=== PATIENT | male | born 1950 | race Hispanic/Latino ===

== ENCOUNTER 2020-01-27 15:08 | Inpatient (IN) | payer OTHER, MEDICARE ==
[~2020-01-27] VITALS: Ht 177.8 cm; Wt 115.2 kg
--- OUTSIDE RECORDS SUMMARY | 2020-01-27 15:11 | XMS REPORT | Summary of Care ---
Author Author [facility] Outpatient Imaging - [facility] Organization [facility] Outpatient Imaging - [facility] Address Unknown Phone Unavailable Encounter HQ Patir_jacki(FIN) [id number] Date(s): 04/24/17 - 04/24/17 [facility] Outpatient Imaging - [address], [address] [place] [address] [phone] Discharge Disposition: Home or Self Care Attending Physician: Leah Henderson MD Vital Signs No data available for this section Problem List No data available for this section Allergies, Adverse Reactions, Alerts No data available for this section Medications No data available for this section Results No data available for this section Immunizations No data available for this section Procedures No data available for this section Social History No data available for this section Assessment and Plan No data available for this section
--- OUTSIDE RECORDS SUMMARY | 2020-01-27 15:11 | XMS REPORT | Summary of Care ---
Author Author [facility] Organization [facility] Address Unknown Phone Unavailable Encounter GIOVANNI Caceres(RAINA) [id number] Date(s): 05/04/17 - 05/04/17 [facility] [address], [address] [place] [address]- Discharge Disposition: Home or Self Care Attending Physician: Vivian Joseph MD Referring Physician: Vivian Joseph MD Vital Signs Most recent to 1 oldest [Reference Range]: Height 177.8 cm (05/04/17 12:23 PM) Temperature Oral 97.0 DegF [96.4-99.1 DegF] (05/04/17 12:23 PM) Blood Pressure 146/71 mmHg [90-140/60-90 mmHg] *HI* (05/04/17 12:23 PM) Respiratory Rate 17 BRMIN [14-20 BRMIN] (05/04/17 12:23 PM) Peripheral Pulse 46 bpm Rate [60-100 bpm] *LOW* (05/04/17 12:23 PM) Weight 100.455 kg (05/04/17 12:23 PM) Body Mass Index 31.78 m2 (05/04/17 12:23 PM) Problem List No data available for this section Allergies, Adverse Reactions, Alerts Substance Reaction Severity Status NKDA Active Medications diltiazem 300 mg/24 hours oral capsule, extended release 300 mg = 1 cap, PO, Daily, # 30 cap, 0 Refill(s) Start Date: 05/04/17 Status: Ordered tamsulosin 0.4 mg oral capsule 0.4 mg = 1 cap, PO, Daily, # 30 cap, 0 Refill(s) Start Date: 05/04/17 Status: Ordered valsartan 320 mg oral tablet 320 mg = 1 tab, PO, Daily, # 30 tab, 0 Refill(s) Start Date: 05/04/17 Status: Ordered Vitamin B12 500 mcg oral tablet 500 microgram = 1 tab, PO, Daily, # 30 tab, 0 Refill(s) Start Date: 05/04/17 Status: Ordered Results No data available for this section Immunizations Given and Recorded Vaccine Date Status Refusal Reason influenza virus vaccine, live, trivalent 06/18/16 Recorded pneumococcal 23-valent vaccine 06/18/16 Recorde d Procedures No data available for this section Social History Social History Type Response Smoking Status Former smoker; Type: Cigare ttes; Started at age: 19.0; Stopped at age: 30; Exposure to Tobacco Smoke None; Cigaret te Smoking Last 365 Days No; Reg Smoking Cessation Counseling No Assessment and Plan No data available for this section
--- OUTSIDE RECORDS SUMMARY | 2020-01-27 15:11 | XMS REPORT | Clinical Summary ---
Author Author [facility] Organization [facility] Address Unknown Phone Unavailable Care Team Providers Care Log Tumbler Name Role Phone Asked, No Pcp PCP Unavailable Allergies Not on File Medications Not on file Active Problems Not on file Encounters Care Team Description Date Type Specialty Brenda Arcos MD Routine medical exam (Primary Dx) 04/16/2019 [facility] after 01/26/2019 Immunizations Name Administration Dates Next Due FLUCELVAX QUAD PF 06/28/2018 Social History Date Tobacco Use Types Packs/Day Years Used Never Assessed Sex Assigned at Date Recorded Not on file Industry Job Start Date Occupation Not on file Not on file Not on file Travel End Travel History Travel Start No recent travel history available. Last Filed Vital Signs Not on file Plan of Treatment Health Maintenance Due Date Last Done Comments COLONOSCOPY SCREENING 1999 SHINGLES VACCINES (#1) 1999 65+ PNEUMOCOCCAL VACCINE 2014 (1 of 2 - PCV13) INFLUENZA VACCINE 04/18/2020 06/28/2018 Procedures Comments Procedure Name Priority Date/Time Associated Diag nosis WELLNESS EVENT QFT Routine 04/16/2019 Routine med ical exam 12:59 PM CDT after 01/26/2019 Results * Wellness event QFT (04/16/2019 12:59 PM CDT) Quantiferon TB Negative Negative [facility] gold plus Comment: Interpretive Data: Quantiferon TB Gold Plus Interferon gamma release is measured for specimens from each of the four collection tubes. A qualitative result (Negative, Positive, or Indeterminate) is based on interpretation of the four values, NIL, MITOGEN minus NIL (MITOGEN-NIL), TB1 minus NIL (TB1-NIL), and TB2 minus NIL (TB2-NIL). The NIL value represents nonspecific reactivity produced by the patient specimen. The MITOGEN-NIL value serves as the positive control for the patient specimen, demonstrating successful lymphocyte activity. The TB1-NIL tube specifically detects CD4+ lymphocyte reactivity, specifically stimulated by the TB1 antigens. The TB2-NIL tube detects both CD4+ and CD8+ lymphocyte reactivity, stimulated by TB2 antigens. An overall Negative result does not completely rule out TB infection. A false-positive result in the absence of other clinical evidence of TB infection is not uncommon. Refer to: Updated Guidelines for Using Interferon Gamma Release Assays to Detect Mycobacterium tuberculosis Infection --- [place], 2010 (http://www.cdc.gov/mmwr/previ ew/mmwrhtml/ee1474a2.htm), for more information concerning test performance in low-prevalence populations and use in occupational screening. Quantiferon 0.04 0.00 - 0.34 IU/mL HM [facility] plus TB1 minus NIL Quantiferon 0.05 0.00 - 0.34 IU/mL [facility] plus TB2 minus NIL Quantiferon 8.05 IU/mL [facility] mitogen minus NIL Quantiferon NIL 0.09 IU/mL [facility] B Comment: Performed by [facility], [address] [place] [id number] [email or web address], Joe Deras MD - Lab. Director Specimen Serum Performing Organization Address City/State/[facility] Ph one Number [facility] [address] [place] [address] [facility] [address] [place] [address] after 01/26/2019 Insurance Type Payer Benefit Subscriber ID Effective Phone Address Plan / Dates Group O CIGNA CIGNA OPEN xxxxxxxxxxx 2016-P ACCESS/NET resent WORK
--- OUTSIDE RECORDS SUMMARY | 2020-01-27 15:11 | XMS REPORT | Summary of Care ---
Author Author [facility] Outpatient Imaging - [facility] Organization [facility] Outpatient Imaging - [facility] Address Unknown Phone Unavailable Encounter HQ Morris(FIN) [id number] Date(s): 07/04/19 - 07/04/19 [facility] Outpatient Imaging [address], [address] [place], [place] [address] [phone] Discharge Disposition: Home or Self Care Attending Physician: Ochoa Rubio DO Referring Physician: Ochoa Rubio DO Vital Signs No data available for this section Problem List No data available for this section Allergies, Adverse Reactions, Alerts No Known Medication Allergies Medications No data available for this section Results No data available for this section Immunizations Given and Recorded Vaccine Date Status Refusal Reason pneumococcal 23-valent vaccine 06/18/16 Recorde d influenza virus vaccine, live, trivalent 06/18/16 Recorded Procedures No data available for this section Social History Social History Type Response Smoking Status Former smoker; Type: Cigare ttes; Exposure to Tobacco Smoke None; Cigarette Smoking Last 365 Days No; Reg Smoking C essation Counseling No; Started at age: 19.0; Stopped at age: 30; entered on: 05/04/17 Assessment and Plan No data available for this section
--- OUTSIDE RECORDS SUMMARY | 2020-01-27 15:11 | XMS REPORT ---
Author Author [facility] Organization Unknown Address Unknown Phone Care Team Providers Care Refrigeration Repair Supervisor Name Role Phone Marquita De La O PP Reason for Referral No Reason for Referral was given. History of Present Illness No HPI available. Problems * Normal Routine History And Physical Adult (V70.0); (Active) Medication * Diovan 160 MG Oral Tablet (Active) * Tamsulosin HCl 0.4 MG Oral Capsule (Active) * Diltiazem HCl ER Beads 360 MG Oral Capsule Extended Release 24 Hour (Active) * Cyanocobalamin SOLN (Active) * Vitamin B-12 1000 MCG Oral Tablet (Active) Allergies and Adverse Reactions * No Known Drug Allergies (Active) Past Medical History * History of Hypertension (401.9); (Resolved) * History of Fatigue (780.79); (Resolved) * History of Sleep Apnea (780.57); (Resolved) * History of Difficulty Breathing (Dyspnea) (786.09); (Resolved) * History of Benign Prostatic Hypertrophy (600.00); (Resolved) Immunization * Tdap Family History * Maternal history of Diabetes Mellitus (V18.0); (Active) * Maternal history of Hypertension (V17.49); (Active) Social History * Marital History - Currently (Active) * Never A Smoker (Active) * Never Drank Alcohol (Active) * Never Used Drugs (Active) Advance Directives * No Advance Directives available. Encounters * AUDIT 06/14/2013 * ECL, Provider: ANASTASIYA COLLAZO, Status: Wilmer, Time: 9:45 AM 06/17/2013
--- OUTSIDE RECORDS SUMMARY | 2020-01-27 15:11 | XMS REPORT | Continuity of Care Document ---
Author Author [facility] Organization [facility] Address Unknown Phone Unavailable Care Team Providers Care Double Backer Name Role Phone [facility] Information Stream Unavailable Un available Problems Problem Status Onset Date Classification Date Reported Comments Source Abnormal radiologic findings on diagnost ic imaging of unspecified kidney 01/02/2018 05/03/2018 [facility] PULMONARY ARTERY ABNORMALITY A ctive 04/26/2017 [facility] M25.522 - PAIN IN LEFT ELBOW A ctive 03/16/2016 [facility] Medications Medication Details Route Status Patient Instructions Ordering Provider Order Date Source tamsulosin 0.4 mg oral capsule 0.4 mg = 1 cap, PO, Daily, # 30 cap, 0 Refill(s) Active 05/04/2017 [facility] nter valsartan 320 mg oral tablet 3 20 mg = 1 tab, PO, Daily, # 30 tab, 0 Refill(s) Active 05/04/2017 [facility] diltiazem 300 mg/24 hours oral capsule, extended release 300 mg = 1 cap, PO, Daily, # 30 cap, 0 Refill(s) Active 05/04/2017 [facility] nter Vitamin B12 500 mcg oral tablet 500 microgram = 1 tab, PO, Daily, # 30 tab, 0 Refill(s) Active 05/04/2017 [facility] nter Diovan 160 MG Oral Tablet (Ac tive) Active [facility] Tamsulosin HCl 0.4 MG Oral Capsule (Active) Active [facility] Diltiazem HCl ER Beads 360 MG Oral Capsu le Extended Release 24 Hour (Active) A ctive [facility] Cyanocobalamin SOLN (Active) Active [facility] Vitamin B-12 1000 MCG Oral Tablet (Active) Active [facility] Allergies, Adverse Reactions, Alerts Substance Category Reaction Severity Reaction type Status Date Reported Comments Source No Known Drug Allergies drug a llergy drug aller gy Active [facility] No Known Medication Allergies Assertion Drug [facility]er gy [facility] [place] Immunizations Immunization Date Given Site Status Last Updated Comments Source pneumococcal 23-valent vaccine 06/18/2016 completed [facility] [place] [facility], [facility] P[facility] [place] influenza virus vaccine, live, trivalent 06/18/2016 completed Fredy [facility], [facility] [place] Tdap completed [facility] Results No Data Provided for This Section Pathology Reports No Data Provided for This Section Diagnostic Reports Report Value Date Source Facial bones complete DX EXAM: XR FACIAL BONE SERIES 4 VIEWS DATE: 07/04/2019 15:21 CDT INDICATION: - S00.83XA Contusion of other part of head, initial encounter COMPARISON: None available TECHNIQUE: Facial bone series -- 4 views FINDINGS: No displaced facial bone fractures identified. No fluid identified within the paranasal sinuses. Mild rightward nasal septal deviation noted. Soft tissues are unremarkable. IMPRESSION: No displaced facial fractures identified allowing for limitations of radiography. [facility] DX EXAM: XR LEFT HAND 3 VIEWS DATE: 07/04/2019 15:19 CDT INDICATION: - pain of left hand COMPARISON: None available TECHNIQUE: PA, lateral and oblique radiographs of the left hand FINDINGS: Diffuse osteopenia noted. Mildly impacted intra-articular fracture at the base of the 5th metacarpal noted. Joint alignment is normal. Ulnar-sided soft tissue swelling about the 5th metacarpal noted. IMPRESSION: Mildly impacted intra-articular fracture at the base of the 5th metacarpal. SOLARIS ADMINISTRATOR Morgan of Dr Ochoa Rubio notified 07/04/2019 at 1600 hours. Ulnar-sided soft tissue swelling of the hand. 07/04/2019 [facility] Retroperitoneal Complete US EX AM: US RENAL DATE: 12/25/2017 11:46 AM CDT INDICATION: - Abnormal radiologic find on diagnostic imaging of unspecified kidney ADDITIONAL INFORMATION: None. COMPARISON: CT chest 04/24/2017 TECHNIQUE: Multiplanar grayscale and color Doppler ultrasound of the kidneys and urinary bladder. FINDINGS: Right kidney: Hydronephrosis: None. Size: 10.9 cm. Echogenicity: Normal. Calculi/calcification: Echogenic foci within the interpolar region of the right kidney measures 0.8 cm. Cysts: Several renal cysts. A cystic structure within the interpolar region could represent a mildly dilated calyx or renal cyst measuring 1 cm. No internal vascularity. Right upper pole simple appearing cyst measures 1.2 cm. No internal vascularity. Masses: None. Left kidney: Hydronephrosis: None. Size: 11.6 cm. Echogenicity: Normal. Calculi/calcification: Echogenic focus within the left inferior pole measures 0.6 cm. Cysts: A few cysts identified. Left interpolar lobulated cyst measures 4 x 4.6 x 3.9 cm. No internal vascularity. Interpolar cyst measures 1.4 cm. No internal vascularity. Masses: None. Bladder: No dependent debris. Bilateral ureteral jets identified, indicating patency of the uterovesical junctions. Prevoid bladder measures 8.6 x 7.2 x 8.3 cm, volume of 359 mL. Post void bladder measures 8.1 x 6.8 x 8.2 cm, volume of 235.1 mL Prostate: Measures 7.3 x 5 x 5.2 cm, volume of 9 9 mL, lobulated and enlarged. There is indentation upon the bladder base. Abdominal aorta and IVC: Visualized portions are within normal limits in caliber. Size: Incidental note of gallstones. No wall thickening or significant pericholecystic fluid. IMPRESSION: 1. Bilateral echogenic foci could repre sent nonobstructive renal stones. No hydronephrosis. 2. Bilateral renal cysts without music industry internship al vascularity. 3. Enlarged prostate with indentation u uzma the bladder base. Significant postvoid residue could be secondary to chronic outlet obstruction from enlarged prostate. 4. Cholelithiasis. 12/25/2017 [facility] w contrast CT EXAM: CT CHEST WITH CONTRAST DATE: 04/24/2017 INDICATION: - R93.8 Abnormal findings on diagnostic imaging of other specified body structures TECHNIQUE: Volumetric CT acquisition of the chest, following intravenous contrast. Axial, sagittal and coronal reconstructions. Axial MIP images were reformatted at the scanner workstation. IV Contrast: 100 mL of Omnipaque 300. DLP: 806.42 mGy-cm COMPARISON: Chest radiograph dated 04/10/2017. FINDINGS: Lines and Tubes: None. Heart and Great Vessels: Cardiothoracic ratio measures 14.3/29.2 cm. There is no pleural or pericardial effusion. The pulmonary trunk measures 3.7 cm, the right and left pulmonary arteries measure 2.7 and 2.4 cm respectively. Lymph Nodes: No hilar, mediastinal, axillary or internal mammary lymphadenopathy. Lungs: Clear, without consolidation or nodules. Trachea and central bronchi: Unremarkable. Pleura: No pleural effusion or pneumothorax. Upper abdomen: Low-attenuation lesions in both kidneys. In the upper pole of the left kidney the lesion measures 1 cm. It has an internal attenuation of 23 Hounsfield units. The one in the left renal hilum measures 2.8 x 3 cm in size and has an internal attenuation of 11 Hounsfield units. The one in the right upper pole is exophytic and measures 2.8 Hounsfield units of internal attenuation. Renal ultrasound is recommended to ensure that these are simple cysts. Bones and Soft Tissues: Mild degenerative changes of the midthoracic spine are noted. No destructive skeletal lesion is identified. IMPRESSION: 1. No hilar or mediastinal lymphadenopa thy. 2. The pulmonary trunk measures 3.7 cm , the right and left pulmonary arteries measure 2.7 and 2.4 cm respectively. 3. The lungs are clear. 4. Low-attenuation lesions in both kidn eys. Renal ultrasound is recommended to ensure they are simple cysts. 04/24/2017 [facility] Chest 2 views DX EXAM: XR CHES T 2 VIEWS DATE: 04/10/2017 9:34 AM CDT INDICATION: - R05 Cough COMPARISON: None TECHNIQUE: PA and lateral chest radiographs FINDINGS: No lung parenchymal or pleural abnormalities are seen. The left hilum is full in appearance, especially superior to the left mainstem bronchus. There is tortuosity of the thoracic aorta. Cardiac silhouette is normal in size. No acute bony abnormality is identified. Multilevel spondylosis is seen in the thoracic spine. IMPRESSION: 1. Left-sided hilar fullness which may b e from lymphadenopathy, a prominent left pulmonary artery, or a small left hilar mass. If prior exams cannot confirm long-term stability, CT scanning of the chest with contrast would be recommended for further evaluation and characterization. 2. No lung consolidations or pleural abn ormalities are seen. 04/10/2017 [facility] Elbow 3 views DX EXAM: XR LEFT ELBOW 3 VIEWS DATE: 03/16/2016 11:53 AM CDT INDICATION: M25.522 Pain in left elbow COMPARISON: None TECHNIQUE: AP, lateral and oblique radiographs of the left elbow DISCUSSION: No acute fracture or malalignment is identified. No joint space narrowing or osteophytes. Small olecranon enthesophyte. Soft tissue swelling along the medial and posterior elbow. No elbow joint fluid. IMPRESSION: Soft tissue swelling along the medial and posterior elbow without acute bone abnormality. 03/16/2016 [facility] Consultation Notes No Data Provided for This Section Discharge Summaries No Data Provided for This Section History and Physicals No Data Provided for This Section Vital Signs Vital Sign Value Date Comments Source Heart Rate 46 05/04/2017 [facility] Respitory Rate 17 05/04/2017 [facility] Temperature Oral (F) 97.0 F 05/04/2017 [facility] BMI Calculated 31.78 05/04/2017 [facility] Weight 100.455 05/04/2017 [facility] Height 177.8 cm 05/04/2017 [facility] Systolic (mm Hg) 146 05/04/2017 [facility] Diastolic (mm Hg) 71 05/04/2017 [facility] Encounters Location Location Details Encounter Type Encounter Number Reason For Visit Attending Provider ADM Date DC Date Status Source AUDIT [id number] 06/14/2013 06/14/2013 [facility] ECL, Provi kolby: SCOTTY RUANO, Status: Pen, Time: 9:45 AM [id number] 06/17/20 13 06/14/2013 [facility] Outpatient Imaging - [place] [facility] [id number] MALCOLM LOPEZ 03/16/2016 03/17/2016 [facility] Outpatient Imaging - [place] [facility] [id number] Scotty Ruano 04/10/2017 04/11/2017 [facility] Outpatient Imaging - [place] [facility] [id number] Leah Henderson 04/24/2017 04/25/2017 [facility] Outpatient [id number] Vivian Joseph 05/04/2017 05/05/2017 [facility] Outpatient Imaging - [place] [facility] [id number] Scotty Ruano 12/25/2017 12/26/2017 [facility] Outpatient Imaging - [place] [facility] [id number] Ochoa Rubio 07/04/2019 07/05/2019 [facility] Procedures No Data Provided for This Section Assessment and Plan No Data Provided for This Section Plan of Care No Data Provided for This Section Social History Social History Date Source Social History TypeResponse Smoking Status Former smoker; Type: Cigarettes; Exposure to Tobacco Smoke None; Cigarette Smoking Last 365 Days No; Reg Smoking Cessation Counseling No; Started at age: 19.0; Stopped at age: 30; entered on: 05/04/17 05/04/2017 [facility] Social History TypeResponse Smoking Status Former smoker; Type: Cigarettes; Started at age: 19.0; Stopped at age: 30; Exposure to Tobacco Smoke None; Cigarette Smoking Last 365 Days No; Reg Smoking Cessation Counseling No 05/04/2017 [facility] Marital History - Currently (Active) Never A Smoker (Active) Never Drank Alcohol (Active) Never Used Drugs (Active) 06/14/2013 [facility] Family History Value Date S ource Maternal history of Diabetes Mellitus (V 18.0); (Active) Maternal history of Hypertension (V17.49); (Active) 06/14/2013 [facility] Advance Directives Order Name Results Value Date Source Advance Directives Advance Dir ectives No Advance Directives available. 06/14/2013 [facility] Functional Status No Data Provided for This Section
--- OUTSIDE RECORDS SUMMARY | 2020-01-27 15:12 | XMS REPORT | Summary of Care ---
Author Author [facility] Outpatient Imaging - [facility] Organization [facility] Outpatient Imaging [facility] Address Unknown Phone Unavailable Encounter HQ Patir_jacki(FIN) [id number] Date(s): 12/25/17 - 12/25/17 [facility] Outpatient Imaging [address], [address] [place] [phone] Encounter Diagnosis Abnormal radiologic findings on diagnostic imaging of unspecified kidney (Final) - 01/01/18 Discharge Disposition: Home or Self Care Attending Physician: Scotty Ruano MD Vital Signs No data available for this section Problem List No data available for this section Allergies, Adverse Reactions, Alerts Substance Reaction Severity Status NKDA Active Medications No data available for this section [...]
--- OUTSIDE RECORDS SUMMARY | 2020-01-27 15:12 | XMS REPORT | Summary of Care ---
Author Author [facility] Outpatient Imaging - [facility] Organization [facility] Outpatient Imaging [facility] Address Unknown Phone Unavailable Encounter HQ Calistantr_jacki(FIN) [id number] Date(s): 12/25/17 - 12/25/17 [facility] Outpatient Imaging [address], [address] [place] [address] [phone] Encounter Diagnosis Abnormal radiologic findings on diagnostic [...]
--- OUTSIDE RECORDS SUMMARY | 2020-01-27 15:12 | XMS REPORT | Summary of Care ---
Author Author [facility] Outpatient Imaging - [facility] Address Unknown Phone Unavailable Encounter HQ Patir_jacki(FIN) [id number] Date(s): 03/16/16 - 03/16/16 [facility] Outpatient Imaging - [place] [address], [address] [place] [phone] Discharge Disposition: Home Attending Physician: MALCOLM LOPEZ Vital Signs No data available for this [...]
[2020-01-27] MEDS ORDERED: SODIUM CHLORIDE 0.9% 1000ML 1,000 ML IV STA (15:44)
[2020-01-27 16:20] LABS: BASOPHILS % 0.1 % (0.0-1.0); HEMATOCRIT 42.6 % (38.2-49.6); HEMOGLOBIN 14.5 g/dL (14.0-18.0); LYMPHOCYTES # (AUTO) 0.5 (1.0-3.2); LYMPHOCYTES % 5.2 % (18.0-39.1); MEAN CORPUSCULAR HEMOGLOBIN 31.8 pg (28-32); MEAN CORPUSCULAR VOLUME 93.4 fL (81-99); MONOCYTES # (AUTO) 0.7 (0.2-0.8); MONOCYTES % 6.4 % (4.4-11.3); NEUTROPHILS # (AUTO) 9.2 (2.1-6.9); NEUTROPHILS % 87.7 % (38.7-80.0); PLATELET COUNT 204 x10e3/uL (140-360); RED BLOOD COUNT 4.56 x10e6/uL (4.3-5.7); RED CELL DISTRIBUTION WIDTH 12.8 % (11.7-14.4)
[2020-01-27 16:33] LABS: INR 0.99; PROTHROMBIN TIME 13.7 seconds (11.9-14.5)
[2020-01-27 16:34] LABS: PARTIAL THROMBOPLASTIN TIME 30.3 seconds (23.8-35.5)
[2020-01-27 16:41] LABS: ALANINE AMINOTRANSFERASE 30 IU/L (0-55); ALBUMIN 3.3 g/dL (3.5-5.0); ALBUMIN/GLOBULIN RATIO 0.7 (0.8-2.0); ALKALINE PHOSPHATASE 63 IU/L (40-150); ANION GAP 16.1 mmol/L (8-16); BLOOD UREA NITROGEN 25 mg/dL (7-26); BUN/CREATININE RATIO 23 (6-25); CALCIUM 9.2 mg/dL (8.4-10.2); CARBON DIOXIDE 23 mmol/L (22-29); CHLORIDE 103 mmol/L (98-107); CREATINE KINASE 157 IU/L (30-200); CREATININE, SERUM 1.11 mg/dL (0.72-1.25); EST GLOMERULAR FILTRATION RATE > 60 ML/MIN (60-); GLUCOSE 85 mg/dL (74-118); POTASSIUM 4.1 mmol/L (3.5-5.1); SODIUM 138 mmol/L (136-145)
--- NOTE | 2020-01-27 17:18 | NUR ---
Viktoria Beatty phone number [phone] call when moved upstairs
--- NOTE | 2020-01-27 17:25 | Diagnostic Imaging Report ---
EXAMINATION: CHEST SINGLE (PORTABLE) INDICATION: ^Y ^ERMD ORDER ^[id number] ^1700 ^Y COMPARISON: None FINDINGS: AP view TUBES and LINES: None. LUNGS: Limited by body habitus and low lung volumes. Bilateral airspace opacities. PLEURA: No significant pleural effusion or pneumothorax. HEART AND MEDIASTINUM: The cardiomediastinal silhouette is enlarged. BONES AND SOFT TISSUES: No acute osseous lesion. Soft tissues are unremarkable. UPPER ABDOMEN: No free air under the diaphragm. IMPRESSION: Bilateral airspace opacities, representing edema and/or pneumonia. Enlarged cardiomediastinal silhouette, accentuated by low lung volumes and technique. Signed by: Dr. Neil Christensen MD on 01/27/2020 5:22 PM
[2020-01-27] MEDS ORDERED: ONDANSETRON HCL INJ 2MG/ML 2ML 2 MG/ML VIAL IV PRN (17:30)
[2020-01-27] MEDS: SODIUM CHLORIDE 0.9% 1000ML 1,000 ML IV SCH ×2 (18:04→23:59)
--- OUTSIDE RECORDS SUMMARY | 2020-01-27 18:11 | XMS REPORT | Clinical Summary ---
Author Author [facility] Organization [facility] Address Unknown Phone Unavailable Care Team Providers Care Director Critical Care Name Role Phone Asked, No Pcp PCP [...] tuberculosis Infection --- [place], 2010 (http://www.cdc.gov/mmwr/previ ew/mmwrhtml/wm7224a1.htm), for more information concerning test performance in low-prevalence populations and use in occupational screening. Quantiferon 0.04 0.00 - 0.34 IU/mL [facility] plus TB1 minus NIL Quantiferon 0.05 0.00 - 0.34 IU/mL [facility] plus TB2 minus NIL Quantiferon 8.05 IU/mL [facility] mitogen minus NIL Quantiferon NIL 0.09 IU/mL [facility] Comment: Performed by [facility], [address] [place] [id number] [email or web address] ([email or web address]), Joe Deras MD - Lab. Director Specimen Serum Performing Organization Address City/State/[facility] Ph one Number [facility] [address] [place] [address] [facility] [address] [place] [address] after 01/26/2019 Insurance Type Payer Benefit Subscriber ID Effective Phone Address Plan / Dates Group O CIGNA CIGNA OPEN xxxxxxxxxxx 2016-P ACCESS/NET resent WORK
[2020-01-27 18:12] LABS: CLARITY,URINE SL CLOUDY (CLEAR); COLOR,URINE YELLOW (YELLOW)
--- OUTSIDE RECORDS SUMMARY | 2020-01-27 18:12 | XMS REPORT ---
Author Author [facility] t Organization [facility] Address Unknown Phone Unavailable Care Team Providers Care Senior Technical Project Manager Name Role Phone Rolly BEATTY Unavailable Unavailable Problems This patient has no known problems. Allergies, Adverse Reactions, Alerts This patient has no known allergies or adverse reactions. Medications This patient has no known medications. Results Test Description Test Time Test Comments Text Results Atomic Results Result Comments CHEST SINGLE (PORTABLE) 2020-01-27 17:21:00 [place] [address] Patient Name: ROS GOTTLIEB JR MR #: [id number] : 1950 Age/Sex: 69/M Req #: [id number] Adm Physician: Ordered by: CLAUDIA WEBBER METER REPAIRER HELPER Report #: [id number] Location: ER Room/Bed: Procedure: [id number] DX/CHEST SINGLE (PORTABLE) Exam Date: 01/27/20 Exam Time: 1700 REPORT STATUS: Signed EXAMINATION: CHEST SINGLE (PORTABLE) INDICATION: Y ERMD ORDER [id number] 1700 Y COMPARISON: None FINDINGS: AP view TUBES and LINES: None. LUNGS: Limited by body habitus and low lung volumes. Bilateral airspace opacities. PLEURA: No significant pleural effusion or pneumothorax. HEART AND MEDIASTINUM: The cardiomediastinal silhouette is enlarged. BONES AND SOFT TISSUES: No acute osseous lesion. Soft tissues are unremarkable. UPPER ABDOMEN: No free air under the diaphragm. IMPRESSION: Bilateral airspace opacities, representing edema and/or pneumonia. Enlarged cardiomediastinal silhouette, accentuated by low lung volumes and technique. Signed by: Dr. Neil Cisneros MD on 01/27/2020 5:22 PM Dictated By: NEIL CISNEROS MD 21 Transcribed By: DON on 01/27/201721 COPY TO: CLAUDIA WEBBER NP
--- OUTSIDE RECORDS SUMMARY | 2020-01-27 18:12 | XMS REPORT | Continuity of Care Document ---
Author Author CaptalisROS JR Organization [facility] Address Unknown Phone Unavailable Care Team Providers Care Diamond Wheel Molder Name Role Phone [facility] Information Intio Unavailable Un available Problems Problem Status Onset Date Classification Date Reported Comments Source Abnormal radiologic findings on diagnost ic imaging of unspecified kidney 01/02/2018 05/03/2018 [facility] PULMONARY ARTERY ABNORMALITY A ctive 04/26/2017 [facility] M25.522 - PAIN IN LEFT ELBOW A ctive 03/16/2016 [facility] Medications Medication Details Route Status Patient Instructions Ordering Provider Order Date Source tamsulosin 0.4 mg oral capsule 0.4 mg = 1 cap, PO, Daily, # 30 cap, 0 Refill(s) Active 05/04/2017 [facility] valsartan 320 mg oral tablet 3 20 mg = 1 tab, PO, Daily, # 30 tab, 0 Refill(s) Active 05/04/2017 [facility] diltiazem 300 mg/24 hours oral capsule, extended release 300 mg = 1 cap, PO, Daily, # 30 cap, 0 Refill(s) Active 05/04/2017 [facility] Vitamin B12 500 mcg oral tablet 500 microgram = 1 tab, PO, Daily, # 30 tab, 0 Refill(s) Active 05/04/2017 [facility] nter Diovan 160 MG Oral Tablet (Ac tive) Active [facility] Tamsulosin HCl 0.4 MG Oral Capsule (Active) Active [facility] Diltiazem HCl ER Beads 360 MG Oral Capsu le Extended Release 24 Hour (Active) A ctive [facility] Cyanocobalamin SOLN (Active) Active [facility] Vitamin B-12 1000 MCG Oral Tablet (Active) Active [facility] Allergies, Adverse Reactions, Alerts Substance Category Reaction Severity Reaction type Status Date Reported Comments Source No Known Drug Allergies drug a llergy drug aller gy Active [facility] No Known Medication Allergies Assertion [facility] [place] Immunizations Immunization Date Given Site Status Last Updated Comments Source pneumococcal 23-valent vaccine 06/18/2016 completed [place] [facility], O PID [place] influenza virus vaccine, live, trivalent 06/18/2016 completed Fredy [facility], OPIWalt [place] Tdap completed [facility] Results No Data Provided for This [...] identified allowing for limitations of radiography. [facility]: XR LEFT [...] at the base of the 5th metacarpal. 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 Ulnar-sided soft tissue swelling of the hand. 07/04/2019 [facility] Retroperitoneal Complete US EX AM: US RENAL [...] No hydronephrosis. 2. Bilateral renal cysts without culinary intern al vascularity. 3. Enlarged prostate with indentation u uzma the bladder base. Significant postvoid residue could be secondary to chronic outlet obstruction from enlarged prostate. 4. Cholelithiasis. 12/25/2017 [facility] w contrast CT EXAM: CT CHEST WITH [...] to ensure they are simple cysts. 04/24/2017 [facility] Chest 2 views DX EXAM: XR CHES [...] or pleural abn ormalities are seen. 04/10/2017 [facility] Elbow 3 views DX EXAM: XR LEFT [...] posterior elbow without acute bone abnormality. 03/16/2016 [facility] Consultation Notes No Data Provided for This Section Discharge Summaries No Data Provided for This Section History and Physicals No Data Provided for This Section Vital Signs Vital Sign Value Date Comments Source Heart Rate 46 05/04/2017 [facility] Respitory Rate 17 05/04/2017 [facility] Temperature Oral (F) 97.0 F 05/04/2017 [facility] BMI Calculated 31.78 05/04/2017 [facility] Weight 100.455 05/04/2017 [facility] Height 177.8 cm 05/04/2017 [facility] Systolic (mm Hg) 146 05/04/2017 [facility] Diastolic (mm Hg) 71 05/04/2017 [facility] Encounters Location Location Details Encounter Type Encounter Number Reason For Visit Attending Provider ADM Date DC Date Status Source AUDIT [id number] 06/14/2013 06/14/2013 [facility] ECL, Provi kolby: SCOTTY RUANO, Status: Pen, Time: 9:45 AM [id number] 06/17/20 13 06/14/2013 [facility] [address] [facility] [place] [facility] [id number] MALCOLM LOPEZ 03/16/2016 03/17/2016 [facility] [place] [facility] [id number] Scotty Ruano 04/10/2017 04/11/2017 [facility] [place] [facility] [id number] Leah Henderson 04/24/2017 04/25/2017 [facility] [id number] Vivian Joseph 05/04/2017 05/05/2017 [facility] [place] [facility] [id number] 03 Scotty Ruano 12/25/2017 12/26/2017 [facility] [place] [facility] [id number] Ochoa Rubio 07/04/2019 07/05/2019 [facility] Procedures No Data Provided for This Section [...] No; Reg Smoking Cessation Counseling No 05/04/2017 [facility] Marital History - Currently (Active) Never A Smoker (Active) Never Drank Alcohol (Active) Never Used Drugs (Active) 06/14/2013 [facility] Family History Value Date S ource Maternal history of Diabetes Mellitus (V 18.0); (Active) Maternal history of Hypertension (V17.49); (Active) 06/14/2013 [facility] Advance Directives Order Name Results Value Date Source Advance Directives Advance Dir ectives No Advance Directives available. 06/14/2013 [facility] Functional Status No Data Provided for This Section
[2020-01-27 18:13] LABS: BILIRUBIN,URINE NEGATIVE (NEGATIVE); KETONES,URINE TRACE (NEGATIVE); LEUKOCYTE ESTERASE ,URINE NEGATIVE (NEGATIVE); NITRITE,URINE NEGATIVE (NEGATIVE); PROTEIN,URINE DIPSTICK 2+ (NEGATIVE); URINE UROBILINOGEN 1 mg/dL (0.2 - 1)
[2020-01-27 18:15] LABS: AMORPHOUS SEDIMENT,URINE MODERATE (FEW); BACTERIA,URINE MODERATE /HPF; EPITHELIAL CELLS,URINE FEW /LPF
--- NOTE | 2020-01-27 19:45 | NUR ---
PERMISSION GIVEN BY LEON COLLINS TO PUT PATIENT ON CONTINUOUS PULSE OX WHEN TRANSFERRED TO THE FLOOR
[2020-01-27 21:44] VITALS: BP 167/76
[2020-01-27 22:11] VITALS: BP 167/76
[2020-01-27 22:51] VITALS: BP 167/76
--- NOTE | 2020-01-27 23:18 | NUR ---
lab contacted me in person to give COVID results, patient is positive
--- NOTE | 2020-01-27 23:30 | NUR ---
FLOOR SCRAPER colin contact via telephone, positive COVID result given verbally to FLOOR SCRAPER, also advised about patient blood pressure, 179/80, updated with patient home meds, ordered to give hydralazine 10mg IV Q3H for SBP>150, and to continue home meds
[2020-01-27 23:50] VITALS: BP 137/67
--- NOTE | 2020-01-27 23:55 | NUR ---
patient koby contact via telephone with patient verbal consent, made aware of COVID result, advised that will call her when he awakens
[2020-01-28] VITALS (14 sets, daily range): BP systolic 105–191; BP diastolic 51–85
[2020-01-28] MEDS ORDERED: HYDRALAZINE HCL 20 MG/ML VIAL IV PRN
--- NOTE | 2020-01-28 02:22 | NUR ---
patient blood pressure now 191/85, PRN medication givens ordered Q3H, fluids temporarily decreased r/t blood pressure, patient wanted to walk to bathroom, refuse BSC, taken with nasal cannula in place to bathroom,standby assistance given, able to have BM, no diarrhea noted, foam moderate stool, placed back in bed, call light within reach
[2020-01-28 02:30] LABS: CREATINE KINASE MB 0.7 ng/mL (0-5.0)
--- NOTE | 2020-01-28 02:41 | NUR ---
PER HS, PHYSICIAN CONSULT ENTERED FOR DR. LARA
[2020-01-28] MEDS: HYDRALAZINE HCL 20 MG/ML VIAL IV PRN ×2 (03:20→22:04)
--- NOTE | 2020-01-28 04:14 | NUR ---
labs drawn by this nurse, using aseptic technique, pt tolerated well, pressure held after, no bleeding noted, skin intact, pt remains on BSC, asking to stay on BCS at this time, "I have to keep peeing so I just want to sit her awhile"
[2020-01-28 04:28] LABS: BASOPHILS % 0.1 % (0.0-1.0); HEMATOCRIT 40.6 % (38.2-49.6); LYMPHOCYTES # (AUTO) 0.8 (1.0-3.2); LYMPHOCYTES % 5.5 % (18.0-39.1); MEAN CORPUSCULAR HEMOGLOBIN 31.9 pg (28-32); MEAN CORPUSCULAR HGB CONC 34.5 g/dL (31-35); MEAN CORPUSCULAR VOLUME 92.5 fL (81-99); MONOCYTES # (AUTO) 0.6 (0.2-0.8); NEUTROPHILS # (AUTO) 12.2 (2.1-6.9); NEUTROPHILS % 89.2 % (38.7-80.0); PLATELET COUNT 199 x10e3/uL (140-360); RED BLOOD COUNT 4.39 x10e6/uL (4.3-5.7); RED CELL DISTRIBUTION WIDTH 12.8 % (11.7-14.4)
[2020-01-28 04:45] LABS: ANION GAP 16.8 mmol/L (8-16); BLOOD UREA NITROGEN 20 mg/dL (7-26); BUN/CREATININE RATIO 21 (6-25); CALCIUM 8.6 mg/dL (8.4-10.2); CARBON DIOXIDE 18 mmol/L (22-29); CHLORIDE 106 mmol/L (98-107); CREATININE, SERUM 0.94 mg/dL (0.72-1.25); EST GLOMERULAR FILTRATION RATE > 60 ML/MIN (60-); GLUCOSE 109 mg/dL (74-118); POTASSIUM 3.8 mmol/L (3.5-5.1); SODIUM 137 mmol/L (136-145)
[2020-01-28] MEDS ORDERED: MEDROL4 MG PO (06:17)
[2020-01-28] MEDS ORDERED: VITAMIN B-121000 MC1 PO (06:17)
[2020-01-28] MEDS ORDERED: BENICAR20 MG PO (06:17)
[2020-01-28] MEDS ORDERED: DILTIAZEM ER300 MG PO (06:17)
--- NOTE | 2020-01-28 07:00 | Diagnostic Imaging Report ---
EXAMINATION: CHEST SINGLE (PORTABLE) INDICATION: Shortness of breath COMPARISON: None FINDINGS: AP view TUBES and LINES: None. LUNGS: Patchy airspace disease throughout both lungs. Fullness of the pulmonary vasculature. PLEURA: No pleural effusion or pneumothorax. HEART AND MEDIASTINUM: The cardiomediastinal silhouette is at the upper limit of normal in size. BONES AND SOFT TISSUES: No acute osseous lesion. Soft tissues are unremarkable. UPPER ABDOMEN: No free air under the diaphragm. IMPRESSION: Airspace disease throughout both lungs which may reflect pulmonary edema and/or multifocal pneumonia. Signed by: Prosper Lao MD on 01/28/2020 6:57 AM
--- NOTE | 2020-01-28 07:19 | NUR ---
BSSR GIVEN TO DAYSHIFT RN, PATIENT AWAKE ALERT, NO DISTRESS NOTED, VSS NASAL CANNULA, TELEMETRY IN PLACE, PATIENT DENIES PAIN, CALL LIGHT WITHIN REACH, REMAIN ON CONTACT ISOLATION, COVID(+)
[2020-01-28] MEDS: OLMESARTAN 20 MG TAB PO SCH (08:43)
[2020-01-28] MEDS: DILTIAZEM HCL 180 MG CAP ER PO SCH (08:43)
[2020-01-28] MEDS: DILTIAZEM HCL ER 120 MG CAP PO SCH (08:44)
[2020-01-28] MEDS: CYANOCOBALAMIN 1,000 MCG TAB PO SCH (08:44)
[2020-01-28] MEDS: SODIUM CHLORIDE 0.9% 1000ML 1,000 ML IV SCH (09:00)
[2020-01-28 09:14] LABS: CREATINE KINASE MB 0.9 ng/mL (0-5.0)
[2020-01-28] MEDS ORDERED: ONDANSETRON HCL 4 MG ORAL DISINTEGRATING TAB PO PRN (13:30)
[2020-01-28] MEDS: AZITHROMYCIN 500MG/NS 250 ML 250 ML IV SCH (13:53)
--- NOTE | 2020-01-28 15:24 | Consultation ---
DATE OF CONSULTATION: HISTORY OF PRESENT ILLNESS: This patient is COVID-19, presented on admission. This patient who is a 69-year-old very pleasant gentleman with history of hypertension, comes in with 4-5 days cough, shortness of breath, not feeling well and fever. The cough was dry. He became short of breath, went to Urgent Care Center. He was told to come here. He came to the emergency room where he was evaluated since we are with COVID-19 pandemic, he was very suspicious for it. The patient was placed on isolation. Chest x-ray showed airspace disease throughout both lungs. The patient is being admitted, started on oxygen and IV fluid. He is feeling a bit better. When he first came his white count was 10.4. Today, his white count was 13.7, hemoglobin 14.5, hematocrit 42. Sodium 137, potassium 3.8, creatinine 0.94. Liver enzyme within normal limits. MEDICATION LIST: He is currently on Cardizem, vitamin B12, and Zofran. REVIEW OF SYSTEMS: HEENT: There is no headache, visual changes or hearing changes. GI: There is some nausea. No vomiting. CARDIAC: There is no arrhythmia. NEURO: No seizure activity. SKIN: There are no other rashes. PHYSICAL EXAMINATION: GENERAL: He is currently alert, oriented, does not seem to be in acute distress. VITAL SIGNS: Stable, currently afebrile. HEENT: He is not icteric. NECK: Supple. CHEST: Few crackles bilateral. COR: S1 and S2. No S3, S4, or murmur. ABDOMEN: Soft. Bowel sounds present. EXTREMITIES: No edema. SKIN: No rash. IMPRESSION: 1. COVID-19 present on admission, concerned about a component of bacterial and community-acquired pneumonia. From Infectious Disease point of view, we will put him on Rocephin 2 g daily daily, plan of treatment, 5 days. We will start him on Lovenox 40 subcu q.12, oxygen as needed, IV fluid. We will put him on droplet isolation and told him that he needs to assume that all his family had been infected. He has an elderly mother and , but they have no symptoms at present time. 2. Hypertension. 3. We will follow. MD TORRIE Escoto /[id number]
[2020-01-28] MEDS ORDERED: GUAIFENESIN/CODEINE 10 ML CUP PO PRN (15:30)
[2020-01-28] MEDS: FLUTICASONE PROPIONATE NASAL SPRAY NS SCH (16:10)
[2020-01-28] MEDS: CEFTRIAXONE SOD 2 GM/NS 100 ML 100 ML IV SCH (16:10)
[2020-01-28] MEDS: ENOXAPARIN SOD INJ 40 MG/0.4 ML SYR SC SCH (16:10)
--- NOTE | 2020-01-28 17:15 | Consultation ---
DATE OF CONSULTATION: Pulmonary Critical Care consultation CHIEF COMPLAINT: Cough, fever. HISTORY OF PRESENT ILLNESS: The patient is a 69-year-old man. He has a history of hypertension. He has no prior history of asthma, COPD, or respiratory problems. Over the past week, he has noted some fevers. He has had mild dyspnea as well as some cough. He came to the hospital and was found to have COVID-19. He received intravenous fluids as well as some Tylenol. He feels better, but is still on 4 L of oxygen. PAST MEDICAL HISTORY: 1. Hypertension. 2. Benign prostatic hypertrophy. PAST SURGICAL HISTORY: Noncontributory. SOCIAL HISTORY: The patient has never been a smoker. He is not a drinker. He works for the [employer]. FAMILY HISTORY: There is a family history of diabetes. ALLERGIES: HE REPORTS AN ALLERGY TO ALBUTEROL. REVIEW OF SYSTEMS: There was some fever last week, but he is afebrile now. He has no headache. He has some rhinorrhea. He has no chest pain. He does have some cough. He has no abdominal pain. He has no nausea or vomiting. There is no leg edema. PHYSICAL EXAMINATION: VITAL SIGNS: The patient is afebrile. The blood pressure is 165/78, saturation is 93% on 4 L. HEENT: Shows no facial swelling or erythema. CARDIAC: Reveals regular rate and rhythm with normal S1 and S2. LUNGS: Auscultation of lungs reveals rhonchorous breath sounds bilaterally. There is no wheezing. ABDOMEN: Soft, nontender. There is no rebound or guarding. EXTREMITIES: Show no leg edema or calf tenderness. There is no cyanosis or clubbing. SKIN: Shows no rashes. NEUROLOGIC: Shows no focal abnormalities. LABORATORY DATA: White blood cell count is 13.7 and hemoglobin is 14. The platelet count is 199. The BUN to creatinine ratio is normal. The other electrolytes are significant for carbon dioxide of 18. RADIOGRAPHIC DATA: Chest x-ray shows some airspace disease, consistent with multifocal pneumonia. IMPRESSION: 1. Viral pneumonia. 2. Coronavirus disease 2019. 3. Hypertension. 4. Benign prostatic hypertrophy. PLAN: 1. Continue Zithromax and Rocephin. 2. Oxygen, as needed. 3. Cough suppressants. 4. Continue current antihypertensive regimen. 5. Continue Flomax. MD MICHAEL Mercedes/JENNYFER /[id number]
--- NOTE | 2020-01-28 18:57 | NUR ---
BSSR RECEIVED FROM OSMANNEYAMIL THORNTON, PATIENT AWAKE ALERT, NO DISTRESS NOTED, VSS, NASAL CANNULA @ 4 LITERS, TELEMETRY IN PLACE, PATIENT DENIES PAIN, CALL LIGHT WITHIN REACH, REMAIN ON CONTACT ISOLATION, COVID(+), RESUME CARE OF DENNIS PRETTY CURRENTLY ROUNDING ON PATIENT
[2020-01-28] MEDS ORDERED: OLMESARTAN 20 MG TAB PO PRN (19:30)
[2020-01-28] MEDS: TAMSULOSIN HCL 0.4 MG CAP PO SCH (22:02)
[2020-01-28] MEDS: ACETAMINOPHEN 325 MG TAB PO PRN (22:02)
--- NOTE | 2020-01-28 23:59 | NUR ---
TELEMETRY CONTACTED ME ABOUT BRADYCARDIA AND HYPOXIC EPISODE, PATIENT SEEN LYING IN BED SLEEPING, EASILY AWAKEN, STATES "I FEEL FINE" DENIES SOB AT THIS TIME, PLACED ON NON-REBREATHER AT 8LITERS OF OXYGEN, SAT @1-92%, TELEMETRY CALLED TO CONFIRM HR AND O2 SAT, HR CURRENTLY REMAINS DIAMOND FLUCTUATING BETWEEN 49-58BPM, MD TATE CALLED ADVISED OF PATIENT CURRENT VITALS, ORDERED TO UPGRADE TO ICU, PROCUREMENT OFFICER KARLI MADE AWARE PATIENT PENDING UPGRADE TO ICU Addendum: 01/29/20 at 0103 by SONYA VALLEJO RN TELEMETRY CONTACTED ME ABOUT BRADYCARDIA AND HYPOXIC EPISODE, PATIENT SEEN LYING IN BED SLEEPING, EASILY AWAKEN, STATES "I FEEL FINE" DENIES SOB AT THIS TIME, PLACED ON NON-REBREATHER AT 8LITERS OF OXYGEN, SAT @90-92%, TELEMETRY CALLED TO CONFIRM HR AND O2 SAT, HR CURRENTLY REMAINS DIAMOND FLUCTUATING BETWEEN 49-58BPM, MD TATE CALLED ADVISED OF PATIENT CURRENT VITALS, ORDERED TO UPGRADE TO ICU, PROCUREMENT OFFICER KARLI MADE AWARE PATIENT PENDING UPGRADE TO ICU
[2020-01-29] VITALS (23 sets, daily range): BP systolic 129–182; BP diastolic 57–87
--- NOTE | 2020-01-29 00:37 | History and Physical ---
PRIMARY CARE PHYSICIAN: Not listed. CONSULTING PHYSICIANS: Include Dr. Elias and Dr. Osman Frye. CHIEF COMPLAINT: Shortness of breath. HISTORY OF PRESENT ILLNESS: The patient is a 69-year-old male, who came in with approximately a week of coughing, shortness of breath, general malaise, and fever. He had gone to an Urgent Care Center due to shortness of breath and was told to come here. In the emergency department, he was evaluated and tested for COVID-19, as he was suspicious for and there is a COVID-19 pandemic. The patient was placed on isolation. Chest x-ray showed airspace disease throughout both lungs, and he tested positive for the COVID-19. He was started on IV fluids and oxygen. He is currently seen in room 177, in isolation. PAST MEDICAL HISTORY: Hypertension and BPH. PAST SURGICAL HISTORY: None. FAMILY HISTORY: Mother has diabetes and hypertension, and is in her 90s. SOCIAL HISTORY: Distant history of tobacco use when he was in the . Denies history of alcohol or illicit drug use. ALLERGIES: ALBUTEROL. HOME MEDICATIONS: Vitamin B12 1000 mcg tablet p.o. daily, methylprednisolone 4 mg p.o. q.i.d., Benicar 40 mg p.o. daily as needed for high blood pressure, and diltiazem ER 300 mg daily. REVIEW OF SYSTEMS: CONSTITUTIONAL: Denies any significant weight loss, but he has had chills with fever, notably last Monday night. EYES: No complaints of drainage or irritation. EARS, NOSE, AND THROAT: Denies sore throat, but he has had a dry cough. RESPIRATORY: Shortness of breath. Dry cough, dyspnea on exertion, dyspnea with very minimal activity. GENITOURINARY: Denies difficulty urinating. PSYCHIATRIC: Denies psychiatric history. INTEGUMENTARY: No rash or itch. CARDIOVASCULAR: Denies chest pain or palpitations. GASTROINTESTINAL: No nausea, vomiting, diarrhea, or constipation. MUSCULOSKELETAL: Denies muscle or joint pain. NEUROLOGIC: Denies headache or dizziness. ENDOCRINE: Denies any history of diabetes. HEMATOLOGIC: No bleeding or bruising. PHYSICAL EXAMINATION: VITAL SIGNS: Temperature 97.9, heart rate 68, blood pressure 165/78, respirations 22, oxygen saturation 93% on 3 L of oxygen via nasal cannula. GENERAL: The patient is lying supine in bed. Overall relaxed. He is able to complete sentences without being too short of breath. LUNGS: Scattered crackles on 3 L of oxygen nasal cannula. HEENT: Extraocular eye movements intact. NECK: Supple. CARDIOVASCULAR: Regular rate and rhythm. No murmur. ABDOMEN: Bowel sounds positive. Soft, nontender. EXTREMITIES: No clubbing, cyanosis, or edema. No signs of DVT. NEUROLOGICAL: GCS 15. Nonfocal. DIAGNOSTIC STUDIES AND LABORATORY DATA: Yesterday, WBC 10.48, hemoglobin 14.5, hematocrit 42.6, platelets 204. PT 13.7, INR 0.99, PTT 30.3. Sodium 138, potassium 4.1, chloride 103, CO2 23, BUN 25, creatinine 1.11, estimated GFR greater than 60, glucose 85, lactic acid 1.0, calcium 9.2, total bilirubin 0.8, AST 32, ALT 13, alkaline phosphatase 63. Creatine kinase 157, CK-MB 1.0, troponin I 0.017. Total protein 8.1, albumin 3.3. Urinalysis with yellow urine, slightly cloudy, specific gravity 1.03, protein 2+, ketones trace, rbc's 6-10, wbc none, few epithelial cells, amorphous sediment moderate, urine bacteria moderate, coronavirus positive. Blood culture x2 with no growth after 24 hours. Chest x-ray had shown bilateral airspace opacities representing edema and/or pneumonia and large cardial mediastinal silhouette actuated by low lung volumes and technique. Today's labs, WBC 13.71, hemoglobin 14, hematocrit 40.6, platelets 199. Sodium 137, potassium 3.8, chloride 106, CO2 18, anion gap 16.8, BUN 20, creatinine 0.94, GFR greater than 60, glucose 109, calcium 8.6. Followup cardiac enzymes, creatine kinase 139, CK-MB 0.7, troponin I 0.013, this was around midnight. Around 8:30, this morning, creatine kinase 158, CK-MB 0.9, troponin I 0.022. Chest x-ray today showed airspace disease throughout both lungs, which may reflect pulmonary edema and/or multifocal pneumonia. Today's CBC results, neutrophils 89.2. ASSESSMENT AND PLAN: 1. Sepsis and viral community-acquired pneumonia (CAP) due to COVID-19, POA. 2. Hypertension, uncontrolled. 3. Benign prostatic hyperplasia. He is on azithromycin and Rocephin IV per Infectious Disease and Pulmonology. Home diltiazem renewed as well as olmesartan and hydralazine 10 mg p.r.n. IV every 3 hours p.r.n. for systolic blood pressure greater than 150. Continue supplemental oxygen. Monitor chest x-ray results. He states he is currently able to eat. 4. Prophylaxis. Pepcid 20 mg p.o. q.12 hours. H and P time spent 60 minutes. Billing code [id number]. Dictated by Roberto Latham NP MD NAPOLEON RaineyP/MARIIL /[id number]
--- NOTE | 2020-01-29 00:58 | NUR ---
PATIENT REMAINS ASYMPTOMATIC, NONREBREATHER @ 8LITERS IN PLACE, SEEN SLEEPING, EASILY AWAKEN NO CHEST PAIN, CURRENT VITALS HR 52, 149/69, 91%SP02, RR 21, WILL CONTINUE TO MONITOR FOR SAFETY
--- NOTE | 2020-01-29 01:28 | NUR ---
MD ZABALA ON THE FLOOR, GAVE VERBAL UPDATE ON PATIENT STATUS, PT REMAINS RESTING IN BED, EASILY AROUSABLE WHEN NAME CALLED, ON CONTINOUS VITAL MONITORING ON FLOOR, MD TATE ASKED THAT SECOND IV LINE BE STARTED AND ORDER BLOOD GAS STAT, CAN BE DONE IN ICU WHEN TRANSFERRED,
--- NOTE | 2020-01-29 01:56 | NUR ---
PATIENT EDUCATED ON NEED FOR UPGRADE TO ICU, MADE AWARE OF NEED OF TRANSFER TO MAINTAIN SAFETY, ACKNOWLEDGE UNDERSTANDING , ATTEMPTED TO UPDATE ON STATUS, BUT PER PATIENT REQUEST IS TO BE CONTACTED IN THE AM, "PLEASE LET HER SLEEP" "LETS CALL HER IN THE MORNING",ADVISED PATIENT THAT I WILL HAVE PAY PER CLICK STRATEGIST CALL IN THE MORNING BEFORE END OF SHIFT TO UPDATE HER ON UPGRADE
--- NOTE | 2020-01-29 04:47 | NUR ---
REPORT CALLED TO PATHOLOGY TECH, RN IN ROOM WILL CALL BACK FOR REPORT
[2020-01-29 04:53] LABS: BASOPHILS % 0.1 % (0.0-1.0); HEMATOCRIT 37.4 % (38.2-49.6); HEMOGLOBIN 12.9 g/dL (14.0-18.0); LYMPHOCYTES # (AUTO) 0.8 (1.0-3.2); LYMPHOCYTES % 6.1 % (18.0-39.1); MEAN CORPUSCULAR HEMOGLOBIN 31.9 pg (28-32); MEAN CORPUSCULAR HGB CONC 34.5 g/dL (31-35); MEAN CORPUSCULAR VOLUME 92.6 fL (81-99); MONOCYTES # (AUTO) 0.5 (0.2-0.8); NEUTROPHILS % 88.6 % (38.7-80.0); PLATELET COUNT 196 x10e3/uL (140-360); RED BLOOD COUNT 4.04 x10e6/uL (4.3-5.7); RED CELL DISTRIBUTION WIDTH 12.8 % (11.7-14.4)
--- NOTE | 2020-01-29 05:05 | NUR ---
REPORT GIVEN VERBALLY VIA TELEPHONE PRIOR TO TRANSPORT TO ICU, REPORT GIVEN TO RN NOHELIA,TRANSPORTED TO ICU VIA BED WITH OXYGEN INFUSING VIA NON-REBREATHER FOR SAFETY, AWAKE AND ALERT DURING TRANSPORT, NO DISTRESS NOTED, PATIENT CONTINUE TO INSIST ON CALLING IS HIMSELF TO UPDATE HER. ALL PERSONAL BELONGINGS TAKEN WITH PATIENT
--- NOTE | 2020-01-29 05:08 | NUR ---
Pt arrived from room 177 to ICU 190 at this time via hospital bed. No signs of distress/SOB noted, RR 24, SPO2 97% on NRB mask.
[2020-01-29 05:15] LABS: ANION GAP 13.6 mmol/L (8-16); BLOOD UREA NITROGEN 20 mg/dL (7-26); BUN/CREATININE RATIO 24 (6-25); CALCIUM 7.8 mg/dL (8.4-10.2); CARBON DIOXIDE 20 mmol/L (22-29); CHLORIDE 106 mmol/L (98-107); CHOL/HDL RATIO 3.2 (3.9-4.7); CHOLESTEROL 133 MD/DL (0-199); CREATININE, SERUM 0.83 mg/dL (0.72-1.25); EST GLOMERULAR FILTRATION RATE > 60 ML/MIN (60-); GLUCOSE 112 mg/dL (74-118); HDL CHOLESTEROL 42 MG/DL (40-60); LDL CHOLESTEROL 76 MG/DL (60-130); MAGNESIUM 2.3 MG/DL (1.3-2.1); PHOSPHORUS 2.3 MG/DL (2.3-4.7); POTASSIUM 3.6 mmol/L (3.5-5.1); SODIUM 136 mmol/L (136-145); TRIGLYCERIDES 76 MG/DL (0-149)
[2020-01-29 05:35] LABS: THYROID STIMULATING HORMONE 0.557 uIU/mL (0.350-4.940)
--- NOTE | 2020-01-29 05:50 | NUR ---
Dr. Dalila Fyre called at this time and was provided with vital signs, that pt is on NRB mask, and this mornings lab results. New orders received for ABG now and chest xray portable repeat this morning.
[2020-01-29] MEDS: HYDRALAZINE HCL 20 MG/ML VIAL IV PRN (06:00)
--- NOTE | 2020-01-29 07:00 | NUR ---
Bedside report given to Devon Arcos RN.
--- NOTE | 2020-01-29 07:19 | Diagnostic Imaging Report ---
EXAMINATION: CHEST SINGLE (PORTABLE) INDICATION: ^COVID 19 PNA, hypoxia, SOB ^[id number] ^0620 ^Y COMPARISON: 01/28/2020 FINDINGS: AP view TUBES and LINES: None. LUNGS: Unchanged bilateral pulmonary airspace disease, right lung greater than left. PLEURA: No pleural effusion or pneumothorax. HEART AND MEDIASTINUM: The cardiomediastinal silhouette is unchanged. BONES AND SOFT TISSUES: No acute osseous lesion. Soft tissues are unremarkable. UPPER ABDOMEN: No free air under the diaphragm. IMPRESSION: Unchanged pulmonary airspace disease again suggestive of multifocal pneumonia. Signed by: Prosper Lao MD on 01/29/2020 7:16 AM
[2020-01-29] MEDS ORDERED: FAMOTIDINE 20 MG TAB PO SCH (07:30)
[2020-01-29 08:03] LABS: ABG HCO3 20 mmol/L (22-26); ABG PCO2 29 mmHg (35-45); ABG PH 7.46 (7.35-7.45); ABG PO2 81 mmHg (80-105)
[2020-01-29] MEDS: DILTIAZEM HCL ER 120 MG CAP PO SCH (09:00)
[2020-01-29] MEDS: DILTIAZEM HCL 180 MG CAP ER PO SCH (09:00)
[2020-01-29] MEDS ORDERED: DILTIAZEM HCL ER 120 MG CAP PO SCH (09:00)
[2020-01-29] MEDS ORDERED: CYANOCOBALAMIN 1,000 MCG TAB PO SCH (09:00)
--- NOTE | 2020-01-29 09:02 | Progress Note ---
DATE: SUBJECTIVE: The patient is transferred to the ICU last night because of worsening desaturations. He is now on 15 L to a non-rebreather mask. His saturations are 98%. He does complain of some dyspnea, particularly with exertion. He has a nonproductive cough. He does not complain of fevers. He has no chest pain. PHYSICAL EXAMINATION: VITAL SIGNS: The blood pressure is 155/70 and the saturations 98% on a non-rebreather. His pulse is 58. His respiratory rate is 23. HEENT: Shows no facial swelling or erythema. CARDIAC: Reveals a regular rate and rhythm with normal S1, S2. LUNGS: Auscultation of lungs reveals crackles at the bases. There is no wheezing. ABDOMEN: Soft, nontender. There is no rebound or guarding. EXTREMITIES: Show no leg edema or calf tenderness. There is no cyanosis or clubbing. SKIN: Shows no rashes. NEUROLOGICAL: Shows no focal abnormalities. LABORATORY DATA: White blood cell count is 13.6 and hemoglobin is 12.9. The platelet count is 196. The BUN to creatinine ratio is 20 to 0.83. The blood gas is 7.46, CO2 is 29, O2 is 81, and CO3 is 20. RADIOGRAPHIC DATA: Chest x-ray shows bilateral infiltrates consistent with pneumonia. IMPRESSION: 1. Viral pneumonia and acute respiratory failure. 2. Coronavirus. 3. Hypertension. 4. Benign prostatic hypertrophy. PLAN: 1. Continue current antibiotics. We have called pharmacy to try and obtain remdesivir. Pharmacy will try and obtain it through a compassionate use program. 2. Continue oxygen to non-rebreather. 3. Monitor and control blood pressure. 4. Echocardiogram. 5. Limit IV fluids. Case discussed with nightclub manager nursing, dayshift nursing, Respiratory, Internal Medicine, and administration. Case also discussed with the patient. Greater than 35 minutes in direct critical care time. Osman Frye MD [facility]/JENNYFER /[id number]
--- NOTE | 2020-01-29 11:54 | NUR ---
transferred to ICU ON FIO2 100 PERCENT [id number]
[2020-01-29] MEDS: FLUTICASONE PROPIONATE NASAL SPRAY NS SCH ×2 (12:13→18:33)
[2020-01-29] MEDS: PANTOPRAZOLE SOD 40 MG TABEC PO SCH (12:13)
[2020-01-29] MEDS: CYANOCOBALAMIN 1,000 MCG TAB PO SCH (12:14)
[2020-01-29] MEDS: ENOXAPARIN SOD INJ 40 MG/0.4 ML SYR SC SCH ×2 (12:14→17:00)
[2020-01-29] MEDS: OLMESARTAN 20 MG TAB PO SCH (12:14)
[2020-01-29] MEDS: CEFTRIAXONE SOD 2 GM/NS 100 ML 100 ML IV SCH (16:00)
[2020-01-29] MEDS: AZITHROMYCIN 500MG/NS 250 ML 250 ML IV SCH (16:20)
--- NOTE | 2020-01-29 17:25 | Progress Note ---
DATE: SUBJECTIVE: Mr. Beatty is in intensive care unit. He was transferred because of shortness of breath. He is currently on FiO2 of 100, O2 sat 98% on 15 L. Besides the shortness of breath and a dry cough he denies any new other complaints. REVIEW OF SYSTEMS: Otherwise unremarkable. LABORATORY DATA: Blood cultures are negative 24 hours. His white count is 13.5, hemoglobin 12.1. Sodium 136, potassium 3.6, creatinine 0.84. MEDICATION LIST: He is on Lovenox. He is on vitamin B12. He is on Flomax, Rocephin, azithromycin. PHYSICAL EXAMINATION: GENERAL: He is currently alert, apprehensive. VITAL SIGNS: Stable, currently afebrile. HEENT: Not icteric. NECK: Supple. Chest few crackles. COR: S1, S2. No S3, S4 or murmur. ABDOMEN: Soft. IMPRESSION: 1. COVID-19 present on admission, pneumonia. 2. Worsening condition. Agree with transfer patient to ICU. Further recommendations to follow and discuss with Pulmonary. Discussed with Critical Care. MD TIFFANY Escoto/JENNYFER /[id number]
--- NOTE | 2020-01-29 19:00 | NUR ---
Bedside report received from Devon Arcos RN. Pt received resting in bed on NRB mask, SPO2 95%, RR 17, no signs of distress at this time. Pt reports no pain or discomfort at this time. Devon BROOKS reported he held cardizem this morning d/t SB HR, and he also reported Dr. Dalila Frye is aware of the pts chest xray and ABG results.
[2020-01-29] MEDS: TAMSULOSIN HCL 0.4 MG CAP PO SCH (21:28)
[2020-01-30] VITALS (22 sets, daily range): BP systolic 137–179; BP diastolic 54–97
--- NOTE | 2020-01-30 01:00 | NUR ---
Roberto Latham NP present and assessing the pt.
--- NOTE | 2020-01-30 02:16 | Progress Note ---
DATE: 01/29/2020 CONSULTING PHYSICIANS: Dr. Thompson with Infectious Disease and Dr. Frye with Pulmonology/Critical Care Medicine. EVENTS OVERNIGHT: The patient was transferred to ICU due to oxygen desaturation and placed on non-rebreather mask. SUBJECTIVE: The patient denies any new complaints. Still has complaints of shortness of breath, especially with any type of exertion and still has dry cough. Denies chills. MEDICATIONS: Reviewed. OBJECTIVE: VITAL SIGNS: Temperature 98.0, T-max 100.1, heart rate 66, blood pressure 149/65, respirations 23, oxygen saturation 98% on FiO2 of 100% via non-rebreather mask. Intake 1640 mL and 700 mL out. GENERAL: The patient lying supine in bed, still relaxed. LUNGS: Scattered crackles in the bases without wheezing. Currently on non-rebreather mask. HEENT: Extraocular eye movements intact. NECK: Supple. CARDIOVASCULAR: Regular rate and rhythm. No murmur. ABDOMEN: Soft and nontender. Bowel sounds positive. No guarding. EXTREMITIES: No clubbing, cyanosis, or edema or signs of DVT. NEUROLOGICAL: GCS 15. Nonfocal. DIAGNOSTIC AND LABORATORY DATA: WBC 13.58, hemoglobin 12.9, hematocrit 37.4, platelets 196. ABG done at 6:15 a.m., this morning, pH 7.46, pCO2 29, PaO2 81, HCO3 20, oxygen saturation 97%. Base excess -4 on FiO2 of 100%. Sodium 136, potassium 3.6, chloride 106, CO2 20, BUN 20, creatinine 0.83, estimated GFR greater than 60, glucose 112. Hemoglobin A1c 5.6%. Calcium 7.8, phosphorus 2.3, magnesium 2.3. Triglyceride 76, cholesterol 133, LDL 76, HDL 42. TSH 0.557. No growth from blood cultures collected 01/26, after 48 hours. IMAGING: Chest x-ray today showed unchanged pulmonary airspace disease again suggestive of multifocal pneumonia. An echocardiogram was completed today, which showed estimated ejection fraction of 70%. A 12-lead EKG showed normal sinus rhythm with bifascicular block with RBBB and LAFB. ASSESSMENT AND PLAN: 1. Sepsis and viral community-acquired multifocal pneumonia due to COVID-19, POA. Attempt to obtain remdesivir, however, per reports from pharmacy unable to obtain yet. Continue oxygen via non-rebreather mask. Pulmonology continues to follow. Continue IV azithromycin or Rocephin per Infectious Disease. Minimal activity. Limit IV fluid intake. 2. Uncontrolled hypertension. Calcium channel yohan, diltiazem ER 300 mg a day as well as ARB, olmesartan 40 mg daily maxed out. We will start hydrochlorothiazide 12.5 mg p.o. b.i.d. Continue p.r.n. IV hydralazine for systolic blood pressure greater than 150. Mild bradycardia. Ejection fraction 70%. Bifascicular block on EKG today. 3. Benign prostatic hyperplasia. Continue Flomax. 4. Prophylaxis. Protonix 40 mg a.c. breakfast. Time spent 35 minutes. Billing code 10729. Dictated by Roberto Latham, DENNIS Keith Cote MD [facility]/MODL /[id number]
[2020-01-30] MEDS: HYDROCHLOROTHIAZIDE 25 MG TAB PO SCH ×3 (04:42→17:42)
--- NOTE | 2020-01-30 04:42 | NUR ---
AM blood lab specimen collected and sent to lab.
[2020-01-30 05:07] LABS: BASOPHILS % 0.1 % (0.0-1.0); EOSINOPHILS % 0.1 % (0.0-6.0); HEMATOCRIT 38.1 % (38.2-49.6); HEMOGLOBIN 13.1 g/dL (14.0-18.0); LYMPHOCYTES # (AUTO) 0.6 (1.0-3.2); MEAN CORPUSCULAR HEMOGLOBIN 32.6 pg (28-32); MEAN CORPUSCULAR HGB CONC 34.4 g/dL (31-35); MEAN CORPUSCULAR VOLUME 94.8 fL (81-99); MONOCYTES # (AUTO) 0.6 (0.2-0.8); MONOCYTES % 5.4 % (4.4-11.3); NEUTROPHILS # (AUTO) 8.9 (2.1-6.9); PLATELET COUNT 242 x10e3/uL (140-360); RED BLOOD COUNT 4.02 x10e6/uL (4.3-5.7); RED CELL DISTRIBUTION WIDTH 12.6 % (11.7-14.4)
[2020-01-30 05:28] LABS: ANION GAP 11.5 mmol/L (8-16); BLOOD UREA NITROGEN 20 mg/dL (7-26); BUN/CREATININE RATIO 26 (6-25); CALCIUM 8.1 mg/dL (8.4-10.2); CARBON DIOXIDE 21 mmol/L (22-29); CHLORIDE 106 mmol/L (98-107); CREATININE, SERUM 0.77 mg/dL (0.72-1.25); EST GLOMERULAR FILTRATION RATE > 60 ML/MIN (60-); GLUCOSE 102 mg/dL (74-118); POTASSIUM 3.5 mmol/L (3.5-5.1); SODIUM 135 mmol/L (136-145)
--- NOTE | 2020-01-30 07:00 | NUR ---
Bedside report given to Devon Arcos RN.
[2020-01-30] MEDS: DILTIAZEM HCL ER 120 MG CAP PO SCH (09:00)
[2020-01-30] MEDS: OLMESARTAN 20 MG TAB PO SCH (09:00)
[2020-01-30] MEDS: DILTIAZEM HCL 180 MG CAP ER PO SCH (09:00)
[2020-01-30] MEDS ORDERED: POTASSIUM CHLORIDE 20 MEQ TAB CR PO ONE (10:35)
[2020-01-30] MEDS: PANTOPRAZOLE SOD 40 MG TABEC PO SCH (10:42)
[2020-01-30] MEDS: ENOXAPARIN SOD INJ 40 MG/0.4 ML SYR SC SCH ×2 (10:43→17:42)
[2020-01-30] MEDS: CYANOCOBALAMIN 1,000 MCG TAB PO SCH (10:43)
--- NOTE | 2020-01-30 15:16 | Progress Note ---
DATE: Pulmonary Critical Care Progress Note SUBJECTIVE: The patient is still requiring 100% non-rebreather. He was placed in the prone position this morning. His saturations are 91% to 93%. He does complain of some dyspnea and some cough. He is not having fevers. He denies any nausea or vomiting. PHYSICAL EXAMINATION: VITAL SIGNS: The blood pressure is 162/78. The patient is saturating 91%. He is on a non-rebreather. HEENT: Shows no facial swelling or erythema. CARDIAC: Reveals regular rate and rhythm with normal S1 and S2. LUNGS: Auscultation of lungs reveals crackles at the bases. There is no wheezing. ABDOMEN: Soft, nontender. There is no rebound or guarding. EXTREMITIES: Show no leg edema or calf tenderness. There is no cyanosis or clubbing. SKIN: Shows no rashes. NEUROLOGIC: Shows no focal abnormalities. LABORATORY DATA: White blood cell count is 10.2 and hemoglobin is 13.1. The platelet count is 242. The BUN to creatinine ratio is normal. The sodium is 135 and the potassium is 3.5. IMPRESSION: 1. Bilateral pneumonia. 2. Acute respiratory failure. 3. Hypertension. 4. Benign prostatic hypertrophy. PLAN: 1. Continue oxygen at 100%. 2. Place the patient in the prone position as much as possible. 3. The patient is accepted for the plasma exchange protocol. Hopefully, he will be receiving plasma exchange with antibodies today. 4. Remdesivir is not available at this time. 5. Repeat ABG. 6. Control blood pressure. 7. Case discussed with nursing staff, Respiratory, patient, Internal Medicine, and Infectious Disease. 8. Greater than 35 minutes in direct critical care time. Osman Frye MD [facility]/MARIIL /[id number]
--- NOTE | 2020-01-30 15:25 | Progress Note ---
DATE: SUBJECTIVE: Mr. Beatty is in intensive care unit. He is hypoxemic. He had to be in the prone position. He is not intubated yet, but he has FiO2 of 100%. He said he is feeling slightly better. REVIEW OF SYSTEMS: Besides the shortness of breath and dry cough, he denies any. He is also fatigued. PHYSICAL EXAMINATION: GENERAL: He is currently alert and oriented. Does not seem to be in acute distress. VITAL SIGNS: Stable, currently afebrile. HEENT: He is not icteric. NECK: Supple. CHEST: Few crackles. COR: S1 and S2. ABDOMEN: Soft. Bowel sounds present. No tenderness. EXTREMITIES: No edema. SKIN: No rash. IMPRESSION: COVID-19 pneumonia, present on admission, getting progressively worse. I was able to enroll him in convalescent plasma treatment following the protocol from [facility]. I have discussed this with him at length. He understands that this is not FDA approved, but he is willing to participate in study. We will get consent. We will get blood type. Impending respiratory failure, on FiO2. We will observe the patient. He is therefore discussed with Dr. Frye at length, concerned about possibility of intubation. Continue also with Lovenox. He remains in intensive care unit and droplet isolation. MD TIFFANY Escoto/MODL /[id number]
[2020-01-30 16:17] LABS: ABG PCO2 28 mmHg (35-45); ABG PH 7.53 (7.35-7.45)
[2020-01-30 16:18] LABS: ABG HCO3 2302 mmol/L (22-26)
--- NOTE | 2020-01-30 17:40 | Progress Note ---
DATE: 01/30/2020 SUBJECTIVE: The patient is lying supine in bed. Still has shortness of breath. Occasional cough. Desaturation quickly with minimal movement. He has been on non-rebreather mass for over 24 hours. No new complaints. MEDICATIONS: Reviewed. OBJECTIVE: VITAL SIGNS: Temperature 98.6, heart rate 68, blood pressure 168/80, respirations 25, and oxygen saturation 92% on 100% FiO2 via a non-rebreather mask. Intake and output 650 mL and 780 mL out. GENERAL: Supine, relaxed. LUNGS: Mild tachypnea, scattered crackles in the bases without wheezing, somewhat diminished, non-rebreather mask, FiO2 of 100%. HEENT: EOMI. NECK: Supple. CARDIOVASCULAR: Irregularly irregular. No murmur. ABDOMEN: Bowel sounds positive. Soft, nontender. No guarding. EXTREMITIES: No clubbing, cyanosis, edema, or signs of deep venous thrombosis. NEUROLOGIC: GCS is 15. Nonfocal. DIAGNOSTIC STUDIES AND LABORATORY DATA: Sodium 135, potassium 3.5, chloride 106, CO2 of 21, BUN 20, creatinine 0.77, estimated GFR greater than 60, glucose 102, calcium 8.1. WBCs 10.23, hemoglobin 13.1, hematocrit 38.1, and platelets 242. No new growth from blood cultures after 48 hours. ABG collected approximately at 1538 hours today; shows pH 7.52, pCO2 of 27.9, PaO2 of 69, HC03 of 23.2, base excess 1, SaO2 of 96%, FiO2 of 100%, NRBM, temperature 98.7. No new imaging studies. Chest x-ray from 01/29/2020, showed unchanged pulmonary airspace disease, again suggestive of multifocal pneumonia. On 01/29/2020, echocardiogram showed estimated ejection fraction of 70%. EKG showed normal sinus rhythm with Bifascicular block with RBBB and LAFB. ASSESSMENT AND PLAN: 1. Viral community-acquired multifocal pneumonia with impending acute respiratory failure due to COVID-19, POA, unable to obtain Remdesivir at this time. However, the patient is currently receiving convalescent plasma treatment following the protocol from [facility]. Thanks to Dr. Thompson with Infectious Disease. The patient continues to be in ICU on droplet isolation. His condition is gradually worsening and there was concern about possibility of needing intubation. Case discussed with Dr. Frye and Dr. Cote. The patient will be placed prone more frequently in an effort to increase oxygenation. Continue IV azithromycin and Rocephin per ID. Minimize activity. Limit IV fluid intake. 2. Uncontrolled hypertension. Systolic blood pressure, currently 160s with diltiazem ER, calcium channel yohan being held due to borderline bradycardia. Hydrochlorothiazide 12.5 mg p.o. b.i.d., started late last night. Ejection fraction 70%. Continue p.r.n. IV hydralazine for SBP greater than 150. 3. Benign prostatic hyperplasia. Continue Flomax. 4. Prophylaxis. Lovenox and Protonix. TIME SPENT: 35 minutes. BILLING CODE: [id number]. Dictated by Roberto Latham NP MD [facility]L /[id number]
[2020-01-30] MEDS: CEFTRIAXONE SOD 2 GM/NS 100 ML 100 ML IV SCH (17:42)
[2020-01-30] MEDS: AZITHROMYCIN 500MG/NS 250 ML 250 ML IV SCH (17:55)
[2020-01-30] MEDS: FLUTICASONE PROPIONATE NASAL SPRAY NS SCH ×2 (18:10→19:13)
[2020-01-30] MEDS: TAMSULOSIN HCL 0.4 MG CAP PO SCH (20:58)
--- NOTE | 2020-01-30 21:00 | NUR ---
Pt SPO2 92% on NRB mask in supine position with rr 28, pt now in prone position and has SPO2 100% on NRB mask with rr 20.
--- NOTE | 2020-01-30 21:34 | NUR ---
Pt states he is uncomfortable in the prone position and is going to rest on his right side. His SPO2 is now 92% on the NRB mask with him on his left side.
[2020-01-31] VITALS (23 sets, daily range): BP systolic 110–169; BP diastolic 42–78
[2020-01-31 05:23] LABS: BASOPHILS % 0.1 % (0.0-1.0); HEMOGLOBIN 13.6 g/dL (14.0-18.0); LYMPHOCYTES # (AUTO) 0.6 (1.0-3.2); LYMPHOCYTES % 5.2 % (18.0-39.1); MEAN CORPUSCULAR HGB CONC 34.9 g/dL (31-35); MEAN CORPUSCULAR VOLUME 91.8 fL (81-99); MONOCYTES # (AUTO) 0.6 (0.2-0.8); MONOCYTES % 5.4 % (4.4-11.3); NEUTROPHILS # (AUTO) 10.1 (2.1-6.9); NEUTROPHILS % 87.8 % (38.7-80.0); PLATELET COUNT 272 x10e3/uL (140-360); RED BLOOD COUNT 4.25 x10e6/uL (4.3-5.7); RED CELL DISTRIBUTION WIDTH 12.5 % (11.7-14.4)
[2020-01-31 05:48] LABS: ALANINE AMINOTRANSFERASE 31 IU/L (0-55); ALBUMIN 2.5 g/dL (3.5-5.0); ALBUMIN/GLOBULIN RATIO 0.6 (0.8-2.0); ALKALINE PHOSPHATASE 72 IU/L (40-150); ANION GAP 15.3 mmol/L (8-16); BLOOD UREA NITROGEN 20 mg/dL (7-26); BUN/CREATININE RATIO 25 (6-25); CALCIUM 8.4 mg/dL (8.4-10.2); CARBON DIOXIDE 22 mmol/L (22-29); CHLORIDE 102 mmol/L (98-107); CREATININE, SERUM 0.81 mg/dL (0.72-1.25); EST GLOMERULAR FILTRATION RATE > 60 ML/MIN (60-); GLUCOSE 89 mg/dL (74-118); POTASSIUM 3.3 mmol/L (3.5-5.1); SODIUM 136 mmol/L (136-145)
[2020-01-31] MEDS ORDERED: POTASSIUM CHLORIDE 20 MEQ TAB CR PO ONE (07:30)
[2020-01-31] MEDS: FLUTICASONE PROPIONATE NASAL SPRAY NS SCH ×2 (08:12→17:18)
[2020-01-31] MEDS: PANTOPRAZOLE SOD 40 MG TABEC PO SCH (08:12)
[2020-01-31] MEDS: DILTIAZEM HCL 180 MG CAP ER PO SCH (08:12)
[2020-01-31] MEDS: DILTIAZEM HCL ER 120 MG CAP PO SCH (08:13)
[2020-01-31] MEDS: CYANOCOBALAMIN 1,000 MCG TAB PO SCH (08:13)
[2020-01-31] MEDS: HYDROCHLOROTHIAZIDE 25 MG TAB PO SCH (08:14)
[2020-01-31] MEDS: OLMESARTAN 20 MG TAB PO SCH (08:14)
[2020-01-31] MEDS: ENOXAPARIN SOD INJ 40 MG/0.4 ML SYR SC SCH ×2 (08:14→16:10)
--- NOTE | 2020-01-31 10:48 | Progress Note ---
DATE: Pulmonary Critical Care Progress Note SUBJECTIVE: The patient remains on 100% non-rebreather. He has been prone intermittently overnight. He also received the convalescent plasma treatments yesterday. His oxygen saturations remain in the low 90s on 100%, but he is not tachypneic. He complains of some fatigue and mild cough. PHYSICAL EXAMINATION: VITAL SIGNS: The patient is afebrile. The blood pressure is 159/70 and saturation is 93%. The pulse is 79. HEENT: No facial swelling or erythema. CARDIAC: Reveals regular rate and rhythm with normal S1 and S2. LUNGS: Auscultation of lungs reveals rhonchorous breath sounds bilaterally. There is no wheezing. ABDOMEN: Soft, nontender. There is no rebound or guarding. EXTREMITIES: No leg edema or calf tenderness. There is no cyanosis or clubbing. SKIN: No rashes. LABORATORY DATA: Potassium is 3.3 and the sodium is 136. Chloride is 102 and the carbon dioxide is 22. AST is 35. The albumin is 2.5. White blood cell count is 11.45 and hemoglobin is 13.6. The platelet count is 272. IMPRESSION: 1. Acute respiratory failure. 2. COVID-19 infection. 3. Viral pneumonia. 4. Hypokalemia. 5. Hypertension. 6. Benign prostatic hypertrophy. PLAN: 1. Continue to prone patient as much as possible. 2. Continue on 100% oxygen. 3. Repeat chest x-ray today. 4. Continue to monitor and control blood pressure. 5. Replace potassium. 6. Case discussed with nursing staff, patient, Infectious Disease, Internal Medicine, and administration. Greater than 35 minutes in direct critical care time. Osman Frye MD [facility] /[id number]
[2020-01-31] MEDS ORDERED: ONDANSETRON HCL INJ 2MG/ML 2ML 2 MG/ML VIAL ONE (11:23)
--- NOTE | 2020-01-31 12:22 | Diagnostic Imaging Report ---
EXAMINATION: CHEST SINGLE (PORTABLE) INDICATION: Respiratory failure COMPARISON: Chest radiograph 01/29/2020 FINDINGS: LINES/TUBES:EKG leads overlie the chest. LUNGS:The lung volumes are low. Worsening bilateral hazy airspace opacities. PLEURA:No pleural effusion or pneumothorax. MEDIASTINUM:The cardiomediastinal silhouette appears unchanged in size and shape. BONES/SOFT TISSUES:No acute osseous injury. ABDOMEN:No free air under the diaphragm. IMPRESSION: Worsening bilateral airspace opacities, most likely representing multifocal pneumonia. Signed by: Tasia Talbert MD on 01/31/2020 12:19 PM
[2020-01-31] MEDS ORDERED: ONDANSETRON HCL INJ 2MG/ML 2ML 2 MG/ML VIAL IV PRN (13:15)
[2020-01-31] MEDS ORDERED: D5.45%NS/KCL 20MEQ 1,000 ML IV ONE (13:15)
[2020-01-31] MEDS ORDERED: DIPHENOXYLATE/ATROPINE TAB PO PRN (13:15)
[2020-01-31] MEDS: AZITHROMYCIN 500MG/NS 250 ML 250 ML IV SCH (13:17)
[2020-01-31] MEDS: ACETAMINOPHEN 325 MG TAB PO PRN (14:10)
[2020-01-31] MEDS: CEFTRIAXONE SOD 2 GM/NS 100 ML 100 ML IV SCH (15:02)
--- NOTE | 2020-01-31 16:35 | NUR ---
progress [id number]
[2020-01-31] MEDS ORDERED: VECURONIUM BROMIDE FOR INJ 20 MG VIAL ONE (17:30)
[2020-01-31] MEDS ORDERED: SUCCINYLCHOLINE CHLORIDE 20 MG/ML 10ML VIAL ONE (17:30)
[2020-01-31] MEDS ORDERED: WATER STERILE 10 ML VIAL ONE (17:30)
[2020-01-31] MEDS ORDERED: MIDAZOLAM HCL 2 MG/2 ML VIAL ONE (17:30)
[2020-01-31] MEDS ORDERED: DEXMEDETOMIDINE HCL 200 MCG in SODIUM CHLORIDE 0.9% 50ML 48 ML IV PRN ×2 (18:30→22:45)
--- NOTE | 2020-01-31 19:05 | NUR ---
Pt desaturates to low 80% occasionally throughout shift. Pt oxygenates better laying on right side and laying prone. However pt unable to tolerate positions for long periods of time. Pt gets short of breath moving in bed. Pt having poor appetite, upset stomach and two episodes of loose stools. Dr. Gabriel Frye notified orders given for IV fluids, Zofran and Lomotil. Pt unable to tolerate prone position and is desaturating to 82%, orders given for Precedex drip and Vapotherm if needed. Pt's states is requesting POA paperwork to be brought to him at the hospital and she will be delivering the paperwork. Nightshift RN aware of situation.
[2020-01-31] MEDS: TAMSULOSIN HCL 0.4 MG CAP PO SCH (21:03)
--- NOTE | 2020-01-31 23:40 | Progress Note ---
DATE: SUBJECTIVE: Mr. Beatty remains in intensive care unit on FiO2 of 100% in a prone position. He received convalescent plasma treatment yesterday. His O2 saturation remains in the low 90s. He still gets easily short of breath. He remains weak. Discussed with Critical Care. PHYSICAL EXAMINATION: GENERAL: Alert. VITAL SIGNS: Afebrile. HEENT: He is not icteric. NECK: Supple. CHEST: Few crackles. COR: S1 and S2. ABDOMEN: Soft. Bowel sounds present. No tenderness. EXTREMITIES: No edema. SKIN: No rash. IMPRESSION: 1. Coronavirus disease 2019 on admission. 2. Pneumonia, viral, concerned about early acute respiratory distress syndrome. Discussed with Dr. Frye. Continue with high FiO2 in prone position avoiding intubation if possible. The patient is enrolled plasma, which he received yesterday. We will continue to observe the patient. Further recommendations to follow. MD TIFFANY Escoto/MODL /[id number]
[2020-02-01] VITALS (24 sets, daily range): BP systolic 94–143; BP diastolic 44–65
--- NOTE | 2020-02-01 02:31 | Progress Note ---
DATE: 01/31/2020 SUBJECTIVE: The patient is lying on his right side. His oxygen saturation is 95% on his right side and runs about 86% to 88% maximum when he is on his back. Still has shortness of breath, dyspnea on exertion with minimal activity and occasional cough. He remains on non-rebreather mask. He lies prone at times to help improve oxygenation, but usually prefers to be on his right side. MEDICATIONS: Reviewed. PHYSICAL EXAMINATION: VITAL SIGNS: Temperature 100.6, heart rate 73, blood pressure 121/42, respirations 26, oxygen saturation 95% on FiO2 of 100% via non-rebreather mask. The intake and output 1333 mL in and 1340 mL out. GENERAL: Supine on the right side, relaxed. LUNGS: Mild tachypnea. Scattered crackles in the bases without wheezing. Diminished bases. HEENT: EOMI. NECK: Supple. CARDIOVASCULAR: Irregularly irregular. No murmur. ABDOMEN: Bowel sounds are present. Soft, nontender. No guarding. EXTREMITIES: No clubbing, cyanosis, edema, or signs of DVT. NEUROLOGICAL: GCS 15. Nonfocal. LABORATORY DATA: WBC 11.45, hemoglobin 13.6, hematocrit 39, platelets 272. Sodium 136, potassium 3.3, chloride 102, CO2 of 22, BUN 20, creatinine 0.81, GFR greater than 60, glucose 89, calcium 8.4, total bilirubin 0.9, AST 35, ALT 31, alkaline phosphatase 72, total protein 7.0, albumin 2.5. No growth from blood cultures collected 01/26 after 72 hours. IMAGING STUDIES: Chest x-ray today showed worsening bilateral airspace opacities, most likely representing multifocal pneumonia. ASSESSMENT AND PLAN: 1. Viral community-acquired multifocal pneumonia with impending acute respiratory failure due to COVID-19, present on admission. Concerns for early acute respiratory distress syndrome. He received convalescent plasma treatment yesterday following protocol from the [facility]. Per pharmacy, unable to obtain remdesivir at this time. We will attempt to avoid intubation if possible. He remains in ICU on droplet isolation. Encourage the patient to lie on his right side as well as prone position more frequently in an effort to increase oxygenation. Continue IV Rocephin and azithromycin per ID. Appreciate recs from all consultants. Limit IV fluid intake. Minimize activity. Precedex for sedation to minimize oxygen depletion and use of Mcdaniel catheter to limit activity. 2. Uncontrolled hypertension. Systolic blood pressure much better controlled today, 160s earlier this morning and now 110-145. Continue diltiazem 180 mg daily along with 120 mg daily, p.r.n. IV hydralazine, olmesartan 40 mg daily. Ejection fraction 70% per echo. 3. BPH. Continue Flomax. 4. Prophylaxis: Lovenox and Pepcid. Time spent 35 minutes. Billing code [id number]. Dictated by Roberto Latham, IP LITIGATION ASSOCIATE Keith Cote MD [facility] /[id number]
[2020-02-01] MEDS: PANTOPRAZOLE SOD 40 MG TABEC PO SCH (07:30)
[2020-02-01] MEDS: FLUTICASONE PROPIONATE NASAL SPRAY NS SCH ×2 (08:24→15:51)
[2020-02-01] MEDS: ENOXAPARIN SOD INJ 40 MG/0.4 ML SYR SC SCH ×2 (08:24→15:51)
[2020-02-01] MEDS: OLMESARTAN 20 MG TAB PO SCH (09:00)
[2020-02-01 10:17] LABS: ALANINE AMINOTRANSFERASE 22 IU/L (0-55); ALBUMIN/GLOBULIN RATIO 0.5 (0.8-2.0); ALKALINE PHOSPHATASE 62 IU/L (40-150); ANION GAP 12.4 mmol/L (8-16); BLOOD UREA NITROGEN 30 mg/dL (7-26); BUN/CREATININE RATIO 26 (6-25); CALCIUM 8.1 mg/dL (8.4-10.2); CARBON DIOXIDE 25 mmol/L (22-29); CHLORIDE 99 mmol/L (98-107); CREATININE, SERUM 1.14 mg/dL (0.72-1.25); EST GLOMERULAR FILTRATION RATE > 60 ML/MIN (60-); GLUCOSE 122 mg/dL (74-118); POTASSIUM 3.4 mmol/L (3.5-5.1); SODIUM 133 mmol/L (136-145)
[2020-02-01] MEDS: AZITHROMYCIN 500MG/NS 250 ML 250 ML IV SCH (12:15)
[2020-02-01 13:10] LABS: BASOPHILS % 0.2 % (0.0-1.0); EOSINOPHILS % 0.2 % (0.0-6.0); HEMOGLOBIN 12.7 g/dL (14.0-18.0); LYMPHOCYTES # (AUTO) 0.4 (1.0-3.2); LYMPHOCYTES % 3.4 % (18.0-39.1); MEAN CORPUSCULAR HEMOGLOBIN 31.8 pg (28-32); MEAN CORPUSCULAR HGB CONC 34.3 g/dL (31-35); MEAN CORPUSCULAR VOLUME 92.5 fL (81-99); MONOCYTES # (AUTO) 0.4 (0.2-0.8); MONOCYTES % 3.5 % (4.4-11.3); NEUTROPHILS # (AUTO) 11.6 (2.1-6.9); NEUTROPHILS % 91.5 % (38.7-80.0); PLATELET COUNT 270 x10e3/uL (140-360); RED CELL DISTRIBUTION WIDTH 12.6 % (11.7-14.4)
[2020-02-01] MEDS ORDERED: POTASSIUM CHLORIDE 20 MEQ TAB CR PO NR ×2 (14:30→17:30)
--- NOTE | 2020-02-01 15:33 | NUR ---
Nutrition Intervention Note RD Recommendation(s) for Physician: - Continue current diet as ordered and Ensure with meals - Encourage PO intake Plan of Care: RD following, monitoring for tolerance and adequacy Nutrition reason for involvement: Length of stay RD Assessment (02/01/20) Pt is a 69 year old male admitted with SOB, hypoxia, and fever. Pt is also positive for COVID-19. Unable to obtain nutrition history from pt since he is on droplet isolation precautions. Spoke to RN, who reported that pt is not eating much or consuming Ensure. Unable to assess weight status since there are no previous weights in chart. RN also reported that pt had nausea yesterday and is experiencing diarrhea. No chewing/swallowing issues. Will continue to monitor Principal Problems/Diagnoses: SOB, hypoxia, fever, COVID-19+ PMH: HTN, BPH GI: last recorded BM 01/30 Skin: no pressure ulcers Labs: (01/31) Na 133, K 3.4, BUN 30, Glu 122, Ca 8.1 Meds: antibiotics, lovenox, zofran, hydralazine, protonix Ht: 70 inches Wt: 193 BMI: 27.8 kg/m2 IBW: 166 lbs Malnutrition Evaluation (02/01/20) Unable to assess. Will re-evaluate at follow-up as appropriate. Nutrition Prescription (Diet Order): cardiac Estimated Nutritional Needs: 4011-3926 calories/day (18-20 kcal/kg CBW) 88-132 g protein/day (1-1.5 g pro/kg CBW) Diet Adequacy: Not meeting calorie needs, Not meeting protein needs Tolerance: Tolerating PO, but with poor appetite Diet Education Needs Assessment: Diet education not indicated at this time Nutrition Care Level: low Nutrition Diagnosis: Inadequate energy intake related to decreased ability to consume sufficient energy as evidenced by insufficient energy intake from diet compared to needs. Goal: Patient will meet 75-100% of estimated needs by follow up Progress: N/A Interventions: -fat/cholesterol/sodium- modified diet, Commercial beverage, Collaboration with other providers Monitoring/Evaluation: -Total energy intake, Total protein intake, Modified diet, Liquid supplement, Weight change Signed: Oralia Whitaker, RD, LD
[2020-02-01] MEDS: CEFTRIAXONE SOD 2 GM/NS 100 ML 100 ML IV SCH (15:51)
--- NOTE | 2020-02-01 17:18 | Progress Note ---
DATE: SUBJECTIVE: The patient there continues to use the Vapotherm. He is saturating 91%. A Mcdaniel was placed yesterday and he had some urinary retention. PHYSICAL EXAMINATION: VITAL SIGNS: The patient is afebrile. The blood pressure is 101/48 and saturation is 91%. HEENT: No facial swelling or erythema. CARDIAC: Regular rate and rhythm with normal S1, S2. LUNGS: Auscultation of the lungs reveals clear breath sounds bilaterally. There is no wheezing. ABDOMEN: Soft nontender. There is no rebound or guarding. EXTREMITIES: No leg edema or calf tenderness. There is no cyanosis or clubbing. SKIN: No rashes. NEUROLOGICAL: No focal abnormalities. LABORATORY DATA: The BUN to creatinine ratio is 30/1.14 and the sodium is 133. Albumin is 2.0. IMPRESSION: 1. Acute respiratory failure. 2. Viral pneumonia. 3. Benign prostatic hypertrophy with urinary retention. 4. Hypertension, systemic. PLAN: 1. Continue Vapotherm. 2. Continue to place the patient in a prone position as tolerated. 3. Monitor creatinine. 4. Precedex because of bradycardia. Osman Frye MD [facility]/MARIIL /[id number]
[2020-02-01] MEDS: SODIUM CHLORIDE 0.9% IV PRN (17:55)
[2020-02-01] MEDS: DEXMEDETOMIDINE HCL IV PRN (17:55)
--- NOTE | 2020-02-01 19:38 | NUR ---
@1935,called renal team for consult and left a VM for Dr Melgar team. pt resting will continue to monitor
[2020-02-01] MEDS: TAMSULOSIN HCL 0.4 MG CAP PO SCH (20:28)
[2020-02-02] VITALS (57 sets, daily range): BP systolic 69–149; BP diastolic 38–110
[2020-02-02] MEDS: DEXMEDETOMIDINE HCL IV PRN (04:21)
[2020-02-02] MEDS: SODIUM CHLORIDE 0.9% IV PRN (04:21)
[2020-02-02 05:15] LABS: BASOPHILS % 0.2 % (0.0-1.0); EOSINOPHILS # (AUTO) 0.1 (0.0-0.4); EOSINOPHILS % 0.6 % (0.0-6.0); HEMATOCRIT 38.4 % (38.2-49.6); HEMOGLOBIN 13.4 g/dL (14.0-18.0); LYMPHOCYTES # (AUTO) 0.6 (1.0-3.2); LYMPHOCYTES % 4.3 % (18.0-39.1); MEAN CORPUSCULAR HEMOGLOBIN 32.3 pg (28-32); MEAN CORPUSCULAR HGB CONC 34.9 g/dL (31-35); MEAN CORPUSCULAR VOLUME 92.5 fL (81-99); MONOCYTES # (AUTO) 0.3 (0.2-0.8); MONOCYTES % 2.4 % (4.4-11.3); NEUTROPHILS # (AUTO) 12.1 (2.1-6.9); NEUTROPHILS % 91.5 % (38.7-80.0); PLATELET COUNT 257 x10e3/uL (140-360); RED BLOOD COUNT 4.15 x10e6/uL (4.3-5.7); RED CELL DISTRIBUTION WIDTH 12.3 % (11.7-14.4)
[2020-02-02 05:47] LABS: ALANINE AMINOTRANSFERASE 21 IU/L (0-55); ALBUMIN 1.9 g/dL (3.5-5.0); ALBUMIN/GLOBULIN RATIO 0.4 (0.8-2.0); ALKALINE PHOSPHATASE 61 IU/L (40-150); BLOOD UREA NITROGEN 30 mg/dL (7-26); BUN/CREATININE RATIO 29 (6-25); CALCIUM 7.7 mg/dL (8.4-10.2); CARBON DIOXIDE 24 mmol/L (22-29); CHLORIDE 101 mmol/L (98-107); CREATININE, SERUM 1.05 mg/dL (0.72-1.25); EST GLOMERULAR FILTRATION RATE > 60 ML/MIN (60-); GLUCOSE 93 mg/dL (74-118); SODIUM 134 mmol/L (136-145)
[2020-02-02] MEDS: PANTOPRAZOLE SOD 40 MG TABEC PO SCH (07:43)
[2020-02-02] MEDS: FLUTICASONE PROPIONATE NASAL SPRAY NS SCH (08:00)
[2020-02-02] MEDS: ENOXAPARIN SOD INJ 40 MG/0.4 ML SYR SC SCH ×2 (08:00→16:05)
[2020-02-02] MEDS ORDERED: MIDAZOLAM HCL 2 MG/2 ML VIAL ONE (08:54)
[2020-02-02] MEDS ORDERED: FENTANYL CITRATE/PF 100MCG/2 ML INJ ONE (08:55)
[2020-02-02] MEDS: OLMESARTAN 20 MG TAB PO SCH (09:00)
[2020-02-02] MEDS ORDERED: MIDAZOLAM HCL 5MG/ML 10ML VIAL 100 ML IV ONE (09:06)
[2020-02-02] MEDS ORDERED: ROCURONIUM BROMIDE 250 MG in SODIUM CHLORIDE 0.9% 250ML 225 ML IV SCH (09:15)
--- NOTE | 2020-02-02 10:03 | Diagnostic Imaging Report ---
EXAMINATION: CHEST SINGLE (PORTABLE) INDICATION: Status post intubation. COMPARISON: Chest radiograph 01/31/2020. FINDINGS: LINES/TUBES:Endotracheal tube tip is obscured by overlying EKG leads, but likely terminates in the mid trachea, 5.2 cm above the lakeisha. Interval placement of an enteric tube which terminates in the distal right mainstem bronchus. LUNGS:The lung volumes are low. Bilateral diffuse interstitial and airspace opacities, increasing on the right. PLEURA:No pleural effusion or pneumothorax. MEDIASTINUM:The cardiomediastinal silhouette appears unchanged in size and shape. BONES/SOFT TISSUES:No acute osseous injury. ABDOMEN:No free air under the diaphragm. IMPRESSION: Enteric tube terminates in the distal right mainstem bronchus. Recommend repositioning. Endotracheal tube tip is obscured by overlying EKG leads, but likely terminates in the mid trachea. Recommend repeat radiographs upon removal of EKG leads. No evidence of pneumothorax. Findings of multifocal pneumonia, possibly with superimposed pulmonary edema, increased on the right. The above findings were discussed with TODD Bradley on 02/02/2020 at 9:59 AM. Signed by: Dr. Alf Castorena MD on 02/02/2020 10:00 AM
[2020-02-02] MEDS ORDERED: FENTANYL 2000MCG/NS 250 250 ML ONE (11:08)
[2020-02-02] MEDS ORDERED: SODIUM CHLORIDE 0.9% 1000ML 1,000 ML ONE (11:09)
[2020-02-02] MEDS ORDERED: MIDAZOLAM HCL 2 MG/2 ML VIAL IV STA (12:13)
--- NOTE | 2020-02-02 12:21 | Operative Report ---
DATE OF PROCEDURE: SURGEON: Osman Frye MD PROCEDURE: Arterial line placement. PREOPERATIVE DIAGNOSES: Tachycardia, COVID-19, and respiratory failure. POSTOPERATIVE DIAGNOSES: Tachycardia, COVID-19, and respiratory failure. ANESTHESIA: The patient was on a Versed drip at that time. A 1% lidocaine was used. DESCRIPTION OF PROCEDURE: The right wrist was prepped sterilely. A 20-gauge Angiocath was used to cannulate the radial artery on the right side. A wire was advanced into the artery and the catheter was placed over the wire by the Seldinger technique. There was good blood return and a normal arterial waveform. The line was subsequently sutured in place. COMPLICATIONS: None. ESTIMATED BLOOD LOSS: None. Osman Frye MD [facility] /[id number]
--- NOTE | 2020-02-02 12:26 | Operative Report ---
DATE OF PROCEDURE: SURGEON: Osman Frye MD PROCEDURE: Central line under ultrasound guidance. PREOPERATIVE DIAGNOSES: Viral pneumonia and COVID-19. POSTOPERATIVE DIAGNOSES: Viral pneumonia and COVID-19. CONSENT: Consent was obtained from the . ANESTHESIA: A 1% lidocaine for local anesthesia. DESCRIPTION OF PROCEDURE: The patient was placed in a supine position. The right neck was prepped sterilely with chlorhexidine. A full length sterile drape, gown and sterile gloves were used. Ultrasound machine was used to visualize the right internal jugular vein. The area was anesthetized with 1% lidocaine. The right internal jugular vein was cannulated with a 16-gauge needle on the first attempt during direct visualization. A wire was passed through the needle. A dilator was used to open the skin and a triple-lumen catheter was placed over the wire by the Seldinger technique. All the ports flushed. COMPLICATIONS: None. ESTIMATED BLOOD LOSS: None. Osman Frye MD [facility] /[id number]
--- NOTE | 2020-02-02 12:45 | Diagnostic Imaging Report ---
EXAMINATION: CHEST XRAY LINE PLACEMENT INDICATION: Central line placement. COMPARISON: Chest radiograph 02/02/2020. FINDINGS: LINES/TUBES: Interval removal of EKG leads. Endotracheal tube terminates 8.0 cm above the lakeisha. Enteric tube has been repositioned and now terminates in the gastric fundus. Interval placement of right IJ central venous catheter which terminates in the SVC. LUNGS:The lung volumes are low. Bilateral diffuse interstitial and airspace opacities, slightly decreased on the right. PLEURA:No pleural effusion or pneumothorax. MEDIASTINUM:The cardiomediastinal silhouette appears unchanged in size and shape. BONES/SOFT TISSUES:No acute osseous injury. ABDOMEN:No free air under the diaphragm. IMPRESSION: Interval repositioning of enteric tube which terminates in the stomach. ET tube terminates 8 cm above the lakeisha, suggest advancement by approximately 3 cm. Right IJ central venous catheter terminates in the SVC. No evidence of pneumothorax. Findings of multifocal pneumonia, possibly with superimposed pulmonary edema. Signed by: Dr. Alf Castorena MD on 02/02/2020 12:42 PM
--- NOTE | 2020-02-02 12:46 | Progress Note ---
DATE: SUBJECTIVE: The patient was on a Vapotherm at 100% with 40 L of oxygen. He was in the prone position, but desaturated into the 50s. He required emergent resuscitation with an Ambu bag. He subsequently required intubation. He was placed on a mechanical ventilator with a PEEP of 18 and 100% FiO2. The patient had some tachycardia as well. He required additional sedation with Versed. A central line was placed as well as an A-line. An NG tube was also placed. PHYSICAL EXAMINATION: GENERAL: The heart rate is now 125. He has sinus tachycardia. The blood pressure is 90/64. He is on a Versed drip. He is also receiving fentanyl. He is on a PRVC mode of ventilation with a tidal volume of 380 and a PEEP of 18. His rate is set at 28. His FiO2 is set at 100%. His peak airway pressure is 40 and his mean airway pressure is 14. There is a right IJ line in place. The site looks clean. There is a 7.5 endotracheal tube. CARDIAC: Reveals tachycardia with normal S1 and S2. LUNGS: Auscultation of lungs reveals decreased breath sounds at the bases. There is no wheezing. ABDOMEN: Soft and nontender. There is no rebound or guarding. EXTREMITIES: Shows no leg edema or calf tenderness. There is no cyanosis or clubbing. SKIN: Shows no rashes. NEUROLOGICAL: Shows the patient to be sedated. LABORATORY DATA: White blood cell count is 13.2 and the hemoglobin is 13.4. The platelet count is 257. BUN to creatinine ratio is 30 to 1.05 and other electrolytes are within normal limits. Albumin is 1.9. Chest x-ray shows worsening bilateral infiltrates. IMPRESSION: 1. Pneumonia, hypotension, and severe sepsis. 2. Acute respiratory failure. 3. COVID-19 infection. 4. Hypertension. 5. Tachycardia. 6. Acute kidney injury. PLAN: 1. Continue PEEP at 18 with a tidal volume of 380 and 100%. Repeat ABG. 2. Continue Versed and fentanyl. 3. Continue to monitor renal function. Nephrology consultation is pending. 4. Continue to use IV fluids as needed. 5. Continue current antibiotics. 6. Case discussed with nursing, Respiratory, Internal Medicine, and the patient's . Greater than 35 minutes in direct critical care time apart from any procedures performed. MD MICHAEL Mercedes/JENNYFER /[id number]
--- NOTE | 2020-02-02 12:48 | Diagnostic Imaging Report ---
Exam: KUB -1 view Clinical History: NG tube placement Comparison: None. Findings/Impression: Enteric tube across the distal stomach and terminates in the gastric fundus. Nonobstructive bowel gas pattern. Air-filled small and large bowel loops, compatible with nonobstructive ileus. No evidence of free intraperitoneal air. Please refer to the concurrently performed chest radiograph for details of intrathoracic findings. Signed by: Dr. Alf Castorena MD on 02/02/2020 12:45 PM
--- NOTE | 2020-02-02 12:56 | Operative Report ---
DATE OF PROCEDURE: SURGEON: Osman Frye MD PROCEDURE: Endotracheal intubation. INDICATION: Respiratory failure with desaturations. CONSENT: Consent was deemed emergent. MEDICATIONS: Etomidate 14 mg and succinylcholine 100 mg. DESCRIPTION OF PROCEDURE: The patient was on a Vapotherm at 100% with 4 L of oxygen. He desaturated into the high 40s and low 50s despite being in the prone position. He was placed back in the supine position. An Ambu bag was used to ventilate the patient. We were able to increased his saturations into the low 80s. He subsequently received etomidate and succinylcholine. Several attempts were required with a GlideScope to visualize the glottis adequately. A 7.5 endotracheal tube was placed through the cords under direct visualization on the third attempt. There were equal breath sounds bilaterally. There was good CO2 return. The patient's saturations remained low after intubation. He required Ambu bagging with a to increase his saturations into the low 80s. He was then placed on a mechanical ventilator with a PEEP of 18 and 100% FiO2. His saturations are now in the high 80s. ESTIMATED BLOOD LOSS: None. COMPLICATIONS: None. Chest x-ray is pending at the time of this dictation. Osman Frye MD [facility]II[facility] /[id number] MTDD
[2020-02-02] MEDS: NOREPINEPHRINE INJ 4MG/4ML 8 MG in DEXTROSE 5% 250ML 250 ML IV SCH ×6 (12:58→23:30)
[2020-02-02] MEDS: FENTANYL CITRATE INJ 2,000 MCG in SODIUM CHLORIDE 0.9% 250ML 210 ML IV PRN (13:39)
--- NOTE | 2020-02-02 13:43 | NUR ---
PROGRESS [id number]
[2020-02-02] MEDS: AZITHROMYCIN 500MG/NS 250 ML 250 ML IV SCH (14:00)
[2020-02-02] MEDS: CEFTRIAXONE SOD 2 GM/NS 100 ML 100 ML IV SCH (15:59)
[2020-02-02] MEDS: SODIUM CHLORIDE 0.9% 1000ML 1,000 ML IV SCH (15:59)
[2020-02-02] MEDS ORDERED: ALBUMIN 25% 25GM 100ML 0.25 GM/ML BTL IV NR (16:15)
--- NOTE | 2020-02-02 17:03 | NUR ---
0800- Pt laying supine and began desaturating to 79%, Dr Gabriel Frye aware. Pt placed in prone position, pt continued to desaturate down to 55% on vapotherm 100% and 40L. Pt placed back supine to prepare for intubation. Dr Gabriel Frye at bedside, RT called to bedside, pt intubated at 0900, NGT placed. Dr. Gabriel Frye ordered rocuronium and versed drip.Chest x ray and KUB obtained MD gave orders for consent for central line and arterial line. Dr. Gabriel Frye and primary RN updated on pt's status. Primary RN and Jennifer RN obtained telephone consent from Viktoria Beatty for lines. R radial art line placed and RIJ central line placed. NGT repositioned. Dr. Gabriel Frye ordered chest x ray for line placement and KUB, fentanyl drip ordered as well. Per Dr. Frye ok to use central line and NGT. Dr. Gabriel Frye made aware of hypotension, orders given for Levophed drip. Dr. Frye called with ABG results. Nephrology ordered IV fluids. Dr. Gabriel Frye aware levophed drip going at 25 MCG/MIN, orders given for albumin. Pt laid flat throughout shift due to unstable condition. Will continue to monitor.
[2020-02-02] MEDS: EYE LUBRICANT OPTH OINT 3.5GM TUBE OP SCH (17:19)
[2020-02-02] MEDS ORDERED: NOREPINEPHRINE 8 MG/D5W 250 ML 250 ML ONE (19:28)
[2020-02-02] MEDS: ROCURONIUM BROMIDE 250 MG in SODIUM CHLORIDE 0.9% 250ML 225 ML IV SCH (19:53)
--- NOTE | 2020-02-02 20:11 | NUR ---
Discussed pt condition and VS with Dr. Daniel. New orders received.
[2020-02-02] MEDS ORDERED: FUROSEMIDE INJ 10 MG/ML 2 ML VIAL IV ONE (20:15)
[2020-02-02] MEDS: TAMSULOSIN HCL 0.4 MG CAP PO SCH (21:00)
--- NOTE | 2020-02-02 21:02 | NUR ---
Notified Dr. Frye of ABG results, VS, and unable to get TOF. MD aware. New orders received for vent settings. MD also requested to prone patient for a goal of 12 hours as tolerated. Sameer NICOLE notified of adjustments to vent settings ordered.
--- NOTE | 2020-02-02 22:43 | Consultation ---
DATE OF CONSULTATION: Initial Nephrology Consultation Report REASON FOR CONSULTATION: I have been kindly asked by Dr. Cote to see this patient in regard to impending acute kidney injury and phase of COVID infection. HISTORY OF PRESENT ILLNESS: Mr. Beatty is a 69-year-old male. He is in the ICU. He is intubated on a ventilator. He is sedated. He is not able to get a history, so the patient's history is obtained with the patient's medical records, nursing staff, and caregivers. Apparently, the patient was admitted to the hospital on the and the patient presented to an outside facility with some shortness of breath and malaise and also some fever he was told to come to this facility here. He was brought and he was admitted. His chest x-ray showed that he had opacities in the lungs and subsequent chest x-ray, it looked like it was getting worse. He tested positive for COVID-19. When the patient presented, the patient's serum creatinine was 0.94 and today it is actually 1.05, but actually yesterday it looked at 1.1. No other history is available. PAST MEDICAL HISTORY: History of BPH and hypertension. PAST SURGICAL HISTORY: Unknown. REVIEW OF SYSTEMS: As per HPI. MEDICATIONS: Right now in the hospital. The patient is a getting Zithromax, fentanyl. He is on a norepinephrine drip and he is on rocuronium, Versed, Lovenox, Protonix, Flomax, Lomotil, Zofran, Tylenol, and hydralazine p.r.n. SOCIAL HISTORY: Unknown. PHYSICAL EXAMINATION: VITAL SIGNS: Blood pressure looks like 74/39, pulse is 86. GENERAL: The patient is intubated. He is on a ventilator. He is sedated. He is paralyzed. CARDIOVASCULAR: Regular rate and rhythm. Limited physical exam was done because of the patient's COVID status. The patient does not appear to have any edema. There is no anasarca. LUNGS: Decreased breath sounds at the bases. EXTREMITIES: No edema. ABDOMEN: Soft. LABORATORY RESULTS: Sodium 134, potassium 4, chloride 100, bicarbonate 24, BUN and creatinine 30 and 1.05 respectively. Calcium is 7.7, albumin 1.9. Chest x-ray shows multifocal opacities and also probable underlying pulmonary edema. IMPRESSION: 1. Impending acute kidney injury in a patient with COVID pneumonia. 2. COVID pneumonia. 3. Probable pulmonary edema. 4. Respiratory failure. 5. Hypotension. 6. Shock. PLAN: At the present time, the patient's situation is very critical. He is on vasopressor support. His urine output does seem to be okay. He is making between 700-1250 mL of urine output per shift. If the patient remains hypotensive, he probably will need to have some IV fluids. Also this will protect his renal function. Also, he has a good urine output, so he should not go into pulmonary edema. He does need to be hydrated. NSAIDs or SAMUEL-2 inhibitors, and IV contrast should be avoided. I will check electrolytes again tomorrow. I will follow the patient with you. Thank you, Dr. Cote and Dr. Frye, for allowing me to participate in the care of this patient with you. Ather MD [facility]/JENNYFER /[id number]
--- NOTE | 2020-02-02 23:30 | NUR ---
Patient placed in prone position per MD order.
[2020-02-03] VITALS (43 sets, daily range): BP systolic 92–166; BP diastolic 46–104
[2020-02-03] MEDS: NOREPINEPHRINE INJ 4MG/4ML 8 MG in DEXTROSE 5% 250ML 250 ML IV SCH ×2 (00:45→01:15)
[2020-02-03] MEDS ORDERED: SODIUM CHLORIDE 0.9% 250ML 250 ML ONE (02:39)
[2020-02-03] MEDS: ROCURONIUM BROMIDE 250 MG in SODIUM CHLORIDE 0.9% 250ML 225 ML IV SCH ×3 (02:56→15:00)
[2020-02-03] MEDS: MIDAZOLAM HCL 5MG/ML 10ML VIAL 100 ML IV PRN ×2 (04:07→09:30)
[2020-02-03 05:28] LABS: CALCIUM IONIZED 1.1 mmol/L (1.09-1.30)
[2020-02-03 05:34] LABS: BASOPHILS % 0.2 % (0.0-1.0); EOSINOPHILS # (AUTO) 0.1 (0.0-0.4); EOSINOPHILS % 0.3 % (0.0-6.0); HEMATOCRIT 36.5 % (38.2-49.6); LYMPHOCYTES # (AUTO) 0.3 (1.0-3.2); LYMPHOCYTES % 1.8 % (18.0-39.1); MEAN CORPUSCULAR HEMOGLOBIN 32.2 pg (28-32); MEAN CORPUSCULAR HGB CONC 32.9 g/dL (31-35); MEAN CORPUSCULAR VOLUME 97.9 fL (81-99); MONOCYTES # (AUTO) 0.3 (0.2-0.8); MONOCYTES % 1.6 % (4.4-11.3); NEUTROPHILS # (AUTO) 15.6 (2.1-6.9); NEUTROPHILS % 94.8 % (38.7-80.0); PLATELET COUNT 210 x10e3/uL (140-360); RED BLOOD COUNT 3.73 x10e6/uL (4.3-5.7)
[2020-02-03 05:43] LABS: ANION GAP 12.4 mmol/L (8-16); CALCIUM 7.6 mg/dL (8.4-10.2); CREATININE, SERUM 1.2 mg/dL (0.72-1.25); POTASSIUM 4.4 mmol/L (3.5-5.1)
[2020-02-03] MEDS: SODIUM CHLORIDE 0.9% 1000ML 1,000 ML IV SCH (05:50)
[2020-02-03 06:00] LABS: MAGNESIUM 2.6 MG/DL (1.3-2.1)
[2020-02-03 06:17] LABS: PHOSPHORUS 3.1 MG/DL (2.3-4.7)
--- NOTE | 2020-02-03 06:29 | NUR ---
Notified Dr. Frye of fever Tmax 101.6 and tachycardia, HR 110. Orders received.
[2020-02-03] MEDS ORDERED: ACETAMINOPHEN 1000 MG/100 ML IV ONE (06:50)
[2020-02-03] MEDS: PANTOPRAZOLE SOD 40 MG TABEC PO SCH (07:30)
[2020-02-03 07:31] LABS: LYMPHOCYTES % (MANUAL) 3 % (19-48); MONOCYTES % (MANUAL) 2 % (3.4-9.0); NEUTROPHILS % (MANUAL) 95 % (40-74); PLATELET ESTIMATE ADEQUATE; PLATELET MORPHOLOGY COMMENT NORMAL; RBC MORPHOLOGY COMMENT NORMAL
[2020-02-03] MEDS: EYE LUBRICANT OPTH OINT 3.5GM TUBE OP SCH ×2 (08:00→16:30)
[2020-02-03] MEDS: ENOXAPARIN SOD INJ 40 MG/0.4 ML SYR SC SCH ×2 (08:00→16:30)
[2020-02-03] MEDS: OLMESARTAN 20 MG TAB PO SCH (08:00)
--- NOTE | 2020-02-03 08:13 | Progress Note ---
DATE: SUBJECTIVE: Mr. Beatty had to be intubated today. The patient is currently intubated, sedated. Events noted. PHYSICAL EXAMINATION: VITAL SIGNS: Stable. The patient is currently intubated, sedated. NG tube was placed. His heart rate 100, respiration 18. HEENT: Not icteric. NECK: Supple. CHEST: Few crackles bilateral. HEART: S1 and S2. No S3, S4 or murmur. ABDOMEN: Soft. Bowel sounds present. No tenderness. EXTREMITIES: No edema. SKIN: No rash. IMPRESSION: Pneumonia, COVID-19, respiratory failure. Currently on ventilator, PEEP 18, tidal volume 380, 100% on sedation. To finish 5 days of Rocephin and azithromycin. Status post plasma treatment. Reassess in the morning. Further recommendations to follow. MD TIFFANY Escoto/JENNYFER /[id number]
[2020-02-03 08:50] LABS: ABG HCO3 30 mmol/L (22-26); ABG PCO2 65 mmHg (35-45); ABG PH 7.27 (7.35-7.45); ABG PO2 128 mmHg (80-105)
--- NOTE | 2020-02-03 09:11 | NUR ---
ASSESSMENT: Spiritual distress Telephone call to pt's . Pt's worried about 's illness. Pt's also caring for pt's mother at home. Pt's inquired about possibility of anointing of the sick for . Intervention: Provided empathic listening. Explained protocol in relation to spiritual care. Outcome: Pt's expressed appreciation for call. Will follow as able. MICHELE ROGERS [employer] [facility] O: [phone]
[2020-02-03] MEDS: FENTANYL CITRATE INJ 2,000 MCG in SODIUM CHLORIDE 0.9% 250ML 210 ML IV PRN (11:59)
--- NOTE | 2020-02-03 12:10 | Progress Note ---
DATE: SUBJECTIVE: Mr. Beatty remains in intensive care unit and intubated. PHYSICAL EXAMINATION: GENERAL: He is intubated, sedated. VITAL SIGNS: Stable, afebrile. HEENT: He is not icteric. His T-max has been 101.4. NECK: Supple. CHEST: Clear. COR: S1-S2. No murmurs. ABDOMEN: Soft. MEDICATIONS: The patient is currently on rocuronium, artificial Tears, Lovenox, acetaminophen p.r.n., Rocephin, and azithromycin. This is day number 6, we will stop antibiotic. IMPRESSION: 1. Coronavirus disease-19, present on admission. 2. Community-acquired pneumonia, present on admission. 3. Acute respiratory distress syndrome. 4. Respiratory failure. We will continue with his supportive care as ordered. Renal is involved because of concern about acute kidney injury. Continue with DVT prophylaxis and supportive care as ordered. We will follow. MD TIFFANY Escoto/JENNYFER /[id number]
--- NOTE | 2020-02-03 13:00 | Progress Note ---
DATE: Pulmonary Critical Care Progress Note SUBJECTIVE: The patient received albumin yesterday. He is receiving fluids at a very slow rate. He was weaned off Levophed throughout the night. He was placed in a prone position. He is now saturating 99% on 65% FiO2 with a PEEP of 12. His respiratory rate is set at 28 and his tidal volume is set at 410. His peak airway pressure is 34. His mean airway pressure is 20. PHYSICAL EXAMINATION: VITAL SIGNS: The patient is afebrile. The blood pressure is 95/60 with saturation 97%. The heart rate is 96. HEENT: Shows no facial swelling. There is a right IJ line in place. There is no oral endotracheal tube. CARDIAC: Reveals a regular rate and rhythm with normal S1 and S2. LUNGS: Auscultation of lungs reveals crackles at the bases. There is no wheezing. ABDOMEN: Soft, nontender. There is no rebound or guarding. EXTREMITIES: Show no leg edema or calf tenderness. There is no cyanosis or clubbing. SKIN: Shows no rashes. NEUROLOGICAL: Shows no focal abnormalities. The patient is sedated. LABORATORY DATA: Sodium is 138 and the BUN to creatinine ratio is 31 to 1.2. The other electrolytes are within normal limits. The white blood cell count is 16.4 and hemoglobin is 12. The platelet count is 210. Blood gases 7.27 with CO2 of 65 and an O2 of 128. His bicarbonate is 23. RADIOGRAPHIC DATA: Chest x-ray shows a right IJ in good position. The endotracheal tube is slightly proximal though was advanced. He has bilateral infiltrates consistent with pneumonia. IMPRESSION: 1. Acute respiratory failure. 2. Viral pneumonia. 3. COVID-19 infection. 4. Acute kidney injury. 5. Tachycardia. PLAN: 1. Continue prone ventilation until this afternoon. The patient will then be repositioned into the supine position. 2. Continue current antibiotics. 3. Continue sedation with Versed and fentanyl. 4. Levophed as needed for blood pressure. 5. Continue to monitor renal function. 6. Case discussed with nursing staff, Respiratory, Internal Medicine, administration, and . 7. Greater than 35 minutes in direct critical care time. Osman Frye MD [facility] /[id number]
[2020-02-03] MEDS ORDERED: FUROSEMIDE INJ 10 MG/ML 2 ML VIAL IV SCH (14:45)
[2020-02-03] MEDS ORDERED: SODIUM CHLORIDE 0.9% 1000ML 1,000 ML IV SCH (14:45)
--- NOTE | 2020-02-03 16:32 | NUR ---
PT FLIPPED TO SUPINE POSITION AT THIS TIME, RNS AND RT IN ROOM PT TOLERATED WELL WILL CONTINUE TO MONITOR
--- NOTE | 2020-02-03 17:56 | Diagnostic Imaging Report ---
Examination: Single AP view of the chest. COMPARISON: Portable AP chest 02/02/2020 INDICATION: Shortness of breath, hypoxia, fever, status post intubation follow-up IMPRESSION: 1. Lines and Tubes: Endotracheal tube has distal tip projecting approximately 8.4 cm above the lakeisha, above the thoracic inlet. Enteric tube and right-sided IJ central line are unchanged. 2. Lungs are well-inflated. No significant interval change in diffuse bilateral interstitial opacities as well as more confluent alveolar opacities in the right upper, right lower and left lower lungs. 3. Cardiomediastinal silhouette is normal. Central pulmonary venous congestion. 4. No acute bony abnormalities. Signed by: Dr. Garret Lozada M.D. on 02/03/2020 5:53 PM
[2020-02-03] MEDS: ACETAMINOPHEN 325 MG TAB PO PRN ×2 (18:48→23:40)
--- NOTE | 2020-02-03 19:00 | NUR ---
Report received from Regina Conner RN. Upon assessment right radial artline found with small amount of blood to dressing, dressing then changed at this time.
--- NOTE | 2020-02-03 20:00 | NUR ---
Dr. Dalila Frye called and was given pts vitals signs. He asked for Sameer NICOLE to call him once the ABG results are back. Sameer NICOLE notified of 's request.
[2020-02-03] MEDS: TAMSULOSIN HCL 0.4 MG CAP PO SCH (20:38)
--- NOTE | 2020-02-03 21:48 | NUR ---
Sameer NICOLE read ABG results to Dr. Dalila Frye at this time. No new orders received.
[2020-02-03 22:28] LABS: ABG HCO3 29 mmol/L (22-26); ABG PCO2 65 mmHg (35-45); ABG PH 7.26 (7.35-7.45); ABG PO2 62 mmHg (80-105)
--- NOTE | 2020-02-03 23:39 | NUR ---
Dr. Dalila Frye present and rounding on the pt. New order received to have RT advance the ETT 2cm and obtain a chest xray in the morning. Addendum: 02/03/20 at 2342 by Yvonne Torres RN John RT notified and she stated she will tell Sameer NICOLE.
[2020-02-04] VITALS (22 sets, daily range): BP systolic 94–154; BP diastolic 51–138
[2020-02-04] MEDS: MIDAZOLAM HCL 5MG/ML 10ML VIAL 100 ML IV PRN ×2 (00:07→20:00)
--- NOTE | 2020-02-04 00:17 | NUR ---
All tubing was changed and new tubing now labeled for changing this next 02/06/2020.
--- NOTE | 2020-02-04 01:30 | NUR ---
Pt placed in supine position with assistance from Sameer NICOLE, Tala Arcos RN, Corie Robles RN, Regina Woodard RN.
[2020-02-04] MEDS: ROCURONIUM BROMIDE 250 MG in SODIUM CHLORIDE 0.9% 250ML 225 ML IV SCH ×2 (03:35→20:25)
--- NOTE | 2020-02-04 04:51 | NUR ---
AM labs blood specimens collected at this time for central line.
[2020-02-04 05:31] LABS: BASOPHILS # (AUTO) 0.1 (0.0-0.1); BASOPHILS % 0.3 % (0.0-1.0); EOSINOPHILS # (AUTO) 0.1 (0.0-0.4); EOSINOPHILS % 0.7 % (0.0-6.0); LYMPHOCYTES # (AUTO) 0.3 (1.0-3.2); LYMPHOCYTES % 1.9 % (18.0-39.1); MEAN CORPUSCULAR HEMOGLOBIN 32.1 pg (28-32); MEAN CORPUSCULAR HGB CONC 32.4 g/dL (31-35); MEAN CORPUSCULAR VOLUME 98.9 fL (81-99); MONOCYTES # (AUTO) 0.4 (0.2-0.8); NEUTROPHILS # (AUTO) 16.1 (2.1-6.9); NEUTROPHILS % 93.6 % (38.7-80.0); PLATELET COUNT 244 x10e3/uL (140-360); RED BLOOD COUNT 3.74 x10e6/uL (4.3-5.7); RED CELL DISTRIBUTION WIDTH 13.5 % (11.7-14.4)
[2020-02-04 05:46] LABS: ALANINE AMINOTRANSFERASE 27 IU/L (0-55); ALBUMIN 1.7 g/dL (3.5-5.0); ALBUMIN/GLOBULIN RATIO 0.4 (0.8-2.0); ALKALINE PHOSPHATASE 69 IU/L (40-150); ANION GAP 11.6 mmol/L (8-16); BLOOD UREA NITROGEN 28 mg/dL (7-26); BUN/CREATININE RATIO 28 (6-25); CALCIUM 7.7 mg/dL (8.4-10.2); CARBON DIOXIDE 28 mmol/L (22-29); CHLORIDE 109 mmol/L (98-107); CREATININE, SERUM 0.99 mg/dL (0.72-1.25); EST GLOMERULAR FILTRATION RATE > 60 ML/MIN (60-); GLUCOSE 98 mg/dL (74-118); POTASSIUM 4.6 mmol/L (3.5-5.1); SODIUM 144 mmol/L (136-145)
--- NOTE | 2020-02-04 07:00 | NUR ---
Report given to Devon Arcos RN. Informed him the pt is to be returned to supine position at 1600 and then tube feeding can be resumed. Also informed him that the arterial line is very positional and to follow up with MD for possible replacement.
[2020-02-04] MEDS: PANTOPRAZOLE SOD 40 MG TABEC PO SCH (07:30)
[2020-02-04] MEDS ORDERED: FENTANYL 2000MCG/NS 250 250 ML IV PRN (08:15)
--- NOTE | 2020-02-04 08:54 | Progress Note ---
DATE: SUBJECTIVE: The patient's FiO2 was increased slightly to 70% yesterday. He remains on PRVC at a rate of 28 with a tidal volume of 410 and a PEEP of 12. He required some low-dose fluids yesterday. His creatinine is improved this morning. He was placed back in the prone position around midnight. His enteral feedings were held. PHYSICAL EXAMINATION: VITAL SIGNS: The patient is febrile to 100.7 and the blood pressure is 122/65. The saturation is 98% and the heart rate is 106. HEENT: No facial swelling or erythema. There is an oral endotracheal tube in place. There is a right IJ. Site looks clean. CARDIAC: Regular rate and rhythm with normal S1, S2. LUNGS: Auscultation of the lungs reveals rhonchorous breath sounds bilaterally. There is no wheezing. ABDOMEN: Soft, nontender. There is no rebound or guarding. EXTREMITIES: No leg edema or calf tenderness. There is no cyanosis or clubbing. SKIN: No rashes. NEUROLOGICAL: No focal abnormalities. The patient is sedated and paralyzed. LABORATORY DATA: White blood cell count is 17.1 and hemoglobin is 12. The platelet count is 244,000. The BUN to creatinine ratio is 28 to 0.99. Other electrolytes are within normal limits. The magnesium is normal. The albumin is 1.7. RADIOGRAPHIC DATA: Chest x-ray shows persistent bilateral infiltrates. IMPRESSION: 1. Acute respiratory failure. 2. Viral pneumonia and COVID-19 infection. 3. Acute kidney injury that is improved. 4. Leukocytosis with possible superimposed bacterial infection. PLAN: 1. The patient will be continued on the current ventilator settings. We will obtain a stat ABG. 2. The patient will be placed back in the supine position later today. 3. Sputum for Gram stain and C and S. 4. Begin antibiotics to cover for superimposed bacterial pneumonia. 5. Continue fentanyl and Versed as well as rocuronium for now. 6. DVT prophylaxis. 7. Case discussed with , nursing, Respiratory, Internal Medicine and Infectious Disease. 8. Greater than 35 minutes in direct critical care time. Osman Frye MD [facility]/MODGabriel /[id number]
[2020-02-04] MEDS: ENOXAPARIN SOD INJ 40 MG/0.4 ML SYR SC SCH (09:00)
[2020-02-04] MEDS: OLMESARTAN 20 MG TAB PO SCH (09:00)
[2020-02-04] MEDS: EYE LUBRICANT OPTH OINT 3.5GM TUBE OP SCH ×2 (09:00→19:10)
[2020-02-04] MEDS ORDERED: HEPARIN SOD (PORCINE) 1000 UNIT/ML SDV ONE (09:36)
[2020-02-04] MEDS: MEROPENEM 1GM 100 ML IV SCH ×2 (10:25→19:04)
--- NOTE | 2020-02-04 11:25 | NUR ---
progress note [id number]
[2020-02-04] MEDS ORDERED: VANCOMYCIN 1GM/NS 250 ML 250 ML IV ONE (11:30)
[2020-02-04 12:03] LABS: ABG HCO3 31 mmol/L (22-26); ABG PCO2 70 mmHg (35-45); ABG PH 7.26 (7.35-7.45); ABG PO2 62 mmHg (80-105)
[2020-02-04] MEDS: NOREPINEPHRINE INJ 4MG/4ML 8 MG in DEXTROSE 5% 250ML 250 ML IV SCH (12:15)
--- NOTE | 2020-02-04 17:16 | Diagnostic Imaging Report ---
Examination: Single AP view of the chest. COMPARISON: Portable chest 02/03/2020 INDICATION: Shortness of breath, hypoxia, fever, respiratory failure IMPRESSION: 1. Lines and Tubes: Endotracheal tube distal tip projecting approximately 7.6 cm above the lakeisha, at the level of the thoracic inlet. Unchanged enteric tube and right IJ line. 2. No interval change in bilateral diffuse alveolar and interstitial opacities consistent with pneumonia, ARDS or edema. 3. Cardiac silhouette is unremarkable. Central pulmonary venous congestion. 4. No acute bony abnormalities. Signed by: Dr. Garret Lozada M.D. on 02/04/2020 5:13 PM
--- NOTE | 2020-02-04 17:20 | Progress Note ---
DATE: SUBJECTIVE: Mr. Beatty remains in intensive care unit. Discussed with Dr. Frye earlier today. The patient is intubated, sedated. His FiO2 is 70%. Currently, his rate of 28, tidal volume 410, PEEP of 12. Creatinine is little bit better today. He is in prone position. PHYSICAL EXAMINATION: VITAL SIGNS: He has running fever. HEENT: Not icteric. NECK: Supple. CHEST: Few crackles bilateral. HEART: S1, S2. ABDOMEN: Soft. Bowel sounds present. No tenderness. EXTREMITIES: No edema. SKIN: No rash. IMAGING DATA: Chest x-ray, bilateral infiltrate. IMPRESSION: 1. Acute respiratory failure, viral pneumonia, COVID-19. 2. Acute on chronic kidney injury. 3. Leukocytosis, concerned about aspiration pneumonia. We will put the patient back on antibiotic. 4. Discussed with Dr. Frye. His white count went up . We will put him on vancomycin and meropenem. Vancomycin 1 g q.12 hours, meropenem 500 mg IV q.6. Reassess in the morning. Plan of eight days of antibiotic. We will follow. MD TIFFANY Escoot/MODL /[id number]
[2020-02-04] MEDS ORDERED: FUROSEMIDE INJ 10 MG/ML 2 ML VIAL IV NR (18:45)
[2020-02-04] MEDS ORDERED: FUROSEMIDE INJ 10 MG/ML 2 ML VIAL ONE (19:00)
--- NOTE | 2020-02-04 19:00 | NUR ---
Report received from Devon Arcos RN. Arterial line removed today by Dr. Dalila Frye he attempted to replace but he decided to stop replacement at this time. I was notified RT is to draw an ABG shortly after shift change. Pt pulled up and repositioned with Devon BROOKS at this time. Devon BROOKS also collected blood cultures and administered Lasix at this time per MD orders.
--- NOTE | 2020-02-04 19:13 | NUR ---
Dr. Thompson called just now asking nursing to inform the pts family that he does not recommend Hydroxychloroquine treatment at this time.
[2020-02-04] MEDS: TAMSULOSIN HCL 0.4 MG CAP PO SCH (19:32)
--- NOTE | 2020-02-04 19:55 | NUR ---
Dr.L. Frye called and requested that Sameer NICOLE call him with lab results and ventilator readings. Sameer NICOLE present and I notified him at this time.
[2020-02-04] MEDS: ACETAMINOPHEN 325 MG TAB PO PRN (19:56)
--- NOTE | 2020-02-04 20:20 | NUR ---
lawnmower repair mechanic just delivered ABG results and told me that she delivered a copy to Sameer NICOLE as well. Sameer NICOLE to call Dr.L. Frye the results.
[2020-02-04] MEDS: FENTANYL 2000MCG/NS 250 250 ML IV PRN (20:26)
--- NOTE | 2020-02-04 20:36 | NUR ---
Sameer RT reading ABG and vent reading results to at this time. New orders received: decrease peep to 10 increase tidal volume to 440.
[2020-02-04] MEDS ORDERED: SODIUM CHLORIDE 0.9% 1000ML 1,000 ML ONE (23:16)
[2020-02-05] VITALS (26 sets, daily range): BP systolic 98–144; BP diastolic 49–84
[2020-02-05] MEDS: MEROPENEM 1GM 100 ML IV SCH ×2 (03:00→09:15)
[2020-02-05 04:14] LABS: BASOPHILS % 0.1 % (0.0-1.0); EOSINOPHILS % 0.2 % (0.0-6.0); HEMATOCRIT 36.7 % (38.2-49.6); HEMOGLOBIN 11.6 g/dL (14.0-18.0); LYMPHOCYTES # (AUTO) 0.5 (1.0-3.2); MEAN CORPUSCULAR HGB CONC 31.6 g/dL (31-35); MEAN CORPUSCULAR VOLUME 101.4 fL (81-99); MONOCYTES # (AUTO) 0.3 (0.2-0.8); NEUTROPHILS # (AUTO) 14.7 (2.1-6.9); NEUTROPHILS % 93.7 % (38.7-80.0); PLATELET COUNT 204 x10e3/uL (140-360); RED BLOOD COUNT 3.62 x10e6/uL (4.3-5.7)
[2020-02-05] MEDS: ROCURONIUM BROMIDE 250 MG in SODIUM CHLORIDE 0.9% 250ML 225 ML IV SCH ×4 (04:41→22:45)
[2020-02-05] MEDS: MIDAZOLAM HCL 5MG/ML 10ML VIAL 100 ML IV PRN ×3 (04:42→22:45)
[2020-02-05 04:46] LABS: ALBUMIN 1.5 g/dL (3.5-5.0); ALBUMIN/GLOBULIN RATIO 0.3 (0.8-2.0); CALCIUM 7.5 mg/dL (8.4-10.2)
[2020-02-05 04:48] LABS: CREATININE, SERUM 1.85 mg/dL (0.72-1.25)
--- NOTE | 2020-02-05 06:26 | Diagnostic Imaging Report ---
EXAMINATION: CHEST SINGLE (PORTABLE) INDICATION: Respiratory failure. COMPARISON: Chest radiograph 02/04/2020. FINDINGS: LINES/TUBES: Endotracheal tube terminates 8.5 cm above the lakeisha at the thoracic inlet. Enteric tube terminates in the gastric fundus. Right IJ central venous catheter terminates in the upper SVC. LUNGS:The lung volumes are low. Persistent bilateral diffuse interstitial and airspace opacities. PLEURA: Possible small left pleural effusion. No pneumothorax. MEDIASTINUM:The cardiomediastinal silhouette appears unchanged in size and shape. BONES/SOFT TISSUES:No acute osseous injury. ABDOMEN:No free air under the diaphragm. IMPRESSION: Lines and tubes as above. Endotracheal tube terminates 8.5 cm above the lakeisha at the thoracic inlet. Suggest advancement. Persistent bilateral opacities, which may represent multifocal pneumonia, possibly with superimposed pulmonary edema. Signed by: Dr. Alf Castorena MD on 02/05/2020 6:22 AM
[2020-02-05] MEDS: ENOXAPARIN SOD INJ 40 MG/0.4 ML SYR SC SCH (06:33)
--- NOTE | 2020-02-05 06:43 | NUR ---
Report to be given to Lashawn Alberts RN.
[2020-02-05 07:44] LABS: BAND NEUTROPHILS % (MANUAL) 1 %; LYMPHOCYTES % (MANUAL) 1 % (19-48); NEUTROPHILS % (MANUAL) 98 % (40-74); PLATELET ESTIMATE ADEQUATE; PLATELET MORPHOLOGY COMMENT NORMAL; RBC MORPHOLOGY COMMENT NORMAL
[2020-02-05] MEDS ORDERED: ALBUMIN 25% 25GM 100ML 0.25 GM/ML BTL IV ONE (08:00)
[2020-02-05] MEDS ORDERED: SODIUM CHLORIDE 0.9% 1000ML 1,000 ML ONE (08:15)
[2020-02-05] MEDS ORDERED: ACETAZOLAMIDE SODIUM 500 MG/VIAL IV ONE (08:30)
[2020-02-05] MEDS ORDERED: ALBUMIN 25% 25GM 100ML 200 ML IV ONE (08:30)
[2020-02-05] MEDS: EYE LUBRICANT OPTH OINT 3.5GM TUBE OP SCH ×2 (08:53→16:00)
[2020-02-05] MEDS: OLMESARTAN 20 MG TAB PO SCH (08:53)
[2020-02-05] MEDS: PANTOPRAZOLE 40 MG 10ML VIAL IV SCH (08:53)
--- NOTE | 2020-02-05 09:18 | Operative Report ---
DATE OF PROCEDURE: SURGEON: Osman Frye MD PROCEDURE: Arterial line placement. PREOPERATIVE DIAGNOSIS: Acute kidney injury, respiratory failure, and COVID-19 infection. POSTOPERATIVE DIAGNOSIS: Acute kidney injury, respiratory failure, and COVID-19 infection. CONSENT: Consent was obtained from the daughter. MEDICATIONS: The patient was on Versed 6 mg IV and fentanyl 200 mcg/kg/minute at the time of the procedure. PROCEDURE IN DETAIL: The left wrist was prepped sterilely with chlorhexidine. Sterile drape and sterile gloves were used. A 20-gauge needle was used to enter the radial artery. A wire was placed through the needle and a 20-gauge catheter was placed over the wire by the Seldinger technique. There was good blood return and a normal arterial tracing. COMPLICATIONS: None. ESTIMATED BLOOD LOSS: None. Osman Frye MD [facility]/MODL /[id number]
--- NOTE | 2020-02-05 09:18 | Progress Note ---
DATE: Pulmonary Critical Care Progress Note SUBJECTIVE: The patient required an increase in his tidal volume to 440 last night because of worsening hypercapnia. He remains on 80% FiO2 with 12 of PEEP. His peak airway pressure is 28 and his mean is 14. His respiratory rate is set at 28. His ET tube was advanced 2 cm this morning. He continues on rocuronium as well as Versed 6 mg and fentanyl at 200 mcg. He is scheduled to receive albumin today. PHYSICAL EXAMINATION: VITAL SIGNS: The patient is sedated on Versed and fentanyl. He is also on rocuronium. He is on a PRVC at a rate of 28 with a tidal volume of 440 and a PEEP of 12. His FiO2 is set at 80%. HEENT: Shows no facial swelling or erythema. CARDIAC: Reveals regular rate and rhythm with normal S1 and S2. LUNGS: Auscultation of lungs reveals crackles at both bases. There is no wheezing. ABDOMEN: Soft, nontender. There is no rebound or guarding. He is receiving enteral feedings. He has mild leg edema. He has no focal neurological abnormalities. He is sedated. LABORATORY DATA: White blood cell count is 14.7 and the hemoglobin is 11.6. The platelet count is 204. The creatinine has increased to 1.85 and the BUN is 41. Potassium is 5. Sodium is 147. Albumin is 1.5. RADIOGRAPHIC DATA: Chest x-ray shows continued bilateral infiltrates. IMPRESSION: 1. Acute respiratory failure. 2. Acute kidney injury. 3. Viral pneumonia and coronavirus disease 2019 infection. 4. Leukocytosis with possible superimposed bacterial infection. 5. Anemia, unspecified. PLAN: 1. The patient will be placed in the prone position today. 2. Repeat ABG and adjust ventilator settings as needed. 3. The patient is scheduled to receive albumin along with a low dose of Diamox for the increasing creatinine today. 4. Continue current antibiotics for possible superimposed bacterial infection. 5. Case discussed with Respiratory, shift foreman nursing, dayshift nursing, Infectious Disease, Internal Medicine, and the daughter. Apparently, the who was the family's spokesperson, is now in the hospital with the coronavirus disease 2019 infection. Greater than 35 minutes in direct critical care time. Osman Frye MD [facility]/MODL /[id number]
[2020-02-05] MEDS ORDERED: METHYLPREDNISOLONE SOD SUCC 40 MG/ML VIAL 1ML IV ONE (09:25)
[2020-02-05 09:33] LABS: ABG HCO3 29 mmol/L (22-26); ABG PCO2 69 mmHg (35-45); ABG PH 7.23 (7.35-7.45); ABG PO2 93 mmHg (80-105)
[2020-02-05] MEDS ORDERED: IPRATROPIUM BROMIDE 0.02% 2.5 ML NEB NEB SCH (10:30)
[2020-02-05] MEDS ORDERED: IPRATROPIUM BROMIDE 0.02% 2.5 ML NEB ONE (10:30)
[2020-02-05] MEDS ORDERED: LEVALBUTEROL HCL SOLN NEBU 0.63 MG/3 ML NEB INH ONE (10:45)
--- NOTE | 2020-02-05 10:51 | Diagnostic Imaging Report ---
X-ray chest AP portable Comparison: 02/05/2020 6:02 AM History: Check the ET tube position Findings: Compared with the prior exam, the endotracheal tube has been repositioned and the tip lies at or just below the thoracic inlet approximately 5.7 cm from the lakeisha. This would be considered an acceptable position for the ET tube. Right IJ central line, nasogastric tube and bilateral diffuse lung infiltrates remain unchanged. There is no pneumothorax or pneumomediastinum. Impression: Endotracheal tube is in acceptable position. Signed by: Hema Euceda MD on 02/05/2020 10:48 AM
[2020-02-05] MEDS: NOREPINEPHRINE INJ 4MG/4ML 8 MG in DEXTROSE 5% 250ML 250 ML IV SCH (12:15)
[2020-02-05 13:18] LABS: ABG HCO3 29 mmol/L (22-26); ABG PCO2 63 mmHg (35-45); ABG PH 7.27 (7.35-7.45); ABG PO2 109 mmHg (80-105)
[2020-02-05] MEDS ORDERED: LEVALBUTEROL HCL SOLN NEBU 1.25 MG/3 ML NEB INH SCH (13:50)
[2020-02-05] MEDS: HEPARIN SOD/SOD CHLORIDE 1,000 ML IV SCH (14:05)
--- NOTE | 2020-02-05 15:59 | Progress Note ---
DATE: SUBJECTIVE: Mr. Beatty remains in Intensive Care Unit. I called his daughter today. Apparently, his mother and his back in the hospital. His mother went to [facility], his went to [facility] for shortness of breath, but they were both doing well. She asked me about the treatment and so far we do not have any available or FDA approved treatment for COVID-19. We gave him a convalescent plasma. So far, the studies are against hydroxychloroquine and is not available. The patient remains in intensive care unit. He is on 80% FiO2 with 12 of PEEP. His peak airway pressure is 28. His ET tube was advanced 2 cm today. He continued to be on the rocuronium as well as Versed and fentanyl. He also is scheduled to receive albumin. LABORATORY DATA: His cultures remain negative. His white count 15.69, hemoglobin 11.69. Sodium 147, potassium 5, his creatinine is worse today is 1.34. MEDICATION LIST: Currently on heparin subcu. He is on meropenem and methylprednisolone. He is on vancomycin, we gave him one dose. IMPRESSION: 1. Coronavirus disease-19, present on admission. 2. Acute respiratory distress syndrome with respiratory failure. 3. Concern about acute on chronic kidney disease, getting progressively worse. We will observe. We will discontinue meropenem. We will discontinue vancomycin. Recommend to wean down the steroid. IV fluid as ordered and albumin. Discussed with the family. Discussed with Critical Care. MD TIFFANY Escoto/MODL /[id number]
[2020-02-05] MEDS ORDERED: SODIUM CHLORIDE 0.45% 1,000 ML IV SCH ×2 (16:45→17:45)
--- NOTE | 2020-02-05 16:46 | NUR ---
Nutrition Intervention Note RD Recommendation(s) for Physician: -Recommend Vital AF 1.2 @ goal rate of 60 mL/hr (provides 1728 kcal, 108 g protein, and 1168 mL water) -Fluid management per MD Plan of Care: RD following, monitoring for tolerance and adequacy, TF recommendation Nutrition reason for involvement: initiation of enteral nutrition RD Assessment (02/05/20). Follow up. Pt was intubated on 02/01 and a tube feed order of Vital AF 1.2 was placed on 02/02. RN reported that tube feeding is currently on hold since pt is planned to be placed in the prone position today. Recommend resuming tube feeding when medically appropriate. Will continue to monitor. (02/01/20) Pt is a 69 year old male admitted with SOB, hypoxia, and fever. Pt is also positive for COVID-19. Unable to obtain nutrition history from pt since he is on droplet isolation precautions. Spoke to RN, who reported that pt is not eating much or consuming Ensure. Unable to assess weight status since there are no previous weights in chart. RN also reported that pt had nausea yesterday and is experiencing diarrhea. No chewing/swallowing issues. Will continue to monitor Principal Problems/Diagnoses: SOB, hypoxia, fever, COVID-19+ PMH: HTN, BPH GI: last recorded BM 02/01 Skin: no pressure ulcers Labs: (02/04) Na 147, K 5.0, BUN 41, Cr 1.85, Glu 97, Ca 7.5 (01/31) Na 133, K 3.4, BUN 30, Glu 122, Ca 8.1 Meds: antibiotics, methylprednisolone, lovenox, lasix, zofran, hydralazine, norepinephrine, heparin Ht: 70 inches Wt: 195 lbs (02/01) 193 lbs (01/31) BMI: 28.0 kg/m2 IBW: 166 lbs Malnutrition Evaluation (02/01/20) Unable to assess. Will re-evaluate at follow-up as appropriate. Nutrition Prescription (Diet Order): Vital AF 1.2 @ 30 mL/hr Estimated Nutritional Needs: 4585-6705 calories/day (18-20 kcal/kg) Weight used: 193 lbs 105-175 g protein/day (1.2-2 g pro/kg) Weight used: 193 lbs Diet Adequacy: Not meeting calorie needs, Not meeting protein needs Tolerance: Tolerating pending Diet Education Needs Assessment: Diet education not indicated at this time Nutrition Care Level: moderate Nutrition Diagnosis: Inadequate oral intake related to acute respiratory failure/mechanical ventilation as evidenced by need for enteral nutrition. Goal: Patient will meet 75-100% of estimated needs by follow up Progress: N/A Interventions: Composition, Rate, Route, Collaboration with other providers Monitoring/Evaluation: -Total energy intake, Total protein intake, Formula/Solution Weight change Signed: Oralia Whitaker RD, RIGO
[2020-02-05] MEDS: FENTANYL 2000MCG/NS 250 250 ML IV PRN (17:07)
[2020-02-05] MEDS ORDERED: FUROSEMIDE INJ 10 MG/ML 4 ML VIAL IV ONE (18:00)
--- NOTE | 2020-02-05 18:29 | NUR ---
Consent obtained from daughter Nicolette for placement of arterial line. Daughter to give consent because patient's is hospitalized at this time. Dr. Dr. Thompson updated daughter Nicolette on patient's condition. Orders given for IVF and lasix. Pt laid in prone position at 1530. Tube feedings held at this time, tube feedings to be restarted when pt is in supine position. María informed of BUN and creatine, and diminished urine output. Will continue to monitor the patient.
--- NOTE | 2020-02-05 20:35 | NUR ---
Hand delivered ABG results to Dr. Frye. Dr. Frye aware and adjusted vent settings.
--- NOTE | 2020-02-05 20:37 | NUR ---
Dr. Frye aware of no urine output since beginning of shift and low urine output during the day shift. MD also aware of tachycardia HR in 120s.
[2020-02-05] MEDS: TAMSULOSIN HCL 0.4 MG CAP PO SCH (20:56)
--- NOTE | 2020-02-05 23:53 | NUR ---
Dr. Frye notified of ABG results at 8004. updated on urine output. Nephrology consult paged at [phone] Frye's request regarding concern for renal failure.
--- NOTE | 2020-02-05 23:58 | NUR ---
Updated Dr. Loomis on potassium level from ABG sample, low urine output, pt condition, and labs from this AM. New orders received. stated not necessary to call back tonight with UO if does not improve after IV Lasix.
[2020-02-06] VITALS (25 sets, daily range): BP systolic 78–134; BP diastolic 38–81
[2020-02-06] MEDS ORDERED: DEXTROSE 50% SYRINGE 50 ML IV STA (00:02)
[2020-02-06] MEDS ORDERED: INSULIN REGULAR, HUMAN 100 UNIT/1 ML 3ML VIAL IV ONE (00:15)
[2020-02-06] MEDS ORDERED: FUROSEMIDE INJ 10 MG/ML 4 ML VIAL IV ONE ×2 (00:15→12:00)
[2020-02-06] MEDS: ROCURONIUM BROMIDE 250 MG in SODIUM CHLORIDE 0.9% 250ML 225 ML IV SCH ×3 (04:00→20:55)
[2020-02-06 05:25] LABS: ABG PCO2 64 mmHg (35-45); ABG PH 7.22 (7.35-7.45); ABG PO2 82 mmHg (80-105)
[2020-02-06 05:26] LABS: ABG HCO3 26 mmol/L (22-26)
[2020-02-06 05:42] LABS: BASOPHILS % 0.1 % (0.0-1.0); HEMOGLOBIN 10.4 g/dL (14.0-18.0); LYMPHOCYTES # (AUTO) 0.3 (1.0-3.2); MEAN CORPUSCULAR HEMOGLOBIN 31.1 pg (28-32); MEAN CORPUSCULAR HGB CONC 30.6 g/dL (31-35); MEAN CORPUSCULAR VOLUME 101.8 fL (81-99); MONOCYTES # (AUTO) 0.5 (0.2-0.8); MONOCYTES % 2.9 % (4.4-11.3); NEUTROPHILS # (AUTO) 15.7 (2.1-6.9); NEUTROPHILS % 93.9 % (38.7-80.0); PLATELET COUNT 166 x10e3/uL (140-360); RED BLOOD COUNT 3.34 x10e6/uL (4.3-5.7); RED CELL DISTRIBUTION WIDTH 14.2 % (11.7-14.4)
[2020-02-06 06:01] LABS: ALBUMIN/GLOBULIN RATIO 0.5 (0.8-2.0); ANION GAP 14.3 mmol/L (8-16); CALCIUM 7.7 mg/dL (8.4-10.2); CREATININE, SERUM 4.92 mg/dL (0.72-1.25); POTASSIUM 5.3 mmol/L (3.5-5.1)
[2020-02-06] MEDS: ENOXAPARIN SOD INJ 40 MG/0.4 ML SYR SC SCH (06:25)
--- NOTE | 2020-02-06 06:34 | NUR ---
ABG results read to Dr. Frye, AM electrolytes read to Dr. Frye. Notified MD of I/Os, UO, and O2 sats. New orders received. MD stated he will talk to Dr. Loomis regarding dialysis.
[2020-02-06] MEDS ORDERED: SODIUM BICARBONATE 8.4% INJ 50 ML SYR IV ONE (06:55)
--- NOTE | 2020-02-06 07:12 | NUR ---
Report given to Lashawn BROOKS. RN aware of pending orders and overnight events.
[2020-02-06] MEDS ORDERED: SODIUM BICARBONATE 8.4% SYRING 50 ML in DEXTROSE 5% 1,000 ML IV SCH (07:15)
[2020-02-06] MEDS: HEPARIN SOD/SOD CHLORIDE 1,000 ML IV SCH (07:43)
[2020-02-06] MEDS: PANTOPRAZOLE 40 MG 10ML VIAL IV SCH (08:31)
[2020-02-06] MEDS: EYE LUBRICANT OPTH OINT 3.5GM TUBE OP SCH ×2 (08:32→16:14)
[2020-02-06] MEDS: FENTANYL 2000MCG/NS 250 250 ML IV PRN (08:34)
[2020-02-06] MEDS: MIDAZOLAM HCL 5MG/ML 10ML VIAL 100 ML IV PRN ×2 (08:35→15:00)
--- NOTE | 2020-02-06 09:30 | Diagnostic Imaging Report ---
X-ray chest AP portable Comparison: 02/05/2020 History: Respiratory failure Findings: Endotracheal tube and right IJ central venous line unchanged. Nasogastric tube unchanged. The tip is excluded on not well seen on this radiograph. Cardiomediastinal silhouette is unchanged. Lung powell show worsening of the infiltrates on the right side and more definition of air bronchograms of the left side. No other acute changes. No pleural effusion. No pneumothorax. Impression: Worsening infiltrates right more than left. Signed by: Hema Euceda MD on 02/06/2020 9:27 AM
[2020-02-06 09:31] LABS: ABG PCO2 54 mmHg (35-45); ABG PH 7.28 (7.35-7.45); ABG PO2 64 mmHg (80-105)
[2020-02-06 09:32] LABS: ABG HCO3 25 mmol/L (22-26)
--- NOTE | 2020-02-06 10:08 | NUR ---
progress note dictated
--- NOTE | 2020-02-06 11:24 | NUR ---
WOUND CARE CONSULT FOR 69 YO MALE HX OF SOB FEVER,PUI ADAMS 8 ON STRICT PUP STATUS AND INTERVENTIONS AND ALTERNATING PRESSURE MATTRESS LABS: WBC-16.69 HGB_10.4 GLUCOSE-133 SKIN ASSESSMENT COMPLETE PATIENT PRESENTS WITH LEFT FOREHEAD PARTIAL THICKNESS WOUND 1CM X2CM X.2CM RIGHT BUTTOCK DTI 2.5CM X5CM DARK BLUISH RED IN COLOR RECOMMENDATIONS: NURSING TO CONTINUE TO MAINTAIN STRICT PUP STATUS AND INTERVENTIONS AND ALTERNATING PRESSURE MATTRESS NURSING TO CONTINUE TO ASSIST PATIENT NEEDED WITH MEALS AND NUTRITIONAL SUPPLEMENTS TO ENSURE PROPER REQUIREMENTS FOR HEALING NURSING TO CONTINUE TO OFFLOAD ANY POSSIBLE PRESSURE POINT EARS , TUBE OR STRAP SITES POSTERIOR AND HIPS ,FEET AND HEELS NEEDED WITH PILLOW SUSPENSION WHEN IN BED NURSING TO CLEAN LEFT FOREHEAD WITH NORMAL SALINE DAILY AND APPLY BACITRACIN OINTMENT AND LEAVE OPEN TO AIR NURSING TO MAINTAIN PATIENT BUTTOCKS AND COREY AREA CLEAN AND DRY DAILY AND APPLY VENELEX OINTMENT TO RT BUTTOCKS DTI AND COVER WITH ALLEVYN FOAM DRESSING Addendum: 02/06/20 at 1132 by Neo Murguia RN Amended: Links added.
--- NOTE | 2020-02-06 11:48 | Progress Note ---
DATE: SUBJECTIVE: Mr. Beatty remains in intensive care unit and intubated. His kidney function is getting progressively worse. Discussed with Renal. He is going to be on dialysis. We need an IV access for dialysis. Discussed with IR. The patient is noncommunicative. Discussed with the family. PHYSICAL EXAMINATION: GENERAL: He is intubated, sedated. VITAL SIGNS: Stable. Currently, temperature 96.0, heart rate of 76, blood pressure 120/58. This is day #10 of hospitalization. HEENT: Not icteric. NECK: Supple. CHEST: Few crackles. COR: S1, S2. ABDOMEN: Soft. Bowel sounds present. No tenderness. EXTREMITIES: No edema. He is currently off antibiotic. He is on Lovenox. IMPRESSION: 1. COVID-19, on admission. 2. Acute respiratory distress syndrome with respiratory failure, improving. 3. Now with renal failure, going on dialysis. 4. Anemia. 5. Discussed with Radiology. The plan for him to have a dialysis catheter placed. We will obtain a COVID-19 at 2 weeks to see if he is still positive. We will follow. MD TIFFANY Escoto/JENNYFER /[id number]
[2020-02-06] MEDS: NOREPINEPHRINE INJ 4MG/4ML 8 MG in DEXTROSE 5% 250ML 250 ML IV SCH (12:00)
[2020-02-06] MEDS ORDERED: ATROPINE SULFATE 0.1 MG/ML 10ML SYR ONE (14:32)
[2020-02-06] MEDS ORDERED: EPINEPHRINE HCL SYRINGE ONE (14:32)
[2020-02-06] MEDS ORDERED: HEPARIN SOD (PORCINE) 1000 UNIT/ML 30ML ONE (15:34)
[2020-02-06] MEDS ORDERED: SODIUM CHLORIDE 0.9% 1000ML 2,000 ML ONE (16:19)
[2020-02-06] MEDS ORDERED: ALBUMIN 25% 25GM 100ML 0.25 GM/ML BTL IV ONE (16:45)
--- NOTE | 2020-02-06 16:45 | Diagnostic Imaging Report ---
Procedure: Non tunneled temporary dialysis catheter placement. History: Need for hemodialysis. Surgical Technologist: Hema Euceda MD. Hazardous Materials Waste Technician: None Modality: Sonography and fluoroscopy. DOSE REDUCTION: The examination was performed according to departmental dose-optimization program which includes automated exposure control, adjustment of the mA and/or kV according to patient size and/or use of iterative reconstruction technique. Fluoro time: 0.0 minutes. Radiation dose for this procedure was 1.24 mGy air Kerma. Number of images: 2 Sedation: No IV sedation was given. Anesthesia: Lidocaine local infiltration. Physician intra-service sedation time was not applicable. Estimated blood loss: < 5 cc. Technique: Informed written consent was obtained. Discussion of risks, benefits, and alternatives were made . The patient's legal indirect sales representative expressed understanding and agreed to proceed. A universal timeout was performed prior to starting the procedure. The patient is Covid positive. The procedure was performed in the room specified by the hospital. The procedure room personnel used personal protective equipment. The operators used sterile gowns and gloves additionally. A preliminary ultrasonogram was performed of the neck that revealed a patent and compressible right internal jugular vein. Pertinent ultrasound images were stored in the PACS for documentation. A sterile prep and drape of the neck and upper chest was performed using standard technique. Using aseptic precautions, real-time ultrasound guidance, the internal jugular vein was accessed after local anesthetic infiltration and dermatotomy with a micropuncture needle. A 018 guidewire was advanced into the central venous system under fluoroscopic guidance. Over the wire a micropuncture sheath was placed. Through the micropuncture sheath, a 035 wire was advanced into the venous system under fluoroscopic guidance. Over the wire following sequential dilatation of the tract, a nontunneled temporary dialysis catheter was placed. The catheter ports aspirated and flushed well and were terminally packed with heparin. The catheter was secured to skin with nonabsorbable suture. An aseptic dressing was applied. The patient was transferred to the recovery area and was discharged from the department in stable condition. Complications: None immediate. Device: 14 Georgian x15 cm triple-lumen nontunneled dialysis catheter . Findings: Patent and compressible right internal jugular vein. Final image shows the catheter to be in good position with the catheter tip at the cavoatrial junction and an excellent position for use. There is no complication. Impression: Successful ultrasound and fluoroscopic guided right internal jugular vein route nontunneled temporary dialysis catheter placement as described above. Thank you for the opportunity to assist in the care of your patient. Signed by: Hema Euceda MD on 02/06/2020 4:42 PM
[2020-02-06] MEDS ORDERED: ALBUMIN 25% 12.5GM 50ML 300 ML IV ONE (17:00)
--- NOTE | 2020-02-06 17:08 | Progress Note ---
DATE: SUBJECTIVE: The patient has had decreased urine output over the past 24 hours. The creatinine is now increased to 4.92. The patient was prone last night, but has been flipped back to the supine position. His tidal volume is set at 440 and his rate is set at 30. His PEEP is set at 10 and his FiO2 is 75%. PHYSICAL EXAMINATION: VITAL SIGNS: The patient is afebrile. The blood pressure is 113/61, saturation is 92%. He is on a PRVC at a rate of 30 with a tidal volume of 440. His FiO2 is set at 75% and his PEEP is set at 10. He has an oral endotracheal tube in place. There is a right IJ line. The site looks clean. There is no drainage. CARDIAC: Reveals regular rate and rhythm with normal S1 and S2. LUNGS: Auscultation of lungs shows decreased breath sounds at the bases. There is no wheezing. ABDOMEN: Soft, nontender. There is no rebound or guarding. EXTREMITIES: Show no leg edema or calf tenderness. There is no cyanosis or clubbing. SKIN: Shows no rashes. LABORATORY DATA: BUN to creatinine ratio is 78 to 4.92. The potassium is 5.3 and the chloride is 112. The CO2 is 24 and the sodium is 145. Glucose is 133 and the albumin is 2.0. White blood cell count is 16.7 and hemoglobin is 10.8. The platelet count is 166. RADIOGRAPHIC DATA: Shows worsening bilateral infiltrates. IMPRESSION: 1. Acute renal failure. 2. Acute respiratory failure. 3. Viral pneumonia and green virus infection. 4. Superimposed bacterial pneumonia. 5. Anemia, unspecified. PLAN: 1. The patient will have a dialysis catheter placed today and will begin dialysis. 2. Continue bicarbonate drip. 3. Continue paralytics along with Versed and fentanyl. 4. Continue current ventilator settings and wean as tolerated after dialysis. 5. Continue current antibiotics. 6. Case discussed with Nephrology, Respiratory, fire hose curer nursing, day shift nursing and family. 7. Greater than 35 minutes in direct critical care time apart from any procedures performed. MD MICHAEL Mercedes/JENNYFER /[id number]
--- NOTE | 2020-02-06 17:52 | NUR ---
Dr. Frye and Dr. Elam aware of pt's low urine output and labs. Dr. Daniel gave orders for IR consult and trialysis line placement, and stat dialysis after line placement. Pt's daughter Nicolette Zhou gave consent for trialysis placement and hemodialysis. [facility] notified of stat dialysis once line is placed. Pt transported to OR for trialysis line placement with primary RN and RT. IR doctor placed a RIJ trialysis catheter, orders given for OK to use. heavy equipment engine mechanic at bedside to start dialysis.
[2020-02-06] MEDS ORDERED: SODIUM CHLORIDE 0.9% 1000ML 2,000 ML IV PRN (18:30)
[2020-02-06] MEDS ORDERED: HEPARIN SOD (PORCINE) 1000 UNIT/ML SDV IV PRN (18:30)
[2020-02-06] MEDS: ALBUMIN 25% 12.5GM 0.25 GM/ML BTL IV PRN ×2 (19:45→19:50)
[2020-02-06] MEDS: SODIUM CHLORIDE 0.45% 1,000 ML IV SCH (22:30)
[2020-02-06] MEDS: TAMSULOSIN HCL 0.4 MG CAP PO SCH (23:20)
[2020-02-07] VITALS (25 sets, daily range): BP systolic 90–148; BP diastolic 40–88
[2020-02-07 00:26] LABS: BASOPHILS % 0.2 % (0.0-1.0); EOSINOPHILS % 0.1 % (0.0-6.0); HEMATOCRIT 31.8 % (38.2-49.6); HEMOGLOBIN 10.1 g/dL (14.0-18.0); LYMPHOCYTES # (AUTO) 0.4 (1.0-3.2); LYMPHOCYTES % 2.8 % (18.0-39.1); MEAN CORPUSCULAR HEMOGLOBIN 31.9 pg (28-32); MEAN CORPUSCULAR HGB CONC 31.8 g/dL (31-35); MEAN CORPUSCULAR VOLUME 100.3 fL (81-99); MONOCYTES # (AUTO) 0.5 (0.2-0.8); MONOCYTES % 3.7 % (4.4-11.3); PLATELET COUNT 141 x10e3/uL (140-360); RED BLOOD COUNT 3.17 x10e6/uL (4.3-5.7); RED CELL DISTRIBUTION WIDTH 14.2 % (11.7-14.4)
[2020-02-07 00:30] LABS: INR 1.19; PROTHROMBIN TIME 15.9 seconds (11.9-14.5)
[2020-02-07] MEDS: FENTANYL 2000MCG/NS 250 250 ML IV PRN (00:30)
[2020-02-07 00:31] LABS: PARTIAL THROMBOPLASTIN TIME 37.5 seconds (23.8-35.5)
[2020-02-07 00:39] LABS: ALBUMIN 2.3 g/dL (3.5-5.0); ALBUMIN/GLOBULIN RATIO 0.6 (0.8-2.0); ANION GAP 14.7 mmol/L (8-16); CALCIUM 7.6 mg/dL (8.4-10.2); CREATININE, SERUM 4.91 mg/dL (0.72-1.25); POTASSIUM 4.7 mmol/L (3.5-5.1)
[2020-02-07] MEDS: MIDAZOLAM HCL 5MG/ML 10ML VIAL 100 ML IV PRN ×2 (02:51→16:00)
[2020-02-07] MEDS: ENOXAPARIN SOD INJ 40 MG/0.4 ML SYR SC SCH (05:30)
[2020-02-07] MEDS: ROCURONIUM BROMIDE 250 MG in SODIUM CHLORIDE 0.9% 250ML 225 ML IV SCH ×2 (05:30→16:30)
[2020-02-07 05:51] LABS: BASOPHILS % 0.1 % (0.0-1.0); EOSINOPHILS % 0.2 % (0.0-6.0); HEMOGLOBIN 9.8 g/dL (14.0-18.0); LYMPHOCYTES # (AUTO) 0.4 (1.0-3.2); LYMPHOCYTES % 3.4 % (18.0-39.1); MEAN CORPUSCULAR HEMOGLOBIN 31.8 pg (28-32); MEAN CORPUSCULAR HGB CONC 31.6 g/dL (31-35); MEAN CORPUSCULAR VOLUME 100.6 fL (81-99); MONOCYTES # (AUTO) 0.5 (0.2-0.8); MONOCYTES % 4.4 % (4.4-11.3); NEUTROPHILS # (AUTO) 10.4 (2.1-6.9); NEUTROPHILS % 90.4 % (38.7-80.0); PLATELET COUNT 133 x10e3/uL (140-360); RED BLOOD COUNT 3.08 x10e6/uL (4.3-5.7); RED CELL DISTRIBUTION WIDTH 14.2 % (11.7-14.4)
[2020-02-07 06:04] LABS: MAGNESIUM 2.9 MG/DL (1.3-2.1); PHOSPHORUS 4.3 MG/DL (2.3-4.7)
[2020-02-07 06:10] LABS: ALBUMIN/GLOBULIN RATIO 0.6 (0.8-2.0); ANION GAP 12.8 mmol/L (8-16); CALCIUM 7.3 mg/dL (8.4-10.2); CREATININE, SERUM 5.22 mg/dL (0.72-1.25); POTASSIUM 4.8 mmol/L (3.5-5.1)
[2020-02-07 06:25] LABS: CREATINE KINASE MB 5.3 ng/mL (0-5.0); FERRITIN 1153.71 ng/mL (21.81-274.66); THYROID STIMULATING HORMONE 0.291 uIU/mL (0.350-4.940)
[2020-02-07 07:02] LABS: LYMPHOCYTES % (MANUAL) 3 % (19-48); MONOCYTES % (MANUAL) 4 % (3.4-9.0); NEUTROPHILS % (MANUAL) 93 % (40-74); PLATELET ESTIMATE SLIGHTLY DECREASED; PLATELET MORPHOLOGY COMMENT NORMAL; RBC MORPHOLOGY COMMENT NORMAL
[2020-02-07] MEDS: HEPARIN SOD/SOD CHLORIDE 1,000 ML IV SCH (08:45)
--- NOTE | 2020-02-07 08:58 | Diagnostic Imaging Report ---
Exam: Chest one view Comparison: February 06, 2020 Clinical history: Intubation, pneumonia Findings: There is interval insertion of a right internal jugular nontunneled dialysis catheter with its tip at the cavoatrial junction. The remainder of the tubes and lines appear unchanged in position. There is overall improvement in bilateral airway opacities which may represent improvement in pneumonitis. There is no evidence of pneumothorax. The cardiac size is mildly prominent. There is no significant pleural effusion. Signed by: Dr. Paul Rice MD on 02/07/2020 8:54 AM
--- NOTE | 2020-02-07 09:37 | Progress Note ---
DATE: Pulmonary and Critical Care Progress Note SUBJECTIVE: The patient had a temporary dialysis catheter placed yesterday. He received dialysis. His bicarbonate drip was stopped and he was placed on very low rate of normal saline. He continues on Versed at 5 mg an hour as well as fentanyl at 100 and rocuronium. He is currently on a PRVC mode of ventilation at a rate of 28 with a tidal volume of 410. FiO2 is 65% and PEEP is 10. The patient was placed in the prone position early this morning. PHYSICAL EXAMINATION: VITAL SIGNS: The blood pressure is 136/57, saturation is 96%, and the pulse is 97. HEENT: Shows no facial swelling or erythema. There is an oral endotracheal tube. There is a right IJ line as well as a right-sided dialysis catheter. The patient has a nasogastric tube in place. CARDIAC: Reveals regular rate and rhythm with normal S1 and S2. LUNGS: Auscultation of lungs reveals rhonchorous breath sounds bilaterally. There is no wheezing. ABDOMEN: Soft, nontender. There is no rebound or guarding. EXTREMITIES: Shows 1+ leg edema. The sacrum looks fine. The patient is currently sedated. LABORATORY DATA: White blood cell count is 11.5 with a hemoglobin of 9.8 and a platelet count of 133. BUN to creatinine ratio is 77 to 5.22. Other electrolytes are within normal limits. AST is 130 and ALT is 79. Albumin is 2.0. RADIOGRAPHIC DATA: Continue bilateral infiltrates worse on the right. IMPRESSION: 1. Acute respiratory failure. 2. Viral pneumonia and coronavirus disease 2019 infection. 3. Acute renal failure. 4. Anemia, unspecified. 5. Thrombocytopenia. 6. Mildly elevated liver function tests consistent with some hepatocellular inflammation. 7. Benign prostatic hypertrophy. 8. Hypertension. PLAN: 1. The patient will have repeat ABG now. We will try and adjust ventilator as tolerated. 2. Lung protective strategy to maintain a plateau pressure of 30 or less. 3. Continue current antibiotics. 4. Repeat dialysis again today. 5. Continue Lovenox. 6. Enteral feedings when the patient is in the supine position. 7. Sequential venous compression devices. 8. Case discussed with nightshift nursing, dayshift nursing, Respiratory, Internal Medicine, Nephrology, and family. Greater than 35 minutes in direct critical care time. MD MICHAEL Mercedes/JENNYFER /[id number]
[2020-02-07] MEDS: PANTOPRAZOLE 40 MG 10ML VIAL IV SCH (10:00)
[2020-02-07] MEDS: BALSAM PERU/CASTOR OIL 60 GM OINT...G. TP SCH (10:00)
[2020-02-07] MEDS: EYE LUBRICANT OPTH OINT 3.5GM TUBE OP SCH ×2 (10:00→16:52)
[2020-02-07] MEDS: BACITRACIN ZINC 15 GM OINT TOP SCH (10:00)
[2020-02-07] MEDS ORDERED: SODIUM BICARBONATE 8.4% SYRING 50 ML ONE (10:22)
[2020-02-07] MEDS ORDERED: VANCOMYCIN 1GM/NS 250 ML 250 ML IV ONE (11:30)
[2020-02-07] MEDS ORDERED: LEVALBUTEROL HCL SOLN NEBU 1.25 MG/3 ML NEB INH PRN (12:00)
[2020-02-07] MEDS: NOREPINEPHRINE INJ 4MG/4ML 8 MG in DEXTROSE 5% 250ML 250 ML IV SCH (12:15)
[2020-02-07] MEDS: SODIUM CHLORIDE 0.45% 1,000 ML IV SCH (12:31)
[2020-02-07 13:16] LABS: ABG HCO3 27 mmol/L (22-26); ABG PCO2 77 mmHg (35-45); ABG PH 7.16 (7.35-7.45); ABG PO2 102 mmHg (80-105)
[2020-02-07] MEDS ORDERED: VANCOMYCIN 1GM/NS 250 ML 250 ML IV SCH (15:00)
[2020-02-07 16:08] LABS: CREATINE KINASE MB 6.9 ng/mL (0-5.0)
--- NOTE | 2020-02-07 16:54 | Progress Note ---
DATE: SUBJECTIVE: Mr. Beatty remains in the intensive care unit. He had a temporary dialysis placed yesterday. He received dialysis yesterday. The patient is on bicarb. He is on low-dose normal saline. He is on versed and rocuronium. He is on ventilator with PRVC mode, ventilation rate 28, tidal volume 410, PEEP is 10, and FiO2 65%. He was in prone. PHYSICAL EXAMINATION: GENERAL: He is sedated, intubated. VITAL SIGNS: Stable, afebrile currently. HEENT: He is not icteric. NECK: Supple. CHEST: Few crackles. COR: S1 and S2. No S3, S4, or murmur. ABDOMEN: Soft. LABORATORY DATA: His blood cultures from the showed coagulase-negative Staph. IMPRESSION: 1. Going to have bacteremia two sets, concerned about infection. We will put him on vancomycin 1 g after each hemodialysis. We will do one dose now. 2. COVID-19. 3. Acute respiratory distress syndrome .. 4. Acute kidney injury, now renal failure. 5. Anemia. 6. Community-acquired pneumonia, present on admission. 7. Respiratory failure. Continue with supportive care as ordered. Discussed with the medical team. MD TIFFANY Escoto/JENNYFER /[id number]
[2020-02-07 23:42] LABS: BASOPHILS % 0.2 % (0.0-1.0); EOSINOPHILS % 0.3 % (0.0-6.0); HEMATOCRIT 35.4 % (38.2-49.6); HEMOGLOBIN 10.9 g/dL (14.0-18.0); LYMPHOCYTES # (AUTO) 0.4 (1.0-3.2); LYMPHOCYTES % 3.5 % (18.0-39.1); MEAN CORPUSCULAR HEMOGLOBIN 31.2 pg (28-32); MEAN CORPUSCULAR HGB CONC 30.8 g/dL (31-35); MEAN CORPUSCULAR VOLUME 101.4 fL (81-99); MONOCYTES # (AUTO) 0.6 (0.2-0.8); MONOCYTES % 5.2 % (4.4-11.3); NEUTROPHILS # (AUTO) 10.1 (2.1-6.9); NEUTROPHILS % 87.8 % (38.7-80.0); PLATELET COUNT 108 x10e3/uL (140-360); RED BLOOD COUNT 3.49 x10e6/uL (4.3-5.7); RED CELL DISTRIBUTION WIDTH 14.2 % (11.7-14.4)
[2020-02-07 23:45] LABS: INR 1.21; PROTHROMBIN TIME 16.1 seconds (11.9-14.5)
[2020-02-07 23:46] LABS: PARTIAL THROMBOPLASTIN TIME 33.9 seconds (23.8-35.5)
[2020-02-07 23:56] LABS: ALBUMIN 2.1 g/dL (3.5-5.0); ALBUMIN/GLOBULIN RATIO 0.5 (0.8-2.0); ANION GAP 11.4 mmol/L (8-16); CALCIUM 7.3 mg/dL (8.4-10.2); CREATININE, SERUM 1.75 mg/dL (0.72-1.25); MAGNESIUM 2.3 MG/DL (1.3-2.1); PHOSPHORUS 3.4 MG/DL (2.3-4.7); POTASSIUM 4.4 mmol/L (3.5-5.1)
[2020-02-08] VITALS (23 sets, daily range): BP systolic 70–206; BP diastolic 43–99
[2020-02-08 01:05] LABS: BAND NEUTROPHILS % (MANUAL) 1 %; LYMPHOCYTES % (MANUAL) 3 % (19-48); NEUTROPHILS % (MANUAL) 96 % (40-74); NUCLEATED RED BLOOD CELLS 1
[2020-02-08 01:06] LABS: ANISOCYTOSIS SLIGHT; CREATINE KINASE MB 5.9 ng/mL (0-5.0); PLATELET ESTIMATE MODERATELY DECREASED; PLATELET MORPHOLOGY COMMENT NORMAL; POLYCHROMASIA FEW; RBC MORPHOLOGY COMMENT ABNORMAL
[2020-02-08] MEDS: MIDAZOLAM HCL 5MG/ML 10ML VIAL 100 ML IV PRN ×3 (02:00→23:15)
[2020-02-08] MEDS: TAMSULOSIN HCL 0.4 MG CAP PO SCH ×2 (02:00→21:40)
[2020-02-08] MEDS: SODIUM CHLORIDE 0.45% 1,000 ML IV SCH ×2 (02:00→09:15)
[2020-02-08] MEDS: ROCURONIUM BROMIDE 250 MG in SODIUM CHLORIDE 0.9% 250ML 225 ML IV SCH ×4 (02:00→22:00)
[2020-02-08] MEDS: ENOXAPARIN SOD INJ 40 MG/0.4 ML SYR SC SCH (06:00)
[2020-02-08 06:22] LABS: BASOPHILS % 0.2 % (0.0-1.0); EOSINOPHILS # (AUTO) 0.1 (0.0-0.4); EOSINOPHILS % 0.9 % (0.0-6.0); HEMATOCRIT 34.4 % (38.2-49.6); HEMOGLOBIN 10.7 g/dL (14.0-18.0); LYMPHOCYTES # (AUTO) 0.5 (1.0-3.2); LYMPHOCYTES % 4.6 % (18.0-39.1); MEAN CORPUSCULAR HEMOGLOBIN 32.1 pg (28-32); MEAN CORPUSCULAR HGB CONC 31.1 g/dL (31-35); MEAN CORPUSCULAR VOLUME 103.3 fL (81-99); MONOCYTES # (AUTO) 0.5 (0.2-0.8); MONOCYTES % 4.6 % (4.4-11.3); NEUTROPHILS % 85.5 % (38.7-80.0); PLATELET COUNT 109 x10e3/uL (140-360); RED BLOOD COUNT 3.33 x10e6/uL (4.3-5.7); RED CELL DISTRIBUTION WIDTH 14.1 % (11.7-14.4)
--- NOTE | 2020-02-08 06:33 | Diagnostic Imaging Report ---
EXAMINATION: CHEST SINGLE (PORTABLE) INDICATION: Respiratory failure. COMPARISON: Chest radiograph 02-07-2020. FINDINGS: LINES/TUBES: Endotracheal tube terminates 8 cm above the lakeisha.. Enteric tube terminates in the gastric fundus. Right IJ central venous catheter terminates in the upper SVC. Right IJ non tunneled hemodialysis catheter terminates in the SVC. LUNGS:Moderate lung volumes. Persistent bilateral interstitial and airspace opacities, most confluent in the right upper and lower lungs and left lower lung. PLEURA:No significant pleural effusion. Lucency in the right lung base is slightly more pronounced from prior study, however with lung markings peripherally. MEDIASTINUM:The cardiomediastinal silhouette appears unchanged in size and shape. BONES/SOFT TISSUES:No acute osseous abnormality. ABDOMEN:No free air under the diaphragm. IMPRESSION: Lines and tubes as above. Lucency in the right costophrenic angle is slightly more pronounced from prior study, however has lung markings peripherally. This may represent aerated lung, however recommend attention on follow-up to exclude pneumothorax. Persistent bilateral opacities, which may represent multifocal pneumonia, possibly with superimposed pulmonary edema. Signed by: Dr. Alf Castorena MD on 02/08/2020 6:29 AM
[2020-02-08 07:08] LABS: CREATINE KINASE MB 13.1 ng/mL (0-5.0)
[2020-02-08 07:34] LABS: ALBUMIN 1.9 g/dL (3.5-5.0); ALBUMIN/GLOBULIN RATIO 0.5 (0.8-2.0); ANION GAP 11.8 mmol/L (8-16); CALCIUM 7.4 mg/dL (8.4-10.2); CREATININE, SERUM 1.52 mg/dL (0.72-1.25); POTASSIUM 4.8 mmol/L (3.5-5.1)
[2020-02-08] MEDS ORDERED: SODIUM BICARBONATE 8.4% 50 ML VIAL IV STA ×3 (08:10→11:52)
[2020-02-08] MEDS ORDERED: SODIUM BICARBONATE 8.4% SYRING 50 ML ONE ×2 (08:10→08:18)
--- NOTE | 2020-02-08 08:15 | NUR ---
pt flipped to supine position d/t desaturation. Dr. Frye at bedside
[2020-02-08] MEDS ORDERED: ATROPINE SULFATE 1 MG/ML VIAL IV ONE (08:30)
[2020-02-08] MEDS ORDERED: NOREPINEPHRINE 8 MG/D5W 250 ML 250 ML ONE (08:32)
[2020-02-08] MEDS: NOREPINEPHRINE INJ 4MG/4ML 8 MG in DEXTROSE 5% 250ML 250 ML IV SCH (08:35)
--- NOTE | 2020-02-08 08:35 | NUR ---
levo started , for Arterial BP 85/44
[2020-02-08] MEDS: HEPARIN SOD/SOD CHLORIDE 1,000 ML IV SCH (08:45)
[2020-02-08] MEDS ORDERED: FENTANYL 2000MCG/NS 250 250 ML ONE (08:45)
[2020-02-08] MEDS: BACITRACIN ZINC 15 GM OINT TOP SCH (09:00)
[2020-02-08] MEDS: PANTOPRAZOLE 40 MG 10ML VIAL IV SCH (09:00)
[2020-02-08] MEDS: BALSAM PERU/CASTOR OIL 60 GM OINT...G. TP SCH (09:00)
[2020-02-08] MEDS: EYE LUBRICANT OPTH OINT 3.5GM TUBE OP SCH ×2 (09:00→17:00)
[2020-02-08] MEDS: ALBUMIN 25% 12.5GM 0.25 GM/ML BTL IV PRN (09:00)
[2020-02-08] MEDS ORDERED: HEPARIN 25,000 UNIT DRIP IV ONE ×2 (09:23)
[2020-02-08] MEDS ORDERED: METHYLPREDNISOLONE SOD SUCC 40 MG/ML VIAL 1ML ONE (09:24)
[2020-02-08] MEDS ORDERED: METHYLPREDNISOLONE SOD SUCC 125 MG/2ML VIAL IV ONE (09:25)
[2020-02-08] MEDS ORDERED: HEPARIN 25,000 UNIT 1,500 UNIT in DEXTROSE 5% 250ML 250 ML IV SCH (09:30)
[2020-02-08] MEDS ORDERED: HEPARIN SOD (PORCINE) 5,000 UNIT/ML VIAL IV ONE (09:30)
[2020-02-08] MEDS ORDERED: VECURONIUM BROMIDE FOR INJ 20 MG VIAL ONE (09:57)
[2020-02-08] MEDS ORDERED: VECURONIUM BROMIDE FOR INJ 20 MG VIAL IV STA (10:00)
--- NOTE | 2020-02-08 10:17 | Diagnostic Imaging Report ---
Examination: Single AP view of the chest. COMPARISON: Portable chest 02/08/2020 INDICATION: Acute respiratory distress IMPRESSION: 1. Lines and Tubes: Supporting lines and tubes are unchanged. 2. Interval development of large right-sided pneumothorax. There is increased airspace opacity in the left lung, which may reflect worsening edema. 3. Cardiomediastinal silhouette is obscured. Pulmonary vasculature is obscured. 4. No acute bony abnormalities. 5. Findings relayed to Nneka, ICU nurse February 08, 2020 at 10:10 AM Signed by: Dr. Garret Lozada M.D. on 02/08/2020 10:14 AM
[2020-02-08] MEDS ORDERED: LIDOCAINE HCL 2% LOCAL 20 ML VIAL ONE (10:47)
--- NOTE | 2020-02-08 11:27 | Progress Note ---
DATE: SUBJECTIVE: The patient had dialysis late last night. The patient has remained on PRVC during the night. This morning, the patient had worsening desaturations. The patient required extensive Ambu bagging with a PEEP valve to increase the saturations into the high 80s and low 90s. The patient was placed back on a ventilator with 22 PEEP and tidal volumes of 380. Bicarbonate infusion was started at 100 mL an hour. The patient also received two amps of bicarb. The patient had a chest x-ray this morning that showed no evidence of thorax. There is no subcutaneous emphysema. A repeat chest x-ray in the prone position is now being performed. The patient required albumin 50 g as well as Levophed. Levophed is now at 20. The patient is being continued on Versed as well as fentanyl and a rocuronium drip. PHYSICAL EXAMINATION: VITAL SIGNS: The blood pressure is now 102/55 with a MAP of 71, on Levophed. The patient is on a PRVC at a rate of 30 with a tidal volume of 380 and a PEEP of 22. The FiO2 is set at 100%. There is an oral endotracheal tube. There is a right-sided IJ line as well as a right-sided dialysis catheter. The patient also has an art line in place. CARDIAC: Reveals tachycardia with a normal S1 and S2. LUNGS: Auscultation of lungs shows decreased breath sounds at the bases. There is no wheezing. ABDOMEN: Soft, nontender. There is no rebound or guarding. Two feedings are now on hold. EXTREMITIES: There is no leg edema. NEUROLOGIC: Shows the patient to be sedated. RADIOGRAPHIC DATA: Chest x-ray shows the endotracheal tube is in the mid trachea. There are some bilateral interstitial markings. Shows bilateral infiltrates. LABORATORY DATA: White blood cell count is 10.5 and hemoglobin is 10.7. The platelet count is 109. The BUN to creatinine ratio is 42 to 1.52. The troponin I is increased to 0.4 and CPK-MB is 13.1. Albumin is 1.9. BUN to creatinine ratio is 42 to 1.52. IMPRESSION: 1. Acute respiratory failure. 2. Viral pneumonia and coronavirus disease 2019 infection. 3. Acute renal failure. 4. Thrombocytopenia. 5. Hypertension. PLAN: 1. Repeat stat chest x-ray now. 2. Continue mechanical ventilation with high PEEP. 3. Wean Levophed as tolerated. 4. Continue current antibiotics. 5. The patient has been started on heparin drip. 6. Case discussed with . She understands the prognosis is poor and is considering withdrawal. 7. Case discussed with Respiratory, Nursing, and nightshift nursing administration. Greater than 90 minutes in direct critical care time apart from any procedures performed. MD MICHAEL Mercedes/JENNYFER /[id number]
[2020-02-08] MEDS ORDERED: SODIUM BICARBONATE 8.4% SYRING 100 ML ONE (11:52)
--- NOTE | 2020-02-08 11:54 | Diagnostic Imaging Report ---
Examination: Single AP view of the chest. COMPARISON: Portable chest 02/08/2020 INDICATION: Pneumothorax, status post chest tube placement IMPRESSION: 1. Lines and Tubes: Interval placement of right-sided chest tube 2. Interval reexpansion of the right lung, with small residual lucency/pneumothorax projecting in the region of the right costophrenic sulcus. Diffuse bilateral interstitial opacities suggesting edema. 3. Cardiomediastinal silhouette is obscured. Central venous congestion.. 4. No acute bony abnormalities. Subcutaneous emphysema in the right chest wall Signed by: Dr. Garret Lozada M.D. on 02/08/2020 11:51 AM
--- NOTE | 2020-02-08 12:22 | Operative Report ---
DATE OF PROCEDURE: SURGEON: Osman Frye MD PROCEDURE: Percutaneous anterior chest tube placement. PREOPERATIVE DIAGNOSIS: Pneumothorax. POSTOPERATIVE DIAGNOSIS: Pneumothorax. CONSENT: Consent was deemed emergent based on the pneumothorax and hemodynamic instability. ANESTHESIA: The patient was on fentanyl and Versed at the time of the procedure. DESCRIPTION OF PROCEDURE: The patient was placed in a supine position. The right anterior chest wall was draped sterilely. Chlorhexidine prep was used. The 2nd intercostal space was located and a needle was passed through the 2nd intercostal space. There was a lynch of air returned. Air came out the needle. A 20-gauge catheter was then placed into the 2nd intercostal space by the Seldinger technique. This was hooked to a Pleur-Evac. There was air leak and good respiratory variation. COMPLICATIONS: None. ESTIMATED BLOOD LOSS: None. Osman Frye MD [facility]/MODL /[id number]
[2020-02-08 12:38] LABS: PLATELET ESTIMATE SLIGHTLY DECREASED; PLATELET MORPHOLOGY COMMENT NORMAL
[2020-02-08 12:39] LABS: BAND NEUTROPHILS % (MANUAL) 6 %; EOSINOPHILS % (MANUAL) 1 % (0-7); LYMPHOCYTES % (MANUAL) 6 % (19-48); MONOCYTES % (MANUAL) 4 % (3.4-9.0); NEUTROPHILS % (MANUAL) 83 % (40-74)
[2020-02-08 12:40] LABS: RBC MORPHOLOGY COMMENT NORMAL
[2020-02-08] MEDS: ASPIRIN 81 MG CHEW TAB PO SCH (12:45)
[2020-02-08 12:57] LABS: BASOPHILS % 0.2 % (0.0-1.0); EOSINOPHILS % 0.1 % (0.0-6.0); HEMATOCRIT 31.4 % (38.2-49.6); HEMOGLOBIN 9.4 g/dL (14.0-18.0); LYMPHOCYTES # (AUTO) 0.3 (1.0-3.2); LYMPHOCYTES % 1.8 % (18.0-39.1); MEAN CORPUSCULAR HEMOGLOBIN 31.5 pg (28-32); MEAN CORPUSCULAR HGB CONC 29.9 g/dL (31-35); MEAN CORPUSCULAR VOLUME 105.4 fL (81-99); MONOCYTES # (AUTO) 0.5 (0.2-0.8); MONOCYTES % 3.2 % (4.4-11.3); NEUTROPHILS # (AUTO) 12.7 (2.1-6.9); NEUTROPHILS % 89.6 % (38.7-80.0); PLATELET COUNT 119 x10e3/uL (140-360); RED BLOOD COUNT 2.98 x10e6/uL (4.3-5.7); RED CELL DISTRIBUTION WIDTH 14.2 % (11.7-14.4)
[2020-02-08 13:22] LABS: CREATINE KINASE MB 10.9 ng/mL (0-5.0)
--- NOTE | 2020-02-08 14:58 | Diagnostic Imaging Report ---
Examination: Single AP view of the chest. COMPARISON: Multiple portable chests performed February 08, 2020 INDICATION: Right pneumothorax IMPRESSION: Exam limited as the left costophrenic sulcus tip is not included in the exam 1. Lines and Tubes: Supporting lines and tubes are unchanged. 2. Interval increase in size of the right-sided pneumothorax, with air gap of approximately 1.7 cm in the lateral aspect of the chest and continued lucency and the region of the right costophrenic sulcus. No left pneumothorax is visualized. No interval change in bilateral diffuse airspace and alveolar opacities consistent with known pneumonia. 3. Cardiomediastinal silhouette is normal. Pulmonary vasculature is obscured. 4. No acute bony abnormalities. Signed by: Dr. Garret Lozada M.D. on 02/08/2020 2:54 PM
--- NOTE | 2020-02-08 15:02 | Progress Note ---
DATE: SUBJECTIVE: Mr. Beatty became short of breath today. He had a pneumothorax. In the morning, he desaturated. He was extensive Ambu bagging with PEEP valve to increase his saturation. The patient had pneumothorax. Events noted and discussed with Pulmonary. IMPRESSION: COVID-19, bilateral pneumothorax, acute renal failure, bacteremia, coagulase-negative Staph, and anemia. Prognosis is very poor. Discussed with Critical Care. Discussed with medical team. Please refer to the orders. Time spent 35 minutes in critical care. MD TIFFANY Escoto/MODGabriel /[id number]
--- NOTE | 2020-02-08 15:28 | Progress Note ---
DATE: 02/08/2020 Cardiology Consultation CONSULTING PHYSICIAN: Dr. Abdias Schafer, Interventional Cardiology. REASON FOR CONSULTATION: Hemodynamic instability. HISTORY OF PRESENT ILLNESS: A 69-year-old man with history of hypertension and BPH, presents with COVID-19 community-acquired pneumonia developing ARDS, acute respiratory failure requiring vent support with high PEEP settings, acute kidney injury requiring hemodialysis and septic shock on pressors. Cardiac biomarkers remarkable for mild elevation in troponin 0.34, 0.37, and 0.40 and elevated D-dimer of 4440 as well as thrombocytopenia with platelets 109 and anemia with hemoglobin 10.7. His is being having issues with frequent clotting of arterial line. His course is complicated over the last 24 hours with development of pneumothorax, requiring emergent placement of chest tube throughout, which blood pressure and oxygenation became unstable with worsening O2 sats and hypotension, now improving somewhat on pressors and following pneumothorax placement. Remains in ICU in critical condition, is currently sedated. REVIEW OF SYSTEMS: A 12-system review, unable to assess. The patient is sedated. PAST MEDICAL HISTORY: Hypertension, BPH. SOCIAL HISTORY: Unable to assess. FAMILY HISTORY: Unable to assess. PHYSICAL EXAMINATION: VITAL SIGNS: Temperature 98.6, heart rate of 114 on telemetry sinus tachycardia. Blood pressure 90/60, respiratory rate 18, O2 saturation 94% on vent support. BMI 30.4. Intubated, sedated. Regular rate and rhythm. MEDICATIONS: Cardiovascular medications reviewed: 1. Lovenox 40 mg subcu daily. 2. Hydralazine p.r.n. 3. Levophed. LABORATORY DATA: Studies reviewed. Sodium 143, potassium 4.8, chloride 109, bicarbonate 27. BUN 42, creatinine 1.5, glucose 88. White blood cell count 10.5, hemoglobin 10.7, platelets 107. Troponin I 0.347, then 0.371, then 0.407. D- dimer 4440. PT 16.1, PTT 33.9, INR 1.2. AST 122, ALT 97, total bilirubin is 1.3, alkaline phosphatase 98. ASSESSMENT AND PLAN: 1. A 69-year-old man with type 2 myocardial infarction, severe sepsis with septic shock, coronavirus disease 2019 positive community-acquired pneumonia present on admission, complicated with acute respiratory distress syndrome. 2. Acute respiratory failure. 3. Acute kidney injury, on hemodialysis. 4. Septic shock, on pressor support. 5. Pneumothorax, status post chest tube placement. 6. Hypercoagulable state. 7. Thrombocytopenia and anemia. 8. Rhabdomyolysis. Recommend continue supportive care including hydration. 9. Once okay with the treating physicians, consider transitioning to IV heparin and off Lovenox. The patient is status post chest tube placement. We will await followup chest x-ray. 10. Continue supportive care with pressors. 11. Overall remains with guarded prognosis. The patient on maintenance dialysis with instruction of Nephrology. 12. Aspirin 81 mg daily, given type 2 myocardial infarction. MD WatersV/MODL /[id number]
[2020-02-08] MEDS ORDERED: FUROSEMIDE INJ 10 MG/ML 4 ML VIAL IV ONE (15:30)
--- NOTE | 2020-02-08 15:33 | Progress Note ---
DATE: TIME: 3:22 p.m. Repeat chest x-ray this morning showed a large tension pneumothorax on the right side. The patient had a pigtail catheter placed in the anterior right side in the 2nd intercostal space. The patient then had a surgical chest tube placed in the lateral thorax and midclavicular line in the 6th intercostal space. The patient's saturations have subsequently improved. He is being weaned off the Levophed. He is now on 10 mcg. Case was discussed with Nephrology. We will hold dialysis today. The patient to also repeat chest x-ray. Continue the current antibiotics. MD MICHAEL Mercedes/JENNYFER /[id number]
[2020-02-08] MEDS: SODIUM BICARBONATE 8.4% 50 ML in SODIUM CHLORIDE 0.45% 1,000 ML IV SCH (15:45)
--- NOTE | 2020-02-08 16:10 | Diagnostic Imaging Report ---
Examination: Single AP view of the chest. COMPARISON: Multiple portable AP films performed 02/08/2020 INDICATION: Chest tube adjusted IMPRESSION: 1. Lines and Tubes: Interval repositioning of right-sided chest tube, which has its distal tip projecting in the right apex. Other supporting lines and tubes are unchanged. 2. Interval decrease in size of the previously visualized pneumothorax, with air gap of 3 mm (previously 1.7 cm) in the lateral hemithorax. No interval change in continued lucency/likely loculation projecting in the region of the right costophrenic sulcus. No interval change in bilateral diffuse airspace and alveolar opacities consistent with known pneumonia. 3. Cardiomediastinal silhouette is normal. Pulmonary vasculature is obscured. 4. No acute bony abnormalities. Signed by: Dr. Garret Lozada M.D. on 02/08/2020 4:07 PM
--- NOTE | 2020-02-08 16:26 | NUR ---
Nutrition Intervention Note RD Recommendation(s) for Physician: -Recommend resuming tube feeding when medically appropriate -Recommend Vital AF 1.2 @ goal rate of 75 mL/hr (provides 2160 kcal, 135 g protein, and 1460 mL water) -Fluid management per MD Plan of Care: RD following, monitoring for tolerance and adequacy, TF recommendation Nutrition reason for involvement: follow up RD Assessment (02/08/20) Follow up. Pt is requiring dialysis due to acute renal failure and pts tube feeding was changed to Nepro on 02/05. Per MD note today, pt developed a large tension right side pneumothorax that required emergent placement of a chest tube. Pts tube feeding is on hold at this time due to recent change in pts medical status per RN. MD note also indicates that dialysis is also being held today. Will continue to monitor. (02/05/20). Follow up. Pt was intubated on 02/01 and a tube feed order of Vital AF 1.2 was placed on 02/02. RN reported that tube feeding is currently on hold since pt is planned to be placed in the prone position today. Recommend resuming tube feeding when medically appropriate. Will continue to monitor. (02/01/20) Pt is a 69 year old male admitted with SOB, hypoxia, and fever. Pt is also positive for COVID-19. Unable to obtain nutrition history from pt since he is on droplet isolation precautions. Spoke to RN, who reported that pt is not eating much or consuming Ensure. Unable to assess weight status since there are no previous weights in chart. RN also reported that pt had nausea yesterday and is experiencing diarrhea. No chewing/swallowing issues. Will continue to monitor Principal Problems/Diagnoses: SOB, hypoxia, fever, COVID-19+ PMH: HTN, BPH GI: last recorded BM 02/01 Skin: left forehead partial thickness wound, right buttock DTI Labs: 02/07: BUN 42, Cr 1.52, Ca 7.4, AST 122, ALT 97 (02/04) Na 147, K 5.0, BUN 41, Cr 1.85, Glu 97, Ca 7.5 (01/31) Na 133, K 3.4, BUN 30, Glu 122, Ca 8.1 Meds: NaCl, rocuronium, fentanyl, heparin, zofran, hydralazine, lovenox, vancomycin Ht: 70 inches Wt: 212 lbs (02/07) 195 lbs (02/01) 193 lbs (01/31) BMI: 30.4 kg/m2 IBW: 166 lbs Malnutrition Evaluation (02/01/20) Unable to assess. Will re-evaluate at follow-up as appropriate. Nutrition Prescription (Diet Order): Nepro @ 30 mL/hr with water flush of 100 mL q4hrs Estimated Nutritional Needs: 4940-5583 calories/day (20-25 kcal/kg) Weight used: 193 lbs 132-175 g protein/day (1.5-2 g pro/kg) Weight used: 193 lbs Diet Adequacy: Not meeting calorie needs, Not meeting protein needs Tolerance: Tolerance pending Diet Education Needs Assessment: Diet education not indicated at this time Nutrition Care Level: moderate Nutrition Diagnosis: Inadequate oral intake related to acute respiratory failure/mechanical ventilation as evidenced by need for enteral nutrition. Goal: Patient will meet 75-100% of estimated needs by follow up Progress: not progressing Interventions: Composition, Rate, Route, Collaboration with other providers Monitoring/Evaluation: -Total energy intake, Total protein intake, Formula/Solution Weight change Signed: Oralia Whitaker RD, LD
[2020-02-08 20:18] LABS: BAND NEUTROPHILS % (MANUAL) 1 %; MONOCYTES % (MANUAL) 1 % (3.4-9.0); NEUTROPHILS % (MANUAL) 98 % (40-74)
[2020-02-08 20:19] LABS: PLATELET ESTIMATE SLIGHTLY DECREASED; PLATELET MORPHOLOGY COMMENT NORMAL; RBC MORPHOLOGY COMMENT NORMAL
[2020-02-08] MEDS: FENTANYL 2000MCG/NS 250 250 ML IV PRN (22:00)
[2020-02-09] VITALS (25 sets, daily range): BP systolic 104–180; BP diastolic 54–94
[2020-02-09 00:09] LABS: BASOPHILS % 0.2 % (0.0-1.0); HEMATOCRIT 28.7 % (38.2-49.6); HEMOGLOBIN 8.8 g/dL (14.0-18.0); LYMPHOCYTES # (AUTO) 0.3 (1.0-3.2); LYMPHOCYTES % 2.8 % (18.0-39.1); MEAN CORPUSCULAR HEMOGLOBIN 31.1 pg (28-32); MEAN CORPUSCULAR HGB CONC 30.7 g/dL (31-35); MEAN CORPUSCULAR VOLUME 101.4 fL (81-99); MONOCYTES # (AUTO) 0.3 (0.2-0.8); NEUTROPHILS # (AUTO) 10.4 (2.1-6.9); NEUTROPHILS % 92.2 % (38.7-80.0); PLATELET COUNT 101 x10e3/uL (140-360); RED BLOOD COUNT 2.83 x10e6/uL (4.3-5.7); RED CELL DISTRIBUTION WIDTH 14.2 % (11.7-14.4)
[2020-02-09 00:21] LABS: INR 1.38; PROTHROMBIN TIME 17.9 seconds (11.9-14.5)
[2020-02-09 00:22] LABS: PARTIAL THROMBOPLASTIN TIME 36.3 seconds (23.8-35.5)
[2020-02-09 00:32] LABS: ALBUMIN 2.5 g/dL (3.5-5.0); ALBUMIN/GLOBULIN RATIO 0.8 (0.8-2.0); ANION GAP 8.6 mmol/L (8-16); CALCIUM 7.2 mg/dL (8.4-10.2); CREATININE, SERUM 1.51 mg/dL (0.72-1.25); POTASSIUM 4.6 mmol/L (3.5-5.1)
[2020-02-09] MEDS ORDERED: ATROPINE SULFATE 0.1 MG/ML 10ML SYR ONE ×2 (01:19→01:23)
[2020-02-09] MEDS ORDERED: EPINEPHRINE HCL SYRINGE ONE (01:20)
[2020-02-09] MEDS: SODIUM BICARBONATE 8.4% 50 ML in SODIUM CHLORIDE 0.45% 1,000 ML IV SCH (02:00)
[2020-02-09] MEDS: ROCURONIUM BROMIDE 250 MG in SODIUM CHLORIDE 0.9% 250ML 225 ML IV SCH ×4 (03:30→22:50)
[2020-02-09 03:33] LABS: CREATINE KINASE MB 7.3 ng/mL (0-5.0)
--- NOTE | 2020-02-09 04:20 | Diagnostic Imaging Report ---
TECHNIQUE: CT of the chest, abdomen and pelvis without intravenous contrast. INDICATION: Pneumothorax, chest tube placement. COMPARISON: Chest radiograph 02-08-2020. TECHNIQUE: Chest, Abdomen and pelvis were scanned utilizing a multidetector helical scanner from the thoracic inlet to the pubic symphysis without administration of IV or oral contrast. Coronal and sagittal reformations were obtained. Routine protocol was performed. Lack of intravenous contrast limits sensitivity for evaluation of vascular or visceral structures. COMPLICATIONS: None RADIATION DOSE: Total DLP: 1166 mGy*cm Dose modulation, iterative reconstruction, and/or weight based adjustment of the mA/kV was utilized to reduce the radiation dose to as low as reasonably achievable. FINDINGS: LINES AND TUBES: Right apical lateral approach chest tube. Additional right anterior approach smallbore chest tube. Right IJ non tunneled hemodialysis catheter terminates in the lower SVC. Right IJ central venous catheter terminates in the mid SVC. Endotracheal tube terminates in the mid trachea. Enteric tube terminates in the gastric fundus. Mcdaniel catheter terminates in the bladder. LUNGS AND AIRWAYS: There are diffuse multifocal groundglass opacities with multifocal patchy consolidative opacities, most confluent within the bilateral lower lobes and posterior bilateral upper lobes. PLEURA: Moderate to large right anterior basilar predominant pneumothorax, measuring up to 4.9 cm. Small layering left pleural effusion. HEART AND MEDIASTINUM: The thyroid gland is normal. No significant mediastinal, hilar or axillary lymphadenopathy is seen. Subcentimeter mediastinal lymph nodes, likely reactive. The heart and pericardium are within normal limits. Minimal thoracic aortic atherosclerotic calcifications. HEPATOBILIARY: No focal hepatic lesions. No biliary ductal dilatation. Cholelithiasis without evidence of cholecystitis SPLEEN: No splenomegaly. PANCREAS: No focal masses or ductal dilatation. ADRENALS: No adrenal nodules. KIDNEYS/URETERS: No evidence of hydronephrosis or solid mass. Nonobstructing left mid and lower pole renal stones, measuring up to 4 mm. There is a left-sided parapelvic simple attenuation cyst, measuring up to 5.9 cm. PELVIC ORGANS/BLADDER: Partially decompressed bladder with internal dependent heterogeneous hyperdensity measuring 21 Hounsfield units on series 2, image 29. Poorly catheter within the bladder. PERITONEUM / RETROPERITONEUM: There is moderate volume pneumoperitoneum, mesenteric air, and bilateral retroperitoneal air. Trace upper abdominal including perisplenic ascites. LYMPH NODES: No lymphadenopathy. VESSELS: Mild atherosclerotic calcifications of the abdominal aorta and branch vessels. GI TRACT: No distention or wall thickening. Air tracks circumferentially around the descending colon BONES AND SOFT TISSUES: Large volume subcutaneous air in the right greater than left chest wall, right back, and tracking inferiorly into the bilateral anterior and lateral abdominal wall musculature and subcutaneous tissues, left greater than right thigh subcutaneous tissues, bilateral buttock subcutaneous tissues. Air tracks into the bilateral inguinal canals and scrotum. There is an right anterior chest wall hematoma measuring up to 2.9 cm in thickness (series 2, image 17; 45 confluence), deep to the pectoralis musculature. No acute osseous abnormality. Mild subcutaneous edema in the neck. IMPRESSION: Two right-sided chest tubes in place with moderate to large right anterior basilar predominant pneumothorax, measuring up to 4.9 cm. No mediastinal shift. Other lines and tubes as above. Extensive subcutaneous air involving the bilateral chest, right back, bilateral anterior and lateral abdominal wall, bilateral buttock and thighs soft tissues. Additional moderate volume pneumoperitoneum, mesenteric air, and bilateral retroperitoneal air. Air tracks into the bilateral scrotum. Rather than a primary abdominal process such as perforated viscus, this is felt to likely represent air leak from the chest tube(s) with superimposed tracking of the pneumothorax inferiorly. The patient reportedly had some degree of subcutaneous air on exam prior to chest tube placement, in which case the positive pressure ventilation with the pneumothorax may account for some of these findings. Recommend clinical correlation. Diffuse bilateral multifocal groundglass and patchy consolidative opacities, consistent with multifocal pneumonia, possibly with superimposed pulmonary edema. Recommend follow-up imaging to assess for resolution. Mcdaniel catheter terminates in the bladder with associated heterogeneous hyperdensity layering within the posterior bladder, which may represent hemorrhagic products in the setting of known hematuria. Recommend clinical correlation. Follow-up cystoscopy may be performed if clinical concern for malignancy. Findings relayed to TODD Burgess ICU nurse on 02/09/2020 at 4:10 AM. Signed by: Dr. Alf Castorena MD on 02/09/2020 4:17 AM
[2020-02-09] MEDS: MIDAZOLAM HCL 5MG/ML 10ML VIAL 100 ML IV PRN ×3 (05:25→21:30)
[2020-02-09 05:48] LABS: BASOPHILS % 0.1 % (0.0-1.0); HEMATOCRIT 26.5 % (38.2-49.6); HEMOGLOBIN 8.3 g/dL (14.0-18.0); LYMPHOCYTES # (AUTO) 0.3 (1.0-3.2); LYMPHOCYTES % 3.1 % (18.0-39.1); MEAN CORPUSCULAR HEMOGLOBIN 31.8 pg (28-32); MEAN CORPUSCULAR HGB CONC 31.3 g/dL (31-35); MEAN CORPUSCULAR VOLUME 101.5 fL (81-99); MONOCYTES # (AUTO) 0.3 (0.2-0.8); NEUTROPHILS # (AUTO) 8.9 (2.1-6.9); NEUTROPHILS % 92.3 % (38.7-80.0); PLATELET COUNT 100 x10e3/uL (140-360); RED BLOOD COUNT 2.61 x10e6/uL (4.3-5.7); RED CELL DISTRIBUTION WIDTH 14.2 % (11.7-14.4)
[2020-02-09] MEDS: ENOXAPARIN SOD INJ 40 MG/0.4 ML SYR SC SCH (06:00)
[2020-02-09 06:07] LABS: CREATINE KINASE MB 5.9 ng/mL (0-5.0)
[2020-02-09 06:33] LABS: ALBUMIN 2.3 g/dL (3.5-5.0); ALBUMIN/GLOBULIN RATIO 0.8 (0.8-2.0); ANION GAP 8.5 mmol/L (8-16); CALCIUM 7.1 mg/dL (8.4-10.2); CREATININE, SERUM 1.29 mg/dL (0.72-1.25); POTASSIUM 4.5 mmol/L (3.5-5.1)
[2020-02-09 06:52] LABS: MAGNESIUM 2.3 MG/DL (1.3-2.1)
[2020-02-09] MEDS: HEPARIN SOD/SOD CHLORIDE 1,000 ML IV SCH (08:45)
[2020-02-09] MEDS: EYE LUBRICANT OPTH OINT 3.5GM TUBE OP SCH ×2 (09:00→17:00)
[2020-02-09] MEDS: BALSAM PERU/CASTOR OIL 60 GM OINT...G. TP SCH (09:00)
[2020-02-09] MEDS: BACITRACIN ZINC 15 GM OINT TOP SCH (09:38)
[2020-02-09 11:20] LABS: PLATELET ESTIMATE SLIGHTLY DECREASED; PLATELET MORPHOLOGY COMMENT NORMAL; RBC MORPHOLOGY COMMENT NORMAL
--- NOTE | 2020-02-09 12:06 | Progress Note ---
DATE: Pulmonary Critical Care progress note SUBJECTIVE: The patient had a CT scan last night, which showed persistent pneumo with subcutaneous emphysema and pneumoperitoneum. This morning, the patient has less subcutaneous emphysema clinically. He has two chest tubes on the right side. The larger chest tube still has an air leak. There is good respiratory variation. The anterior chest tube has very small air leak. He is off Levophed. He is still on Versed as well as fentanyl and rocuronium. PHYSICAL EXAMINATION: VITAL SIGNS: The patient is afebrile. The blood pressure is 117/66 and the saturation is 94%. He is on a PRVC at a rate of 30 with a tidal volume of 400. PEEP is set at 12. Peak airway pressure is 31 and the mean airway pressure is 18. HEENT: No facial swelling or erythema. CARDIAC: Reveals a regular rate and rhythm with normal S1, S2. There is a right IJ line in place. There is a right-sided dialysis catheter in place. There is a nasogastric tube. There is no oral endotracheal tube. There is decreased subcutaneous emphysema. CARDIAC: Regular rate and rhythm with normal S1, S2. LUNGS: Auscultation of lungs reveals decreased breath sounds at the bases. There is no wheezing. ABDOMEN: Soft, nontender. There is no rebound or guarding. EXTREMITIES: No leg edema or calf tenderness. There is no cyanosis or clubbing. SKIN: No rashes. LABORATORY DATA: White blood cell count is 9.6 and hemoglobin is 8.3. The platelet count is a 100. BUN to creatinine ratio is 49 to 1.29 and the other electrolytes within normal limits. Sodium is 149 and the BUN to creatinine ratio is 49 to 1.29. AST is 193 and ALT is 153. Albumin is 2.3. IMPRESSION: 1. Acute respiratory failure. 2. Pneumothorax on the right side, requiring thoracostomy tube. 3. Acute renal failure. 4. Obstructive uropathy. 5. Thrombocytopenia. 6. Elevated liver enzymes consistent with hepatocellular inflammation. 7. Anemia, unspecified. PLAN: 1. Repeat ABG now. 2. Continue to adjust mechanical ventilation to keep the plateau pressure below 30 and correct the respiratory acidosis. 3. Continue rocuronium and sedation. 4. Continue chest tubes to suction. 5. The patient will not receive dialysis today as his creatinine is improving. 6. Urology to see the patient. 7. Continue enteral feedings. 8. Case discussed with Nephrology, casino shift manager nursing, dayshift nursing, Respiratory, Internal Medicine, and family. Greater than 90 minutes in direct critical care time. MD MICHAEL Mercedes/JENNYFER /[id number]
[2020-02-09] MEDS: NOREPINEPHRINE INJ 4MG/4ML 8 MG in DEXTROSE 5% 250ML 250 ML IV SCH (12:15)
--- NOTE | 2020-02-09 14:02 | Progress Note ---
DATE: SUBJECTIVE: The patient is seen and examined. Discussed with Critical Care. Discussed with the medical team. Discussed with the . The patient apparently overnight had to be repositioned Mcdaniel catheter. There was 750 mL of fluid came out and his kidney functions improved today. He had a CAT scan that showed persistent pneumothorax and subcutaneous emphysema with pneumoperitoneum. Discussed with Critical Care. We will continue with supportive care for the time being as ordered. Chest tube to be manipulated to drain the pneumothorax. The patient is off levophed, still on vasopressors. OBJECTIVE: VITAL SIGNS: His blood pressure 117/66 and O2 saturation 94%. He is on PRVC with the rate of 30 with tidal volume of 400, PEEP of 12. Peak airway pressure is 31 with a mean airway pressure of 18. HEENT: He is not icteric. NECK: Supple. CHEST: Few crackles. COR: S1 and S2. No S3, S4, or murmurs. ABDOMEN: Soft. Bowel sounds present. No tenderness. EXTREMITIES: No edema. LABORATORY DATA: His white count 9.6, hemoglobin 8.3 with a platelet of 100. BUN 49 and creatinine 1.29. He is not to be dialyzed today. IMPRESSION: 1. Respiratory failure, acute respiratory distress syndrome. 2. Pneumothorax. 3. Bacteremia, coagulase-negative Staph. We will get vancomycin level. If it is less than 10, we will re-dose. I am going to recheck the blood cultures again. 4. Acute kidney injury probably due to obstruction, currently better. 5. COVID-19, present on admission. 6. Anemia. We will get blood cultures. We will get vancomycin level. Continue with feeding tube. Continue supportive care. We will reassess. 7. The patient does have history of benign prostatic hypertrophy. MD TIFFANY Escoto/JENNYFER /[id number]
--- NOTE | 2020-02-09 14:51 | Diagnostic Imaging Report ---
Examination: Single AP view of the chest. COMPARISON: CT chest 02/09/2020, chest AP 02/08/2020 INDICATION: Pneumothorax, pneumonia IMPRESSION: 1. Lines and Tubes: Stable right-sided chest tubes. The large bore tube has its distal tip projecting in the right apex. Endotracheal tube has distal tip projecting 6.1 cm above the lake[place]. Stable enteric tube, right IJ central line and nontunneled catheter. 2. No significant interval change in diffuse multifocal airspace and interstitial opacities consistent with pneumonia. A right pneumothorax is again identified, with partial loculation in the right left lower lung. Air gap approximately 0.9 cm common which is relatively unchanged when compared to CT. No left pneumothorax is identified. 3. Cardiomediastinal silhouette is normal. Pulmonary vasculature is obscured. 4. No acute bony abnormalities. Signed by: Dr. Garret Lozada M.D. on 02/09/2020 2:48 PM
--- NOTE | 2020-02-09 14:53 | Diagnostic Imaging Report ---
Exam: Abdominal film Clinical History: NG tube Comparison: CT chest 02/09/2020 DISCUSSION: See impression IMPRESSION: 1. Limited exam as only the left upper and lower quadrants are included in the image. 2. A linear hyperdensity below the left hemidiaphragm likely represents portion of the enteric tube, projecting in the region of the stomach fundus. Enteric tube is visualized coiled in the stomach body with distal tip near the fundus on CT dated 02/09/2020 The staff physician below has personally reviewed this exam on the date of dictation. Signed by: Dr. Garret Lozada M.D. on 02/09/2020 2:50 PM
--- NOTE | 2020-02-09 16:32 | Progress Note ---
DATE: Cardiology Progress Note SUBJECTIVE: Intubated and sedated. OBJECTIVE: VITAL SIGNS: Temperature 98.7, heart rate 92, blood pressure 131/62, respiratory rate 18, and O2 saturation 94%. BMI 29.98. GENERAL: Intubated and sedated. Rest of exam deferred. CARDIOVASCULAR MEDICATIONS: Hydralazine 10 mg q.3 hours, Lovenox 40 mg subcutaneous daily, aspirin 81 mg daily, and Levophed. TELEMETRY: Sinus rhythm, sinus tachycardia observed. STUDIES: Sodium 149, potassium 4.5, chloride 108, bicarbonate 37, BUN 49, creatinine 1.29, and glucose 117. White blood cells 9.6, hemoglobin 8.3, and platelets of 100. INR 1.3, PT 17.9, and PTT 36.3. AST 139 elevated, ALT 153 elevated, alkaline phosphatase 61, and total bilirubin is 1.6. ASSESSMENT AND PLAN: A 69-year-old man presents with COVID-19 positive, community-acquired pneumonia and acute respiratory distress syndrome, acute respiratory failure, acute renal failure, severe sepsis with septic shock, type 2 myocardial infarction, abnormal LFTs, pneumothorax in the setting of high PEEP pressure ventilation, now status post chest tube. RECOMMENDATIONS: 1. Continue supportive care. Monitor lytes. Pressors to be weaned as tolerated for MAP 65 to 75. 2. Aspirin. 3. Guarded prognosis. MD ANAIS Morales/JENNYFER /[id number]
[2020-02-09] MEDS: PANTOPRAZOLE 40 MG 10ML VIAL IV SCH (17:33)
[2020-02-09] MEDS: ASPIRIN 81 MG CHEW TAB PO SCH (17:33)
--- NOTE | 2020-02-09 18:52 | Consultation ---
DATE OF CONSULTATION: 02/09/2020 REASON FOR CONSULT: Pneumothorax. HISTORY OF PRESENT ILLNESS: I saw and evaluated this patient on February 09, 2020. He is a 69-year-old male with a history of hypertension, who presented with COVID-19 community-acquired pneumonia and developed ARDS and acute respiratory failure requiring ventilator support with high PEEP. He developed multiple other problems including acute kidney injury requiring hemodialysis and septic shock requiring inotropic support. He also had frequent thrombosis ofhis arterial catheters. Over the last 48 hours, he has developed recurrent pneumothoraces, requiring chest tube placement. He has two chest tubes now in place on the right. One is a smaller diameter percutaneous tube and the other is a larger bore [place] chest tube. Air leak is present in both and the lung is 90%- 95% percent inflated. O2 sats are improving. He remains in critical condition. Surgical evaluation is requested. PAST MEDICAL HISTORY: Positive for hypertension and BPH. SOCIAL HISTORY: Negative for smoking or alcohol use. FAMILY HISTORY: Negative for pulmonary problems or exposure to tuberculosis. ALLERGIES: NONE KNOWN. MEDICATIONS: See MAR. REVIEW OF SYSTEMS: Unable to obtain because the patient is intubated and sedated. PHYSICAL EXAMINATION: GENERAL: Older man, intubated on COVID restriction. VITAL SIGNS: Blood pressure 110/70, pulse 80 and regular; respirations, he is on the ventilator. O2 saturation 94%. CARDIAC: Regular rate and rhythm. Normal S1, S2. No audible murmur. LUNGS: Coarse ventilator sounds bilaterally. ABDOMEN: Globally benign. Good bowel sounds. No hepatosplenomegaly. BACK: No CVA tenderness. No muscular spasm. EXTREMITIES: No cyanosis, clubbing, or edema. VASCULAR: Carotids 2+/2+ bilaterally. No carotid bruits. Radials and femorals 2+/2+ bilaterally. SKIN: No rashes or nonhealing ulcers. MUSCULOSKELETAL: Full range of motion at all joints. No joint swelling. NEUROLOGIC: Intubated. LABORATORY DATA: Imaging is reviewed as above. CT scan yesterday before chest tube placement showed a substantial right pneumothorax, which resolved by subsequent chest imaging. White count 9.6, hemoglobin 8.3, hematocrit 26.4, platelet count . INR 1.38 with PT 70.9, and PTT 36.3. Sodium 139, potassium 4.5, BUN of 49, creatinine 0.89. IMPRESSION: Recurrent pneumothoraces in a patient with COVID-19. Currently, the right pneumothorax is nearly fully expanded after chest tube placement. Air leaks are present. I agree with current management and will follow. Thank you very much for asking me to see this nice man. MD ADE Garcia/JENNYFER /[id number] MTDD
[2020-02-09] MEDS ORDERED: VANCOMYCIN 1GM/NS 250 ML 250 ML IV ONE (19:30)
[2020-02-09] MEDS ORDERED: FENTANYL 2000MCG/NS 250 250 ML ONE (20:11)
[2020-02-09] MEDS: FENTANYL CITRATE INJ 2,000 MCG in SODIUM CHLORIDE 0.9% 250ML 210 ML IV PRN (20:54)
[2020-02-09] MEDS: TAMSULOSIN HCL 0.4 MG CAP PO SCH (21:00)
[2020-02-10] VITALS (34 sets, daily range): BP systolic 92–189; BP diastolic 47–90
[2020-02-10] MEDS: MIDAZOLAM HCL 5MG/ML 10ML VIAL 100 ML IV PRN ×4 (02:36→20:16)
[2020-02-10] MEDS: ROCURONIUM BROMIDE 250 MG in SODIUM CHLORIDE 0.9% 250ML 225 ML IV SCH ×3 (04:09→23:05)
[2020-02-10] MEDS ORDERED: FENTANYL 2000MCG/NS 250 250 ML ONE ×2 (04:23→19:42)
[2020-02-10] MEDS: FENTANYL CITRATE INJ 2,000 MCG in SODIUM CHLORIDE 0.9% 250ML 210 ML IV PRN ×3 (04:23→20:15)
[2020-02-10] MEDS: ENOXAPARIN SOD INJ 40 MG/0.4 ML SYR SC SCH (06:00)
[2020-02-10 06:10] LABS: BASOPHILS % 0.2 % (0.0-1.0); EOSINOPHILS # (AUTO) 0.1 (0.0-0.4); EOSINOPHILS % 0.6 % (0.0-6.0); HEMOGLOBIN 8.9 g/dL (14.0-18.0); LYMPHOCYTES # (AUTO) 0.4 (1.0-3.2); LYMPHOCYTES % 3.9 % (18.0-39.1); MEAN CORPUSCULAR HEMOGLOBIN 32.6 pg (28-32); MEAN CORPUSCULAR HGB CONC 30.7 g/dL (31-35); MEAN CORPUSCULAR VOLUME 106.2 fL (81-99); MONOCYTES # (AUTO) 0.4 (0.2-0.8); MONOCYTES % 3.2 % (4.4-11.3); NEUTROPHILS # (AUTO) 9.9 (2.1-6.9); NEUTROPHILS % 88.9 % (38.7-80.0); PLATELET COUNT 144 x10e3/uL (140-360); RED BLOOD COUNT 2.73 x10e6/uL (4.3-5.7); RED CELL DISTRIBUTION WIDTH 14.6 % (11.7-14.4)
[2020-02-10 06:46] LABS: ALANINE AMINOTRANSFERASE 195 IU/L (0-55); ALBUMIN 2.3 g/dL (3.5-5.0); ALBUMIN/GLOBULIN RATIO 0.7 (0.8-2.0); ALKALINE PHOSPHATASE 125 IU/L (40-150); ANION GAP 8.7 mmol/L (8-16); BLOOD UREA NITROGEN 42 mg/dL (7-26); BUN/CREATININE RATIO 47 (6-25); CALCIUM 7.3 mg/dL (8.4-10.2); CARBON DIOXIDE 39 mmol/L (22-29); CHLORIDE 109 mmol/L (98-107); EST GLOMERULAR FILTRATION RATE > 60 ML/MIN (60-); GLUCOSE 84 mg/dL (74-118); POTASSIUM 4.7 mmol/L (3.5-5.1); SODIUM 152 mmol/L (136-145)
[2020-02-10 07:02] LABS: MAGNESIUM 2.5 MG/DL (1.3-2.1); PHOSPHORUS 2.6 MG/DL (2.3-4.7)
--- NOTE | 2020-02-10 07:47 | Diagnostic Imaging Report ---
Examination: Single AP view of the chest. COMPARISON: Portable chest 02/09/2020 INDICATION: Pneumothorax, respiratory failure IMPRESSION: 1. Lines and Tubes: No interval change 2. No interval change in right-sided pneumothorax with lateral air gap 9-10 mm in the lateral aspect and loculation in its right lower aspect. Diffuse bilateral interstitial and alveolar opacities are unchanged. 3. Cardiomediastinal silhouette is normal. Pulmonary vasculature is obscured. 4. No acute bony abnormalities. Signed by: Dr. Garret Lozada M.D. on 02/10/2020 7:43 AM
--- NOTE | 2020-02-10 07:48 | Diagnostic Imaging Report ---
Exam: Limited abdominal AP film Clinical History: NG tube placement Comparison: KUB 02/09/2020 DISCUSSION: See impression IMPRESSION: 1. Enteric tube is noted below the left hemidiaphragm, with distal tip projecting in the fundus. 2. Exam is limited as only the left upper quadrant is imaged. No air-filled dilated bowel loops. 3. Diffuse bilateral interstitial and alveolar opacities in the visualized lungs. The staff physician below has personally reviewed this exam on the date of dictation. Signed by: Dr. Garret Lozada M.D. on 02/10/2020 7:45 AM
[2020-02-10] MEDS: HEPARIN SOD/SOD CHLORIDE 1,000 ML IV SCH (08:45)
[2020-02-10] MEDS: ASPIRIN 81 MG CHEW TAB PO SCH (09:17)
[2020-02-10] MEDS: EYE LUBRICANT OPTH OINT 3.5GM TUBE OP SCH ×2 (09:17→16:36)
[2020-02-10] MEDS: BACITRACIN ZINC 15 GM OINT TOP SCH (09:17)
[2020-02-10] MEDS: PANTOPRAZOLE 40 MG 10ML VIAL IV SCH (09:17)
[2020-02-10] MEDS: BALSAM PERU/CASTOR OIL 60 GM OINT...G. TP SCH (09:17)
[2020-02-10] MEDS: VANCOMYCIN 1GM/NS 250 ML 250 ML IV SCH (10:25)
[2020-02-10] MEDS ORDERED: DEXTROSE 5% 1,000 ML IV ONE (10:30)
--- NOTE | 2020-02-10 11:15 | Progress Note ---
DATE: SUBJECTIVE: The patient is seen and evaluated. Available labs and notes reviewed. The patient has discussed with the nurse and discussed with Dr. Thompson in details. The patient is currently in room 190 in ICU on isolation for coronavirus positive are 01/26 and 02/06. REVIEW OF SYSTEMS: Unable to obtain review of system secondary to the patient's medical condition. OBJECTIVE: VITAL SIGNS: Temperature 99.6, pulse 107, respiration 30, blood pressure 143/80. O2 saturation is 96%. GENERAL: Orally intubated with FiO2 of 85% and PEEP of 12. The patient is currently off pressors. Remains on fentanyl, Versed, and rocuronium. CV: S1, S2. Tachy at 106. CHEST: Equal expansion. Coarse and also decreased breath sounds. ABDOMEN: Soft, obese, does not seem to be tender. EXTREMITIES: With 2+ edema. The patient has a chest tube in place. Mcdaniel catheter seems to be functional. Apparently, the Mcdaniel was kinked, therefore, there was some obstruction, most likely giving rise to renal insufficiency. However, the Mcdaniel catheter is functioning well now and renal function improved with creatinine level of 0.9. MEDICATIONS: Medication list reviewed from Infectious Disease point of view, the patient is on vancomycin IV. LABORATORY STUDIES: Coronavirus PCR positive on 01/27/2020 and 02/07/2020 white count of 11.1, hemoglobin 8.9, platelet 144. Sodium 152, potassium 4.7, creatinine 0.9. Vancomycin random 2.7. MICROBIOLOGY: Blood culture 02/03, coags negative staph with recheck blood culture from 02/09/2020, pending. Previous blood culture on 01/26 was negative x2. Sputum 02/03, showed usual respiratory ivy. IMAGING: Chest x-ray from today showed no interval change in the right-sided pneumothorax. Also, showed cardiomediastinal silhouette is normal. Pulmonary vascular is obscured. No acute bony abnormalities. KUB from today also showed, enteric tube is noted below the left hemidiaphragm with distal tip projecting into the fundus. Also showed diffuse bilateral interstitial and alveolar opacities. ASSESSMENT AND PLAN: 1. Respiratory failure/acute respiratory distress syndrome. 2. Coronavirus was present on admission. 3. Bacteremia coagulase negative staph. Recheck blood cultures pending. Vancomycin level noted at 2.7. Re-dose vancomycin. Follow with the blood culture. 4. Acute kidney injury seems to be resolved, most likely obstructive. 5. Pneumothorax remains with 2 chest tubes. 6. Anemia. Continue with vent support. The patient's GFR has improved to greater than 60. The patient was getting vancomycin with dialysis, however, has not been dialyzed for some time. We will start the patient on vancomycin 1 g daily. Monitor the vancomycin level before the second dose and that way we have an idea where the patient stands as far as his vancomycin level. Therefore, we tried to prevent renal toxicity. The plan of care was discussed with the nurse. The patient also has elevated LFT, pretty much no significant change. BNP is elevated at 633.4. Overall guarded prognosis. Discussed with Dr. Thompson in details. Please refer to chart for more information. Dictated by Gonsalo Yodre PA-C (Al) Jada Thompson MD /MODL /[id number]
[2020-02-10] MEDS: NOREPINEPHRINE INJ 4MG/4ML 8 MG in DEXTROSE 5% 250ML 250 ML IV SCH (11:26)
[2020-02-10 12:13] LABS: PLATELET ESTIMATE ADEQUATE; PLATELET MORPHOLOGY COMMENT NORMAL; RBC MORPHOLOGY COMMENT NORMAL
--- NOTE | 2020-02-10 12:16 | Progress Note ---
DATE: SUBJECTIVE: The patient remains on mechanical ventilation. He is on FiO2 of 85%, 12 of PEEP. Tidal volume is set at 400 and he is on a PRVC. He still has two chest tubes in on the right side. The larger chest tube has significant air leak. He is urinating better. He remains on Versed and fentanyl as well as rocuronium. He is off all pressors. The patient is not having any fevers. PHYSICAL EXAMINATION: VITAL SIGNS: The patient's blood pressure is 121/77 and pulse is 107. T-max is 99.5. HEENT: Shows no facial swelling or erythema. CARDIAC: Reveals regular rate and rhythm with normal S1, S2. LUNGS: Auscultation of lungs reveals decreased breath sounds at the bases. There is no wheezing. ABDOMEN: Soft, nontender. There is no rebound or guarding. EXTREMITIES: Show no leg edema or calf tenderness. LABORATORY DATA: Sodium is 152, and the BUN to creatinine ratio is 42 to 0.9. Chloride is 109 and bicarb is 39. The total bilirubin is 1.8 and the AST is 190. The ALT is 195. Albumin is 2.3. RADIOGRAPHIC DATA: Chest x-ray still shows right-sided pneumothorax with chest tube in place. IMPRESSION: 1. Acute respiratory failure. 2. Pneumothorax. 3. Acute renal failure that is improving. 4. Elevated bilirubin and liver enzymes. 5. Coagulopathy. 6. Anemia, unspecified. PLAN: 1. Continue mechanical ventilation and repeat ABG. 2. Right upper quadrant ultrasound. 3. Additional free water and intravascular volume. 4. Continue to monitor blood counts and electrolytes. 5. Case discussed with Respiratory night shift manager nursing, dayshift nursing, Infectious Disease, and Nephrology. 6. Case also discussed with . Greater than 35 minutes in direct critical care time. MD MICHAEL Mercedes/JENNYFER /[id number]
--- NOTE | 2020-02-10 12:24 | Diagnostic Imaging Report ---
EXAM: Complete Abdominal Ultrasound INDICATION: ^Elevated bilirubin COMPARISON: CT abdomen and pelvis without contrast 02/09/2020 TECHNIQUE: Transverse and longitudinal images of the upper abdomen were obtained. FINDINGS: Exam limited as the patient is intubated. Liver: Size: 14.2 cm in the right midclavicular line, normal Appearance: Normal echogenicity, smooth contour Mass: No focal masses Spleen: Size: 10.0 cm in length, normal Echogenicity: Normal Mass: No focal masses Gallbladder: Stones/Sludge: 0.7 cm echogenic gallstone in the gallbladder lumen. Wall: 0.3 cm Appearance: No wall thickening, pericholecystic fluid or hydrops. Sonographic Ruano's Sign: Negative Bile Ducts: Intrahepatic Ducts: No dilatation Extrahepatic Ducts: Common bile duct measures 0.3 cm, no dilatation Pancreas: Obscured by overlying bowel gas Kidneys: Length: Right 12.0 cm Left 12.6 cm Echogenicity: Normal Collecting System: No hydronephrosis Stone: None Cyst/Mass: 2.6 x 3.1 x 2.6 cm anechoic left peripelvic cyst. Vessels: Aorta: Obscured by overlying bowel gas Inferior Vena Cava: Visualized portions are normal Main Portal Vein: 1.0 cm, normal size with hepatopetal flow. Free Fluid: No ascites or pleural effusion IMPRESSION: 1. Cholelithiasis, without evidence of cholecystitis. 2. 2.6 cm left peripelvic cyst Signed by: Dr. Garret Lozada M.D. on 02/10/2020 12:20 PM
--- NOTE | 2020-02-10 14:11 | Progress Note ---
DATE: 02/10/2020 Cardiology Progress Note SUBJECTIVE: Intubated and sedated. OBJECTIVE: VITAL SIGNS: Temperature 99.5, heart rate 100, telemetry sinus tachycardia, respiratory rate 30, blood pressure 129/56 on the vent support, PEEP 12, FiO2 of 85%, intubated, sedated. MEDICATIONS: Reviewed. Aspirin 81 mg daily, Lovenox 40 mg subcu daily, and tamsulosin 0.4 mg daily. STUDIES: Reviewed. White blood cells 11, hemoglobin 8.9, platelets 144. Sodium 152, potassium 4.5, chloride 109, bicarbonate 39, BUN 42, creatinine 0.9, glucose 84, calcium 7.3, magnesium 2.5. AST 190, ALT 195, alkaline phosphatase 125, total bilirubin is 1.8. CK 756, troponin I 0.251. Blood cultures growing Staph coag-negative. Chest x-ray, cardiomediastinal silhouette normal, pulmonary vasculature obscures. No acute bony abnormalities. Right-sided pneumothorax with lateral air gap 9-10 mm in lateral aspect, loculation in its right lower aspect. Diffuse in bilateral interstitial alveolar opacities unchanged. Abdomen x-ray with enteric tube noted below left hemidiaphragm with distal tip projecting in the fundus. No air filled dilated bowel loops. Diffuse bilateral interstitial alveolar opacities noted in the lungs. ASSESSMENT: 1. Acute respiratory failure. 2. COVID-19, positive community-acquired pneumonia. 3. Acute respiratory distress syndrome. 4. Pneumothorax, status post chest tube. 5. Coagulopathy. 6. Anemia. 7. Abnormal LFTs. 8. Acute kidney injury .. 9. Coag-negative bacteremia, severe sepsis and septic shock with type 2 ID. RECOMMENDATIONS: 1. Consider free water if sodium continues to trend up. 2. Aspirin. 3. Continue vent support. 4. Chest tubes in place. Continue to monitor output. 5. Antibiotics per ID. 6. Continue aspirin. Abdias Nguyen MD AFV/MODL /[id number]
[2020-02-10] MEDS ORDERED: VANCOMYCIN 1GM/NS 250 ML 250 ML IV SCH (15:00)
--- NOTE | 2020-02-10 19:26 | NUR ---
Dr. Gabriel Frye aware of ABG results, chest x ray and chest tube air leak. Wound care done. ordered ultrasound of abdomen. Will continue to monitor the patient.
--- NOTE | 2020-02-10 22:52 | Diagnostic Imaging Report ---
EXAMINATION: CHEST SINGLE (PORTABLE) INDICATION: Abnormal ABG, high vent peak pressure COMPARISON: Chest x-ray 02/10/2020 5:57 AM FINDINGS: Patient slightly rotated right. TUBES and LINES: Slight interval retraction of the ET tube, tip now 7 cm above lakeisha. The 2 right chest tubes and right IJ central venous catheters are unchanged. LUNGS: Diffuse haziness in both lungs. PLEURA: Similar appearance of small right pneumothorax. HEART AND MEDIASTINUM: The cardiomediastinal silhouette is unchanged.. BONES AND SOFT TISSUES: No acute osseous lesion. Soft tissues are unremarkable. UPPER ABDOMEN: No free air under the diaphragm. IMPRESSION: Slight interval retraction of the ET tube, tip now 7 cm above lakeisha. Similar appearance of small right pneumothorax. Signed by: Calderon Solis DO on 02/10/2020 10:49 PM
[2020-02-10] MEDS: TAMSULOSIN HCL 0.4 MG CAP PO SCH (23:15)
[2020-02-11] VITALS (25 sets, daily range): BP systolic 85–190; BP diastolic 41–99
[2020-02-11] MEDS: MIDAZOLAM HCL 5MG/ML 10ML VIAL 100 ML IV PRN ×4 (02:45→22:15)
[2020-02-11] MEDS: HYDRALAZINE HCL 20 MG/ML VIAL IV PRN (03:08)
[2020-02-11] MEDS: ROCURONIUM BROMIDE 250 MG in SODIUM CHLORIDE 0.9% 250ML 225 ML IV SCH ×3 (03:15→16:17)
[2020-02-11] MEDS: FENTANYL CITRATE INJ 2,000 MCG in SODIUM CHLORIDE 0.9% 250ML 210 ML IV PRN (05:05)
[2020-02-11] MEDS ORDERED: FENTANYL 2000MCG/NS 250 250 ML ONE (05:06)
[2020-02-11] MEDS: ENOXAPARIN SOD INJ 40 MG/0.4 ML SYR SC SCH (05:10)
[2020-02-11 05:30] LABS: BASOPHILS % 0.1 % (0.0-1.0); EOSINOPHILS # (AUTO) 0.1 (0.0-0.4); HEMATOCRIT 32.4 % (38.2-49.6); HEMOGLOBIN 9.9 g/dL (14.0-18.0); LYMPHOCYTES # (AUTO) 0.5 (1.0-3.2); LYMPHOCYTES % 3.4 % (18.0-39.1); MEAN CORPUSCULAR HEMOGLOBIN 32.5 pg (28-32); MEAN CORPUSCULAR HGB CONC 30.6 g/dL (31-35); MEAN CORPUSCULAR VOLUME 106.2 fL (81-99); MONOCYTES # (AUTO) 0.5 (0.2-0.8); MONOCYTES % 3.6 % (4.4-11.3); NEUTROPHILS # (AUTO) 11.7 (2.1-6.9); NEUTROPHILS % 86.9 % (38.7-80.0); PLATELET COUNT 183 x10e3/uL (140-360); RED BLOOD COUNT 3.05 x10e6/uL (4.3-5.7); RED CELL DISTRIBUTION WIDTH 14.4 % (11.7-14.4)
[2020-02-11 05:34] LABS: INR 1.22; PROTHROMBIN TIME 16.2 seconds (11.9-14.5)
[2020-02-11 05:35] LABS: PARTIAL THROMBOPLASTIN TIME 34.2 seconds (23.8-35.5)
[2020-02-11 05:42] LABS: MAGNESIUM 2.2 MG/DL (1.3-2.1); PHOSPHORUS 2.5 MG/DL (2.3-4.7)
[2020-02-11 06:02] LABS: CREATINE KINASE MB 2.2 ng/mL (0-5.0)
[2020-02-11 06:28] LABS: ALANINE AMINOTRANSFERASE 180 IU/L (0-55); ALBUMIN 2.2 g/dL (3.5-5.0); ALBUMIN/GLOBULIN RATIO 0.6 (0.8-2.0); ALKALINE PHOSPHATASE 144 IU/L (40-150); ANION GAP 7.4 mmol/L (8-16); BLOOD UREA NITROGEN 32 mg/dL (7-26); BUN/CREATININE RATIO 38 (6-25); CALCIUM 7.4 mg/dL (8.4-10.2); CHLORIDE 106 mmol/L (98-107); CREATININE, SERUM 0.85 mg/dL (0.72-1.25); EST GLOMERULAR FILTRATION RATE > 60 ML/MIN (60-); GLUCOSE 125 mg/dL (74-118); POTASSIUM 4.4 mmol/L (3.5-5.1); SODIUM 150 mmol/L (136-145)
[2020-02-11 06:35] LABS: CARBON DIOXIDE 41 mmol/L (22-29)
[2020-02-11] MEDS: PANTOPRAZOLE 40 MG 10ML VIAL IV SCH (08:04)
[2020-02-11] MEDS: EYE LUBRICANT OPTH OINT 3.5GM TUBE OP SCH ×2 (08:04→16:14)
[2020-02-11] MEDS: BACITRACIN ZINC 15 GM OINT TOP SCH (08:04)
[2020-02-11] MEDS: ASPIRIN 81 MG CHEW TAB PO SCH (08:04)
[2020-02-11] MEDS: BALSAM PERU/CASTOR OIL 60 GM OINT...G. TP SCH (08:04)
[2020-02-11 08:13] LABS: PLATELET ESTIMATE ADEQUATE; PLATELET MORPHOLOGY COMMENT NORMAL; RBC MORPHOLOGY COMMENT ABNORMAL
[2020-02-11] MEDS: VANCOMYCIN 1GM/NS 250 ML 250 ML IV SCH (09:00)
--- NOTE | 2020-02-11 10:00 | Diagnostic Imaging Report ---
X-ray chest AP portable Comparison: 02/10/2020 History: Respiratory failure Findings: Endotracheal tube is in an acceptable position. Right IJ central line and right IJ tunnel dialysis catheter are in acceptable positions. Nasogastric tube is seen coursing on the expected path and is unchanged. There is no change in a large bore and a small bore right chest tubes. There is no change in the right pneumothorax. There is possibility of a right pleural effusion. A small left pleural effusion seen on the previous exam has resolved is noted layered out. Bilateral lung infiltrates remain unchanged. Impression: Endotracheal tube is in an acceptable position. No change in the lung findings. No change in the right pneumothorax. Signed by: Hema Euceda MD on 02/11/2020 9:57 AM
--- NOTE | 2020-02-11 10:09 | Progress Note ---
DATE: SUBJECTIVE: The patient remains on PRVC mode of ventilation. The FiO2 is increased to 100%. He remains on a PRVC at a rate of 30. His tidal volume is set at 400. He still has a PEEP of 10. His peak airway pressure is 32 and his mean airway pressure is 20. He remains on Versed and fentanyl as well as rocuronium. PHYSICAL EXAMINATION: VITAL SIGNS: The patient is afebrile. The blood pressure is 107/54 and the pulse is 113. The saturation is 96%. He is on a PRVC at a rate of 30 with a tidal volume of 400 and an FiO2 of 100%. HEENT: He has a right IJ line. He also has a quick Trialysis catheter on the right side. The oral endotracheal tube is in good position. There is no subcutaneous emphysema. There are two chest tubes on the right side. The larger surgical chest tube still has an air leak. CARDIAC: Reveals regular rate and rhythm with normal S1, S2. LUNGS: Auscultation of lungs shows decreased breath sounds at the bases. There is no wheezing. ABDOMEN: Soft and nontender. There is no rebound or guarding. EXTREMITIES: Show no leg edema or calf tenderness. There is no cyanosis or clubbing. SKIN: Shows no rashes. NEUROLOGICAL: Shows the patient to be sedated. LABORATORY DATA: White blood cell count is 13.4 and hemoglobin is 9.9. The platelet count is 183. The BUN to creatinine ratio is 32 to 0.85 and the sodium is 150. Carbon dioxide is 41. Total bilirubin is 2.4 and AST is 127. The ALT is 180. Albumin is 2.2. RADIOGRAPHIC DATA: Ultrasound of the abdomen from yesterday showed cholelithiasis, but no evidence of acute cholecystitis. Chest x-ray shows the persistent right pneumothorax with chest tube in place. There are bilateral infiltrates and an endotracheal tube in place. IMPRESSION: 1. The patient has acute respiratory failure. 2. Persistent pneumothorax on the right side. 3. Acute renal failure that is improving. 4. Elevated bilirubin and liver enzymes. 5. Coagulopathy. 6. Anemia, unspecified. 7. Viral pneumonia and Covid-19 infection. PLAN: 1. Continue mechanical ventilation and repeat ABG. 2. Continue enteral feedings. 3. Continue current antibiotics. 4. DVT prophylaxis. 5. Situation remains critical. 6. Case discussed with Respiratory, sheriff detective nursing, dayshift nursing, Internal Medicine, and family. Greater than 35 minutes in direct critical care time. MD MICHAEL Mercedes/JENNYFER /[id number]
--- NOTE | 2020-02-11 11:04 | Progress Note ---
DATE: 02/11/2020 Cardiology Progress Note SUBJECTIVE: Remains intubated and sedated. OBJECTIVE: VITAL SIGNS: Temperature 98.3, heart rate 113, blood pressure 107/54, respiratory rate 30, and O2 saturation 96% on FiO2 100%, PEEP 10. GENERAL: Intubated, sedated. HEART: Regular rhythm. Dependent edema. CARDIOVASCULAR MEDICATIONS: Reviewed. Lovenox 40 mg subcutaneous daily and aspirin 81 mg daily. STUDIES: Reviewed. Sodium 150, potassium 4.4, chloride 106, bicarbonate 41, BUN 32, creatinine 0.8, and glucose 125. White blood cells 13.4, hemoglobin 9.9, and platelets 183. PT 16, PTT 34, and INR 1.2. AST 127, ALT 180, and alkaline phosphatase 144. ASSESSMENT AND PLAN: 1. A 69-year-old man with type 2 myocardial infarction, acute respiratory failure in the setting of COVID positive community-acquired pneumonia, acute respiratory distress syndrome. 2. Anemia. 3. Status post renal failure. 4. Abnormal LFTs. 5. Pneumothorax, status post chest tube. RECOMMENDATIONS: Requiring vent support, status post chest tube placement. Continue to monitor serially with x-rays and continue supportive care. Overall, guarded prognosis. From a cardiovascular standpoint, continue aspirin and DVT prophylaxis. Abdias Nguyen MD AFLuh/JENNYFER /[id number]
[2020-02-11] MEDS: NOREPINEPHRINE INJ 4MG/4ML 8 MG in DEXTROSE 5% 250ML 250 ML IV SCH (11:24)
[2020-02-11] MEDS ORDERED: FENTANYL 2000MCG/NS 250 250 ML IV PRN (11:30)
[2020-02-11] MEDS: CEFEPIME 1GM/NS 0.9% 50 ML 50 ML IV SCH ×2 (12:00→22:15)
--- NOTE | 2020-02-11 12:24 | Progress Note ---
DATE: SUBJECTIVE: Mr. Beatty remains in intensive care unit. He is on ventilator, PRVC at a rate of 30, tidal volume is 400, PEEP of 10, peak airway pressure is 32, mean airway pressure is 20, remains on Versed and fentanyl. OBJECTIVE: VITAL SIGNS: Stable, afebrile. Temperature 98.7, heart rate 113, respirations 30, blood pressure 114/62. GENERAL: He is intubated, sedated. HEENT: He is not icteric. NECK: Supple. Chest few crackles bilateral. HEART: S1, S2. No S3, S4. No murmurs. ABDOMEN: Soft. The patient continue with right pneumothorax. Right IJ central line, right IJ tunneled dialysis catheter. NG tube. He has two chest tubes on the right. LABORATORY DATA: His blood cultures no growth on . platelet of 183. Sodium 150, potassium 4.4 with creatinine of 0.85. IMPRESSION: 1. COVID-19, present on admission. 2. Bacteremia, coagulase-negative Staph, on vancomycin, concerned about healthcare associated pneumonia. We will add cefepime. Continue supportive care. 3. Pneumothorax on the right side. 4. Acute renal failure, improved. 5. Deep vein thrombosis prophylaxis. Continue to follow. MD TIFFANY Escoto/MODL /[id number]
[2020-02-11] MEDS ORDERED: FUROSEMIDE INJ 10 MG/ML 2 ML VIAL IV ONE (13:15)
[2020-02-11] MEDS: DEXTROSE 5% 1,000 ML IV SCH (13:47)
[2020-02-11] MEDS: HYDROCHLOROTHIAZIDE 25 MG TAB PO SCH (13:48)
--- NOTE | 2020-02-11 17:24 | NUR ---
Dr. Gabriel Frye at bedside with RT to advance ETT tube 2 cm. Orders given to restart tube feedings. Dressing change done to R lower chest tube. Dr. Gabriel Frye called with ABG results. Dr. Gabriel Frye gave orders to hold Rocuronium drip due to inability to obtain twitches using train of four. Pt's brought pt's previous medical chart to hospital and picked up his wedding ring. Will continue to monitor the patient.
[2020-02-11] MEDS ORDERED: SODIUM BICARBONATE 8.4% 50 ML VIAL ONE (19:53)
[2020-02-11] MEDS ORDERED: ATROPINE SULFATE 0.1 MG/ML 10ML SYR ONE (19:53)
[2020-02-11] MEDS ORDERED: EPINEPHRINE HCL SYRINGE ONE (19:53)
--- NOTE | 2020-02-11 21:28 | Progress Note ---
DATE: 02/11/2020 REASON FOR PROGRESS NOTE: Right pneumothorax. SUBJECTIVE: The patient is stable in the ICU. FiO2 has decreased to 75% from 100%. At this time, PEEP is down as well. Chest x-ray obtained today is reviewed and shows a stable pneumothorax. There is still air leak present in the Pleur-Evac. OBJECTIVE: VITAL SIGNS: The patient is afebrile. Blood pressure 110/70, pulse 110, and O2 saturation 97% on the above settings. NECK: Supple and nontender. No crepitus. CARDIAC: Regular rate and rhythm. Normal S1, S2. No murmur. LUNGS: Bilateral crackles. Chest tubes are in place. There is an air leak present in both. ABDOMEN: Benign. LABORATORY DATA: White count 13.4, hemoglobin 9.9, BUN 32, creatinine 0.85, sodium 150. IMAGING DATA: Chest x-ray is reviewed as well as a CT scan from two days ago. Imaging shows stable right pneumothorax. IMPRESSION: Some improvement with current therapy. I would recommend continue the chest tube drainage and we will follow. MD SHERLEY GarciaL/MODL /[id number]
[2020-02-11] MEDS: TAMSULOSIN HCL 0.4 MG CAP PO SCH (22:15)
[2020-02-11] MEDS: FENTANYL 2000MCG/NS 250 250 ML IV PRN (22:15)
[2020-02-12] VITALS (24 sets, daily range): BP systolic 100–159; BP diastolic 54–86
[2020-02-12] MEDS: ROCURONIUM BROMIDE 250 MG in SODIUM CHLORIDE 0.9% 250ML 225 ML IV SCH ×2 (01:25→21:30)
[2020-02-12] MEDS: DEXTROSE 5% 1,000 ML IV SCH (03:25)
[2020-02-12] MEDS: MIDAZOLAM HCL 5MG/ML 10ML VIAL 100 ML IV PRN ×2 (03:56→20:11)
[2020-02-12 06:19] LABS: BASOPHILS % 0.3 % (0.0-1.0); EOSINOPHILS # (AUTO) 0.1 (0.0-0.4); EOSINOPHILS % 1.1 % (0.0-6.0); HEMATOCRIT 29.5 % (38.2-49.6); HEMOGLOBIN 8.9 g/dL (14.0-18.0); LYMPHOCYTES # (AUTO) 0.3 (1.0-3.2); LYMPHOCYTES % 2.6 % (18.0-39.1); MEAN CORPUSCULAR HEMOGLOBIN 31.9 pg (28-32); MEAN CORPUSCULAR HGB CONC 30.2 g/dL (31-35); MEAN CORPUSCULAR VOLUME 105.7 fL (81-99); MONOCYTES # (AUTO) 0.3 (0.2-0.8); MONOCYTES % 3.1 % (4.4-11.3); NEUTROPHILS # (AUTO) 9.1 (2.1-6.9); NEUTROPHILS % 88.7 % (38.7-80.0); PLATELET COUNT 173 x10e3/uL (140-360); RED BLOOD COUNT 2.79 x10e6/uL (4.3-5.7); RED CELL DISTRIBUTION WIDTH 14.3 % (11.7-14.4)
[2020-02-12] MEDS: ENOXAPARIN SOD INJ 40 MG/0.4 ML SYR SC SCH (06:20)
[2020-02-12 06:43] LABS: ALANINE AMINOTRANSFERASE 128 IU/L (0-55); ALBUMIN 2.3 g/dL (3.5-5.0); ALBUMIN/GLOBULIN RATIO 0.7 (0.8-2.0); ALKALINE PHOSPHATASE 130 IU/L (40-150); ANION GAP 6.3 mmol/L (8-16); BLOOD UREA NITROGEN 27 mg/dL (7-26); BUN/CREATININE RATIO 33 (6-25); CALCIUM 7.7 mg/dL (8.4-10.2); CHLORIDE 103 mmol/L (98-107); CREATININE, SERUM 0.83 mg/dL (0.72-1.25); EST GLOMERULAR FILTRATION RATE > 60 ML/MIN (60-); GLUCOSE 156 mg/dL (74-118); POTASSIUM 4.3 mmol/L (3.5-5.1); SODIUM 146 mmol/L (136-145)
[2020-02-12 06:47] LABS: CARBON DIOXIDE 41 mmol/L (22-29)
[2020-02-12 07:06] LABS: EOSINOPHILS % (MANUAL) 2 % (0-7); LYMPHOCYTES % (MANUAL) 5 % (19-48); METAMYELOCYTES % (MANUAL) 1 % (0-0); MONOCYTES % (MANUAL) 3 % (3.4-9.0); MYELOCYTES % (MANUAL) 2 % (0-0); NEUTROPHILS % (MANUAL) 87 % (40-74); NUCLEATED RED BLOOD CELLS 2; POLYCHROMASIA FEW
[2020-02-12 07:07] LABS: PLATELET ESTIMATE ADEQUATE; PLATELET MORPHOLOGY COMMENT RARE EDTA CLUMPING; RBC MORPHOLOGY COMMENT NORMAL
--- NOTE | 2020-02-12 07:15 | NUR ---
Dr. Benson paged at 0704 regarding patient's morning Chest X-ray. Return call received at 0715, Dr. Benson informed that the patient's pneumothorax has increased in size dramatically. Patient's chest is visibly asymmetrical and has increased distention and firmness to abdomen. Lower Rt Chest tube chest drain is patent and functioning properly at -[address] Benson acknowledged and gave orders to increase suction to -40 cmH20 and he would round on the patient this morning. Oncoming nurse, Cecilia, informed and orders implemented.
--- NOTE | 2020-02-12 07:45 | NUR ---
Dr. Dalila Frye rounding on patient and updated on status and Chest X-ray results and conversation with Dr. Benson.
[2020-02-12] MEDS: PANTOPRAZOLE 40 MG 10ML VIAL IV SCH (08:46)
[2020-02-12] MEDS: ASPIRIN 81 MG CHEW TAB PO SCH (08:47)
[2020-02-12] MEDS: EYE LUBRICANT OPTH OINT 3.5GM TUBE OP SCH ×2 (08:47→16:55)
[2020-02-12] MEDS: BACITRACIN ZINC 15 GM OINT TOP SCH (08:47)
[2020-02-12] MEDS: HYDROCHLOROTHIAZIDE 25 MG TAB PO SCH (08:47)
[2020-02-12] MEDS: BALSAM PERU/CASTOR OIL 60 GM OINT...G. TP SCH (08:47)
--- NOTE | 2020-02-12 08:56 | Diagnostic Imaging Report ---
EXAMINATION: CHEST SINGLE (PORTABLE) INDICATION: Chest tube placement COMPARISON: Chest radiograph 02/11/2020 FINDINGS: LINES/TUBES:Right IJ central venous catheter and hemodialysis catheter terminates in the superior vena cava. Endotracheal tube terminates approximately 2 cm above the lakeisha. Right apical surgical chest tube and right mid thorax pigtail pleural drainage catheter appear unchanged. Enteric tube unchanged. LUNGS:Unchanged bilateral airspace opacities. PLEURA:Interval increase in size of right pneumothorax, now measuring up to 3.5 cm maximal thickness. MEDIASTINUM:The cardiomediastinal silhouette appears unchanged in size and shape. BONES/SOFT TISSUES:No acute osseous injury. Interval increase in right lateral thoracic soft tissue emphysema associated with chest tube insertion sites. ABDOMEN:No free air under the diaphragm. IMPRESSION: Interval increase in right pneumothorax, now measuring up to 3.67 m maximum diameter. Right chest tubes appear essentially unchanged in positioning. Unchanged bilateral airspace opacities. Signed by: Tasia Talbert MD on 02/12/2020 8:52 AM
[2020-02-12] MEDS ORDERED: HYDROCHLOROTHIAZIDE 25 MG TAB PO SCH (09:00)
[2020-02-12] MEDS: VANCOMYCIN 1GM/NS 250 ML 250 ML IV SCH (10:42)
[2020-02-12] MEDS: CEFEPIME 1GM/NS 0.9% 50 ML 50 ML IV SCH ×2 (10:42→22:36)
[2020-02-12] MEDS: NOREPINEPHRINE INJ 4MG/4ML 8 MG in DEXTROSE 5% 250ML 250 ML IV SCH (10:42)
--- NOTE | 2020-02-12 10:46 | Diagnostic Imaging Report ---
EXAMINATION: CHEST SINGLE (PORTABLE) INDICATION: Chest tube COMPARISON: Chest radiograph of earlier the same day FINDINGS: LINES/TUBES:Interval placement of additional right basilar surgical chest tube. Right apical chest tube has been slightly withdrawn. Right midthoracic pigtail pleural drainage catheter unchanged. Other support lines and tubes unchanged. LUNGS:Lung volumes are unchanged. Unchanged bilateral airspace opacities. PLEURA:Interval decrease in previously seen right pneumothorax. Small loculated pneumothorax component at the right lateral lung base appears unchanged. MEDIASTINUM:The cardiomediastinal silhouette appears unchanged in size and shape. BONES/SOFT TISSUES:No acute osseous injury. ABDOMEN:No free air under the diaphragm. IMPRESSION: Interval placement of right basilar surgical chest tube. Interval improvement in right pneumothorax. Unchanged small loculated component of pneumothorax. Unchanged bilateral airspace opacities. Signed by: Tasia Talbert MD on 02/12/2020 10:43 AM
[2020-02-12] MEDS ORDERED: METHYLPREDNISOLONE SOD SUCC 40 MG/ML VIAL 1ML IV ONE (13:45)
--- NOTE | 2020-02-12 13:59 | NUR ---
Nutrition Intervention Note RD Recommendation(s) for Physician: -Recommend changing TF to Vital AF 1.2 with goal rate of 60 mL/hr (provides 1728 kcal, 108 gm protein, and 1168 ml water) -Fluid management per MD -Bowel regimen per MD Plan of Care: RD following, monitoring for tolerance and adequacy, TF recommendation Nutrition reason for involvement: follow up RD Assessment 02/11: Follow up. Pt discussed during ICU MDR, third chest tube placed 2/2 pneumothorax. Pt remains intubated and sedated, no pressors. Pt currently on TF of Nepro at 25 ml/hr, TF held overnight and previous night 2/2 tolerance. Residuals of 120 ml reported 02/10. No HD currently. TF rec's discussed with RN. Will continue to monitor. (02/08/20) Follow up. Pt is requiring dialysis due to acute renal failure and pts tube feeding was changed to Nepro on 02/05. Per MD note today, pt developed a large tension right side pneumothorax that required emergent placement of a chest tube. Pts tube feeding is on hold at this time due to recent change in pts medical status per RN. MD note also indicates that dialysis is also being held today. Will continue to monitor. (02/05/20). Follow up. Pt was intubated on 02/01 and a tube feed order of Vital AF 1.2 was placed on 02/02. RN reported that tube feeding is currently on hold since pt is planned to be placed in the prone position today. Recommend resuming tube feeding when medically appropriate. Will continue to monitor. (02/01/20) Pt is a 69 year old male admitted with SOB, hypoxia, and fever. Pt is also positive for COVID-19. Unable to obtain nutrition history from pt since he is on droplet isolation precautions. Spoke to RN, who reported that pt is not eating much or consuming Ensure. Unable to assess weight status since there are no previous weights in chart. RN also reported that pt had nausea yesterday and is experiencing diarrhea. No chewing/swallowing issues. Will continue to monitor Principal Problems/Diagnoses: SOB, hypoxia, fever, COVID-19+ PMH: HTN, BPH GI: last recorded BM 02/01 Skin: left forehead partial thickness wound, right buttock DTI Labs: 02/11: Na 146, K 4.3, BUN 27, Cr 0.83, Gluc 156, Ca 7.7, Phos 2.5, Mg 2.2 02/07: BUN 42, Cr 1.52, Ca 7.4, AST 122, ALT 97 (02/04) Na 147, K 5.0, BUN 41, Cr 1.85, Glu 97, Ca 7.5 (01/31) Na 133, K 3.4, BUN 30, Glu 122, Ca 8.1 Meds: abx, protonix, heparin, zofran IVF/Drips: Rocronium drip, fentanyl drip, D5W at 75 ml/hr Ht: 70 inches Wt: 194 lb (02/11) 212 lbs (02/07) 195 lbs (02/01) 193 lbs (01/31) BMI: 30.4 kg/m2 IBW: 166 lbs Malnutrition Evaluation (02/01/20) Unable to assess. Will re-evaluate at follow-up as appropriate. Nutrition Prescription (Diet Order): Nepro @ 30 mL/hr with water flush of 50 ml/hr (TF at 25 ml/hr currently providing 1080 kcal and 49 gm protein) Estimated Nutritional Needs: 2609-3088 calories/day (18-20 kcal/kg) Weight used: 194 lbs 105-176 g protein/day (1.2-2 g pro/kg) Weight used: 194 lbs- adjust per renal function Diet Adequacy: Not meeting calorie needs, Not meeting protein needs Tolerance: Tolerance varies Diet Education Needs Assessment: Diet education not indicated at this time Nutrition Care Level: moderate Nutrition Diagnosis: Inadequate oral intake related to acute respiratory failure/mechanical ventilation as evidenced by need for enteral nutrition. Goal: Patient will meet 75-100% of estimated needs by follow up Progress: not progressing Interventions: Composition, Rate, Route, Collaboration with other providers Monitoring/Evaluation: -Total energy intake, Total protein intake, Formula/Solution Weight change Signed: Lili Byrd RD, LD, [facility]
[2020-02-12] MEDS: FENTANYL 2000MCG/NS 250 250 ML IV PRN (14:19)
[2020-02-12] MEDS ORDERED: FUROSEMIDE INJ 10 MG/ML 2 ML VIAL IV ONE (14:45)
--- NOTE | 2020-02-12 15:00 | Progress Note ---
DATE: 02/12/2020 Cardiology Progress note SUBJECTIVE: Remains intubated and sedated. OBJECTIVE: VITAL SIGNS: Temperature 97.1, heart rate 98, blood pressure 102/67, respiratory rate 20, and O2 saturation 98% on vent support. Chest tube in place, intubated, sedated. CARDIOVASCULAR MEDICATIONS: Reviewed. Vancomycin, cefepime, hydrochlorothiazide 12.5 mg daily, aspirin 81 mg daily, hydralazine 10 mg q.4 hours p.r.n., and Lovenox 40 mg subcu daily. STUDIES: Reviewed. Creatinine 0.8. White blood cells 10.2, hemoglobin 8.9, and platelets a 173. PT 16.2, PTT 34.2, and INR 1.22. AST 73, ALT 128, and alkaline phosphatase 130. ASSESSMENT AND PLAN: A 69-year-old man, presents with coronavirus disease positive community-acquired pneumonia, acute respiratory distress syndrome, pneumothorax status post chest tube, acute respiratory failure and prolonged vent support, anemia, and type 2 myocardial infarction. We recommend revision of the chest given slight worsening of chest x-ray findings today. Remains with guarded prognosis and ventilatory support. Continue DVT prophylaxis and aspirin. Abdias Nguyen MD AFV/MODL /[id number]
--- NOTE | 2020-02-12 15:21 | Progress Note ---
DATE: SUBJECTIVE: The patient had worsening pneumothorax this morning. CT surgery placed an additional chest tube. He remains on a PRVC mode of ventilation at a rate of 30 with tidal volume of 390, FiO2 of 90%. His PEEP is set at 10. PHYSICAL EXAMINATION: VITAL SIGNS: The blood pressure is 131/70 and pulse is 102. The respiratory rate is 30 and saturation is 91%. HEENT: No facial swelling or erythema. CARDIAC: Regular rate and rhythm with normal S1 and S2. LUNGS: Auscultation of lungs reveals decreased breath sounds at the bases. There is no wheezing. ABDOMEN: Soft and nontender. There is no rebound or guarding. EXTREMITIES: No leg edema or calf tenderness. There is no cyanosis or clubbing. SKIN: Shows no rashes. NEUROLOGICAL: No focal abnormalities. The patient is sedated. LABORATORY DATA: The white blood cell count is 10.2 and hemoglobin is 8.9. The platelet count is 170,000. Sodium is 146 and the BUN to creatinine ratio is 27 to 0.83. The total bilirubin is decreased to 1.9 and the ALT is 128. The AST is 43. IMPRESSION: 1. Persistent right pneumothorax. 2. Acute respiratory failure. 3. Elevated bilirubin and liver enzymes. 4. Anemia unspecified. 5. Viral pneumonia and COVID-19 infection. PLAN: 1. Continue to wean ventilator as tolerated. 2. Continue low tidal volumes of lung protective strategy. 3. Repeat chest x-ray tomorrow. 4. Continue DVT prophylaxis. 5. Continue antibiotics. 6. Case discussed with night time nanny nursing, dayshift nursing, Respiratory, CT surgery, Internal Medicine, and family. 7. Greater than 35 minutes in direct critical care time. Osman Frye MD LM/MARIIL /[id number]
[2020-02-12] MEDS ORDERED: DEXTROSE 5% 1,000 ML IV ONE (17:00)
--- NOTE | 2020-02-12 18:36 | Progress Note ---
DATE: SUBJECTIVE: Mr. Beatty remains in intensive care unit, 3rd chest tube had to be placed today. His pneumothorax on the right is worse. He remains on the ventilator. His PRVC mode at rate of 30, tidal volume 790, FiO2 90, PEEP as 10. PHYSICAL EXAMINATION: GENERAL: He is less sedated. VITAL SIGNS: Stable. Afebrile. HEENT: He is not icteric. NECK: Supple. CHEST: Crackles on the right heart, S1, S2. No murmur. ABDOMEN: Soft. Bowel sounds present. EXTREMITIES: No edema. SKIN: No rash. IMPRESSION: 1. Persistent right pneumothorax, getting worse. 2. Acute respiratory failure. 3. COVID-19 pneumonia. 4. Coagulase staph bacteremia. LABORATORY DATA: Today; white count 10, hemoglobin 8.9. Sodium 146, potassium 4.3. His bilirubin is 1.9, AST 73, ALT of 128. MEDICATIONS: The patient is currently on fentanyl, cefepime, vancomycin, and Lovenox. PLAN: Plan is to continue same. We will finish 7 days antibiotics, reassess. MD TIFFANY Escoto/MODL /[id number]
--- NOTE | 2020-02-12 19:00 | NUR ---
Report received from Regina BROOKS. She reported that Dr.L. Frye is aware of pts SPO2% levels in the upper 80's to 91%, that the pt is no longer being placed in the prone position d/t multiple chest tubes, that pt desaturates with minimal turning (pt is on rotation air mattress to assist), Lasix 20mg IVP to be given prison through this last ordered bag of D5W per nephrologists order.
--- NOTE | 2020-02-12 19:05 | NUR ---
Roberto Latham [employer] for 's office rounding at this time.
--- NOTE | 2020-02-12 19:30 | NUR ---
Tube feeding bottle and tubing changed at this time per MD orders.
[2020-02-12] MEDS ORDERED: FUROSEMIDE INJ 10 MG/ML 2 ML VIAL ONE (21:14)
--- NOTE | 2020-02-12 21:30 | NUR ---
Boo bag , new bag replaced.
[2020-02-12] MEDS: TAMSULOSIN HCL 0.4 MG CAP PO SCH (21:56)
--- NOTE | 2020-02-12 21:56 | NUR ---
1900 - correction to IV spreadsheet, rocuronium is not infusing at this time.
[2020-02-13] VITALS (22 sets, daily range): BP systolic 91–179; BP diastolic 47–92
[2020-02-13] MEDS: MIDAZOLAM HCL 5MG/ML 10ML VIAL 100 ML IV PRN ×5 (00:46→23:55)
[2020-02-13] MEDS: FENTANYL 2000MCG/NS 250 250 ML IV PRN ×3 (00:46→20:00)
--- NOTE | 2020-02-13 02:32 | Progress Note ---
DATE: 02/12/2020 REASON FOR PROGRESS NOTE: Right pneumothorax, COVID-19. SUBJECTIVE: The patient is in the ICU. He had an expanding right pneumothorax this morning and FiO2 was increased to 95%. Chest x-ray confirmed the expanding pneumothorax. I placed a right chest tube. The procedure is dictated under a separate note. Chest x-ray shows re-expanded lung after the procedure. PHYSICAL EXAMINATION: VITAL SIGNS: Blood pressure 110/70, pulse 110 and regular. O2 saturation 92%. NECK: Supple, nontender. No crepitus. CARDIAC: Regular rate and rhythm. Normal S1 and S2. No murmur. LUNGS: Bilateral ventilator sounds. Chest tubes in place on the right. There is an air leak present. ABDOMEN: Benign. LABORATORIES AND IMAGING: Chest x-ray as above. REVIEW OF SYSTEMS: Unobtainable because the patient is intubated. IMPRESSION: Stable with new right chest tube. MD ADE Garcia/JENNYFER /[id number]
--- NOTE | 2020-02-13 02:37 | Operative Report ---
DATE OF PROCEDURE: 02/12/2020 SURGEON: Beny Benson MD PROCEDURE PERFORMED: Placement of right chest tube. DIAGNOSIS: Increasing right pneumothorax. INDICATIONS: This is a man with COVID-19, who has increasing right-sided pneumothorax despite 2 previous chest tubes. New chest tube is warranted. DESCRIPTION OF PROCEDURE: Procedure was performed at the bedside where the patient was under sedation with fentanyl and Versed. The right chest was sterilely prepped and draped. Incision was created anterior to the midaxillary line below the right breast. Chest tube was inserted to the chest wall. Digital palpation confirmed appropriate position within the chest. Air was released upon entering the chest cavity. The chest tube was affixed in place. It was connected to a Pleur-evac. There was a small air leak. Sterile dressing was applied. Chest x-ray after the procedure showed the lung had reinflated. Beny Benson MD GVL/MODL /[id number]
--- NOTE | 2020-02-13 04:10 | NUR ---
AM blood lab specimens collected and delivered to lab.
[2020-02-13 04:23] LABS: BASOPHILS % 0.2 % (0.0-1.0); HEMATOCRIT 27.8 % (38.2-49.6); HEMOGLOBIN 8.4 g/dL (14.0-18.0); LYMPHOCYTES # (AUTO) 0.3 (1.0-3.2); LYMPHOCYTES % 2.9 % (18.0-39.1); MEAN CORPUSCULAR HEMOGLOBIN 31.5 pg (28-32); MEAN CORPUSCULAR HGB CONC 30.2 g/dL (31-35); MEAN CORPUSCULAR VOLUME 104.1 fL (81-99); MONOCYTES # (AUTO) 0.2 (0.2-0.8); MONOCYTES % 2.6 % (4.4-11.3); NEUTROPHILS # (AUTO) 8.1 (2.1-6.9); NEUTROPHILS % 90.7 % (38.7-80.0); PLATELET COUNT 167 x10e3/uL (140-360); RED BLOOD COUNT 2.67 x10e6/uL (4.3-5.7); RED CELL DISTRIBUTION WIDTH 14.1 % (11.7-14.4)
[2020-02-13 04:44] LABS: PHOSPHORUS 2.8 MG/DL (2.3-4.7)
[2020-02-13 04:59] LABS: ALANINE AMINOTRANSFERASE 117 IU/L (0-55); ALBUMIN/GLOBULIN RATIO 0.6 (0.8-2.0); ALKALINE PHOSPHATASE 131 IU/L (40-150); BLOOD UREA NITROGEN 23 mg/dL (7-26); BUN/CREATININE RATIO 30 (6-25); CHLORIDE 95 mmol/L (98-107); CREATININE, SERUM 0.77 mg/dL (0.72-1.25); EST GLOMERULAR FILTRATION RATE > 60 ML/MIN (60-); GLUCOSE 143 mg/dL (74-118); POTASSIUM 4.2 mmol/L (3.5-5.1); SODIUM 140 mmol/L (136-145)
[2020-02-13 05:03] LABS: ANION GAP 5.2 mmol/L (8-16)
[2020-02-13 05:05] LABS: CARBON DIOXIDE 44 mmol/L (22-29)
[2020-02-13] MEDS: ENOXAPARIN SOD INJ 40 MG/0.4 ML SYR SC SCH (06:00)
--- NOTE | 2020-02-13 06:38 | NUR ---
Report to be given to Regina BROOKS.
[2020-02-13] MEDS: HYDROCHLOROTHIAZIDE 25 MG TAB PO SCH (08:00)
[2020-02-13] MEDS: EYE LUBRICANT OPTH OINT 3.5GM TUBE OP SCH ×2 (08:00→16:25)
[2020-02-13] MEDS: BALSAM PERU/CASTOR OIL 60 GM OINT...G. TP SCH (08:00)
[2020-02-13] MEDS: PANTOPRAZOLE 40 MG 10ML VIAL IV SCH (08:00)
[2020-02-13] MEDS: BACITRACIN ZINC 15 GM OINT TOP SCH (08:00)
[2020-02-13] MEDS: ASPIRIN 81 MG CHEW TAB PO SCH (08:00)
[2020-02-13] MEDS: VANCOMYCIN 1GM/NS 250 ML 250 ML IV SCH (09:01)
[2020-02-13 09:23] LABS: LYMPHOCYTES % (MANUAL) 2 % (19-48); MONOCYTES % (MANUAL) 1 % (3.4-9.0); MYELOCYTES % (MANUAL) 1 % (0-0); NEUTROPHILS % (MANUAL) 96 % (40-74); PLATELET ESTIMATE ADEQUATE; PLATELET MORPHOLOGY COMMENT NORMAL; RBC MORPHOLOGY COMMENT NORMAL
--- NOTE | 2020-02-13 09:30 | Diagnostic Imaging Report ---
EXAMINATION: CHEST SINGLE (PORTABLE) INDICATION: Chest tube COMPARISON: Chest are graft of 02/12/2020 FINDINGS: LINES/TUBES: Unchanged positioning of 3 right-sided chest tubes. Remaining support lines and tubes unchanged. LUNGS:Lung volumes are unchanged. Unchanged bilateral airspace opacities. PLEURA:Unchanged small right basilar loculated pneumothorax. MEDIASTINUM:The cardiomediastinal silhouette appears unchanged in size and shape. BONES/SOFT TISSUES:No acute osseous injury. ABDOMEN:No free air under the diaphragm. IMPRESSION: No significant interval change. Signed by: Tasia Talbert MD on 02/13/2020 9:26 AM
[2020-02-13] MEDS: CEFEPIME 1GM/NS 0.9% 50 ML 50 ML IV SCH (10:21)
[2020-02-13] MEDS: NOREPINEPHRINE INJ 4MG/4ML 8 MG in DEXTROSE 5% 250ML 250 ML IV SCH (11:18)
--- NOTE | 2020-02-13 12:55 | Progress Note ---
DATE: SUBJECTIVE: Mr. Beatty remains in intensive care unit. The patient still has chest tubes in the right, but one was removed. He had an expanded right pneumothorax on the , but today seems to be better. The plan for him to repeat CAT scan. His white count is 8.8 and hemoglobin 8.4. His sodium 140, potassium 4.2 with creatinine 0.77. MEDICATION LIST: He remains on cefepime and vancomycin from the . He is also on Esidrix. PHYSICAL EXAMINATION: GENERAL: He is intubated. VITAL SIGNS: Temperature 98.6, heart rate 107, and respirations 30. HEENT: Not icteric. NECK: Supple. CHEST: Crackles bilateral. HEART: S1-S2. No murmurs. ABDOMEN: Soft. Bowel sounds present. EXTREMITIES: No edema. IMPRESSION: Respiratory failure, coronavirus disease-19, and pneumothorax. Concerned about healthcare-associated pneumonia. Prognosis remains very guarded. Continue supportive care. We will reassess in the morning. MD TIFFANY Escoto/MODL /[id number]
--- NOTE | 2020-02-13 13:55 | Progress Note ---
DATE: 02/13/2020 Cardiology Progress Note SUBJECTIVE: Remains intubated, sedated. One of the chest tubes was discontinued overnight. The patient undergoing further evaluation, possible ET tube exchange per nurse report later today. OBJECTIVE: VITAL SIGNS: Temperature 96.6, heart rate 102, blood pressure 113/49, respiratory rate 30, and O2 saturation 95%. BMI 27.9. GENERAL: Remains intubated, sedated. HEART: Regular rate and rhythm. On telemetry, regular rhythm, occasional PVCs. Edematous extremities. CARDIOVASCULAR MEDICATIONS: Reviewed. Aspirin 81 mg daily, Lovenox 40 mg subcutaneous daily, vancomycin, ceftriaxone antibiotics. STUDIES: Reviewed. Sodium 140, potassium 4.2, chloride 95, bicarbonate 44, BUN 23, creatinine 0.77, and glucose 143. White blood cells 8.8, hemoglobin 8.4, and platelets 167. PT 16.2, PTT 34.2, and INR 1.22. AST 69 and ALT 117. ASSESSMENT AND PLAN: A 69-year-old man with COVID positive community-acquired pneumonia, acute respiratory distress syndrome, acute respiratory failure, coagulopathy, thrombocytopenia, anemia, abnormal LFTs, acute kidney injury, pneumothorax status post chest tube placement, remains with elevated deep pressures. RECOMMEND: 1. Continue aspirin and DVT prophylaxis with Lovenox. 2. Pulmonary considering operate an ET tube size given elevated peak pressures. Overall, remains in guarded prognosis with prolonged ventilatory support. However, renal function and LFTs have somewhat improved. Continue supportive care. Abdias Nguyen MD [facility]/MODGabriel /[id number]
--- NOTE | 2020-02-13 15:51 | Progress Note ---
DATE: SUBJECTIVE: The patient continues to require 100%. He is still on 10 of PEEP with a respiratory rate of 30 and a tidal volume of 390. His peak airway pressures in the high 30s and his mean airway pressure is 20. He has a small air leak in his cuff. PHYSICAL EXAMINATION: VITAL SIGNS: The blood pressure is 99/63 and the saturation is 95%. HEENT: No facial swelling or erythema. CHEST: There are two chest tubes in place on the right side. The upper chest tube is with a significant air leak. The anterior small pigtail catheter has been removed. There is a right IJ line and Jeison catheter. The sites look clean. There is no drainage. CARDIAC: Regular rate and rhythm with normal S1, S2. LUNGS: Auscultation of lungs reveals rhonchorous breath sounds bilaterally. There is no wheezing. ABDOMEN: Soft, nontender. There is no rebound or guarding. EXTREMITIES: No leg edema or calf tenderness. There is no cyanosis or clubbing. LABORATORY DATA: The BUN to creatinine ratio is 23 to 0.77. The total bilirubin is 1.7. The ALT is 117 and the AST is 69. The albumin is 2.0. RADIOGRAPHIC DATA: Chest x-ray shows bilateral airspace disease. There is some residual pneumothorax on the right. IMPRESSION: 1. Respiratory failure. 2. Coronavirus disease-19 and viral pneumonia. 3. Pneumothorax on the right side. 4. Anemia. 5. Elevated bilirubin and liver enzymes. 6. Hypertension. 7. Remote history of chronic bronchitis. PLAN: 1. Continue current antibiotics to cover for superimposed bacterial pneumonia. 2. Continue thoracostomy tubes on the right side. 3. Anesthesia to assist in changing the tube to endotracheal tube. 4. Continue Lovenox. 5. Continue to monitor BUN and creatinine along with liver enzymes and blood counts. 6. Case discussed with Nursing, Internal Medicine, Infectious Disease, Respiratory, Anesthesia, and family. Greater than 35 minutes in direct critical care time. Osman Frye MD [facility]/MODL /[id number]
--- NOTE | 2020-02-13 16:24 | Diagnostic Imaging Report ---
EXAMINATION: CHEST SINGLE (PORTABLE) INDICATION: Endotracheal tube placement COMPARISON: Chest radiograph of earlier the same day FINDINGS: LINES/TUBES: Endotracheal tube terminates approximately 6 cm above the lakeisha. Interval removal of the previously seen small bore right mid thoracic chest tube. Right apical and basilar surgical chest tubes appear unchanged. Right IJ nontunneled central venous catheters unchanged. Enteric tube terminates in the stomach. LUNGS:Lung volumes are unchanged. Unchanged bilateral airspace opacities. PLEURA:Unchanged small right basilar loculated pneumothorax. MEDIASTINUM:The cardiomediastinal silhouette appears unchanged in size and shape. BONES/SOFT TISSUES:No acute osseous injury. ABDOMEN:No free air under the diaphragm. IMPRESSION: Endotracheal tube terminates 6 cm above the lakeisha. Interval removal of small bore right chest tube. Right apical and basilar chest tubes unchanged. Unchanged small loculated right basilar pneumothorax. Unchanged bilateral airspace opacities. Signed by: Tasia Talbert MD on 02/13/2020 4:21 PM
--- NOTE | 2020-02-13 19:00 | NUR ---
Report received from Regina BROOKS. Regina BROOKS reported the pts ETT was changed today to a 9.5, the pt SPO2% has been running in the upper 80s and BP has been elevated and that mds are aware. Addendum: 02/13/20 at 1905 by Yvonne Torres RN G also due at 190 and Sameer NICOLE is aware.
[2020-02-13] MEDS: TAMSULOSIN HCL 0.4 MG CAP PO SCH (21:00)
[2020-02-13] MEDS: ROCURONIUM BROMIDE 250 MG in SODIUM CHLORIDE 0.9% 250ML 225 ML IV SCH (21:00)
[2020-02-14] VITALS (24 sets, daily range): BP systolic 86–184; BP diastolic 44–98
[2020-02-14] MEDS: CEFEPIME 1GM/NS 0.9% 50 ML 50 ML IV SCH ×3 (00:19→23:13)
--- NOTE | 2020-02-14 01:28 | Progress Note ---
DATE: 02/13/2020 REASON FOR PROGRESS NOTE: Right pneumothorax, COVID-19; requested by Dr. Dalila Frye. SUBJECTIVE: The patient is in the ICU. Right pneumothorax is stable. Pulmonary function continues to be problematic and he is on FiO2 100%. Chest x-ray reviewed. There is a small right pneumothorax. The new right chest tube is draining. REVIEW OF SYSTEMS: Unobtainable because the patient is intubated and sedated. PHYSICAL EXAMINATION: GENERAL: Intubated and sedated, the patient in the ICU. VITAL SIGNS: Blood pressure 110/70, pulse 100 and regular. O2 saturation 88% on FiO2 100%. NECK: Supple. Nontender. No crepitus. CARDIAC: Regular rate and rhythm. Normal S1 and S2. No murmur. LUNGS: Bilateral ventilator sounds. Chest tube is in place on the right. There is an air leak present and they are draining serous fluid. No crepitus. ABDOMEN: Benign. LABORATORIES AND IMAGING: Chest x-ray reviewed and is as above. White count 8.8, hemoglobin 8.4, hematocrit 27.8, and platelet count 167,000. Sodium 140, potassium 4.2, BUN 23, creatinine 0.77. IMPRESSION: Critically ill patient. Pulmonary status stable. Beny Benson MD [facility]/MODL /[id number]
[2020-02-14] MEDS: MIDAZOLAM HCL 5MG/ML 10ML VIAL 100 ML IV PRN ×4 (04:55→23:15)
[2020-02-14 05:17] LABS: BASOPHILS # (AUTO) 0.1 (0.0-0.1); BASOPHILS % 0.3 % (0.0-1.0); EOSINOPHILS % 0.2 % (0.0-6.0); HEMATOCRIT 31.2 % (38.2-49.6); HEMOGLOBIN 9.4 g/dL (14.0-18.0); LYMPHOCYTES # (AUTO) 0.4 (1.0-3.2); LYMPHOCYTES % 2.3 % (18.0-39.1); MEAN CORPUSCULAR HEMOGLOBIN 31.8 pg (28-32); MEAN CORPUSCULAR HGB CONC 30.1 g/dL (31-35); MEAN CORPUSCULAR VOLUME 105.4 fL (81-99); MONOCYTES # (AUTO) 0.5 (0.2-0.8); MONOCYTES % 2.5 % (4.4-11.3); NEUTROPHILS # (AUTO) 16.9 (2.1-6.9); NEUTROPHILS % 92.3 % (38.7-80.0); PLATELET COUNT 217 x10e3/uL (140-360); RED BLOOD COUNT 2.96 x10e6/uL (4.3-5.7); RED CELL DISTRIBUTION WIDTH 14.1 % (11.7-14.4)
[2020-02-14 05:38] LABS: ALANINE AMINOTRANSFERASE 138 IU/L (0-55); ALBUMIN/GLOBULIN RATIO 0.5 (0.8-2.0); ALKALINE PHOSPHATASE 200 IU/L (40-150); BLOOD UREA NITROGEN 22 mg/dL (7-26); BUN/CREATININE RATIO 30 (6-25); CALCIUM 7.9 mg/dL (8.4-10.2); CHLORIDE 93 mmol/L (98-107); CREATININE, SERUM 0.74 mg/dL (0.72-1.25); EST GLOMERULAR FILTRATION RATE > 60 ML/MIN (60-); GLUCOSE 87 mg/dL (74-118); SODIUM 141 mmol/L (136-145)
[2020-02-14 05:46] LABS: CARBON DIOXIDE 46 mmol/L (22-29)
[2020-02-14] MEDS: ENOXAPARIN SOD INJ 40 MG/0.4 ML SYR SC SCH (06:36)
--- NOTE | 2020-02-14 07:00 | NUR ---
Report given to Lashawn BROOKS.
--- NOTE | 2020-02-14 08:03 | Progress Note ---
DATE: 02/14/2020 Cardiology Progress Note SUBJECTIVE: Remains intubated and sedated with high peak pressures on vent support. Chest tubes in place. OBJECTIVE: VITAL SIGNS: Temperature 97.6, heart rate 110, sinus tachycardia on telemetry, blood pressure 155/68, respiratory rate in the 30s, O2 saturation 95%. GENERAL: Intubated, sedated. HEART: Regular rate and rhythm. Edema to lower extremities. CARDIOVASCULAR MEDICATIONS: Reviewed. Aspirin 81 mg daily, Lovenox 40 mg subcu daily, vancomycin and cefepime antibiotics. STUDIES: Reviewed. Creatinine 0.7, hemoglobin 18.2, hemoglobin 9.4 and platelets 217. INR 1.2. AST 88, ALT 138, alkaline phosphatase 200. ASSESSMENT AND PLAN: 1. A 69-year-old man with community-acquired COVID-19 positive pneumonia and acute respiratory distress syndrome. 2. Acute respiratory failure. 3. Hypercoagulable state. 4. Anemia. 5. Status post thrombocytopenia. 6. Status post acute renal failure. 7. Status post abnormal LFTs. 8. Pneumothorax, status post chest tube. PLAN: RECOMMENDATIONS: Continue supportive care. Overall shown some signs of organ damage improvement from a kidney and liver standpoint; however remains with high ventilatory pressures, prolonged ventilation, status post pneumothorax with chest tube conferring poor prognosis. At this point, continue supportive care. Continue aspirin. Continue DVT prophylaxis. Abdias Nguyen MD [facility]/MARIIL /[id number]
--- NOTE | 2020-02-14 08:14 | Diagnostic Imaging Report ---
EXAMINATION: CHEST SINGLE (PORTABLE) INDICATION: Respiratory failure COMPARISON: Multiple prior chest radiograph, most recently 02/13/2020 FINDINGS: LINES/TUBES:Endotracheal tube terminates approximate 5 cm above the lakeisha. Right IJ central venous catheter is unchanged. Right apical and basilar chest tubes unchanged. EKG leads overlie the chest. LUNGS:Unchanged bilateral multifocal airspace opacities. PLEURA:Unchanged small right basilar loculated pneumothorax. MEDIASTINUM:The cardiomediastinal silhouette appears unchanged in size and shape. BONES/SOFT TISSUES:No acute osseous injury. ABDOMEN:No free air under the diaphragm. IMPRESSION: No significant interval change. Signed by: Tasia Talbert MD on 02/14/2020 8:11 AM
[2020-02-14] MEDS: EYE LUBRICANT OPTH OINT 3.5GM TUBE OP SCH ×2 (08:30→16:32)
[2020-02-14] MEDS: PANTOPRAZOLE 40 MG 10ML VIAL IV SCH (08:30)
[2020-02-14] MEDS: ASPIRIN 81 MG CHEW TAB PO SCH (08:30)
[2020-02-14] MEDS ORDERED: ROCURONIUM BROMIDE 250 MG in SODIUM CHLORIDE 0.9% 250ML 225 ML IV SCH (08:30)
[2020-02-14] MEDS: ROCURONIUM BROMIDE 250 MG in SODIUM CHLORIDE 0.9% 250ML 225 ML IV SCH ×3 (10:00→22:16)
[2020-02-14] MEDS: BALSAM PERU/CASTOR OIL 60 GM OINT...G. TP SCH (10:00)
[2020-02-14] MEDS: VANCOMYCIN 1GM/NS 250 ML 250 ML IV SCH ×2 (10:40→21:08)
[2020-02-14] MEDS: NOREPINEPHRINE INJ 4MG/4ML 8 MG in DEXTROSE 5% 250ML 250 ML IV SCH (10:59)
--- NOTE | 2020-02-14 11:50 | NUR ---
PROGRESS Progress note infectious disease The patient remains in the intensive care unit intubated Remains with chest tube The patient is in the ICU. Right pneumothorax is stable. Pulmonary function continues to be problematic and he is on FiO2 100%. Chest x-ray reviewed. There is a small right pneumothorax. The new right chest tube is draining. VITAL SIGNS: Temperature 97.6, heart rate 110, sinus tachycardia on telemetry, blood pressure 155/68, respiratory rate in the 30s, O2 saturation 95%. GENERAL: Intubated, sedated. HEART: Regular rate and rhythm. Edema to lower extremities. CARDIOVASCULAR MEDICATIONS: Reviewed. Aspirin 81 mg daily, Lovenox 40 mg subcu daily, vancomycin and cefepime antibiotics. STUDIES: Reviewed. Creatinine 0.7, hemoglobin 18.2, hemoglobin 9.4 and platelets 217. INR 1.2. AST 88, ALT 138, alkaline phosphatase 200. ASSESSMENT AND PLAN: 1. A 69-year-old man with community-acquired COVID-19 pneumonia ARDS Pneumothorax Prognosis is very guarded Continue as ordered 2. Acute respiratory failure. 3. Hypercoagulable state. 4. Anemia. 5. Status post thrombocytopenia. 6. Status post acute renal failure. 7. Status post abnormal LFTs. 8. Pneumothorax, status post chest tube. continue with supportive care discussed with the medical team
--- NOTE | 2020-02-14 12:00 | NUR ---
Autumn LUBRICATING ENGINEER aware that pt has hypoactive bowel sounds and having abdominal distension with tube feedings. 10ml residual noted from NGT. Orders given for Reglan.
[2020-02-14] MEDS: METOCLOPRAMIDE HCL 10 MG/2ML VIAL IV SCH ×3 (12:11→23:13)
--- NOTE | 2020-02-14 15:00 | Progress Note ---
DATE: Pulmonary Critical Care Progress Note SUBJECTIVE: The patient was restarted on rocuronium this morning and his saturations improved. His FiO2 was decreased to 90%. He remains on PRVC mode of ventilation. He is on Versed and fentanyl in addition to the rocuronium. He is not on any pressors. PHYSICAL EXAMINATION: VITAL SIGNS: Blood pressure is 120/49 and the saturation is 99%. The patient is on a PRVC mode of ventilation at a rate of 30. His tidal volume was 390 and his PEEP is set at 12. His peak airway pressure is 37 and his mean airway pressure is 20. HEENT: Shows no facial swelling or erythema. He has a nasogastric tube in place. He has a right IJ triple-lumen as well as a dialysis catheter on the right side. CARDIAC: Reveals regular rate and rhythm with normal S1 and S2. LUNGS: Auscultation of lungs reveals decreased breath sounds at the bases. There are 2 chest tubes on the right side. The higher chest tube still has some air leak. ABDOMEN: Soft and nontender. There is no rebound or guarding. EXTREMITIES: Shows no leg edema or calf tenderness. There is no cyanosis or clubbing. SKIN: Shows no rashes. NEUROLOGICAL: Shows no focal abnormalities. LABORATORY DATA: White blood cell count is 18.3 and the hemoglobin is 9.4. The platelet count is 217. The BUN to creatinine ratio is normal. The carbon dioxide is 46. The total bilirubin is 2.2 and the ALT is 138. The alkaline phosphatase is 200 and the albumin is 2. RADIOGRAPHIC DATA: Chest x-ray shows bilateral infiltrates. There is still small pneumothorax at the right base. There are [address] IMPRESSION: 1. Acute respiratory failure. 2. Viral pneumonia and COVID-19 infection. 3. Right pneumothorax. 4. Leukocytosis. 5. Elevated bilirubin and liver enzymes. 6. Hypertension. 7. Anemia. PLAN: 1. Continue rocuronium along with Versed and fentanyl. 2. Continue to wean oxygen as tolerated. 3. Low tidal volumes and high PEEP, lung protective strategy. 4. Continue enteral feedings. 5. Continue current antibiotics. 6. Consider removing right dialysis catheter. 7. Continue to monitor liver functions. 8. Case discussed with nightshift nursing, dayshift nursing, Respiratory, Internal Medicine, and Infectious Disease. 9. Case discussed with . Greater than 35 minutes in direct critical care time. MD MICHAEL Mercedes/JENNYFER /[id number]
[2020-02-14] MEDS: HYDRALAZINE HCL 20 MG/ML VIAL IV PRN (15:33)
[2020-02-14] MEDS: FENTANYL 2000MCG/NS 250 250 ML IV PRN (17:43)
--- NOTE | 2020-02-14 18:17 | NUR ---
Dr. Gabriel Frye and Dr. Thompson aware of increase in WBC count. Dr. Gabriel Frye gave orders to restart rocuronium drip, train of four monitored. [address] Gabriel Frye called with ABG results. Amanuel ORR informed of vancomycin trough results, as well as Dr. Thompson upon rounding. Orders given to make vancomycin BID. Per Dr. Gabriel Frye see if nephrology approves triple lumen PICC line placement and removal of RIJ Trialysis and RIJ central line. Dr. Loomis approves of plan. Dr. Gabriel Frye gave orders for consent for picc line. Telephone consent done with Viktoria Beatty () with primary RN and dry charge process attendant. RIJ Trialysis catheter removed per MD order, pressure held and pressure dressing applied to site, dressing CDI. Will continue to monitor the patient.
--- NOTE | 2020-02-14 19:00 | NUR ---
Report received from Lashawn BROOKS. Reported that PICC RN should be here shortly to insert PICC line and that Java Sy[employer] Developer has okay'd the insertion.
--- NOTE | 2020-02-14 19:45 | NUR ---
PICC RN present and inserting PICC line per MD orders.
[2020-02-14] MEDS: TAMSULOSIN HCL 0.4 MG CAP PO SCH (20:34)
--- NOTE | 2020-02-14 20:36 | Diagnostic Imaging Report ---
Examination: Single AP view of the chest. COMPARISON: None. INDICATION: Line placement DISCUSSION: Lines/tubes: Right IJ catheter with tip over the SVC. Right PICC line with tip over the SVC.ET tube an enteric tube stable. Chest tubes stable. Lungs: Stable bilateral airspace consolidations. Heart and mediastinum: The heart and the mediastinum are unremarkable. Bones and soft tissues: No acute bony abnormalities. IMPRESSION: 1. Right PICC line with tip over the SVC Signed by: Dr. Donis Melo M.D. on 02/14/2020 8:33 PM
--- NOTE | 2020-02-14 20:44 | NUR ---
Refer to line placement xray results. Addendum: 02/14/20 at 4 by Yvonne Torres RN Amended: Links added.
[2020-02-15] VITALS (25 sets, daily range): BP systolic 90–147; BP diastolic 43–87
--- NOTE | 2020-02-15 02:20 | NUR ---
Maliha RT is changing pts in-line suction and assessing the pt at this time.
--- NOTE | 2020-02-15 02:45 | NUR ---
Dr. Dalila Frye notified of ABG results. New order received to increase FIO2 to 95%. Maliha RT present and adjusting ventilator settings as ordered.
[2020-02-15 05:07] LABS: BASOPHILS % 0.3 % (0.0-1.0); EOSINOPHILS # (AUTO) 0.1 (0.0-0.4); EOSINOPHILS % 0.8 % (0.0-6.0); HEMOGLOBIN 8.4 g/dL (14.0-18.0); LYMPHOCYTES # (AUTO) 0.4 (1.0-3.2); LYMPHOCYTES % 3.2 % (18.0-39.1); MEAN CORPUSCULAR HEMOGLOBIN 32.3 pg (28-32); MEAN CORPUSCULAR HGB CONC 31.1 g/dL (31-35); MEAN CORPUSCULAR VOLUME 103.8 fL (81-99); MONOCYTES # (AUTO) 0.4 (0.2-0.8); NEUTROPHILS % 90.3 % (38.7-80.0); PLATELET COUNT 188 x10e3/uL (140-360); RED CELL DISTRIBUTION WIDTH 14.6 % (11.7-14.4)
[2020-02-15] MEDS: ENOXAPARIN SOD INJ 40 MG/0.4 ML SYR SC SCH (05:12)
[2020-02-15] MEDS: METOCLOPRAMIDE HCL 10 MG/2ML VIAL IV SCH ×3 (05:12→17:19)
[2020-02-15 05:31] LABS: ALANINE AMINOTRANSFERASE 99 IU/L (0-55); ALBUMIN 1.7 g/dL (3.5-5.0); ALBUMIN/GLOBULIN RATIO 0.5 (0.8-2.0); ALKALINE PHOSPHATASE 143 IU/L (40-150); ANION GAP 6.8 mmol/L (8-16); BLOOD UREA NITROGEN 24 mg/dL (7-26); BUN/CREATININE RATIO 34 (6-25); CALCIUM 7.7 mg/dL (8.4-10.2); CHLORIDE 94 mmol/L (98-107); EST GLOMERULAR FILTRATION RATE > 60 ML/MIN (60-); GLUCOSE 81 mg/dL (74-118); POTASSIUM 3.8 mmol/L (3.5-5.1); SODIUM 141 mmol/L (136-145)
[2020-02-15] MEDS: FENTANYL 2000MCG/NS 250 250 ML IV PRN ×2 (05:35→16:07)
[2020-02-15 05:49] LABS: CARBON DIOXIDE 44 mmol/L (22-29)
--- NOTE | 2020-02-15 07:18 | Diagnostic Imaging Report ---
EXAMINATION: CHEST SINGLE (PORTABLE) INDICATION: Respiratory failure COMPARISON: Chest radiograph 02/14/2020. FINDINGS: LINES/TUBES:Endotracheal tube terminates approximate 5.2 cm above the lakeisha. Right IJ central venous catheter is unchanged. Right apical and basilar chest tubes unchanged. Right PICC terminates in the SVC. Enteric tube courses into the stomach, the tip is not seen. LUNGS:Unchanged bilateral multifocal airspace opacities. PLEURA:Unchanged small right basilar loculated pneumothorax. Possible small bilateral pleural effusions. MEDIASTINUM:The cardiomediastinal silhouette appears unchanged in size and shape. BONES/SOFT TISSUES:No acute osseous abnormality. ABDOMEN:No free air under the diaphragm. IMPRESSION: Lines and tubes unchanged. Unchanged small loculated right basilar pneumothorax. Unchanged bilateral airspace opacities, compatible with multifocal pneumonia, possible with superimposed pulmonary edema. Signed by: Dr. Alf Castorena MD on 02/15/2020 7:15 AM
[2020-02-15] MEDS: EYE LUBRICANT OPTH OINT 3.5GM TUBE OP SCH ×2 (08:00→16:50)
[2020-02-15] MEDS: ASPIRIN 81 MG CHEW TAB PO SCH (08:00)
[2020-02-15] MEDS: PANTOPRAZOLE 40 MG 10ML VIAL IV SCH (08:00)
[2020-02-15] MEDS: VANCOMYCIN 1GM/NS 250 ML 250 ML IV SCH ×2 (08:00→21:58)
[2020-02-15] MEDS: BALSAM PERU/CASTOR OIL 60 GM OINT...G. TP SCH (08:00)
[2020-02-15] MEDS: MIDAZOLAM HCL 5MG/ML 10ML VIAL 100 ML IV PRN ×3 (08:58→23:45)
[2020-02-15] MEDS: ROCURONIUM BROMIDE 250 MG in SODIUM CHLORIDE 0.9% 250ML 225 ML IV SCH ×3 (09:12→22:00)
[2020-02-15] MEDS: CEFEPIME 1GM/NS 0.9% 50 ML 50 ML IV SCH ×2 (10:03→23:58)
[2020-02-15] MEDS ORDERED: NOREPINEPHRINE 8 MG/D5W 250 ML 250 ML ONE (12:38)
[2020-02-15] MEDS ORDERED: SODIUM CHLORIDE 0.9% 1000ML 500 ML IV STA (12:41)
[2020-02-15] MEDS ORDERED: SODIUM CHLORIDE 0.9% 500ML 500 ML ONE (12:53)
--- NOTE | 2020-02-15 14:00 | Diagnostic Imaging Report ---
EXAMINATION: CHEST SINGLE (PORTABLE) INDICATION: Possible pneumothorax. COMPARISON: Chest radiograph 02/15/2020. FINDINGS: LINES/TUBES:Endotracheal tube terminates approximately 6.0 cm above the lakeisha. Right IJ central venous catheter has been removed in the interval. Right apical and basilar chest tubes unchanged. Right PICC terminates in the SVC. Enteric tube courses into the stomach, the tip is not seen. LUNGS:Unchanged bilateral multifocal airspace opacities. PLEURA:Unchanged small right basilar loculated pneumothorax. There is also a small 0.8 cm right lateral pneumothorax, which appears more conspicuous compared to prior radiograph. Possible small bilateral pleural effusions. MEDIASTINUM:The cardiomediastinal silhouette appears unchanged in size and shape. BONES/SOFT TISSUES:No acute osseous abnormality. ABDOMEN:No free air under the diaphragm. IMPRESSION: Small 0.8 cm right lateral pneumothorax, which appears more conspicuous compared to the prior radiograph. Unchanged small loculated right basilar pneumothorax. Lines and tubes unchanged. Unchanged bilateral airspace opacities, compatible with multifocal pneumonia, possible with superimposed pulmonary edema. Signed by: Dr. Alf Castorena MD on 02/15/2020 1:57 PM
[2020-02-15] MEDS: NOREPINEPHRINE INJ 4MG/4ML 8 MG in DEXTROSE 5% 250ML 250 ML IV PRN (14:13)
--- NOTE | 2020-02-15 16:00 | Progress Note ---
DATE: SUBJECTIVE: He was increased to 100% today. He had some low blood pressure and required 500 mL fluid bolus. He was started on Levophed at 8 mcg. The patient has no fevers. PHYSICAL EXAMINATION: VITAL SIGNS: The blood pressure is 109/56 and the saturation is 93%. The patient is on a PRVC mode of ventilation at a rate of 30. The tidal volume is set at 380 and the PEEP is set at 12. FiO2 is set at 95%. The peak airway pressure is 32 and the mean is 20. HEENT: Shows no facial swelling or erythema. There is an oral endotracheal tube. The right IJ line and right dialysis catheter were removed. There is a new PICC line in place. There is no subcutaneous emphysema. CARDIAC: Reveals regular rate and rhythm with normal S1 and S2. LUNGS: Auscultation of lungs reveals decreased breath sounds at the bases. There is no wheezing. ABDOMEN: Soft and nontender. There is no rebound or guarding. EXTREMITIES: Shows no leg edema or calf tenderness. There are [address] The more superior one still has an air leak. LABORATORY DATA: White blood cell count is 13.3 and the hemoglobin is 8.4. The platelet count is 188. The BUN to creatinine ratio is normal. The other electrolytes are within normal limits. The AST is 860 and the ALT is 99. The albumin is 1.7. RADIOGRAPHIC DATA: Chest x-ray shows unchanged loculated right basilar pneumothorax. There are some bilateral airspace opacities. IMPRESSION: 1. Acute respiratory failure. 2. Viral pneumonia and COVID-19 infection. 3. Right pneumothorax. 4. Elevated bilirubin and liver enzymes. 5. Anemia. PLAN: 1. Continue rocuronium along with Versed and fentanyl. 2. Continue PRVC mode of ventilation. 3. The patient to go for CT scan now to rule out any additional pneumothorax. 4. Continue enteral feedings. 5. Continue antibiotics. 6. Continue to monitor electrolytes and CBC. 7. Case discussed with Internal Medicine, nightshift nursing, dayshift nursing, Radiology, Respiratory, administration, and family. Greater than 35 minutes in direct critical care time. Osman Frye MD [facility]/MODL /[id number]
[2020-02-15 17:23] LABS: ABG HCO3 42 mmol/L (22-26); ABG PCO2 87 mmHg (35-45); ABG PH 7.29 (7.35-7.45)
--- NOTE | 2020-02-15 18:53 | Diagnostic Imaging Report ---
TECHNIQUE: CT of the chest without intravenous contrast. INDICATION: Evaluate pneumothorax. COMPARISON: Chest radiograph 02-15-2020. CT chest 02-09-2020. TECHNIQUE: Chest was scanned utilizing a multidetector helical scanner from the thoracic inlet to the upper abdomen without administration of IV contrast. Coronal and sagittal reformations were obtained. Routine protocol was performed. Lack of intravenous contrast limits sensitivity for evaluation of vascular or visceral structures. COMPLICATIONS: None RADIATION DOSE: Total DLP: 540 mGy*cm Dose modulation, iterative reconstruction, and/or weight based adjustment of the mA/kV was utilized to reduce the radiation dose to as low as reasonably achievable. FINDINGS: LINES AND TUBES: Endotracheal tube terminates in the mid trachea. Enteric tube terminates in the stomach. Right apical and right basilar chest tubes in place. Right arm PICC terminates in the lower SVC. LUNGS AND AIRWAYS: There are diffuse multifocal groundglass opacities with multifocal patchy consolidative opacities, most confluent within the bilateral lower lobes and posterior bilateral upper lobes. PLEURA: Moderate layering left pleural effusion. There is a moderate right basilar predominant pneumothorax anteriorly, measuring up to 4.0 cm. Loculated component of the pneumothorax, possibly superimposed on a multiloculated cyst, measuring up to 6.9 cm at the right base laterally. HEART AND MEDIASTINUM: The thyroid gland is normal. No significant mediastinal, hilar or axillary lymphadenopathy is seen. Subcentimeter mediastinal lymph nodes, likely reactive. Mild cardiomegaly. No pericardial effusion. Minimal thoracic aortic atherosclerotic calcifications. BONES AND SOFT TISSUES: Interval resolution of large volume bilateral chest and back subcutaneous air. Diffuse anasarca. No acute osseous abnormality. IMPRESSION: Two right-sided chest tubes in place with moderate residual right basilar predominant pneumothorax. No left-sided pneumothorax as clinically queried. No mediastinal shift. Other lines and tubes as above. Diffuse bilateral multifocal groundglass and patchy consolidative opacities, consistent with multifocal pneumonia, possibly with superimposed pulmonary edema. Recommend follow-up imaging to assess for resolution. Signed by: Dr. Alf Castorena MD on 02/15/2020 6:49 PM
--- NOTE | 2020-02-15 18:56 | NUR ---
ABG results called to Dr. Gabriel Frye. Dr. Gabriel Frye notified of patients severe hypotension at 1230. Pt started on Levophed drip and 500 ML bolus ordered by nephrology. gave orders for x ray to evaluate possible new pneumothorax. CT scan ordered of chest. Dr. Arron Geronimo informed of consult for increasing bilirubin, MD ordered liver US.
--- NOTE | 2020-02-15 19:05 | NUR ---
RECEIVED REPORT FROM Silver NIXON RN, RN.
--- NOTE | 2020-02-15 19:16 | Progress Note ---
DATE: 02/15/2020 REASON FOR PROGRESS NOTE: Right pneumothorax, COVID-19; requested by Dr. Osman Frye. SUBJECTIVE: The patient remains in the ICU in critical condition. Right pneumothorax is stable. He is having serous drainage from the right chest tube. Pulmonary function continues to be a critical problem. He is on FiO2 of 100%. Chest x-ray and CT scan obtained today are largely unchanged. REVIEW OF SYSTEMS: Unobtainable because the patient is intubated and sedated. PHYSICAL EXAMINATION: GENERAL: Intubated and sedated in the ICU. VITAL SIGNS: Blood pressure 115 over 80, pulse 100 and regular, and O2 saturation 90% on FiO2 100%. NECK: Supple, nontender. No crepitus. CARDIAC EXAMINATION: Regular rate and rhythm. Normal S1 and S2. No murmur. LUNGS: Bilateral coarse ventilator sounds. Chest tube was in place on the right. There was an air leak present and serous fluid is draining. There is no crepitus on the chest wall. ABDOMEN: Benign. Hypoactive bowel sounds. LABORATORIES AND IMAGING: Chest x-ray and CT scan are reviewed and are as above. IMPRESSION: Critically ill patient. Pulmonary status is stable. Chest tube function appropriate. MD ADE Garcia/MODL /[id number]
--- NOTE | 2020-02-15 19:46 | Progress Note ---
DATE: 02/15/2020 Cardiology Progress Note SUBJECTIVE: Remains intubated and sedated. OBJECTIVE: VITAL SIGNS: Temperature 97.8, heart rate 109, blood pressure 109/56, respiratory rate 30, O2 saturation 93% on vent support. GENERAL: Intubated, sedated. CARDIOVASCULAR: Regular rate and rhythm. EXTREMITIES: Edematous. CARDIOVASCULAR MEDICATIONS: Reviewed. Lovenox 40 mg subcu daily, aspirin 81 mg daily, Levophed was used for stroke from earlier this morning, however, now off again. LABORATORY DATA: Studies reviewed. Creatinine 0.7. White blood cells 13.2, hemoglobin 8.4, platelets 188. INR 1.2. AST 60, ALT 99. ASSESSMENT: 1. A 69-year-old man with type 2 myocardial infarction, acute respiratory failure, COVID positive pneumonia, community-acquired, acute respiratory distress syndrome, pneumothorax, hypercoagulable state, anemia, status post thrombocytopenia. 2. Status post acute renal failure. 3. Status post abnormal LFTs. RECOMMENDATIONS: Continue supportive care. Remains with high peak pressures on vent, prolonged ventilator support. Overall, guarded prognosis. Continue supportive care. MD ANAIS Morales/JENNYFER /[id number]
--- NOTE | 2020-02-15 21:04 | NUR ---
SPOKE WITH DR. Dalila TATE AT THIS TIME REGARDING PT'S ABG RESULTS. NO NEW ORDERS AT THIS TIME.
[2020-02-16] VITALS (25 sets, daily range): BP systolic 89–161; BP diastolic 48–83
[2020-02-16] MEDS: CEFEPIME 1GM/NS 0.9% 50 ML 50 ML IV SCH ×2 (00:14→23:24)
[2020-02-16] MEDS: METOCLOPRAMIDE HCL 10 MG/2ML VIAL IV SCH ×2 (00:16→05:35)
[2020-02-16] MEDS: ROCURONIUM BROMIDE 250 MG in SODIUM CHLORIDE 0.9% 250ML 225 ML IV SCH ×3 (05:23→20:41)
[2020-02-16] MEDS: ENOXAPARIN SOD INJ 40 MG/0.4 ML SYR SC SCH (05:35)
[2020-02-16 05:49] LABS: BASOPHILS % 0.2 % (0.0-1.0); EOSINOPHILS # (AUTO) 0.1 (0.0-0.4); EOSINOPHILS % 0.6 % (0.0-6.0); HEMATOCRIT 30.1 % (38.2-49.6); HEMOGLOBIN 8.9 g/dL (14.0-18.0); LYMPHOCYTES # (AUTO) 0.4 (1.0-3.2); LYMPHOCYTES % 2.7 % (18.0-39.1); MEAN CORPUSCULAR HEMOGLOBIN 31.7 pg (28-32); MEAN CORPUSCULAR HGB CONC 29.6 g/dL (31-35); MEAN CORPUSCULAR VOLUME 107.1 fL (81-99); MONOCYTES # (AUTO) 0.5 (0.2-0.8); MONOCYTES % 2.8 % (4.4-11.3); NEUTROPHILS # (AUTO) 14.7 (2.1-6.9); NEUTROPHILS % 90.1 % (38.7-80.0); PLATELET COUNT 214 x10e3/uL (140-360); RED BLOOD COUNT 2.81 x10e6/uL (4.3-5.7); RED CELL DISTRIBUTION WIDTH 15.2 % (11.7-14.4)
[2020-02-16 06:33] LABS: ALANINE AMINOTRANSFERASE 102 IU/L (0-55); ALBUMIN 1.8 g/dL (3.5-5.0); ALBUMIN/GLOBULIN RATIO 0.5 (0.8-2.0); ALKALINE PHOSPHATASE 152 IU/L (40-150); ANION GAP 10.1 mmol/L (8-16); BLOOD UREA NITROGEN 25 mg/dL (7-26); BUN/CREATININE RATIO 35 (6-25); CALCIUM 7.8 mg/dL (8.4-10.2); CARBON DIOXIDE 40 mmol/L (22-29); CHLORIDE 95 mmol/L (98-107); CREATININE, SERUM 0.71 mg/dL (0.72-1.25); EST GLOMERULAR FILTRATION RATE > 60 ML/MIN (60-); GLUCOSE 100 mg/dL (74-118); POTASSIUM 4.1 mmol/L (3.5-5.1); SODIUM 141 mmol/L (136-145)
--- NOTE | 2020-02-16 06:57 | NUR ---
REPORT GIVEN TO [facility] NURSE, Silver MARTIN RN.
--- NOTE | 2020-02-16 07:31 | Diagnostic Imaging Report ---
EXAMINATION: CHEST SINGLE (PORTABLE) INDICATION: Respiratory failure. COMPARISON: Chest radiograph and CT 02/15/2020. FINDINGS: LINES/TUBES:Endotracheal tube terminates approximately 7.6 cm above the lakeisha. Right apical and basilar chest tubes unchanged. Right PICC terminates in the SVC. Enteric tube courses into the stomach, the tip is not seen. LUNGS:Unchanged bilateral multifocal airspace opacities. PLEURA:Unchanged small right basilar loculated pneumothorax. Unchanged 1.1 cm right lateral pneumothorax, which appears more conspicuous compared to prior radiograph. Small left and trace right pleural effusions. MEDIASTINUM:The cardiomediastinal silhouette appears unchanged in size and shape. BONES/SOFT TISSUES:No acute osseous abnormality. ABDOMEN:No free air under the diaphragm. IMPRESSION: Small right sided pneumothorax with chest tubes in place. Unchanged bilateral airspace opacities, compatible with multifocal pneumonia, possible with superimposed pulmonary edema. Signed by: Dr. Alf Castorena MD on 02/16/2020 7:28 AM
[2020-02-16] MEDS: BALSAM PERU/CASTOR OIL 60 GM OINT...G. TP SCH (08:57)
[2020-02-16] MEDS: EYE LUBRICANT OPTH OINT 3.5GM TUBE OP SCH ×2 (08:57→16:16)
[2020-02-16] MEDS: VANCOMYCIN 1GM/NS 250 ML 250 ML IV SCH ×2 (08:57→21:33)
[2020-02-16] MEDS: PANTOPRAZOLE 40 MG 10ML VIAL IV SCH (08:57)
[2020-02-16] MEDS: ASPIRIN 81 MG CHEW TAB PO SCH (08:57)
[2020-02-16] MEDS: MIDAZOLAM HCL 5MG/ML 10ML VIAL 100 ML IV PRN ×2 (08:58→20:41)
[2020-02-16 09:11] LABS: LYMPHOCYTES % (MANUAL) 4 % (19-48); MONOCYTES % (MANUAL) 4 % (3.4-9.0); NEUTROPHILS % (MANUAL) 92 % (40-74)
[2020-02-16 09:12] LABS: RBC MORPHOLOGY COMMENT NORMAL
[2020-02-16 09:13] LABS: HYPOCHROMASIA SLIGHT; PLATELET MORPHOLOGY COMMENT NORMAL; POLYCHROMASIA FEW
[2020-02-16 09:14] LABS: PLATELET ESTIMATE ADEQUATE
[2020-02-16] MEDS: METOCLOPRAMIDE HCL 10 MG TAB PO SCH ×3 (11:01→23:24)
[2020-02-16] MEDS ORDERED: FUROSEMIDE INJ 10 MG/ML 2 ML VIAL IV NR (12:45)
--- NOTE | 2020-02-16 13:59 | Progress Note ---
DATE: SUBJECTIVE: The patient remains on mechanical ventilation. His FiO2 is decreased to 85%. His tidal volume had to be increased to 400. He has no fevers. OBJECTIVE: VITAL SIGNS: The blood pressure is 114/57 and the pulse is 103. The patient is set on a PRVC at a rate of 30 with a tidal volume of 400 and a PEEP of 12. HEENT: Shows no facial swelling or erythema. There is no oral endotracheal tube. CARDIAC: Reveals regular rate and rhythm with normal S1 and S2. LUNGS: Auscultation of lungs shows decreased breath sounds at the bases. There is no wheezing. ABDOMEN: Soft, nontender. There is no rebound or guarding. EXTREMITIES: Show no leg edema or calf tenderness. There is no cyanosis or clubbing. SKIN: Shows no rashes. LABORATORY DATA: White blood cell count is 16.3 and hemoglobin is 8.9. The platelet count is 214. The BUN to creatinine ratio is normal. The other electrolytes are within normal limits. AST is 65 and the ALT is 102. The total bilirubin is 2.3. Albumin is 1.8. ASSESSMENT: 1. Acute respiratory failure. 2. Viral pneumonia and coronavirus disease - 19 infection. 3. Right pneumothorax. 4. Elevated bilirubin and liver enzymes. 5. Anemia. PLAN: 1. Continue current antibiotics. 2. Ventilation has been increased. Repeat ABG later this afternoon. 3. The patient is undergoing a repeat ultrasound of the abdomen. 4. Continue DVT prophylaxis. 5. Continue enteral feedings. 6. Continue chest tubes. Osman Frye MD [facility]/MODL /[id number]
[2020-02-16] MEDS ORDERED: GABAPENTIN100 MG (15:41)
--- NOTE | 2020-02-16 18:29 | NUR ---
AM ABG results shown to Dr. Gabriel Frye. Dr. Daniel informed of low urine output, orders given for lasix. Repeat ABG results ordered for 1930.
[2020-02-16] MEDS: FENTANYL 2000MCG/NS 250 250 ML IV PRN (18:38)
--- NOTE | 2020-02-16 19:04 | Progress Note ---
DATE: 02/16/2020 Cardiology Progress Note SUBJECTIVE: Intubated sedated. OBJECTIVE: VITAL SIGNS: Temperature 99, heart rate 106, telemetry, sinus tachycardia, blood pressure 126/75, respiratory rate 30, O2 saturation 92% on vent support. GENERAL: Intubated, sedated. Regular rate and rhythm and diffuse edema to extremities. CARDIOVASCULAR MEDICATION: Reviewed. Aspirin 81 mg daily, Lovenox 40 mg subcu daily off pressors, furosemide 20 mg IV x1, albumin 25 g p.r.n. LABORATORY DATA: Studies reviewed. Sodium 141, potassium 4.1, chloride 95, bicarbonate 40, BUN 25, creatinine 0.7, glucose 100. White blood cell count 16.2, hemoglobin 8.9, platelets 214. PT 16.2, PTT 34.2, INR 1.22. AST 65, ALT 102, total bilirubin is 2.3, alkaline phosphatase 152. ASSESSMENT AND PLAN: A 69-year-old woman with: 1. Positive community-acquired pneumonia, ARDS, status post severe sepsis, septic shock, status post acute renal failure requiring dialysis, status post abnormal LFTs, pneumothorax status post chest tube. 2. Hypercoagulable state. 3. Status post thrombocytopenia. Recommend continue supportive care. 4. Continues to demonstrate a persistent issues with high peak pressures on ventilation with no significant change. Remains with guarded prognosis. Continue supportive care and antibiotic coverage. Abdias Nguyen MD [facility]/MARIIL /[id number] MTDD
--- NOTE | 2020-02-16 19:10 | NUR ---
RECEIVED REPORT FROM Silver NIXON RN, RN.
[2020-02-16] MEDS ORDERED: ALBUMIN 25% 12.5GM 0.25 GM/ML BTL IV ONE (23:30)
[2020-02-17] VITALS (25 sets, daily range): BP systolic 103–165; BP diastolic 53–85
[2020-02-17] MEDS: ROCURONIUM BROMIDE 250 MG in SODIUM CHLORIDE 0.9% 250ML 225 ML IV SCH ×3 (04:13→19:51)
[2020-02-17 04:52] LABS: BASOPHILS % 0.3 % (0.0-1.0); EOSINOPHILS # (AUTO) 0.1 (0.0-0.4); EOSINOPHILS % 0.4 % (0.0-6.0); HEMATOCRIT 25.6 % (38.2-49.6); HEMOGLOBIN 7.7 g/dL (14.0-18.0); LYMPHOCYTES # (AUTO) 0.4 (1.0-3.2); LYMPHOCYTES % 3.1 % (18.0-39.1); MEAN CORPUSCULAR HEMOGLOBIN 31.8 pg (28-32); MEAN CORPUSCULAR HGB CONC 30.1 g/dL (31-35); MEAN CORPUSCULAR VOLUME 105.8 fL (81-99); MONOCYTES # (AUTO) 0.5 (0.2-0.8); MONOCYTES % 3.6 % (4.4-11.3); PLATELET COUNT 223 x10e3/uL (140-360); RED BLOOD COUNT 2.42 x10e6/uL (4.3-5.7)
[2020-02-17 05:15] LABS: ALANINE AMINOTRANSFERASE 98 IU/L (0-55); ALBUMIN 2.5 g/dL (3.5-5.0); ALBUMIN/GLOBULIN RATIO 0.7 (0.8-2.0); ALKALINE PHOSPHATASE 158 IU/L (40-150); BLOOD UREA NITROGEN 27 mg/dL (7-26); BUN/CREATININE RATIO 33 (6-25); CALCIUM 8.1 mg/dL (8.4-10.2); CHLORIDE 95 mmol/L (98-107); CREATININE, SERUM 0.81 mg/dL (0.72-1.25); EST GLOMERULAR FILTRATION RATE > 60 ML/MIN (60-); GLUCOSE 120 mg/dL (74-118); SODIUM 141 mmol/L (136-145)
[2020-02-17 05:16] LABS: CARBON DIOXIDE 42 mmol/L (22-29)
[2020-02-17] MEDS: METOCLOPRAMIDE HCL 10 MG TAB PO SCH ×4 (05:23→23:54)
[2020-02-17] MEDS: ENOXAPARIN SOD INJ 40 MG/0.4 ML SYR SC SCH (05:25)
--- NOTE | 2020-02-17 06:31 | NUR ---
DR. TATE NOTIFIED AND AWARE OF CRITICAL LAB VALUE, HCO3 42. NO NEW ORDERS AT THIS TIME.
[2020-02-17] MEDS: MIDAZOLAM HCL 5MG/ML 10ML VIAL 100 ML IV PRN ×2 (07:30→17:29)
[2020-02-17] MEDS: BALSAM PERU/CASTOR OIL 60 GM OINT...G. TP SCH (08:19)
[2020-02-17] MEDS: EYE LUBRICANT OPTH OINT 3.5GM TUBE OP SCH ×2 (08:19→17:14)
[2020-02-17] MEDS: ASPIRIN 81 MG CHEW TAB PO SCH (08:19)
[2020-02-17] MEDS: VANCOMYCIN 1GM/NS 250 ML 250 ML IV SCH (08:19)
[2020-02-17] MEDS: PANTOPRAZOLE 40 MG 10ML VIAL IV SCH (08:19)
--- NOTE | 2020-02-17 09:15 | Diagnostic Imaging Report ---
EXAM: Right upper quadrant ultrasound INDICATION: Elevated bilirubin COMPARISON: Right upper quadrant ultrasound 02/10/2020, abdominal CT 02/09/2020. TECHNIQUE: Transverse and longitudinal images of the right upper quadrant were obtained. FINDINGS: Liver: Size: 15.98 cm in the right midclavicular line, normal Appearance: Coarse echogenicity, smooth contour. No obvious biliary ductal dilation. Mass: No focal masses Main portal vein: 0.76 cm in diameter, hepatopedal flow Right kidney: 8.5 cm in length, normal. Gallbladder: Wall measures 0.27 in thickness. Echogenic gallstone Pancreas not well seen Free Fluid: No ascites or pleural effusion IMPRESSION: Exam sensitivity limited by technical limitations. Coarse liver echotexture can be seen with hepatocellular disease. Cholelithiasis. Signed by: Calderon Solis DO on 02/17/2020 9:12 AM
--- NOTE | 2020-02-17 09:22 | Diagnostic Imaging Report ---
EXAM: CHEST SINGLE (PORTABLE) DATE: 02/17/2020 5:55 AM INDICATION: Shortness of breath, hypoxia, fever COMPARISON: 02/16/2020 FINDINGS: Endotracheal tube identified terminating 5.9 cm above the lakeisha. Right-sided PICC line identified and right-sided chest tubes identified in stable position. Enteric tube noted coursing below the diaphragm. Again identified are multifocal airspace opacities, unchanged from the prior examination. Small right lateral pneumothorax again identified, lightly decreased in size from the prior examination now measuring 8 mm in maximal thickness. Small right and trace left pleural effusions are noted. The cardiac mediastinal silhouette is stable in appearance. No acute osseous abnormality is identified. IMPRESSION: Small right-sided pneumothorax, slightly decreased in size from the prior examination. Chest tubes identified in stable position. Unchanged bilateral airspace opacities which may reflect multifocal pneumonia and/or edema. Stable small right and trace left pleural effusions. Signed by: Dr. Lc Mckenzie MD on 02/17/2020 9:19 AM
[2020-02-17 10:33] LABS: ANISOCYTOSIS SLIGHT; PLATELET ESTIMATE ADEQUATE; PLATELET MORPHOLOGY COMMENT NORMAL; RBC MORPHOLOGY COMMENT ABNORMAL
[2020-02-17 10:34] LABS: POLYCHROMASIA FEW
--- NOTE | 2020-02-17 11:52 | Progress Note ---
DATE: 02/17/2020 Cardiology Progress Note SUBJECTIVE: Remains intubated and sedated. OBJECTIVE: VITAL SIGNS: Temperature 98.5, heart rate 95, blood pressure 142/81, respiratory rate 30, O2 saturation 94%. GENERAL: Intubated and sedated. CARDIOVASCULAR: Regular rate and rhythm. EXTREMITIES: There is edema. CARDIOVASCULAR MEDICATIONS: Reviewed. Furosemide 10 mg IV x1, albumin 25 mg p.r.n., off pressors, on aspirin 81 mg daily, Lovenox 40 mg subcu daily, vancomycin and meropenem. STUDIES: Reviewed. Creatinine 0.8. White blood cells 12.3, hemoglobin 7.7, platelets 223. INR 1.2. PT 16.2, PTT 34.2. AST 76, ALT 98, alkaline phosphatase 158. ASSESSMENT AND PLAN: A 69-year-old man presents with: 1. COVID-positive community-acquired pneumonia, acute respiratory distress syndrome, prolonged respiratory failure, status post septic shock, status post metabolic acidosis, status post acute renal failure, status post abnormal LFTs, hypercoagulable state, anemia, pneumothorax, status post chest tube which remains in place. RECOMMENDATIONS: 1. Continue aspirin 81 mg daily for type 2 [place]. 2. Continue Lovenox subcu for DVT prophylaxis. 3. Noted edema to extremities. Monitor closely. X-ray reviewed by myself, possibly mildly increased in infiltrates on the left lung however minimal overall change, await Radiology read. 4. Prognosis remains guarded. MD ANAIS Morales/JENNYFER /[id number]
--- NOTE | 2020-02-17 12:12 | Progress Note ---
DATE: SUBJECTIVE: Mr. Beatty remains in intensive care unit. He had 2 chest tubes in. He is on 85% oxygen and PEEP of 12. His repeat PCR was -127. The patient has been hospitalized since January 26, on the vent since February 01. All his cultures are negative. His white count is 12.35, which is down from yesterday, hemoglobin 7.7. His sodium 141, potassium 4.0. His bilirubin up to 3.1 with AST of 676. PHYSICAL EXAMINATION: GENERAL: He is intubated and sedated. VITAL SIGNS: Stable, afebrile. HEENT: He is not icteric. NECK: Supple. CHEST: Crackles bilateral. HEART: S1 and S2. No S3, S4, or murmurs. ABDOMEN: Soft. IMPRESSION: 1. Respiratory failure. 2. COVID-19, on admission. 3. Elevated bilirubin could be from the drug. We will discontinue cefepime and vancomycin. 4. Aspiration pneumonia, better. 5. Pneumothorax on the right. Clinically, seems to be slightly better. Continue with supportive care, otherwise as ordered. MD TIFFANY Escoto/JENNYFER /[id number]
[2020-02-17] MEDS: FENTANYL 2000MCG/NS 250 250 ML IV PRN (12:21)
[2020-02-17 13:01] LABS: ABG HCO3 41 mmol/L (22-26); ABG PCO2 93 mmHg (35-45); ABG PH 7.26 (7.35-7.45); ABG PO2 65 mmHg (80-105)
--- NOTE | 2020-02-17 13:43 | NUR ---
Nutrition Intervention Note RD Recommendation(s) for Physician: -Continue TF of Vital 1.2 and advance to goal rate of 60 mL/hr (provides 1728 kcal, 108 gm protein, and 1168 ml water) -Fluid management per MD -Bowel regimen per MD Plan of Care: RD following, monitoring for tolerance and adequacy, TF rec's Nutrition reason for involvement: follow up RD Assessment 02/16: Follow up. Pt discussed during MDR, pt remains intubated and sedated. Pt continues on Rocuronium drip. TF at 35 ml/hr this am, rate decreased overnight per RN- unclear reason. RN to advance TF today. No BM for 2 weeks, discussed with RN. Chart reviewed. Current TF rec's remain appropriate. Will continue to monitor. 02/11: Follow up. Pt discussed during ICU MDR, third chest tube placed 2/2 pneumothorax. Pt remains intubated and sedated, no pressors. Pt currently on TF of Nepro at 25 ml/hr, TF held overnight and previous night 2/2 tolerance. Residuals of 120 ml reported 02/10. No HD currently. TF rec's discussed with RN. Will continue to monitor. (02/08/20) Follow up. Pt is requiring dialysis due to acute renal failure and pts tube feeding was changed to Nepro on 02/05. Per MD note today, pt developed a large tension right side pneumothorax that required emergent placement of a chest tube. Pts tube feeding is on hold at this time due to recent change in pts medical status per RN. MD note also indicates that dialysis is also being held today. Will continue to monitor. (02/05/20). Follow up. Pt was intubated on 02/01 and a tube feed order of Vital AF 1.2 was placed on 02/02. RN reported that tube feeding is currently on hold since pt is planned to be placed in the prone position today. Recommend resuming tube feeding when medically appropriate. Will continue to monitor. (02/01/20) Pt is a 69 year old male admitted with SOB, hypoxia, and fever. Pt is also positive for COVID-19. Unable to obtain nutrition history from pt since he is on droplet isolation precautions. Spoke to RN, who reported that pt is not eating much or consuming Ensure. Unable to assess weight status since there are no previous weights in chart. RN also reported that pt had nausea yesterday and is experiencing diarrhea. No chewing/swallowing issues. Will continue to monitor Principal Problems/Diagnoses: SOB, hypoxia, fever, COVID-19+ PMH: HTN, BPH GI: last recorded BM 02/01- no BM x 15 days Skin: left forehead partial thickness wound, right buttock DTI Labs: 02/16: Na 141, K 4, BUN 27, Cr 0.81, Gluc 120 02/11: Na 146, K 4.3, BUN 27, Cr 0.83, Gluc 156, Ca 7.7, Phos 2.5, Mg 2.2 02/07: BUN 42, Cr 1.52, Ca 7.4, AST 122, ALT 97 (02/04) Na 147, K 5.0, BUN 41, Cr 1.85, Glu 97, Ca 7.5 (01/31) Na 133, K 3.4, BUN 30, Glu 122, Ca 8.1 Meds: abx, protonix, reglan, IV albumin, zofran, lasix IVF/Drips: Rocronium drip, fentanyl drip, versed drip Ht: 70 inches Wt: 194 lb (02/11) 212 lbs (02/07) 195 lbs (02/01) 193 lbs (01/31) BMI: 30.4 kg/m2 IBW: 166 lbs Malnutrition Evaluation (02/01/20) Unable to assess. Will re-evaluate at follow-up as appropriate. Nutrition Prescription (Diet Order): Vital 1.2 at 60 mL/hr with water flush of 50 ml/hr (TF at 35 ml/hr currently providing 1008 kcal and 63 gm protein) Estimated Nutritional Needs: 8019-7426 calories/day (18-20 kcal/kg) Weight used: 194 lbs 105-176 g protein/day (1.2-2 g pro/kg) Weight used: 194 lbs- adjust per renal function Diet Adequacy: Not meeting calorie needs, Not meeting protein needs- TF providing 64% kcal and 60% protein Tolerance: Tolerance varies Diet Education Needs Assessment: Diet education not indicated at this time Nutrition Care Level: moderate Nutrition Diagnosis: Inadequate oral intake related to acute respiratory failure/mechanical ventilation as evidenced by need for enteral nutrition. Goal: Patient will meet 75-100% of estimated needs by follow up Progress: not progressing- TF not advanced Interventions: Composition, Rate, Route, Collaboration with other providers Monitoring/Evaluation: -Total energy intake, Total protein intake, Formula/Solution Weight change Signed: Lili Byrd RD, LD, [facility]
[2020-02-17] MEDS ORDERED: FUROSEMIDE INJ 10 MG/ML 2 ML VIAL IV SCH (13:45)
--- NOTE | 2020-02-17 15:19 | Progress Note ---
DATE: SUBJECTIVE: The patient has remained on mechanical ventilation overnight. He still has [address] on the right side. He is not having fevers. His blood pressure has been stable. He received diuretics today ordered by Nephrology. PHYSICAL EXAMINATION: VITAL SIGNS: The blood pressure is 165/77 and the pulse is 93. He is saturating 97%. He is on a PRVC mode of ventilation at a rate of 32 with a PEEP of 10 and a tidal volume of 390. His FiO2 is set at 90%. His inspiratory rise time is set at 0.1. He has an oral endotracheal tube in place. There is a PICC line in place. He has 2 chest tubes on the right side. The upper chest tube does have some air leak. ABDOMEN: Soft and nontender. There is no rebound or guarding. EXTREMITIES: Shows no leg edema or calf tenderness. There is no cyanosis or clubbing. SKIN: Shows no rashes. NEUROLOGICAL: Shows the patient to be sedated. LABORATORY DATA: The BUN to creatinine ratio is 27 to 0.81. The carbon dioxide is 42 and other electrolytes are within normal limits. The total bilirubin is 3.1 and the AST is 76. The ALT is 98. The white blood cell count is 12.3 and the hemoglobin is 7.7. The platelet count is 223. RADIOGRAPHIC DATA: Chest x-ray shows a right-sided pneumothorax, slightly decreased in size. There are continued bilateral infiltrates. IMPRESSION: 1. Respiratory failure. 2. COVID-19 and viral pneumonia. 3. Right pneumothorax. 4. Elevated bilirubin. 5. Anemia. 6. Moderate protein-calorie malnutrition. PLAN: 1. The patient should have a tracheostomy. His airway pressures are high and he has been intubated for more than 2 weeks. 2. Continue chest tubes for right pneumothorax. 3. Respiratory rate was increased to 32 with a tidal volume of 390. We will repeat an ABG in several hours. 4. Continue enteral feedings. 5. DVT prophylaxis. 6. Continue to monitor renal function. 7. Case discussed with night supervisor nursing, day shift nursing, Respiratory, Nephrology, Infectious Disease, General Surgery, Internal Medicine, and . Greater than 35 minutes in direct critical care time. Osman Frye MD [facility]/JENNYFER /[id number]
--- NOTE | 2020-02-17 23:54 | NUR ---
TF stopped. Pt is NPO after MN for Trach in AM 6/3
[2020-02-18] VITALS (23 sets, daily range): BP systolic 69–196; BP diastolic 6–95
[2020-02-18] MEDS: MIDAZOLAM HCL 5MG/ML 10ML VIAL 100 ML IV PRN ×3 (02:30→17:52)
[2020-02-18] MEDS: FENTANYL 2000MCG/NS 250 250 ML IV PRN ×3 (02:30→23:48)
[2020-02-18 05:09] LABS: BASOPHILS # (AUTO) 0.1 (0.0-0.1); BASOPHILS % 0.5 % (0.0-1.0); EOSINOPHILS # (AUTO) 0.2 (0.0-0.4); EOSINOPHILS % 1.6 % (0.0-6.0); HEMATOCRIT 25.9 % (38.2-49.6); HEMOGLOBIN 7.8 g/dL (14.0-18.0); LYMPHOCYTES # (AUTO) 0.5 (1.0-3.2); MEAN CORPUSCULAR HEMOGLOBIN 31.7 pg (28-32); MEAN CORPUSCULAR HGB CONC 30.1 g/dL (31-35); MEAN CORPUSCULAR VOLUME 105.3 fL (81-99); MONOCYTES # (AUTO) 0.5 (0.2-0.8); MONOCYTES % 3.7 % (4.4-11.3); NEUTROPHILS # (AUTO) 10.3 (2.1-6.9); NEUTROPHILS % 85.2 % (38.7-80.0); PLATELET COUNT 219 x10e3/uL (140-360); RED BLOOD COUNT 2.46 x10e6/uL (4.3-5.7); RED CELL DISTRIBUTION WIDTH 16.5 % (11.7-14.4)
[2020-02-18 05:38] LABS: ALANINE AMINOTRANSFERASE 102 IU/L (0-55); ALBUMIN/GLOBULIN RATIO 0.6 (0.8-2.0); ALKALINE PHOSPHATASE 180 IU/L (40-150); ANION GAP 7.8 mmol/L (8-16); BLOOD UREA NITROGEN 21 mg/dL (7-26); BUN/CREATININE RATIO 32 (6-25); CALCIUM 7.7 mg/dL (8.4-10.2); CARBON DIOXIDE 40 mmol/L (22-29); CHLORIDE 97 mmol/L (98-107); CREATININE, SERUM 0.65 mg/dL (0.72-1.25); EST GLOMERULAR FILTRATION RATE > 60 ML/MIN (60-); GLUCOSE 94 mg/dL (74-118); POTASSIUM 3.8 mmol/L (3.5-5.1); SODIUM 141 mmol/L (136-145)
--- NOTE | 2020-02-18 06:34 | Diagnostic Imaging Report ---
EXAMINATION: CHEST SINGLE (PORTABLE) COMPARISON: Chest x-ray 02/17/2020, CT chest 02/15/2020 INDICATION: ^resp failure ^[id number] ^0550 DISCUSSION: Frontal view of the chest obtained at 0605 hours. The left hemithorax was not imaged in its entirety. HEART AND MEDIASTINUM: The heart is top normal in size. The aorta is tortuous LINES: Endotracheal tube terminates approximately 6 cm above the lakeisha. Enteric tube extends past the diaphragm. Right PICC line terminates in the SVC. Chest tubes in the right hemithorax are redemonstrated and similar in position. LUNGS/PLEURA: Multifocal infiltrates are redemonstrated. Loculated collection of air in the lateral and inferior aspect of the right lung is stable. No large effusions. No pneumothorax on this image. BONES AND SOFT TISSUES: No focal osseous lesion. The soft tissues are normal. IMPRESSION: 1. Support devices as described above. 2. No change in bilateral pulmonary infiltrates or loculated air collection in the right lower lobe. Signed by: Dr. George Fajardo MD on 02/18/2020 6:31 AM
[2020-02-18 07:19] LABS: BILIRUBIN,DIRECT 1.9 mg/dL (0.0-0.5)
[2020-02-18] MEDS: PANTOPRAZOLE 40 MG 10ML VIAL IV SCH (08:23)
[2020-02-18] MEDS: EYE LUBRICANT OPTH OINT 3.5GM TUBE OP SCH ×2 (08:24→17:43)
[2020-02-18] MEDS: BALSAM PERU/CASTOR OIL 60 GM OINT...G. TP SCH (08:24)
[2020-02-18] MEDS ORDERED: FUROSEMIDE INJ 10 MG/ML 4 ML VIAL IV SCH (10:00)
[2020-02-18] MEDS: ASPIRIN 81 MG CHEW TAB PO SCH (10:26)
--- NOTE | 2020-02-18 10:48 | Progress Note ---
DATE: Cardiology Progress Note SUBJECTIVE: Remains intubated and sedated. Bout of hypertension earlier today after sedation adjusted. Blood pressure now optimized. OBJECTIVE: VITAL SIGNS: Temperature 97.4, heart rate 87, blood pressure 130/70, respiratory rate 30, and O2 saturation 95% on vent support. Remains with high PEEP pressure. GENERAL: Intubated and sedated. Chest tubes in place. CARDIOVASCULAR: Regular rate and rhythm. On telemetry, in sinus rhythm. EXTREMITIES: With edema. CARDIOVASCULAR MEDICATIONS: Reviewed. Lovenox 40 mg subcutaneous daily. We will give additional 40 mg IV Lasix today. Aspirin 81 mg daily. STUDIES: Reviewed. Creatinine 0.6. White blood cells 12.1, hemoglobin 7.8, and platelets 219. INR 1.2. AST 76, ALT 102, and alkaline phosphatase 180. ASSESSMENT AND PLAN: 1. A 69-year-old man with anemia, hypertension, acute respiratory failure in the setting of COVID positive community-acquired pneumonia and acute respiratory distress syndrome. 2. Status post pneumothorax with chest tube in place. 3. Type 2 myocardial infarction. 4. Status post acute kidney injury. 5. Status post abnormal LFTs. RECOMMEND: Continue current cardiovascular medications and add additional 40 mg IV Lasix today to optimize increasing edema. MD ANAIS Morales/JENNYFER /[id number]
[2020-02-18 11:37] LABS: PLATELET ESTIMATE ADEQUATE; PLATELET MORPHOLOGY COMMENT NORMAL; POLYCHROMASIA FEW; RBC MORPHOLOGY COMMENT ABNORMAL
--- NOTE | 2020-02-18 11:55 | NUR ---
progress note PHYSICAL EXAMINATION: VITAL SIGNS: The blood pressure is 165/77 and the pulse is 93. He is saturating 97%. He is on a PRVC mode of ventilation at a rate of 32 with a PEEP of 10 and a tidal volume of 390. His FiO2 is set at 90%. His inspiratory rise time is set at 0.1. He has an oral endotracheal tube in place. There is a PICC line in place. He has 2 chest tubes on the right side. The upper chest tube does have some air leak. ABDOMEN: Soft and nontender. There is no rebound or guarding. EXTREMITIES: Shows no leg edema or calf tenderness. There is no cyanosis or clubbing. SKIN: Shows no rashes. NEUROLOGICAL: Shows the patient to be sedated. LABORATORY DATA: The BUN to creatinine ratio is 27 to 0.81. The carbon dioxide is 42 and other electrolytes are within normal limits. The total bilirubin is 3.1 and the AST is 76. The ALT is 98. The white blood cell count is 12.3 and the hemoglobin is 7.7. The platelet count is 223. RADIOGRAPHIC DATA: Chest x-ray shows a right-sided pneumothorax, slightly decreased in size. There are continued bilateral infiltrates. IMPRESSION: 1. Respiratory failure. 2. COVID-19 and viral pneumonia. 3. Right pneumothorax. 4. Elevated bilirubin. 5. Anemia. 6. Moderate protein-calorie malnutrition. [id number]
[2020-02-18] MEDS: ROCURONIUM BROMIDE 250 MG in SODIUM CHLORIDE 0.9% 250ML 225 ML IV SCH ×2 (14:00→21:25)
--- NOTE | 2020-02-18 16:05 | Progress Note ---
DATE: SUBJECTIVE: The patient remains on a PRVC mode of ventilation. He continues to receive enteral feedings. He remains on versed, fentanyl and rocurronium PHYSICAL EXAMINATION: VITAL SIGNS: The blood pressure is 148/83 and the saturation is 91%. The pulse is 102. Respiratory rate is set at 30 with PRVC and tidal volume of 390. The FiO2 is set at 90%. The PEEP is set at 10. HEENT: Shows no facial swelling or erythema. There is a PICC line in place on the right side. The patient also has a left-sided A-line. There is an oral endotracheal tube. LYMPHATIC: Shows no submandibular, cervical, or supraclavicular adenopathy. CARDIAC: Reveals a regular rate and rhythm with normal S1 and S2. LUNGS: Auscultation of lungs reveals decreased breath sounds at the bases. There is no wheezing. ABDOMEN: Soft and nontender. There is no rebound or guarding. EXTREMITIES: Shows no leg or calf tenderness. There is no cyanosis or clubbing. LABORATORY DATA: Hemoglobin is 7.8 and the white blood cell count is 12.1. The platelet count is 219. The BUN to creatinine ratio is 21 to 0.65 and the carbon dioxide is 40. The total bilirubin is decreased to 2.5. ALT is 102 and the AST is 76. Albumin is 2.0. RADIOGRAPHIC DATA: Chest x-ray shows diffuse bilateral infiltrates. IMPRESSION: 1. Acute respiratory failure. 2. Right-sided pneumothorax. 3. Elevated bilirubin. 4. Anemia. 5. Moderate protein-calorie malnutrition. PLAN: 1. Awaiting tracheostomy. 2. Continue PRVC mode of ventilation and repeat blood gas later this evening. 3. Continue chest tubes on the right side to suction. 4. Continue enteral feedings. 5. DVT prophylaxis. Osman Frye MD LM/MODGabriel /[id number]
--- NOTE | 2020-02-18 18:41 | Progress Note ---
DATE: SUBJECTIVE: Mr. Beatty remains in the intensive care unit. Two chest tubes in. Discussed with Critical Care, concerned that the patient has high airway pressures and he would need to be trached. OBJECTIVE: VITAL SIGNS: Stable. Afebrile. HEENT: Normocephalic. NECK: Supple. CHEST: Few crackles. COR: S1-S2. ABDOMEN: Soft. ASSESSMENT AND PLAN: The patient remains with right-sided pneumothorax. His COVID-19 remains positive and that is PCR, which I am not so sure if it is direct total virus or part of it. The patient otherwise noncommunicative. Continue with ventilator support. Discussed with Pulmonary. Agree with trach. Continue with supportive care. We will follow. MD TIFFANY Escoto/MODL /[id number]
--- NOTE | 2020-02-18 19:00 | NUR ---
Report received from Regina BROOKS. She reported that the arterial line has been zero'd multiple times and is having low readings, the pts SPO2 is 88-89% and is on FIO2 95%.
--- NOTE | 2020-02-18 19:20 | NUR ---
Tegaderm placed to skin tear on right forearm (just below anticubital space) and Allevyn life patch placed to skin tear on right outer thigh.
--- NOTE | 2020-02-18 20:30 | NUR ---
Arterial line flushed and zero'd. 2040 - Arterial BP 116/58.
--- NOTE | 2020-02-18 20:40 | NUR ---
Sameer NICOLE assessing pts, oral care, and ETT care.
--- NOTE | 2020-02-18 20:50 | NUR ---
Sameer RT increased FIO2 to 95% at this time. Pts SPO2 is now 92%.
--- NOTE | 2020-02-18 22:46 | Progress Note ---
DATE: 02/18/2020 REASON FOR PROGRESS NOTE: Right pneumothorax, COVID-19; requested by Dr. Osman Frye. SUBJECTIVE: The patient remains in the ICU in critical condition. The right pneumothorax is stable. There is some serous drainage from the chest tube. Pulmonary function has somewhat improved. Currently on FiO2 of 90% with PEEP of 10. He is off inotropic support. Chest x-ray today is stable. REVIEW OF SYSTEMS: Unobtainable because the patient is intubated and sedated. PHYSICAL EXAMINATION: GENERAL: Intubated and sedated in the ICU. VITAL SIGNS: Blood pressure 110/70, pulse 95 and regular. Oxygen saturation 90% on FiO2 90%. NECK: Supple, nontender. No crepitus. CARDIAC: Regular rate and rhythm. Normal S1, S2. No murmur. LUNGS: Coarse bilateral ventilator sounds. ABDOMEN: Benign. Hypoactive bowel sounds. LABORATORIES AND IMAGING: Chest x-ray as above. White count 12.1, hemoglobin 7.8, hematocrit 25.9, platelet count 219,000. IMPRESSION: Some improvement with continued aggressive ICU. MD SHERLEY GarciaL/MODL /[id number]
--- NOTE | 2020-02-18 23:37 | NUR ---
Dr. Nando Geronimo present and assessing the pt.
[2020-02-19] VITALS (25 sets, daily range): BP systolic 80–147; BP diastolic 45–79
[2020-02-19] MEDS ORDERED: NOREPINEPHRINE 8 MG/D5W 250 ML 250 ML ONE (01:38)
[2020-02-19] MEDS: NOREPINEPHRINE INJ 4MG/4ML 8 MG in DEXTROSE 5% 250ML 250 ML IV PRN ×2 (03:00→21:23)
[2020-02-19 05:42] LABS: BASOPHILS # (AUTO) 0.1 (0.0-0.1); BASOPHILS % 0.5 % (0.0-1.0); EOSINOPHILS % 0.1 % (0.0-6.0); HEMATOCRIT 29.5 % (38.2-49.6); HEMOGLOBIN 8.5 g/dL (14.0-18.0); LYMPHOCYTES # (AUTO) 0.4 (1.0-3.2); LYMPHOCYTES % 2.5 % (18.0-39.1); MEAN CORPUSCULAR HGB CONC 28.8 g/dL (31-35); MEAN CORPUSCULAR VOLUME 107.7 fL (81-99); MONOCYTES # (AUTO) 0.7 (0.2-0.8); MONOCYTES % 4.1 % (4.4-11.3); NEUTROPHILS # (AUTO) 14.6 (2.1-6.9); NEUTROPHILS % 88.4 % (38.7-80.0); PLATELET COUNT 261 x10e3/uL (140-360); RED BLOOD COUNT 2.74 x10e6/uL (4.3-5.7); RED CELL DISTRIBUTION WIDTH 17.8 % (11.7-14.4)
[2020-02-19] MEDS: MIDAZOLAM HCL 5MG/ML 10ML VIAL 100 ML IV PRN ×2 (05:47→14:22)
[2020-02-19 05:58] LABS: ALANINE AMINOTRANSFERASE 136 IU/L (0-55); ALBUMIN 2.2 g/dL (3.5-5.0); ALBUMIN/GLOBULIN RATIO 0.6 (0.8-2.0); ALKALINE PHOSPHATASE 209 IU/L (40-150); ANION GAP 10.1 mmol/L (8-16); BLOOD UREA NITROGEN 33 mg/dL (7-26); BUN/CREATININE RATIO 31 (6-25); CALCIUM 7.8 mg/dL (8.4-10.2); CARBON DIOXIDE 39 mmol/L (22-29); CHLORIDE 97 mmol/L (98-107); CREATININE, SERUM 1.06 mg/dL (0.72-1.25); EST GLOMERULAR FILTRATION RATE > 60 ML/MIN (60-); GLUCOSE 129 mg/dL (74-118); POTASSIUM 4.1 mmol/L (3.5-5.1); SODIUM 142 mmol/L (136-145)
[2020-02-19] MEDS: ENOXAPARIN SOD INJ 40 MG/0.4 ML SYR SC SCH (06:01)
--- NOTE | 2020-02-19 06:02 | Diagnostic Imaging Report ---
EXAMINATION: CHEST SINGLE (PORTABLE) COMPARISON: Chest x-ray 02/18/2020 INDICATION: ^resp failure ^20200219 ^0500 DISCUSSION: Frontal view of the chest obtained at 0525 hours. Lung apices were not included on the image. HEART AND MEDIASTINUM: Stable cardiomegaly LINES: Right PICC line terminates in the SVC. 2 chest tubes in the right hemithorax are stable in position. Enteric tube extends past the diaphragm. Endotracheal tube tip terminates approximate 5 cm above the lakeisha. LUNGS/PLEURA: Loculated air collection the base of the right lung is stable. Diffuse alveolar airspace opacities in each lung are similar. Small left pleural effusion. No pneumothorax. BONES AND SOFT TISSUES: Stable. IMPRESSION: 1. Support devices as described above. 2. No change in pulmonary infiltrates. Small left pleural effusion. No evidence of pneumothorax on this image. Signed by: Dr. George Fajardo MD on 02/19/2020 5:58 AM
[2020-02-19 06:21] LABS: CREATINE KINASE MB 2.1 ng/mL (0-5.0)
--- NOTE | 2020-02-19 06:44 | NUR ---
Report to be given to Jayashree BROOKS.
[2020-02-19] MEDS ORDERED: ALBUMIN 25% 25GM 100ML 0.25 GM/ML BTL IV ONE ×3 (07:45→23:00)
[2020-02-19] MEDS ORDERED: VANCOMYCIN 1GM/NS 250 ML 250 ML IV ONE (08:00)
[2020-02-19] MEDS ORDERED: ALBUMIN 25% 25GM 100ML 100 ML IV ONE ×3 (08:30→23:00)
[2020-02-19] MEDS: PANTOPRAZOLE 40 MG 10ML VIAL IV SCH (08:34)
[2020-02-19] MEDS: EYE LUBRICANT OPTH OINT 3.5GM TUBE OP SCH ×2 (08:34→17:32)
[2020-02-19] MEDS: ASPIRIN 81 MG CHEW TAB PO SCH (08:34)
[2020-02-19] MEDS: BALSAM PERU/CASTOR OIL 60 GM OINT...G. TP SCH (08:34)
[2020-02-19] MEDS ORDERED: FUROSEMIDE INJ 10 MG/ML 2 ML VIAL IV SCH (09:00)
[2020-02-19] MEDS: MEROPENEM 1GM 100 ML IV SCH ×2 (09:20→17:32)
[2020-02-19 09:41] LABS: CLARITY,URINE SL CLOUDY (CLEAR); COLOR,URINE YELLOW (YELLOW); KETONES,URINE NEGATIVE (NEGATIVE); LEUKOCYTE ESTERASE ,URINE SMALL (NEGATIVE); NITRITE,URINE NEGATIVE (NEGATIVE); PROTEIN,URINE DIPSTICK 2+ (NEGATIVE); URINE UROBILINOGEN 1 mg/dL (0.2 - 1)
[2020-02-19 09:42] LABS: BILIRUBIN,URINE SMALL (NEGATIVE)
--- NOTE | 2020-02-19 09:54 | Progress Note ---
DATE: SUBJECTIVE: The patient is on Levophed again at 8 mcg. His tracheostomy is on hold as per Anesthesia because of his positive coronavirus test. The PCR test on the February 11 was negative, but the repeat test on the February 16 was positive. The patient is now on 100%. He is on 10 of PEEP with a tidal volume of 390. His saturations are 94%. He has airway pressures of 33 to 34 with a mean airway pressure 20. PHYSICAL EXAMINATION: VITAL SIGNS: The blood pressure is 112/62, saturation is 94%. The T-max is 99.5. He is on a PRVC at a rate of 30 with a tidal volume of 390 and a PEEP of 10. His FiO2 is set at 100%. HEENT: Shows no facial swelling or erythema. He has an oral endotracheal tube in place. CARDIAC: Reveals regular rate and rhythm with normal S1, S2. He has 2 chest tubes on the right side. There is a small air leak from the higher chest tube. There is no subcutaneous emphysema. He has decreased breath sounds at the bases. ABDOMEN: Soft and nontender. There is no rebound or guarding. EXTREMITIES: There is 2+ leg edema. LABORATORY DATA: BUN to creatinine ratio is 33 to 1.06. The AST is 122 and the ALT is 136. Total bilirubin is 3.5. Albumin is 2.2. White blood cell count is 16.48. Hemoglobin is 8.5, and platelet count is 261. IMPRESSION: 1. Acute respiratory failure. 2. Acute respiratory distress syndrome. 3. Right-sided pneumothorax. 4. Elevated bilirubin and liver enzymes. 5. Anemia. 6. Acute kidney injury. 7. Hypoalbuminemia and moderate protein-calorie malnutrition. PLAN: 1. Discuss need for tracheostomy with General Surgery, anesthesia and administration. 2. Continue thoracostomy tubes on the right side. 3. Albumin 25 g. 4. Wean Levophed. 5. Parekh culture. The patient to restart antibiotics. 6. Continue enteral feedings. 7. Continue DVT prophylaxis. 8. Consider putting the patient in the prone position. However, this presents a practical problem because of the chest tubes on the right side. 9. Case discussed with nursing staff, Respiratory, Infectious Disease, Internal Medicine, and Nephrology. Greater than 35 minutes in direct critical care time. MD MICHAEL Mercedes/MARIIL /[id number] MTDD
[2020-02-19 09:57] LABS: RBC,URINE >50 /HPF (0-5); WBC,URINE (MAN) >50 /HPF (0-5)
[2020-02-19 09:58] LABS: BACTERIA,URINE FEW /HPF; EPITHELIAL CELLS,URINE FEW /LPF
[2020-02-19 10:37] LABS: PLATELET ESTIMATE ADEQUATE; PLATELET MORPHOLOGY COMMENT NORMAL; RBC MORPHOLOGY COMMENT ABNORMAL
[2020-02-19 10:38] LABS: HYPOCHROMASIA MODERATE
--- NOTE | 2020-02-19 13:20 | Progress Note ---
DATE: SUBJECTIVE: Mr. Beatty remains in intensive care unit and intubated. The patient on Levophed today. Tracheostomy is on hold per Anesthesia. Still positive PCR test. The patient now on 100%, PEEP of 10, tidal volume 390, saturation 94. PHYSICAL EXAMINATION: GENERAL: He is intubated, sedated. VITAL SIGNS: Stable. Currently afebrile. HEENT: He is not icteric. NECK: Supple. CHEST: Crackles. ABDOMEN: Soft. IMPRESSION: Concerned about sepsis, concerned about healthcare associated pneumonia. We will discuss with Critical Care. We will start him on vancomycin and meropenem. Anemia, leukocytosis shocky . Respiratory failure. From Infectious Disease point of view, the patient can proceed with tracheostomy and several times. The patient has been here for 23 days, still positive PCR and that being not represent a whole virus. It represent part of it progress in this newly disease. From Infectious Disease point of view, continue vancomycin, continue meropenem, this is day #1. We will treat for healthcare associated pneumonia. Prognosis remains guarded. COVID-19. Respiratory failure. Pneumothorax on the right. MD TIFFANY Escoto/JENNYFER /[id number]
[2020-02-19] MEDS: ROCURONIUM BROMIDE 250 MG in SODIUM CHLORIDE 0.9% 250ML 225 ML IV SCH ×2 (14:20→23:06)
[2020-02-19] MEDS ORDERED: FUROSEMIDE INJ 10 MG/ML 2 ML VIAL IV ONE (15:30)
--- NOTE | 2020-02-19 17:00 | NUR ---
Put only able to tolerate small turns at this time. Pt on Levophed for hypotension. Dr. Gabriel Frye gave orders for antibiotics, blood cultures, urine and sputum cultures. Dr. Gabriel Frye and Dr. Daniel aware of trending up BUN and creatinine, as well as low urine output. Orders given to exchange Mcdaniel catheter, albumin and additional Lasix.
--- NOTE | 2020-02-19 19:30 | Progress Note ---
DATE: 02/19/2020 Cardiology Progress Note SUBJECTIVE: Intubated and sedated, back on Levophed. OBJECTIVE: VITAL SIGNS: Temperature 98.5, heart rate 89, blood pressure 105/65, and O2 saturation 97%. FiO2 100%, PEEP of 10, tidal volume 390. CARDIOVASCULAR: Regular rate and rhythm. EXTREMITIES: Edema. Rest of exam deferred. CARDIOVASCULAR MEDICATIONS: Aspirin 81 mg daily, Lovenox 40 mg subcu daily, hydralazine p.r.n., furosemide 40 mg IV daily. STUDIES: Reviewed. White blood cells 16.4, hemoglobin 8.5, and platelets 261. Sodium 142, potassium 4.1, chloride 97, bicarbonate 39, BUN 33, creatinine 1.06, glucose 129. AST 122, ALT 136, alkaline phosphatase 209. Troponin I 0.145. ASSESSMENT AND PLAN: 1. Community-acquired COVID positive pneumonia. 2. Pneumothorax, status post chest tube. 3. Acute respiratory distress syndrome. 4. Acute respiratory failure, prolonged. 5. Type 2 myocardial infarction. 6. Status post abnormal LFTs. 7. Status post acute kidney injury. 8. Debility. RECOMMENDATIONS: Continue current cardiovascular medications. Wean Levophed as tolerated for MAP 65 to 75. Overall, guarded prognosis. Continues to have COVID positive PCR. Abdias Nguyen MD [facility]/MODL /[id number]
[2020-02-19] MEDS ORDERED: VANCOMYCIN 1GM/NS 250 ML 250 ML IV SCH (21:00)
--- NOTE | 2020-02-19 21:10 | Diagnostic Imaging Report ---
Abdomen/KUB INDICATION: ^Confirm Mcdaniel is within the bladder ^20200219 ^2039 ^Y COMPARISON: Abdomen/KUB 02/10/2020. FINDINGS: Portable, supine image obtained at 2010 hours. Medical Devices: Radiopaque contrast fills the urinary bladder without evidence of extravasation. A Mcdaniel catheter is present within the bladder. Bowel: Unremarkable bowel gas pattern. No dilated bowel loops or pneumatosis. Free air: None Abdominal calcifications: None Organomegaly: None Bones: Mild degenerative changes of the spine. IMPRESSION: Mcdaniel catheter within the urinary bladder. No evidence of extravasation. Signed by: Dr. George Fajardo MD on 02/19/2020 9:07 PM
[2020-02-19] MEDS: FENTANYL 2000MCG/NS 250 250 ML IV PRN (23:06)
[2020-02-20] VITALS (22 sets, daily range): BP systolic 78–142; BP diastolic 46–78
[2020-02-20] MEDS: FENTANYL 2000MCG/NS 250 250 ML IV PRN ×2 (00:13→21:45)
[2020-02-20] MEDS: MIDAZOLAM HCL 5MG/ML 10ML VIAL 100 ML IV PRN ×2 (02:05→16:45)
[2020-02-20] MEDS: MEROPENEM 1GM 100 ML IV SCH ×3 (02:30→16:47)
--- NOTE | 2020-02-20 06:07 | Diagnostic Imaging Report ---
EXAMINATION: CHEST SINGLE (PORTABLE) COMPARISON: 0525 hours INDICATION: ^resp failure ^20200220 ^040 DISCUSSION: Frontal view of the chest obtained at 0421 hours. HEART AND MEDIASTINUM: Stable cardiomegaly LINES: Endotracheal tube terminates 5 to 6 cm above the lakeisha. Enteric tube extends past the diaphragm. Right PICC line terminates in the SVC. 2 right-sided chest tubes are stable in position. LUNGS/PLEURA: Multifocal infiltrates are redemonstrated. Loculated air collection in the base of the right lung is stable. There is a tiny right basilar pneumothorax. Stable left pleural effusion. BONES AND SOFT TISSUES: No focal osseous lesion. The soft tissues are normal. IMPRESSION: 1. Support devices as described above. 2. No change in pulmonary infiltrates. 3. Tiny right basilar pleural effusion. Stable left pleural effusion. Signed by: Dr. George Fajardo MD on 02/20/2020 6:04 AM
[2020-02-20 06:08] LABS: BASOPHILS # (AUTO) 0.1 (0.0-0.1); BASOPHILS % 0.5 % (0.0-1.0); EOSINOPHILS # (AUTO) 0.1 (0.0-0.4); EOSINOPHILS % 0.7 % (0.0-6.0); HEMATOCRIT 28.1 % (38.2-49.6); HEMOGLOBIN 8.2 g/dL (14.0-18.0); LYMPHOCYTES # (AUTO) 0.8 (1.0-3.2); LYMPHOCYTES % 4.6 % (18.0-39.1); MEAN CORPUSCULAR HEMOGLOBIN 31.8 pg (28-32); MEAN CORPUSCULAR HGB CONC 29.2 g/dL (31-35); MEAN CORPUSCULAR VOLUME 108.9 fL (81-99); MONOCYTES # (AUTO) 0.7 (0.2-0.8); NEUTROPHILS # (AUTO) 14.7 (2.1-6.9); PLATELET COUNT 245 x10e3/uL (140-360); RED BLOOD COUNT 2.58 x10e6/uL (4.3-5.7); RED CELL DISTRIBUTION WIDTH 18.6 % (11.7-14.4)
[2020-02-20] MEDS: ENOXAPARIN SOD INJ 40 MG/0.4 ML SYR SC SCH (06:20)
[2020-02-20] MEDS: ROCURONIUM BROMIDE 250 MG in SODIUM CHLORIDE 0.9% 250ML 225 ML IV SCH (06:23)
[2020-02-20 06:30] LABS: ALBUMIN/GLOBULIN RATIO 0.9 (0.8-2.0); ANION GAP 7.3 mmol/L (8-16); CALCIUM 8.2 mg/dL (8.4-10.2); CREATININE, SERUM 1.41 mg/dL (0.72-1.25); POTASSIUM 4.3 mmol/L (3.5-5.1)
[2020-02-20] MEDS ORDERED: ALBUMIN 25% 25GM 100ML 0.25 GM/ML BTL IV ONE (08:00)
[2020-02-20] MEDS: FUROSEMIDE INJ 10 MG/ML 4 ML VIAL IV SCH (08:33)
[2020-02-20] MEDS ORDERED: ALBUMIN 25% 25GM 100ML 100 ML IV ONE (08:45)
[2020-02-20] MEDS ORDERED: FUROSEMIDE INJ 10 MG/ML 2 ML VIAL IV SCH (09:00)
[2020-02-20] MEDS: ASPIRIN 81 MG CHEW TAB PO SCH (09:20)
[2020-02-20] MEDS: PANTOPRAZOLE 40 MG 10ML VIAL IV SCH (09:20)
[2020-02-20] MEDS: EYE LUBRICANT OPTH OINT 3.5GM TUBE OP SCH ×2 (09:20→16:47)
--- NOTE | 2020-02-20 09:33 | Progress Note ---
DATE: Pulmonary Critical Care progress Note SUBJECTIVE: The patient has decreased urine output overnight. His creatinine has increased to 1.41 despite receiving additional albumin and Lasix. The patient continues on 100%. He was placed in the prone position early this morning. His saturations are still 89% with a PRVC set at 32 and a tidal volume of 390. His PEEP is set at 10 and his peak airway pressure is 33. His mean air pressure is 20. PHYSICAL EXAMINATION: HEENT: Shows no facial swelling or erythema. CARDIAC: Reveals regular rate and rhythm with normal S1 and S2. LUNGS: Auscultation of lungs reveals crackles at the bases. There is no wheezing. ABDOMEN: Soft and nontender. There is some sacral breakdown. There is 3+ leg edema. LABORATORY DATA: White blood cell count is 17.3 and hemoglobin is 8.2. The platelet count is 245. The BUN to creatinine ratio is 45 to 1.41. The carbon dioxide is 42. Sodium is 140 and the potassium is 4.3. The chloride is 95. The total bilirubin is 3.8 and the AST is 144. The ALT is 171. Albumin is 3.0. IMPRESSION: 1. Acute kidney injury. 2. Acute respiratory failure. 3. Right-sided pneumothorax. 4. Viral pneumonia and COVID-19 infection. 5. Abnormal liver tests. 6. Anemia. PLAN: 1. The patient will be continued on PRVC mode of ventilation. We will repeat an ABG and adjust the ventilator accordingly. 2. Albumin and Lasix today. If the patient's urine output and creatinine did not improve, he will probably need continuous renal replacement therapy. 3. Continue Levophed as needed. 4. Continue current antibiotics. 5. DVT prophylaxis. 6. Tracheostomy is on hold at this time. Anesthesia believes the patient is too unstable for tracheostomy. Case discussed with nightshift nursing, dayshift nursing, Respiratory, Internal Medicine, Nephrology, and family. Greater than 35 minutes in direct critical care time. MD MICHAEL Mercedes/JENNYFER /[id number]
[2020-02-20] MEDS: BALSAM PERU/CASTOR OIL 60 GM OINT...G. TP SCH (10:42)
[2020-02-20] MEDS: VASOPRESSIN 100 UNIT in DEXTROSE 5% 100ML 95 ML IV SCH (11:00)
[2020-02-20 11:41] LABS: BAND NEUTROPHILS % (MANUAL) 1 %; EOSINOPHILS % (MANUAL) 2 % (0-7); LYMPHOCYTES % (MANUAL) 2 % (19-48); MONOCYTES % (MANUAL) 6 % (3.4-9.0); MYELOCYTES % (MANUAL) 3 % (0-0); NEUTROPHILS % (MANUAL) 86 % (40-74); NUCLEATED RED BLOOD CELLS 6
[2020-02-20 11:42] LABS: POLYCHROMASIA FEW
[2020-02-20 11:43] LABS: HYPOCHROMASIA SLIGHT; OVALOCYTES FEW; PLATELET ESTIMATE ADEQUATE; PLATELET MORPHOLOGY COMMENT NORMAL; RBC MORPHOLOGY COMMENT ABNORMAL
[2020-02-20 11:44] LABS: ANISOCYTOSIS SLIGHT
[2020-02-20] MEDS: ALBUMIN 25% 25GM 100ML 100 ML IV SCH ×2 (11:59→16:47)
[2020-02-20] MEDS ORDERED: ALBUMIN 25% 25GM 100ML 0.25 GM/ML BTL IV SCH (12:00)
--- NOTE | 2020-02-20 12:41 | Diagnostic Imaging Report ---
EXAM: CHEST SINGLE (PORTABLE) DATE: 02/20/2020 11:40 AM INDICATION: Pneumothorax COMPARISON: 02/20/2020 at 0421 FINDINGS: Please note the examination was obtained with the patient in prone positioning. The left hemithorax is only partially included in the [id number]. Endotracheal tube identified terminating approximately 6 cm above the lakeisha. Right-sided PICC line identified in place. Enteric tube noted coursing below the diaphragm. Right-sided chest tube identified and grossly stable position. Right lateral pneumothorax is less apparent on on today's examination with questionable trace residual pneumothorax remaining. Stable loculated air collection/cyst again noted within the right lower lung zone. Stable appearing multifocal airspace opacities again identified bilaterally. Both pleural effusion and there appreciated prior examination. The cardiovascular silhouette is partially obscured but grossly stable in appearance. No acute osseous abnormality identified. Subcutaneous emphysema noted within the right chest wall. IMPRESSION: Apparent decrease in right-sided pneumothorax as above. Otherwise no significant interval change with persistent stable appearing bilateral airspace opacities again identified. Signed by: Dr. Lc Mckenzie MD on 02/20/2020 12:38 PM
--- NOTE | 2020-02-20 13:49 | Progress Note ---
DATE: 02/20/2020 Cardiology Progress Note SUBJECTIVE: Worsening condition. OBJECTIVE: VITAL SIGNS: Temperature is 96.3, heart rate 73, blood pressure 104/53, respiratory rate in 28, O2 saturation 89, BMI 34. GENERAL: The patient in prone positions, sedated, intubated, edematous on exam to extremities 2+. CHEST: With decreased breath sounds, rales and pronounced air movement sounds to the right more than the left. Chest tubes in place with adequate drainage via tubes. ABDOMEN: Deferred as patient prone. EXTREMITIES: With edema. Warm distal extremities. Euthermic throughout. CARDIOVASCULAR MEDICATIONS: Reviewed. Levophed initiating vasopressin for hypotension into the 70s, while in the room examining the patient, aspirin 81 mg daily, Lovenox 40 mg subcu daily. STUDIES: Reviewed. Creatinine 1.4. White blood cells 17, hemoglobin 8.3, platelets 245. AST 144, ALT 171. ASSESSMENT AND PLAN: 1. Acute respiratory failure, worsening. 2. COVID positive community-acquired pneumonia. 3. Pneumothorax with chest tubes in place. 4. Type 2 myocardial infarction. 5. Status post acute kidney injury. 6. Status post abnormalities. RECOMMENDATIONS: Overall worsening condition in critical status in shock, levophed / vasopressin for MAP 65-75. Awaiting chest x-ray results to confirm or exclude worsening air leaking status, chest tubes in place. Overall remains with guarded prognosis. Abdias Nguyen MD AFLuh/MODGabriel /[id number] MTDWalt
[2020-02-20] MEDS ORDERED: NOREPINEPHRINE INJ 4MG/4ML 8 MG in DEXTROSE 5% 250ML 250 ML IV SCH (14:00)
[2020-02-20] MEDS ORDERED: LACTATED RINGER'S 1,000 ML ONE (14:04)
[2020-02-20] MEDS ORDERED: LIDOCAINE HCL 2% LOCAL 20 ML VIAL ONE (14:09)
--- NOTE | 2020-02-20 15:34 | Diagnostic Imaging Report ---
EXAM: CHEST SINGLE (PORTABLE) DATE: 02/20/2020 2:45 PM INDICATION: Status post central line placement. COMPARISON: 02/20/2020 at 11:16 AM FINDINGS: There has been interval placement of a right IJ non-tunneled dialysis catheter with tip terminating over the the mid SVC. Endotracheal tube, right-sided PICC line, and right chest tube identified in stable position. Enteric tube noted coursing below the diaphragm. Small right loculated pneumothorax appears slightly more prominent which is likely related to patient positioning. The remainder of the examination is unchanged from recent prior examination. Multifocal airspace opacities again identified bilaterally. Loculated air collection/cyst within the right lower lung zone appears unchanged. The cardiomediastinal silhouette is stable in appearance. IMPRESSION: Right IJ non-tunneled dialysis catheter terminates appropriately over the SVC. Remainder of the examination is unchanged from the recent prior examination. Signed by: Dr. Lc Mckenzie MD on 02/20/2020 3:30 PM
--- NOTE | 2020-02-20 16:09 | NUR ---
Nutrition Intervention Note RD Recommendation(s) for Physician: - Turn down Vital AF to 10ml/hr as pt becomes hemodynamically unstable with 2 vasopressors - Consider PN if unable to reach TF goal (Vital 1.2 @ 60 mL/hr -provides 1728 kcal, 108 gm protein, and 1168 ml water) within the next 3-5 days - Fluid management per MD - Bowel regimen per MD Plan of Care: RD following, monitoring for tolerance and adequacy, TF rec's Nutrition reason for involvement: follow up RD Assessment 02/19: Pt remains intubated and ventilated. Per RN, pt has become hemodynamically unstable with 2 vasopressors infusing at max rate. TF has been turned off. His creatinine has increased to 1.41 despite receiving additional albumin and Lasix. Overall worsening condition in critical status. No plan to restart TF anytime soon. Will continue to follow. 02/16: Follow up. Pt discussed during MDR, pt remains intubated and sedated. Pt continues on Rocuronium drip. TF at 35 ml/hr this am, rate decreased overnight per RN- unclear reason. RN to advance TF today. No BM for 2 weeks, discussed with RN. Chart reviewed. Current TF rec's remain appropriate. Will continue to monitor. 02/11: Follow up. Pt discussed during ICU MDR, third chest tube placed 2/2 pneumothorax. Pt remains intubated and sedated, no pressors. Pt currently on TF of Nepro at 25 ml/hr, TF held overnight and previous night 2/2 tolerance. Residuals of 120 ml reported 02/10. No HD currently. TF rec's discussed with RN. Will continue to monitor. (02/08/20) Follow up. Pt is requiring dialysis due to acute renal failure and pts tube feeding was changed to Nepro on 02/05. Per MD note today, pt developed a large tension right side pneumothorax that required emergent placement of a chest tube. Pts tube feeding is on hold at this time due to recent change in pts medical status per RN. MD note also indicates that dialysis is also being held today. Will continue to monitor. (02/05/20). Follow up. Pt was intubated on 02/01 and a tube feed order of Vital AF 1.2 was placed on 02/02. RN reported that tube feeding is currently on hold since pt is planned to be placed in the prone position today. Recommend resuming tube feeding when medically appropriate. Will continue to monitor. (02/01/20) Pt is a 69 year old male admitted with SOB, hypoxia, and fever. Pt is also positive for COVID-19. Unable to obtain nutrition history from pt since he is on droplet isolation precautions. Spoke to RN, who reported that pt is not eating much or consuming Ensure. Unable to assess weight status since there are no previous weights in chart. RN also reported that pt had nausea yesterday and is experiencing diarrhea. No chewing/swallowing issues. Will continue to monitor Principal Problems/Diagnoses: SOB, hypoxia, fever, COVID-19+ PMH: HTN, BPH GI: last recorded BM 02/01- no BM x 15 days Skin: left forehead partial thickness wound, right buttock DTI Labs: 02/19: BUN 45 H, Creatinine 1.41 H, BUN 45 H, Glucose 134 H, Ca 8.2 L, AST 144 H, ALT 171 H 02/16: Na 141, K 4, BUN 27, Cr 0.81, Gluc 120 02/11: Na 146, K 4.3, BUN 27, Cr 0.83, Gluc 156, Ca 7.7, Phos 2.5, Mg 2.2 02/07: BUN 42, Cr 1.52, Ca 7.4, AST 122, ALT 97 (02/04) Na 147, K 5.0, BUN 41, Cr 1.85, Glu 97, Ca 7.5 (01/31) Na 133, K 3.4, BUN 30, Glu 122, Ca 8.1 Meds: albumin, vasopressin, meropenem, protonix, lasix, rocuronium, lovenox, norepinephrine Ht: 70 inches Wt: 194 lb (02/11) 212 lbs (02/07) 195 lbs (02/01) 193 lbs (01/31) 239lb (02/19) BMI: 30.4 kg/m2 IBW: 166 lbs Malnutrition Evaluation (02/20/20) Unable to assess. Will re-evaluate at follow-up as appropriate. Nutrition Prescription (Diet Order): Vital 1.2 at 60 mL/hr with water flush of 100ml q 6hr (TF on hold) Estimated Nutritional Needs: 6255-0547 calories/day (18-20 kcal/kg) Weight used: 194 lbs 105-176 g protein/day (1.2-2 g pro/kg) Weight used: 194 lbs- adjust per renal function Diet Adequacy: Not meeting calorie needs, Not meeting protein needs - TF on hold Tolerance: Unable to assess Diet Education Needs Assessment: Diet education not indicated at this time. Nutrition Care Level: moderate Nutrition Diagnosis: Inadequate oral intake related to acute respiratory failure/mechanical ventilation as evidenced by TF on hold. Goal: Patient will meet 75-100% of estimated needs by follow up Progress: not progressing- TF on hold Interventions: Composition, Rate, Route, Collaboration with other providers Monitoring/Evaluation: -Total energy intake, Total protein intake, Formula/Solution Weight change Signed: Viktoria Posadas MS, RD, LD
[2020-02-20] MEDS ORDERED: VANCOMYCIN 1GM/NS 250 ML 250 ML IV SCH (17:00)
--- NOTE | 2020-02-20 18:20 | Progress Note ---
DATE: 02/20/2020 REASON FOR PROGRESS NOTE: Right pneumothorax, COVID-19; requested by Dr. Osman Frye. SUBJECTIVE: The patient remains in ICU in critical condition. On FiO2 of 100% and has been placed in a prone position. Some serous drainage from chest tube. Chest x-ray stable. REVIEW OF SYSTEMS: Unobtainable as the patient is intubated and sedated. PHYSICAL EXAMINATION: GENERAL: Intubated and sedated in the ICU. Prone position. VITAL SIGNS: Blood pressure 105/70, pulse 95 and regular. Oxygen saturation 90% on FiO2 of 100%. NECK: Supple, nontender. No crepitus. CARDIAC: Regular rate and rhythm. Normal S1, S2. No murmur. LUNGS: Coarse bilateral ventilator sounds. ABDOMEN: Benign. Hypoactive bowel sounds. IMAGING: Chest x-ray as above. White count 17.3. Hemoglobin 8.2, hematocrit 28.1, platelet count 245. Sodium 140, potassium 4.3, BUN 45, creatinine 1.4. AST slightly elevated at 144, slightly elevated ALT of 171. IMPRESSION: Critically ill patient. Chest tube function appropriate. MD ADE Garcia/MODL /[id number]
--- NOTE | 2020-02-20 20:00 | Operative Report ---
DATE OF PROCEDURE: SURGEON: Osman Frye MD PROCEDURE: Trialysis catheter placement under ultrasound guidance. PREOPERATIVE DIAGNOSIS: Acute renal failure. POSTOPERATIVE DIAGNOSIS: Acute renal failure. CONSENT: Consent was obtained from the . ANESTHESIA: 1% lidocaine for local anesthesia. DESCRIPTION OF PROCEDURE: The patient was prepped sterilely. Sterile drapes, full length gown, mask, and sterile gloves were used. The right neck was prepped sterilely with chlorhexidine. An ultrasound machine was used to locate the right internal jugular vein. The vein was then cannulated under direct visualization with a 16-gauge needle. A wire was placed through the needle. Dilators was used to open the skin and a Trialysis catheter was placed over the wire by the Seldinger technique. All the ports flushed. COMPLICATIONS: None. ESTIMATED BLOOD LOSS: [address] [facility]/MODL /[id number]
--- NOTE | 2020-02-20 20:06 | Progress Note ---
DATE: SUBJECTIVE: Mr. Beatty remain in intensive care unit. His creatinine went up to 1 to 1.4. He is on oxygen 100%. He is in prone position this morning. He is still having issues with his pressures. OBJECTIVE: HEENT: He is not icteric. NECK: Supple. CHEST: Crackles bilateral. HEART: S1 and S2. No S3, S4, or murmurs. ABDOMEN: Soft. IMPRESSION: 1. Respiratory failure, acute kidney injury, right-sided pneumothorax, COVID-19, has concerned about healthcare-associated pneumonia. His white count 17.37. 2. Anemia of chronic disease. His most recent COVID-19 on 02/16 was positive. His liver enzymes remains elevated at total bilirubin 3.8, AST 144, and ALT 171. He is currently on vancomycin and meropenem. The plan to give him 7 days of these 2 antibiotics. Continue supportive care as ordered. Discussed with Critical Care. We will follow. MD TIFFANY Escoto/JENNYFER /[id number]
[2020-02-20] MEDS ORDERED: NOREPINEPHRINE 8 MG/D5W 250 ML 250 ML ONE (21:27)
[2020-02-20] MEDS: NOREPINEPHRINE INJ 4MG/4ML 8 MG in DEXTROSE 5% 250ML 250 ML IV PRN (21:30)
[2020-02-20] MEDS ORDERED: SODIUM BICARBONATE 8.4% INJ 50 ML SYR IV STA (23:00)
[2020-02-21] VITALS (25 sets, daily range): BP systolic 60–135; BP diastolic 39–90
[2020-02-21] MEDS: ALBUMIN 25% 25GM 100ML 100 ML IV SCH ×4 (00:30→18:14)
[2020-02-21] MEDS ORDERED: HEPARIN SOD (PORCINE) 1000 UNIT/ML SDV ONE ×2 (00:46→05:19)
[2020-02-21] MEDS: MIDAZOLAM HCL 5MG/ML 10ML VIAL 100 ML IV PRN ×3 (00:50→13:25)
[2020-02-21] MEDS: MEROPENEM 1GM 100 ML IV SCH ×2 (01:15→09:55)
[2020-02-21] MEDS ORDERED: DEXTROSE 5% 1,000 ML IV ONE (01:23)
[2020-02-21] MEDS ORDERED: SODIUM BICARBONATE 8.4% SYRING 150 ML ONE (01:24)
[2020-02-21] MEDS: ROCURONIUM BROMIDE 250 MG in SODIUM CHLORIDE 0.9% 250ML 225 ML IV SCH ×4 (01:58→23:20)
[2020-02-21] MEDS: NOREPINEPHRINE INJ 4MG/4ML 8 MG in DEXTROSE 5% 250ML 250 ML IV PRN ×2 (02:00→07:05)
[2020-02-21] MEDS: SODIUM BICARBONATE 8.4% 150 ML in DEXTROSE 5% 1,000 ML IV SCH ×2 (02:05→17:27)
[2020-02-21] MEDS ORDERED: HEPARIN SOD (PORCINE) 1000 UNIT/ML SDV IV ONE (05:30)
[2020-02-21] MEDS: ENOXAPARIN SOD INJ 40 MG/0.4 ML SYR SC SCH (05:50)
[2020-02-21 05:58] LABS: BASOPHILS # (AUTO) 0.1 (0.0-0.1); HEMATOCRIT 25.9 % (38.2-49.6); HEMOGLOBIN 7.5 g/dL (14.0-18.0); LYMPHOCYTES # (AUTO) 0.6 (1.0-3.2); MEAN CORPUSCULAR VOLUME 114.1 fL (81-99); NEUTROPHILS # (AUTO) 18.6 (2.1-6.9); PLATELET COUNT 205 x10e3/uL (140-360); RED BLOOD COUNT 2.27 x10e6/uL (4.3-5.7); RED CELL DISTRIBUTION WIDTH 19.3 % (11.7-14.4)
--- NOTE | 2020-02-21 06:09 | Diagnostic Imaging Report ---
EXAMINATION: CHEST SINGLE (PORTABLE) COMPARISON: Chest x-ray 02/20/2020 INDICATION: ^resp failure ^20200221 ^0530 DISCUSSION: Frontal view of the chest obtained at 0536 hours. HEART AND MEDIASTINUM: Stable cardiomegaly LINES: Endotracheal tube terminates 4 to 5 cm above the lakeisha. Enteric tube extends past the diaphragm. Right IJ catheter terminates in the SVC. Right PICC line terminates in the SVC. 2 left-sided chest tubes are stable in position LUNGS/PLEURA: Loculated air collection in the base of the right lung is stable. Right lateral and basilar pneumothorax measures 5 mm (previously, 9 mm). Diffuse groundglass airspace opacities throughout the right lung. Groundglass airspace opacities throughout the left lung are stable. Left pleural effusion is stable. BONES AND SOFT TISSUES: Stable. IMPRESSION: 1. Support devices as described above 2. Smaller free flowing right pneumothorax. Loculated right basilar pneumothorax is stable. 3. No change in widespread airspace opacities suggestive of ARDS or pneumonia. Signed by: Dr. George Fajardo MD on 02/21/2020 6:06 AM
[2020-02-21 06:31] LABS: ALBUMIN 3.6 g/dL (3.5-5.0); ALBUMIN/GLOBULIN RATIO 1.3 (0.8-2.0); ANION GAP 11.9 mmol/L (8-16); CALCIUM 7.8 mg/dL (8.4-10.2); CREATININE, SERUM 1.84 mg/dL (0.72-1.25); POTASSIUM 4.9 mmol/L (3.5-5.1)
[2020-02-21 06:45] LABS: MAGNESIUM 2.4 MG/DL (1.3-2.1); PHOSPHORUS 5.5 MG/DL (2.3-4.7)
[2020-02-21] MEDS ORDERED: HEPARIN SOD (PORCINE) 1000 UNIT/ML SDV IV PRN (08:15)
[2020-02-21 08:36] LABS: ABG HCO3 39 mmol/L (22-26); ABG PCO2 129 mmHg (35-45); ABG PH 7.09 (7.35-7.45); ABG PO2 84 mmHg (80-105)
[2020-02-21 08:51] LABS: ABG HCO3 41 mmol/L (22-26); ABG PCO2 90 mmHg (35-45); ABG PH 7.27 (7.35-7.45); ABG PO2 62 mmHg (80-105)
[2020-02-21 09:18] LABS: ABG PH 7.13 (7.35-7.45)
[2020-02-21 09:19] LABS: ABG HCO3 38 mmol/L (22-26); ABG PCO2 115 mmHg (35-45)
[2020-02-21] MEDS: EYE LUBRICANT OPTH OINT 3.5GM TUBE OP SCH ×2 (09:55→17:27)
[2020-02-21] MEDS: PANTOPRAZOLE 40 MG 10ML VIAL IV SCH (09:55)
[2020-02-21] MEDS: BALSAM PERU/CASTOR OIL 60 GM OINT...G. TP SCH (09:55)
[2020-02-21] MEDS: ASPIRIN 81 MG CHEW TAB PO SCH (09:55)
[2020-02-21] MEDS: FUROSEMIDE INJ 10 MG/ML 4 ML VIAL IV SCH (09:55)
[2020-02-21] MEDS: VASOPRESSIN 100 UNIT in DEXTROSE 5% 100ML 95 ML IV SCH (11:44)
[2020-02-21] MEDS ORDERED: VASOPRESSIN 60 UNIT in DEXTROSE 5% 50ML 57 ML IV SCH (12:00)
[2020-02-21 12:11] LABS: HYPOCHROMASIA SLIGHT
[2020-02-21 12:12] LABS: RBC MORPHOLOGY COMMENT ABNORMAL
[2020-02-21 12:13] LABS: EOSINOPHILS % (MANUAL) 2 % (0-7); LYMPHOCYTES % (MANUAL) 2 % (19-48); MONOCYTES % (MANUAL) 5 % (3.4-9.0); MYELOCYTES % (MANUAL) 2 % (0-0); NEUTROPHILS % (MANUAL) 89 % (40-74)
--- NOTE | 2020-02-21 12:22 | Diagnostic Imaging Report ---
X-ray AP pelvis History: Mcdaniel placement. Confirm in bladder. Comparison: None Findings: A curvilinear radiopacity is seen extending from the left thigh to the midline pubis. The tip overlies the left pubic body. Mcdaniel catheter localization is not possible without the aid of injected x-ray contrast medium as for example through the Mcdaniel catheter. Other visualized regional structures are unremarkable. Impression: Localization of Mcdaniel catheter is not possible on this exam because of absence of contrast medium. Signed by: Heam Euceda MD on 02/21/2020 12:19 PM
--- NOTE | 2020-02-21 13:37 | NUR ---
progress [id number]
--- NOTE | 2020-02-21 14:59 | Progress Note ---
DATE: SUBJECTIVE: Mr. Beatty remains in the intensive care unit. Intubated, sedated on the vent, afebrile, tachycardic, tachypneic. The patient with chest tubes on the right. White count is 21, hemoglobin 7, and hematocrit 25. His PCR is still positive as of February 16 for COVID-19. The patient is on albumin, furosemide, meropenem, vancomycin, Tylenol, Zofran, vasopressin. PHYSICAL EXAMINATION: GENERAL: He is sedated. VITAL SIGNS: Stable as mentioned above. No fever. HEENT: Not icteric. NECK: Supple. CHEST: Crackles bilateral. COR: S1 and S2. ABDOMEN: Soft. Bowel sounds hypoactive. EXTREMITIES: No edema. SKIN: No rash. The patient had a KUB, which showed Mcdaniel catheter. Chest x-ray, no change. IMPRESSION: 1. COVID-19, acute respiratory distress syndrome, respiratory failure, pneumothorax on the right. This is day #25 in the hospital. Discussed with Pulmonary. Apparently, Anesthesia feel that putting a trach in him is high risk. They will not clear him. 2. Chronic kidney disease. 3. Leukocytosis. I am going to adjust his antibiotic today. We will get vancomycin trough. Prognosis remains poor. Ideally, trach may help possible, but he is too risky per Anesthesia. We will adjust his antibiotic and we will follow. MD TIFFANY Escoto/JENNYFER /[id number]
[2020-02-21] MEDS ORDERED: HYDROXYCHLOROQUINE SULFATE 200 MG TAB PO SCH (17:00)
[2020-02-21] MEDS: HEPARIN SOD/SOD CHLORIDE 1,000 ML IV SCH (18:14)
--- NOTE | 2020-02-21 18:35 | Progress Note ---
DATE: NO DICTATION. MD MICHAEL Mercedes/JENNYFER /[id number]
--- NOTE | 2020-02-21 19:16 | NUR ---
X Ray Equipment Tester encountered the family in [facility] (Viktoria - ; Daughters: Nicolette, Charley, Geena) and was accompanied to the room by the and 1 daughter Nicolette. X Ray Equipment Tester affirmed thier marla and communicated assurance of blessing ad not sacrament. Nurse Jany suited up to enter the room and the X Ray Equipment Tester communicated via sohanie talkie. A towel with oil was provided to the nurse to bless the patient. The X Ray Equipment Tester read [employer] Estrella 5:13-15, The family with the X Ray Equipment Tester said the Lord's prayer, and then the tangible personal property appraiser read a litany and guided the nurse through the blessing of the patients Head, Chest and Hands, and closed in prayer. The family was very grateful. The tangible personal property appraiser sat with the family as they discussed treatment plans and decisions. X Ray Equipment Tester invited them to "Doing For vs Do To" as a consideration and affirmed the depth of their grief as created by the depth of their love. The family shared their emotions and struggle and the tangible personal property appraiser raised awareness to maintaining a healthy GAP (Marla and Reality) and that one does not have to give up one in order to experience the other, both are needed and necessary.
--- NOTE | 2020-02-21 19:40 | Progress Note ---
DATE: 02/21/2020 Cardiology Progress Note SUBJECTIVE: Continues to remain in shock, on 2 pressors, vent support. OBJECTIVE: VITAL SIGNS: Temperature 97.6, heart rate 84, respiratory rate 32, blood pressure 98/56, and O2 saturation 95%, on vent support high pressures. On telemetry, in sinus rhythm with PVCs, on vasopressin on Levophed. GENERAL: Intubated and sedated. CARDIOVASCULAR: Regular rate and rhythm. CHEST: Chest tubes in place. EXTREMITIES: With edema. CARDIOVASCULAR MEDICATIONS: Reviewed. Aspirin 81 mg daily and Lovenox 40 mg subcutaneous daily. STUDIES: Reviewed. White blood cells trending up at 21.5, hemoglobin 7.5, and platelets 205. ABG; 7.13/115, PaO2 not performed. Sodium 141, potassium 4.9, chloride 94, bicarbonate 40, BUN 52, creatinine 1.8, glucose 141, lactic acid trending up 2.7, calcium 7.8, magnesium 2.4, and phosphorus 5.5. Total bilirubin 4.8, AST 562 trending up, and ALT 376. Total protein 6.4 and albumin 3.6. Blood cultures, no growth after 48 hours. Dialysis ongoing. ASSESSMENT AND PLAN: A 69-year-old man with severe shock, septic recurrence, abnormal LFTs, shock liver, type 2 myocardial infarction, COVID-19 positive community-acquired pneumonia, acute respiratory failure, complicated with pneumothorax, status post chest tube, remains on high vent peak pressures, chronic kidney disease, and volume overload. RECOMMEND: Continue pressors for MAP 65 to 75. Continue supportive care, on antibiotics and vent support. Chest tubes remain well function and in place. Overall, guarded prognosis. Prolonged respiratory support and continued deterioration in spite of aggressive measures. Continue with supportive care. Abdias Nguyen MD [facility]/MODL /[id number]
[2020-02-21] MEDS ORDERED: MEROPENEM 500MG 500 MG in SODIUM CHLORIDE 0.9% 50ML 50 ML IV SCH (21:00)
[2020-02-21] MEDS: NOREPINEPHRINE INJ 4MG/4ML 16 MG in DEXTROSE 5% 250ML 250 ML IV PRN (21:05)
[2020-02-21] MEDS: MEROPENEM 500MG/ NS 50ML 50 ML IV SCH (21:05)
--- NOTE | 2020-02-21 23:24 | Diagnostic Imaging Report ---
Abdomen/KUB INDICATION: ^CONFIRM SIMMS PLACEMENT. TO BE GIVEN WITH CONTRAST ^20200221 ^0 COMPARISON: Abdomen x-ray 1146 hours. FINDINGS: Portable, supine image obtained at 2257 hours. Medical Devices: Simms catheter within the urinary bladder surrounded by contrast. No extravasation. A linear probe overlies the left pubic symphysis and is stable. Bowel: Little small or large bowel air . Free air: None Abdominal calcifications: None over the renal shadows or along the expected course of the ureters. Organomegaly: None Bones: Unremarkable IMPRESSION: Simms catheter is within the urinary bladder. Stable linear medical superintendent over the left pubic symphysis. Signed by: Dr. George Fajardo MD on 02/21/2020 11:21 PM
--- NOTE | 2020-02-21 23:27 | Diagnostic Imaging Report ---
EXAMINATION: CHEST SINGLE (PORTABLE) COMPARISON: Chest x-ray 0536 hours INDICATION: ^INTUBATED, CHANGE IN CONDITION ^20200221 ^2229 DISCUSSION: Frontal view of the chest obtained at 2258 hours. HEART AND MEDIASTINUM: Stable cardiomegaly LINES: Endotracheal tube terminates approximately 6 cm above the lakeisha. Enteric tube extends past the diaphragm. Right IJ catheter terminates in the SVC. Right PICC line terminates in the SVC. 2 left side chest tubes are stable. LUNGS/PLEURA: Loculated air collection the base of the right lung is stable. Right pneumothorax measures approximately 6 mm and is stable. Bilateral groundglass infiltrates in each lung are stable. No large effusions. BONES AND SOFT TISSUES: No focal osseous lesion. The soft tissues are normal. IMPRESSION: 1. Support devices as described above. 2. No change in pulmonary infiltrates or small right pneumothorax. Signed by: Dr. George Fajardo MD on 02/21/2020 11:24 PM
[2020-02-22] VITALS (24 sets, daily range): BP systolic 66–140; BP diastolic 35–72
[2020-02-22] MEDS: MIDAZOLAM HCL 5MG/ML 10ML VIAL 100 ML IV PRN ×3 (03:30→19:15)
[2020-02-22 05:26] LABS: BASOPHILS # (AUTO) 0.1 (0.0-0.1); EOSINOPHILS # (AUTO) 0.1 (0.0-0.4); HEMOGLOBIN 7.1 g/dL (14.0-18.0); LYMPHOCYTES # (AUTO) 0.6 (1.0-3.2); MEAN CORPUSCULAR HEMOGLOBIN 32.3 pg (28-32); MEAN CORPUSCULAR HGB CONC 28.4 g/dL (31-35); MEAN CORPUSCULAR VOLUME 113.6 fL (81-99); MONOCYTES # (AUTO) 0.9 (0.2-0.8); NEUTROPHILS # (AUTO) 17.5 (2.1-6.9); PLATELET COUNT 164 x10e3/uL (140-360); RED CELL DISTRIBUTION WIDTH 19.5 % (11.7-14.4)
[2020-02-22 05:47] LABS: ALBUMIN 3.7 g/dL (3.5-5.0); ALBUMIN/GLOBULIN RATIO 1.5 (0.8-2.0); ANION GAP 10.3 mmol/L (8-16); CALCIUM 7.5 mg/dL (8.4-10.2); CREATININE, SERUM 1.92 mg/dL (0.72-1.25); POTASSIUM 4.3 mmol/L (3.5-5.1)
[2020-02-22 06:06] LABS: MAGNESIUM 2.1 MG/DL (1.3-2.1); PHOSPHORUS 4.4 MG/DL (2.3-4.7)
[2020-02-22] MEDS: ENOXAPARIN SOD INJ 40 MG/0.4 ML SYR SC SCH (06:15)
--- NOTE | 2020-02-22 06:42 | Diagnostic Imaging Report ---
EXAMINATION: CHEST SINGLE (PORTABLE) COMPARISON: Chest x-ray 02/21/2020 INDICATION: ^Intubated, Rt Pneumothorax ^20200222 ^0530 ^Y DISCUSSION: Frontal view of the chest obtained at 0611 hours. HEART AND MEDIASTINUM: Stable cardiomegaly LINES: Endotracheal tube terminates 5 to 6 cm with the lakeisha. Right IJ catheter terminates in the SVC. Right PICC line terminates in the SVC. Enteric tube extends past the diaphragm. 2 right side chest tubes are stable in position. LUNGS/PLEURA: Air collection in the base of the right lung is stable. Diffuse multifocal airspace opacities are similar. A 6 mm pneumothorax on previous exam is no longer visualized. No large effusion or pneumothorax in the left chest. BONES AND SOFT TISSUES: Stable. IMPRESSION: 1. Support devices as described above. 2. No change in pulmonary infiltrates. Loculated pneumothorax in the base of the right lung is stable. Signed by: Dr. George Fajardo MD on 02/22/2020 6:39 AM
[2020-02-22] MEDS: HEPARIN SOD/SOD CHLORIDE 1,000 ML IV SCH (07:45)
[2020-02-22] MEDS ORDERED: SODIUM BICARBONATE 8.4% 150 ML in DEXTROSE 5% 1,000 ML IV SCH (09:00)
[2020-02-22] MEDS: MEROPENEM 500MG/ NS 50ML 50 ML IV SCH ×2 (09:19→23:00)
[2020-02-22] MEDS: ASPIRIN 81 MG CHEW TAB PO SCH (09:19)
[2020-02-22] MEDS: PANTOPRAZOLE 40 MG 10ML VIAL IV SCH (09:19)
[2020-02-22] MEDS: EYE LUBRICANT OPTH OINT 3.5GM TUBE OP SCH ×2 (09:19→18:19)
[2020-02-22] MEDS: BALSAM PERU/CASTOR OIL 60 GM OINT...G. TP SCH (09:19)
--- NOTE | 2020-02-22 09:28 | Progress Note ---
DATE: 02/21/2020 SUBJECTIVE: The patient had worsening desaturations. The patient's Levophed has been increased to maximum strength. He did receive dialysis yesterday and 1.5 L were removed. The family was notified concerning the worsening status. The along with 3 daughters came. A long family meeting was held with them. All issues were discussed. The family also spoke to Infectious Disease and nursing. PHYSICAL EXAMINATION: VITAL SIGNS: The patient remains on Levophed at maximum dose. He is saturating in the high 90s on a PRVC at a rate of 32 and a tidal volume of 400 mL. The PEEP is set at 12. HEENT: Shows no facial swelling or erythema. CARDIAC: Reveals regular rate and rhythm with normal S1 and S2. LUNGS: Auscultation of lungs reveals rhonchorous breath sounds bilaterally. There is no wheezing. ABDOMEN: Soft, nontender. There are 2 chest tubes on the right side. There is no leg edema. LABORATORY DATA: The BUN to creatinine ratio is 52 to 1.84. The other electrolytes were normal limits. The lactic acid was 2.1 and the AST is 262. ALT is 376. IMPRESSION: 1. Acute respiratory failure. 2. Sepsis and leukocytosis with worsening blood pressure. 3. Acute renal failure. 4. Coronavirus 19. 5. Anemia. 6. Thrombocytopenia. PLAN: 1. Continue current antibiotics. 2. Continue pressors. 3. The patient is scheduled for dialysis again today. 4. Continue to monitor blood counts. 5. Continue to monitor renal function. 6. The patient will be continued on full support for now. 7. Family is aware that the prognosis is poor, although there is still some possibility of improvement. Greater than 35 minutes in direct critical care time. Osman Frye MD [facility]/MODL /[id number]
--- NOTE | 2020-02-22 09:53 | Progress Note ---
DATE: SUBJECTIVE: The patient is remaining on a mechanical ventilation. The patient received dialysis again yesterday. He is still requiring pressors at maximum Levophed and minimum vasopressin. PHYSICAL EXAMINATION: VITAL SIGNS: The blood pressure is 113/52 and the saturation is 93%. The pulse is 79. HEENT: Shows no facial swelling or erythema. CARDIAC: Reveals regular rate and rhythm with normal S1 and S2. LUNGS: Auscultation of lungs reveals crackles at the bases. There is no wheezing. ABDOMEN: Soft, nontender. There is no rebound or guarding. The patient is on a PRVC mode of ventilation. Respiratory rate is set at 32 and the tidal volume is 420. PEEP is set at 14 and the peak airway pressure is 39. The mean airway pressure is 25. The patient remains on Levophed at maximum dose and vasopressin. The patient still has chest tubes in on the right side. LABORATORY DATA: The BUN to creatinine ratio is 39 to 1.92. Other electrolytes are within normal limits. The BUN to creatinine ratio is normal. The white blood cell count is 20 and the hemoglobin is 7.1. Chest x-ray shows bilateral pulmonary infiltrates. BUN to creatinine ratio is 39 to 1.92 and carbon dioxide is 37. AST is 703 and ALT is 508. White blood cell count is 20, hemoglobin is 7.1, and the platelet count is 164. Continue chest tube to suction. IMPRESSION: 1. Acute respiratory failure. 2. Right-sided pneumothorax. 3. Leukocytosis and possible septic shock. 4. Acute renal failure. 5. Anemia. 6. Thrombocytopenia. 7. Diabetes. 8. Hypertension. PLAN: 1. Continue current antibiotics. 2. Continue current ventilator settings. 3. Repeat ABG. 4. Wean pressors as tolerated. 5. Continue SLED dialysis to remove additional fluid. 6. Case discussed with Infectious Disease, family, Nephrology, nursing and Respiratory. Greater than 35 minutes in direct critical care time. Osman Frye MD [facility]/MODL /[id number]
[2020-02-22] MEDS ORDERED: SODIUM BICARBONATE 8.4% INJ 50 ML SYR IV SCH (12:00)
[2020-02-22] MEDS: FENTANYL 2000MCG/NS 250 250 ML IV PRN ×2 (12:03)
--- NOTE | 2020-02-22 16:32 | NUR ---
PROGRESS NOTE [id number]
[2020-02-22] MEDS: FLUCONAZOLE 200 MG/100 ML 100 ML IV SCH (18:19)
[2020-02-22] MEDS: LINEZOLID 600 MG/D5W 300ML 300 ML IV SCH (18:58)
[2020-02-22] MEDS ORDERED: SODIUM BICARBONATE 8.4% INJ 50 ML SYR IV ONE (20:00)
--- NOTE | 2020-02-22 20:10 | Progress Note ---
DATE: SUBJECTIVE: Mr. Beatty remains in intensive care unit. He is intubated. Discussed with the family today. Discussed with family yesterday at length. The patient remains on high oxygen demand. Discussed with the nursing team and the medical team. Remains with chest tube in the right. LABORATORY DATA: Reviewed, chart reviewed. PHYSICAL EXAMINATION: GENERAL: He is currently sedated. VITAL SIGNS: Stable, currently afebrile. HEENT: He is not icteric. NECK: Supple. CHEST: Crackles, more on the right. HEART: S1, S2. ABDOMEN: Soft. Bowel sounds present. EXTREMITIES: No edema. SKIN: No rash. IMPRESSION: 1. Acute respiratory failure. 2. Acute respiratory distress syndrome, status post COVID. 3. Right-sided pneumothorax. 4. Leukocytosis, concerned about sepsis, concerned about community healthcare associated pneumonia. 5. Acute kidney failure, currently on dialysis, day #2. 6. Funguria, concerned about fungemia. 7. Anemia. 8. Diabetes mellitus, we will continue with meropenem 500 daily. We will discontinue vancomycin and change to Zyvox 600 mg IV piggyback q.12 hours. Also, add Diflucan 200 mg IV piggyback q. 24 hours. Recheck CBC. Recheck Chem panel. Continue supportive care. We will follow. MD TIFFANY Ecsoto/JENNYFER /[id number]
[2020-02-23] VITALS (25 sets, daily range): BP systolic 87–139; BP diastolic 40–69
[2020-02-23] MEDS: FENTANYL 2000MCG/NS 250 250 ML IV PRN ×2 (00:15→12:00)
[2020-02-23] MEDS: MIDAZOLAM HCL 5MG/ML 10ML VIAL 100 ML IV PRN ×2 (03:54→12:00)
[2020-02-23] MEDS: ENOXAPARIN SOD INJ 40 MG/0.4 ML SYR SC SCH (05:15)
[2020-02-23 05:26] LABS: BASOPHILS # (AUTO) 0.1 (0.0-0.1); EOSINOPHILS # (AUTO) 0.1 (0.0-0.4); HEMATOCRIT 25.2 % (38.2-49.6); HEMOGLOBIN 7.4 g/dL (14.0-18.0); LYMPHOCYTES # (AUTO) 0.3 (1.0-3.2); MEAN CORPUSCULAR HGB CONC 29.4 g/dL (31-35); MEAN CORPUSCULAR VOLUME 109.1 fL (81-99); MONOCYTES # (AUTO) 0.5 (0.2-0.8); NEUTROPHILS # (AUTO) 14.1 (2.1-6.9); PLATELET COUNT 127 x10e3/uL (140-360); RED BLOOD COUNT 2.31 x10e6/uL (4.3-5.7)
[2020-02-23 05:45] LABS: ALBUMIN 3.1 g/dL (3.5-5.0); ALBUMIN/GLOBULIN RATIO 1.3 (0.8-2.0); ANION GAP 10.8 mmol/L (8-16); CALCIUM 7.4 mg/dL (8.4-10.2); CREATININE, SERUM 1.89 mg/dL (0.72-1.25); POTASSIUM 3.8 mmol/L (3.5-5.1)
[2020-02-23] MEDS: LINEZOLID 600 MG/D5W 300ML 300 ML IV SCH ×2 (06:11→18:25)
[2020-02-23 06:20] LABS: MAGNESIUM 1.9 MG/DL (1.3-2.1); PHOSPHORUS 3.2 MG/DL (2.3-4.7)
--- NOTE | 2020-02-23 06:46 | Diagnostic Imaging Report ---
Abdomen/KUB INDICATION: ^Abd Distention ^20200223 ^0540 ^Y COMPARISON: None. FINDINGS: Portable, supine image obtained at 0545 hours. Medical Devices: NG tube terminates in the proximal stomach Bowel: Unremarkable bowel gas pattern. No dilated bowel loops or pneumatosis. Free air: None Abdominal calcifications: None over the renal shadows or along the expected course of the ureters. Organomegaly: None Bones: Mild degenerative changes of the lower lumbar spine. IMPRESSION: NG tube terminates in the proximal stomach. Unremarkable bowel gas pattern. No bowel dilatation. Signed by: Dr. George Fajardo MD on 02/23/2020 6:43 AM
--- NOTE | 2020-02-23 06:49 | Diagnostic Imaging Report ---
EXAMINATION: CHEST SINGLE (PORTABLE) COMPARISON: Chest x-ray 02/22/2020 INDICATION: ^Intubated, Rt Pneumothorax ^[id number] ^0610 ^Y DISCUSSION: Frontal view of the chest obtained at 0546 hours. HEART AND MEDIASTINUM: Stable cardiomegaly and aortic tortuosity LINES: Endotracheal tube terminates 6 to 7 cm above the lakeisha. Enteric tube extends past the diaphragm. 2 right chest tubes are stable in position. Right PICC line terminates in the SVC. Right IJ catheter terminates in the SVC. LUNGS/PLEURA: Diffuse groundglass airspace opacities are redemonstrated and similar. Loculated air collection in the base of the right lung is stable. 6 mm pneumothorax is stable. Small left pleural effusion. BONES AND SOFT TISSUES: Stable. IMPRESSION: 1. Support devices as described above. 2. Stable right pneumothorax and loculated pneumothorax. 3. No change in pulmonary infiltrates. Signed by: Dr. George Fajardo MD on 02/23/2020 6:46 AM
[2020-02-23 08:36] LABS: CREATINE KINASE MB 2.6 ng/mL (0-5.0)
[2020-02-23] MEDS: ASPIRIN 81 MG CHEW TAB PO SCH (08:46)
[2020-02-23] MEDS: HEPARIN SOD/SOD CHLORIDE 1,000 ML IV SCH (08:46)
[2020-02-23] MEDS: EYE LUBRICANT OPTH OINT 3.5GM TUBE OP SCH ×2 (08:46→17:32)
[2020-02-23] MEDS: PANTOPRAZOLE 40 MG 10ML VIAL IV SCH (08:46)
[2020-02-23] MEDS: MEROPENEM 500MG/ NS 50ML 50 ML IV SCH ×2 (08:46→21:50)
[2020-02-23] MEDS: BALSAM PERU/CASTOR OIL 60 GM OINT...G. TP SCH (08:47)
[2020-02-23] MEDS ORDERED: SODIUM BICARBONATE 8.4% SYRING 50 ML ONE ×2 (09:21→10:12)
[2020-02-23 09:36] LABS: EOSINOPHILS % (MANUAL) 2 % (0-7); HYPOCHROMASIA SLIGHT; LYMPHOCYTES % (MANUAL) 2 % (19-48); MONOCYTES % (MANUAL) 4 % (3.4-9.0); MYELOCYTES % (MANUAL) 1 % (0-0); NEUTROPHILS % (MANUAL) 91 % (40-74)
[2020-02-23] MEDS ORDERED: SODIUM BICARBONATE 8.4% INJ 50 ML SYR IV ONE (10:30)
--- NOTE | 2020-02-23 14:28 | Progress Note ---
DATE: SUBJECTIVE: The patient was weaned down to 12 mcg of Levophed last night. Early this morning about 4 a.m., he had more hypotension and the Levophed was increased. He is now on 26 mcg of Levophed. The vasopressin is off. He remains on a PRVC mode of ventilation at a rate of 32 with a tidal volume of 440. His FiO2 is set at 100% and his PEEP is set at 14. His saturations are in the lower mid 90s. He is receiving dialysis. PHYSICAL EXAMINATION: VITAL SIGNS: The blood pressure is 100/46 by A-line and 130/67 by cuff. His Levophed is set at 26. He is off the vasopressin. He is on a PRVC mode of ventilation, rate of 32 with a tidal volume of 440 mL. HEENT: Shows no facial swelling or erythema. CARDIAC: Reveals regular rate and rhythm with normal S1 and S2. LUNGS: Auscultation of lungs reveals decreased breath sounds at the bases. There are 2 chest tubes on the right side. There is still a small amount of subcutaneous emphysema on the right. He has a dialysis catheter and the right IJ as well as an oral endotracheal tube. He has an A-line. ABDOMEN: Soft and nontender. There is no rebound or guarding. EXTREMITIES: Shows no leg edema or calf tenderness. There is no cyanosis or clubbing. SKIN: Shows no rashes. LABORATORY DATA: White blood cell count is 15.5 and the hemoglobin is 7.4. The platelet count is 127. The BUN to creatinine ratio is 33 to 1.89. The other electrolytes are within normal limits. The AST is 722 and the ALT is 662. Albumin is 3.1. RADIOGRAPHIC DATA: Chest x-ray shows stable loculated right pneumothorax at the base. There are bilateral pulmonary infiltrates. IMPRESSION: 1. Acute respiratory failure. 2. Acute renal failure. 3. Right-sided pneumothorax. 4. Leukocytosis. 5. Anemia. 6. Thrombocytopenia. 7. Diabetes. 8. Hypertension. PLAN: 1. Continue ultrafiltration and remove as much fluid as possible. 2. Repeat ABG after ultrafiltration. 3. Continue to adjust ventilator as needed to maintain adequate saturations and limit respiratory acidosis. Lung protective strategy with low tidal volumes and high PEEP. 4. Continue to wean pressures. 5. Continue antibiotics. 6. Case discussed with swing manager nursing, day shift nursing, Respiratory, Nephrology, Cardiology, Internal Medicine, and administration. Greater than 35 minutes in direct critical care time. MD MICHAEL Mercedes/JENNYFER /[id number]
[2020-02-23] MEDS ORDERED: ACETYLCYSTEINE 200 MG/ML 4ML VIAL ONE (15:08)
--- NOTE | 2020-02-23 15:26 | NUR ---
PHYSICAL EXAMINATION: VITAL SIGNS: The blood pressure is 100/46 by A-line and 130/67 by cuff. His Levophed is set at 26. He is off the vasopressin. He is on a PRVC mode of ventilation, rate of 32 with a tidal volume of 440 mL. HEENT: Shows no facial swelling or erythema. CARDIAC: Reveals regular rate and rhythm with normal S1 and S2. LUNGS: Auscultation of lungs reveals decreased breath sounds at the bases. There are 2 chest tubes on the right side. There is still a small amount of subcutaneous emphysema on the right. He has a dialysis catheter and the right IJ as well as an oral endotracheal tube. He has an A-line. ABDOMEN: Soft and nontender. There is no rebound or guarding. EXTREMITIES: Shows no leg edema or calf tenderness. There is no cyanosis or clubbing. SKIN: Shows no rashes. LABORATORY DATA: White blood cell count is 15.5 and the hemoglobin is 7.4. The platelet count is 127. The BUN to creatinine ratio is 33 to 1.89. The other electrolytes are within normal limits. The AST is 722 and the ALT is 662. Albumin is 3.1. RADIOGRAPHIC DATA: Chest x-ray shows stable loculated right pneumothorax at the base. There are bilateral pulmonary infiltrates. [id number]
[2020-02-23] MEDS: FLUCONAZOLE 200 MG/100 ML 100 ML IV SCH (17:31)
--- NOTE | 2020-02-23 17:34 | Progress Note ---
DATE: 02/23/2020 Cardiology Progress Note SUBJECTIVE: Remains intubated and sedated. OBJECTIVE: VITAL SIGNS: Temperature 98.1, heart rate 98, blood pressure 130/67, respiratory rate 32, and O2 saturation 93%. GENERAL: Intubated, sedated. RESPIRATORY: Regular rate and rhythm. EXTREMITIES: Edema to lower extremities CARDIOVASCULAR MEDICATIONS: Reviewed. Aspirin 81 mg daily, Levophed, vasopressin, and Lovenox 40 mg subcu daily. STUDIES: Reviewed. Creatinine 1.8, potassium 3.8, sodium 139, and bicarb 36. White blood cells 15.5, hemoglobin 7.4, AST 722, ALT 662. ASSESSMENT AND PLAN: A 69-year-old man with community-acquired coronavirus disease-19 pneumonia and acute respiratory failure, ARDS, acute renal failure, abnormal liver function tests, septic shock with severe sepsis and hypercoagulable state, thrombocytopenia, and anemia. RECOMMENDATIONS: 1. Continue current cardiovascular medications, particularly aspirin and Lovenox for DVT prophylaxis. Continue pressors as needed for MAP 65-75. 2. Volume optimization per Nephrology expertise. Appreciate input. Coordinate care with primary team and Nephrology. Remains in guarded prognosis. Chest tubes in place, status post pneumothorax. MD ANAIS Morales/JENNYFER /[id number]
--- NOTE | 2020-02-23 17:44 | Progress Note ---
DATE: SUBJECTIVE: Mr. Beatty remains in intensive care unit. He is intubated. Discussed with Pulmonary. Discussed with medical team. He remains on vasopressors. OBJECTIVE: HEENT: He is not icteric. NECK: Supple. CHEST: Few crackles bilateral. HEART: S1 and S2. No S3, S4, or murmur. ABDOMEN: Soft. Bowel sounds present. No tenderness. EXTREMITIES: No edema. SKIN: No rash. The patient remains on vasopressors as mentioned above. Chest x-ray is stable. IMPRESSION: 1. Sepsis and septic shock, probably healthcare-associated pneumonia. 2. Funguria. 3. Status post COVID-19. 4. Pulmonary infiltrates. 5. Acute respiratory distress syndrome. 6. Pneumothorax. Continue with the orders above. Discussed with medical team. Continue IV antibiotic. MD TIFFANY Escoto/JENNYFER /[id number]
--- NOTE | 2020-02-23 20:14 | Progress Note ---
DATE: 02/23/2020 REASON FOR PROGRESS NOTE: Right pneumothorax, COVID-19; referred by Dr. Osman Frye. SUBJECTIVE: The patient remains in the ICU in critical condition. FiO2 100%. Some serous drainage from the chest tube with a small air leak. Chest x-ray is stable. REVIEW OF SYSTEMS: Unobtainable, as the patient is intubated and sedated. PHYSICAL EXAMINATION: GENERAL: Intubated and sedated in the ICU. VITAL SIGNS: Blood pressure 105/60. Pulse 95 and regular. O2 saturation 90% on FiO2 100%. NECK: Supple. Nontender. No crepitus. CARDIAC: Regular rate and rhythm. Normal S1 and S2. No murmur. LUNGS: Coarse ventilator sounds bilaterally. LABORATORY DATA: White count 15.5, hemoglobin 7.4, hematocrit 25.2, and platelet count 127,000. INR 1.22 with PT 16.2. Sodium 139, potassium 3.8, BUN 33, and creatinine 1.89. IMPRESSION: Critically ill. On ultrafiltration. Chest status stable. Oxygenation deteriorating. MD SHERLEY GarciaL/MODL /[id number]
[2020-02-23] MEDS ORDERED: MIDAZOLAM HCL 5MG/ML 10ML VIAL 100 ML IV ONE (23:29)
[2020-02-23] MEDS: ROCURONIUM BROMIDE 250 MG in SODIUM CHLORIDE 0.9% 250ML 225 ML IV SCH (23:40)
[2020-02-24] VITALS (59 sets, daily range): BP systolic 85–133; BP diastolic 38–84
[2020-02-24] MEDS: NOREPINEPHRINE INJ 4MG/4ML 16 MG in DEXTROSE 5% 250ML 250 ML IV PRN ×2 (00:45→21:23)
[2020-02-24] MEDS: FENTANYL 2000MCG/NS 250 250 ML IV PRN ×2 (01:00→15:52)
[2020-02-24 02:59] LABS: CREATINE KINASE MB 5.6 ng/mL (0-5.0)
--- NOTE | 2020-02-24 04:49 | Diagnostic Imaging Report ---
EXAMINATION: CHEST SINGLE (PORTABLE) COMPARISON: Chest x-ray 02/23/2020 INDICATION: ^Acute Low SpO2, High Peak Pressures on Vent ^[id number] ^[id number] ^Y DISCUSSION: Frontal view of the chest obtained at 0326 hours. HEART AND MEDIASTINUM: Stable cardiomegaly and pulmonary artery enlargement. LINES: Endotracheal tube terminates approximately 5-6 and measures about the lakeisha. There is luminal narrowing of the distal trachea just above the lakeisha. Right IJ catheter and right PICC line are in the SVC. 2 right chest tubes are stable. Enteric tube extends past the diaphragm. LUNGS/PLEURA: Multifocal pulmonary infiltrates are redemonstrated and stable. Loculated pneumothorax in the base of the right lung is stable. Pneumothorax in the lateral aspect of the right chest is not visualized on this image. No left pneumothorax. Small left pleural effusion is stable. BONES AND SOFT TISSUES: No focal osseous lesion. The soft tissues are normal. IMPRESSION: 1. Narrowing of the distal trachea, possibly due to mucous plugging or stenosis. Recommend correlation with bronchoscopy. 2. No change in multifocal pulmonary infiltrates suggestive of ARDS/pneumonia. Stable loculated pneumothorax in the base of the right chest. 3. Support devices as described above. Signed by: Dr. George Fajardo MD on 02/24/2020 4:45 AM
[2020-02-24] MEDS ORDERED: SODIUM BICARBONATE 8.4% INJ 50 ML SYR IV STA (05:00)
[2020-02-24] MEDS ORDERED: SODIUM BICARBONATE 8.4% SYRING 50 ML ONE ×2 (05:08→20:56)
[2020-02-24] MEDS: ENOXAPARIN SOD INJ 40 MG/0.4 ML SYR SC SCH (05:15)
[2020-02-24] MEDS ORDERED: ALBUMIN 25% 12.5GM 0.25 GM/ML BTL IV ONE (05:30)
[2020-02-24] MEDS ORDERED: LIDOCAINE HCL 4% 50 ML BTL ONE (05:57)
[2020-02-24 05:58] LABS: BASOPHILS # (AUTO) 0.1 (0.0-0.1); HEMATOCRIT 24.7 % (38.2-49.6); HEMOGLOBIN 7.4 g/dL (14.0-18.0); LYMPHOCYTES # (AUTO) 0.4 (1.0-3.2); MEAN CORPUSCULAR VOLUME 106.9 fL (81-99); MONOCYTES # (AUTO) 0.7 (0.2-0.8); NEUTROPHILS # (AUTO) 15.4 (2.1-6.9); PLATELET COUNT 115 x10e3/uL (140-360); RED BLOOD COUNT 2.31 x10e6/uL (4.3-5.7)
[2020-02-24 06:28] LABS: ALBUMIN 2.8 g/dL (3.5-5.0); ANION GAP 14.7 mmol/L (8-16); CALCIUM 7.4 mg/dL (8.4-10.2); CREATININE, SERUM 2.7 mg/dL (0.72-1.25); POTASSIUM 3.7 mmol/L (3.5-5.1)
[2020-02-24] MEDS: ROCURONIUM BROMIDE 250 MG in SODIUM CHLORIDE 0.9% 250ML 225 ML IV SCH (06:40)
[2020-02-24 06:57] LABS: MAGNESIUM 1.9 MG/DL (1.3-2.1); PHOSPHORUS 4.8 MG/DL (2.3-4.7)
[2020-02-24 07:11] LABS: CREATINE KINASE MB 7.1 ng/mL (0-5.0)
[2020-02-24] MEDS ORDERED: SODIUM BICARBONATE 8.4% SYRING 100 ML ONE (07:11)
[2020-02-24] MEDS ORDERED: EPINEPHRINE HCL SYRINGE ONE (07:37)
--- NOTE | 2020-02-24 07:42 | Diagnostic Imaging Report ---
EXAMINATION: CHEST SINGLE (PORTABLE) COMPARISON: Chest x-ray 0326 hours INDICATION: Intubated ^[id number] ^[id number] DISCUSSION: Frontal view of the chest obtained at 0648 hours. HEART AND MEDIASTINUM: Stable cardiomegaly and pulmonary artery enlargement LINES: Endotracheal tube terminates approximately 5 to 6 cm of the lakeisha. Narrowing of the distal trachea is redemonstrated. Right IJ catheter, right PICC line, into right side chest tubes are stable. Enteric tube extends past the diaphragm. LUNGS/PLEURA: No change in pulmonary infiltrates or loculated right pneumothorax. Stable small left pleural effusion. BONES AND SOFT TISSUES: Stable. IMPRESSION: Stable narrowing of the distal trachea. No change in pulmonary infiltrates or loculated right pneumothorax. Signed by: Dr. George Fajardo MD on 02/24/2020 7:38 AM
--- NOTE | 2020-02-24 08:00 | NUR ---
Late Entry: At approx 0305 patient suddenly began to desat. SpO2 was between 80-85%. RT was already on the unit and making rounds. After several attempts to get SpO2 back up unsuccessfully, Dr. Frye was notified and an order for an ABG and stat Chest X-Ray was obtained and implemented. Dr. Frye was called with the ABG results and Chest X-ray report. At that time Dr. Frye gave an order to obtain consent for bronchoscopy and to call in the team. Attending Urologist was notified and consent was obtained. Bronchoscopy was started at the bedside at 0633 and completed at 0654. Post bronch X-ray was obtained and report was given to oncoming nurse. Patient's SpO2 was 79% and slowly climbing. Dr. Frye stated to give the patient time to recover from laying flat for bronch and obtain an ABG. Day shift nurse present and acknowledged orders.
[2020-02-24] MEDS: LINEZOLID 600 MG/D5W 300ML 300 ML IV SCH (08:27)
[2020-02-24] MEDS: EYE LUBRICANT OPTH OINT 3.5GM TUBE OP SCH ×2 (08:28→15:51)
[2020-02-24] MEDS ORDERED: MANNITOL 25% 12.5GM/50 ML VIAL IV PRN (08:45)
[2020-02-24] MEDS ORDERED: SODIUM CHLORIDE 0.9% 250ML 500 ML IV PRN (08:45)
[2020-02-24] MEDS: HEPARIN SOD/SOD CHLORIDE 1,000 ML IV SCH (09:00)
--- NOTE | 2020-02-24 09:02 | Operative Report ---
DATE OF PROCEDURE: SURGEON: Osman Frye MD PROCEDURE: Bronchoscopy with lavage. PREOPERATIVE DIAGNOSIS: Atelectasis and mucus plugging. POSTOPERATIVE DIAGNOSIS: Atelectasis and mucus plugging. CONSENT: Consent was obtained from the . ANESTHESIA: The patient was on a Versed drip, fentanyl drip, and rocuronium at the time of the procedure. DESCRIPTION OF PROCEDURE: The patient was placed in supine position. An Ambu bag with a PEEP valve was required to increase his oxygen saturations above 90%. The scope was then introduced through the 9.0 endotracheal tube. The endotracheal tube was patent. In the proximal trachea, there were several areas of bloody mucus that was desiccated and adherent to the tracheal wall. With some lavages, several of the tracheal mucus plugs were removed. The scope was then advanced to the lakeisha. The lakeisha was normal. The right tracheobronchial tree was normal. The right upper lobe bronchus, the right middle lobe and right lower lobe bronchus were all normal to the subsegmental level. There were no endobronchial lesions. The scope was repositioned into the left tracheobronchial tree. The left upper lobe lingula and left lower lobe were all normal to the subsegmental level. There were no endobronchial lesions. COMPLICATIONS: None. ESTIMATED BLOOD LOSS: None. Osman Frye MD [facility]/MODL /[id number]
--- NOTE | 2020-02-24 09:12 | Progress Note ---
DATE: SUBJECTIVE: The patient was doing well last night. The Levophed was decreased to 12 and the saturations remained in the mid 90s. Early this morning around 4 to 5 a.m., the patient desaturated. Also had decreased blood pressures that required an increase in the Levophed to 26. The patient was restarted on vasopressin. The patient underwent bronchoscopy. Some dried secretions were removed from the proximal trachea. No other endobronchial obstructions were found. The patient continues to have low saturations. The PEEP has been increased to 18. The saturations are in the low-to-mid 80s. PHYSICAL EXAMINATION: VITAL SIGNS: The blood pressure is 118/56 and saturation is 84%. The patient is on a PRVC at a rate of 30 with a tidal volume of 420. The PEEP is set at 16. The patient is on 100% FiO2. HEENT: No facial swelling or erythema. CHEST: There is a dialysis catheter in the right IJ. There is some mild subcutaneous emphysema. There are 2 chest tubes on the right side. The higher chest tube still has some air leak. CARDIAC: Reveals regular rate and rhythm with normal S1, S2. LUNGS: There are decreased breath sounds at the lung bases. ABDOMEN: Soft and nontender. There is no rebound or guarding. EXTREMITIES: 1 to 2+ leg edema. LABORATORY DATA: White blood cell count is 16.9 and the hemoglobin is 7.4. The platelet count is 115. The BUN to creatinine ratio is 42 to 2.7. Other electrolytes are within normal limits. The AST is 543 and the ALT is 606. Troponin is mildly elevated at 5.76. RADIOGRAPHIC DATA: Shows persistent bilateral infiltrates. IMPRESSION: 1. Acute respiratory failure. 2. Acute respiratory distress syndrome. 3. Acute renal failure. 4. Right-sided pneumothorax. 5. Anemia. 6. Thrombocytopenia. 7. Diabetes. 8. Hypertension. PLAN: 1. Continue current ventilation. The patient is on maximum FiO2 and high PEEP. Despite having decreased tidal volume, the airway pressures remain high. 2. The patient is scheduled for ultrafiltration today. 3. Continue pressors. 4. Continue antibiotics. 5. Continue to monitor blood counts and electrolytes. 6. Case discussed with nightshift nursing, dayshift nursing, Respiratory, Nephrology, administration, and family. 7. Greater than 35 minutes in direct critical care time. MD MICHAEL Mercedes/JENNYFER /[id number]
[2020-02-24 09:16] LABS: BAND NEUTROPHILS % (MANUAL) 1 %; EOSINOPHILS % (MANUAL) 2 % (0-7); LYMPHOCYTES % (MANUAL) 5 % (19-48); MONOCYTES % (MANUAL) 3 % (3.4-9.0); MYELOCYTES % (MANUAL) 2 % (0-0); NEUTROPHILS % (MANUAL) 87 % (40-74); NUCLEATED RED BLOOD CELLS 4
[2020-02-24 09:17] LABS: ANISOCYTOSIS MODERATE; PLATELET ESTIMATE SLIGHTLY DECREASED; RBC MORPHOLOGY COMMENT ABNORMAL
[2020-02-24 09:18] LABS: PLATELET MORPHOLOGY COMMENT NORMAL
--- NOTE | 2020-02-24 11:21 | NUR ---
HD started this morning. tolerating hd now. patient has rotational bed that is repositioning pt frequently as pt is not able to tolerate larger physical amounts of turning. desating with any movement. will continue to monitor.
[2020-02-24] MEDS ORDERED: MIDAZOLAM HCL 5MG/ML 10ML VIAL 100 ML IV ONE ×2 (11:59→22:59)
--- NOTE | 2020-02-24 12:03 | Progress Note ---
DATE: 02/24/2020 Cardiology Progress Note SUBJECTIVE: Remains intubated and sedated. OBJECTIVE: VITAL SIGNS: Temperature 97.6, heart rate 91, blood pressure 118/56, respiratory rate 35, and O2 saturation 92%. BMI 36. GENERAL: Intubated, sedated. Undergoing dialysis on exam with anasarca, edema to lower extremities is worsening 3+ including scrotal edema. CHEST: Decreased breath sounds. CARDIOVASCULAR: Regular rate and rhythm. Normal S1, S2. ABDOMEN: Distended. Bowel sounds positive. EXTREMITIES: Euthermic, adequate for capillary refill. SKIN: Chest tubes are in place on skin. CARDIOVASCULAR MEDICATIONS: Reviewed: 1. Aspirin 81 mg daily. 2. Lovenox 40 mg subcu daily. 3. Vasopressin. 4. Levophed as needed for MAP 65 to 75. LABORATORY DATA: Studies reviewed. Creatinine 2.7. Hemoglobin 7.4, white blood cells 16.8, and platelets 115. PT 16.2, PTT 34.2, and INR 1.22. ALT 606, AST 543, and alkaline phosphatase 183. ASSESSMENT AND PLAN: A 69-year-old man with COVID-19 community-acquired pneumonia, present on admission; and acute respiratory failure requiring prolonged intubation, volume overload, renal failure, acute anemia, shock liver, severe sepsis with septic shock, and pneumothorax, status post chest tube. RECOMMENDATIONS: 1. Continue current cardiovascular medications for type 2 CT, mainly aspirin. 2. Continue DVT prophylaxis with Lovenox. 3. Pressors as needed for MAP 65 to 75. 4. Volume optimization per Nephrology Abdias Nguyen MD [facility]/MODGabriel /[id number] MTDWalt
--- NOTE | 2020-02-24 12:55 | NUR ---
Nutrition Intervention Note RD Recommendation(s) for Physician: - TPN rec's: Per central access TPN at 42 ml/hr of Dextrose 30%/500 ml (151 gm/day), AA10%/500 ml (50 gm/day), 25 gm lipids/day, NaCl 35 mEq/L, KCl 10 mEq/L, Ca 4.6 mEq/L, Mg Sulfate 8 mEq/L, no Phos. Add MVI, thiamine, folic acid. No trace elements. (starter TPN provides 965 kcal/day) - Pt at risk for refeeding, recommend checking BMP with Mg and Phos daily and check TG weekly. Replace low lytes as needed. - In light of increased pressor requirements, recommend trickle feeds of Vital AF at 10 ml/hr. When hemodynamically stable, recommend advancing to goal rate of 60 ml/hr (provides 1728 kcal, 108 gm protein, and 1168 ml water). Water flushes per MD. - Bowel regimen per MD - BG and insulin management per MD Plan of Care: RD following, monitoring for tolerance and adequacy, TPN rec's, TF rec's Nutrition reason for involvement: follow up RD Assessment 02/23: Follow up. Pt discussed during MDR, bronchoscopy today. Pt remains intubated, sedated, and paralyzed. Currently on 2 high dose pressors. TF held per RN for residual of 200 ml overnight. HD initiated and receiving tx daily, continues with volume overload and 3-4+ edema. TF not meeting needs x >1 week, discussed TPN with RN on unit and rec's placed in chart. Recommend trickle TF at this time 2/2 hemodynamic instability and initiate TPN to better meet nutritional needs. Will continue to monitor. 02/19: Pt remains intubated and ventilated. Per RN, pt has become hemodynamically unstable with 2 vasopressors infusing at max rate. TF has been turned off. His creatinine has increased to 1.41 despite receiving additional albumin and Lasix. Overall worsening condition in critical status. No plan to restart TF anytime soon. Will continue to follow. 02/16: Follow up. Pt discussed during MDR, pt remains intubated and sedated. Pt continues on Rocuronium drip. TF at 35 ml/hr this am, rate decreased overnight per RN- unclear reason. RN to advance TF today. No BM for 2 weeks, discussed with RN. Chart reviewed. Current TF rec's remain appropriate. Will continue to monitor. 02/11: Follow up. Pt discussed during ICU MDR, third chest tube placed 2/2 pneumothorax. Pt remains intubated and sedated, no pressors. Pt currently on TF of Nepro at 25 ml/hr, TF held overnight and previous night 2/2 tolerance. Residuals of 120 ml reported 02/10. No HD currently. TF rec's discussed with RN. Will continue to monitor. (02/08/20) Follow up. Pt is requiring dialysis due to acute renal failure and pts tube feeding was changed to Nepro on 02/05. Per MD note today, pt developed a large tension right side pneumothorax that required emergent placement of a chest tube. Pts tube feeding is on hold at this time due to recent change in pts medical status per RN. MD note also indicates that dialysis is also being held today. Will continue to monitor. (02/05/20). Follow up. Pt was intubated on 02/01 and a tube feed order of Vital AF 1.2 was placed on 02/02. RN reported that tube feeding is currently on hold since pt is planned to be placed in the prone position today. Recommend resuming tube feeding when medically appropriate. Will continue to monitor. (02/01/20) Pt is a 69 year old male admitted with SOB, hypoxia, and fever. Pt is also positive for COVID-19. Unable to obtain nutrition history from pt since he is on droplet isolation precautions. Spoke to RN, who reported that pt is not eating much or consuming Ensure. Unable to assess weight status since there are no previous weights in chart. RN also reported that pt had nausea yesterday and is experiencing diarrhea. No chewing/swallowing issues. Will continue to monitor Principal Problems/Diagnoses: SOB, hypoxia, fever, COVID-19+ PMH: HTN, BPH GI: last recorded BM 02/01- no BM x 21 days Skin: left forehead partial thickness wound, right buttock DTI Labs: 02/23: Na 143, K 3.7, Cl 98, CO2 34, BUN 42, Cr 2.7, Gluc 116, Ca 7.4, Mg 1.9, Phos 4.8, Mg 1.9, Tbili 8.9 02/19: BUN 45 H, Creatinine 1.41 H, BUN 45 H, Glucose 134 H, Ca 8.2 L, AST 144 H, ALT 171 H 02/16: Na 141, K 4, BUN 27, Cr 0.81, Gluc 120 02/11: Na 146, K 4.3, BUN 27, Cr 0.83, Gluc 156, Ca 7.7, Phos 2.5, Mg 2.2 02/07: BUN 42, Cr 1.52, Ca 7.4, AST 122, ALT 97 (02/04) Na 147, K 5.0, BUN 41, Cr 1.85, Glu 97, Ca 7.5 (01/31) Na 133, K 3.4, BUN 30, Glu 122, Ca 8.1 Meds: protonix, zofran, abx IVF/Drips: Levophed at 16 mcg/min, Vasopressin at 1.8 units/hr, Rocuronium drip, Fentanyl drip, Versed drip I/O: (02/22) Ht: 70 inches Wt: 253 lbs (02/23)- edema and volume overload, 194 lb (02/11) 212 lbs (02/07) 195 lbs (02/01) 193 lbs (01/31) 239lb (02/19) BMI: 30.4 kg/m2 IBW: 166 lbs Malnutrition Evaluation (02/20/20) Unable to assess. Will re-evaluate at follow-up as appropriate. Nutrition Prescription (Diet Order): Vital 1.2 at 60 mL/hr with water flush of 100ml q 6hr (TF on hold) Estimated Nutritional Needs: 6123-3223 calories/day (18-20 kcal/kg) Weight used: 194 lbs 105-176 g protein/day (1.2-2 g pro/kg) Weight used: 194 lbs- adjust per renal function Diet Adequacy: Not meeting calorie needs, Not meeting protein needs - TF on hold Tolerance: Unable to assess Diet Education Needs Assessment: Diet education not indicated at this time. Nutrition Care Level: high Nutrition Diagnosis: Inadequate oral intake related to acute respiratory failure/mechanical ventilation as evidenced by TF on hold. Goal: Patient will meet 75-100% of estimated needs by follow up Progress: not progressing- TF on hold Interventions: -TF and TPN-Composition, Rate, Route, Collaboration with other providers, Recommendations Monitoring/Evaluation: -Total energy intake, Total protein intake, Formula/Solution, Weight change Signed: Lili Byrd RD, RIGO, CNSC
[2020-02-24] MEDS ORDERED: VECURONIUM BROMIDE FOR INJ 20 MG VIAL IV PRN (13:15)
[2020-02-24] MEDS ORDERED: VECURONIUM BROMIDE FOR INJ 20 MG VIAL ONE (13:27)
[2020-02-24] MEDS: VECURONIUM BROMIDE FOR INJ 20 MG VIAL IV PRN ×3 (13:30→23:00)
[2020-02-24] MEDS: ASPIRIN 81 MG CHEW TAB PO SCH (13:41)
[2020-02-24] MEDS: BALSAM PERU/CASTOR OIL 60 GM OINT...G. TP SCH (13:41)
[2020-02-24] MEDS: PANTOPRAZOLE 40 MG 10ML VIAL IV SCH (13:41)
[2020-02-24] MEDS: LINEZOLID 600 MG TAB PO SCH ×2 (14:24→21:35)
[2020-02-24] MEDS: MEROPENEM 500MG/ NS 50ML 50 ML IV SCH ×2 (14:24→21:30)
[2020-02-24] MEDS ORDERED: SODIUM CHLORIDE 0.9% 250ML 250 ML ONE (14:28)
--- NOTE | 2020-02-24 15:39 | Progress Note ---
DATE: SUBJECTIVE: Mr. Beatty is seen and examined, remains in intensive care unit. The patient underwent a bronchoscopy with lavage today. O2 saturation 90s. The patient desaturated early this morning. He has dropped his blood pressure and Levophed went up to 26. Blood cultures still pending. Sputum showed Enterobacter aerogenes with Shannan parapsilosis. He is on linezolid, meropenem, and fluconazole. We are having problem with the fluid status. I had to change his linezolid to p.o. PHYSICAL EXAMINATION: GENERAL: He is intubated, sedated. No fever. HEENT: He is not icteric. NECK: Supple. CHEST: Crackles. HEART: S1, S2. No S3, S4, or murmur. ABDOMEN: Soft. Bowel sounds present. IMPRESSION: Coronavirus disease-19, acute kidney injury, anemia, superimposed bacterial pneumonia, acute respiratory distress syndrome. Concern superimposed bacterial pneumonia, on vasopressors. We will change Diflucan to . We will discontinue Zyvox. Continue with meropenem for now. MD TIFFANY Escoto/JENNYFER /[id number]
[2020-02-24] MEDS ORDERED: MAGNESIUM HYDROXIDE 30 ML UDC ONE (16:09)
[2020-02-24] MEDS ORDERED: FLUCONAZOLE 100 MG TAB PO SCH (17:00)
[2020-02-24 17:08] LABS: CREATINE KINASE MB 4.3 ng/mL (0-5.0)
--- NOTE | 2020-02-24 18:50 | NUR ---
SATS 86-88% NOTIFIED RT AT [address] LEA VÁSQUEZ TO GIVE VEC. RR REMAIN 30, PEAK PRESSURE 34. WAITING FOR ABG RESULTS.
[2020-02-24] MEDS: MIDAZOLAM HCL 50 MG in SODIUM CHLORIDE 0.9% 100 ML 90 ML IV PRN ×3 (21:20)
[2020-02-24 22:52] LABS: CREATINE KINASE MB 3.6 ng/mL (0-5.0)
[2020-02-25] VITALS (15 sets, daily range): BP systolic 103–139; BP diastolic 45–75
[2020-02-25] MEDS ORDERED: BISACODYL 10 MG SUPP PR ONE ×2 (04:30→23:30)
[2020-02-25] MEDS: VECURONIUM BROMIDE FOR INJ 20 MG VIAL IV PRN ×2 (05:00→14:00)
[2020-02-25] MEDS: ENOXAPARIN SOD INJ 40 MG/0.4 ML SYR SC SCH (05:00)
[2020-02-25 06:34] LABS: HEMATOCRIT 23.6 % (38.2-49.6); HEMOGLOBIN 7.1 g/dL (14.0-18.0); MEAN CORPUSCULAR HEMOGLOBIN 32.9 pg (28-32); MEAN CORPUSCULAR HGB CONC 30.1 g/dL (31-35); MEAN CORPUSCULAR VOLUME 109.3 fL (81-99); PLATELET COUNT 105 x10e3/uL (140-360); RED BLOOD COUNT 2.16 x10e6/uL (4.3-5.7); RED CELL DISTRIBUTION WIDTH 21.6 % (11.7-14.4)
[2020-02-25 06:58] LABS: ALBUMIN 3.2 g/dL (3.5-5.0); ALBUMIN/GLOBULIN RATIO 1.1 (0.8-2.0); ANION GAP 13.1 mmol/L (8-16); CALCIUM 7.8 mg/dL (8.4-10.2); CREATININE, SERUM 2.62 mg/dL (0.72-1.25); POTASSIUM 4.1 mmol/L (3.5-5.1)
[2020-02-25 07:24] LABS: CREATINE KINASE MB 6.1 ng/mL (0-5.0)
--- NOTE | 2020-02-25 07:44 | NUR ---
Tramaine Frye and Althea Schafer aware of troponin with no new orders indicated at this time.
--- NOTE | 2020-02-25 08:17 | Diagnostic Imaging Report ---
Examination: Single AP view of the chest. COMPARISON: 02/24/2020 INDICATION: Intubated, right pneumothorax DISCUSSION: See impression IMPRESSION: 1. Right internal jugular high flow central venous catheter, right upper extremity PICC, endotracheal tube, enteric tube, and 2 right-sided chest tubes are unchanged in position 2. Distal tracheal narrowing as described on the comparison examination is less conspicuous on the current study. 3. When accounting for differences in technique, stable confluent bilateral pulmonary airspace opacities and small loculated right basal pneumothorax. Small left pleural effusion is again suspected. Signed by: Dr. Frank Yip M.D. on 02/25/2020 8:14 AM
[2020-02-25] MEDS ORDERED: MIDAZOLAM HCL 5MG/ML 10ML VIAL 100 ML IV ONE ×3 (08:34→22:41)
[2020-02-25] MEDS: MIDAZOLAM HCL 50 MG in SODIUM CHLORIDE 0.9% 100 ML 90 ML IV PRN ×3 (08:35→22:46)
[2020-02-25] MEDS: EYE LUBRICANT OPTH OINT 3.5GM TUBE OP SCH ×2 (09:59→18:00)
[2020-02-25] MEDS: ASPIRIN 81 MG CHEW TAB PO SCH (09:59)
[2020-02-25] MEDS: BALSAM PERU/CASTOR OIL 60 GM OINT...G. TP SCH (09:59)
[2020-02-25] MEDS: LINEZOLID 600 MG TAB PO SCH (09:59)
[2020-02-25] MEDS: PANTOPRAZOLE 40 MG 10ML VIAL IV SCH (09:59)
[2020-02-25] MEDS: MEROPENEM 500MG/ NS 50ML 50 ML IV SCH ×2 (10:02→22:59)
[2020-02-25 12:44] LABS: STOMATOCYTES SLIGHT
[2020-02-25 12:45] LABS: PLATELET ESTIMATE SLIGHTLY DECREASED; PLATELET MORPHOLOGY COMMENT NORMAL; SCHISTOCYTES FEW
[2020-02-25 12:46] LABS: HYPOCHROMASIA SLIG; POLYCHROMASIA FEW
[2020-02-25 12:50] LABS: ABG HCO3 34 mmol/L (22-26); ABG PCO2 90 mmHg (35-45); ABG PH 7.19 (7.35-7.45)
[2020-02-25 12:52] LABS: ABG HCO3 35 mmol/L (22-26); ABG PCO2 107 mmHg (35-45); ABG PH 7.12 (7.35-7.45); ABG PO2 89 mmHg (80-105)
[2020-02-25] MEDS ORDERED: SODIUM BICARBONATE 8.4% SYRING 50 ML ONE (14:06)
[2020-02-25] MEDS ORDERED: SODIUM CHLORIDE 0.9% 250ML 250 ML IV ONE (14:15)
[2020-02-25] MEDS ORDERED: FUROSEMIDE INJ 10 MG/ML 2 ML VIAL IV PRN (14:15)
--- NOTE | 2020-02-25 14:26 | NUR ---
ETT exchanged to an 8.[address] Gabriel Frye
[2020-02-25] MEDS: ROCURONIUM BROMIDE 250 MG in SODIUM CHLORIDE 0.9% 250ML 225 ML IV SCH (14:59)
--- NOTE | 2020-02-25 15:29 | Progress Note ---
DATE: SUBJECTIVE: The patient had dialysis this morning and 3.5 L were removed. The patient remains on a PRVC mode of ventilation with a tidal volume of 430 and rate of 32. The FiO2 is set at 100. The PEEP is set at 15. He remains on Levophed 25 mcg as well as vasopressin. PHYSICAL EXAMINATION: VITAL SIGNS: The blood pressure is 128/61, on Levophed at 25 mcg and vasopressin. Heart rate is 84. The patient has a PRVC mode of ventilation at a rate of 32. The tidal volume is set at 30. HEENT: Shows no facial swelling or erythema. CARDIAC: Reveals regular rate and rhythm. Normal S1, S2. LUNGS: Auscultation of lungs reveals crackles at the bases. There is no wheezing. ABDOMEN: Soft and nontender. There is no rebound or guarding. EXTREMITIES: Shows no leg edema or calf tenderness. There is no cyanosis or clubbing. SKIN: Shows no rashes. LABORATORY DATA: White blood cell count is 18.12 and hemoglobin is 7.1, the platelet count is 105. The BUN to creatinine ratio is 33 to 2.62. The other electrolytes are within normal limits. The total bilirubin is 10 and the AST is 325. The ALT is 423. The troponin I is 1.018. RADIOGRAPHIC DATA: Chest x-ray shows continued bilateral infiltrates. There is a stable pneumothorax on the right side. IMPRESSION: 1. Acute respiratory failure. 2. Acute respiratory distress syndrome. 3. Cholestatic liver abnormalities related to sepsis. 4. Leukocytosis and severe sepsis. 5. Anemia secondary to chronic blood loss. 6. Acute renal failure. 7. COVID-19 and viral pneumonia. PLAN: 1. Continue to wean pressures as tolerated. 2. Continue antibiotics. 3. Daily ultrafiltration with the 3.5 to 4 L removed during each session. 4. Continue chest tubes to suction. 5. Continue to adjust ventilator based on pressures and blood gases. 6. Continue enteral feedings. 7. Continue DVT prophylaxis. 8. Case discussed with nightshift nursing, dayshift nursing, Respiratory, Nephrology, Cardiology, Internal Medicine, and family. Greater than 35 minutes in direct critical care time. Osman Frye MD [facility]/MODL /[id number]
--- NOTE | 2020-02-25 16:32 | NUR ---
progress [id number]
--- NOTE | 2020-02-25 17:06 | Diagnostic Imaging Report ---
Chest, 1 view, 02/25/2020. History: Intubation. Comparison: X-ray from earlier today. Findings: The cardiomediastinal silhouette and pulmonary vasculature are prominent. Diffuse bilateral alveolar opacities are present, slightly increased in density. ET tube is present terminating at the level of the clavicles. Remaining lines and tubes are unchanged. There is no visible pneumothorax. There are no acute osseous or soft tissue abnormalities. Impression: ET tube in proper position. Slightly worsened bilateral pulmonary opacities. Signed by: Gabino Sandoval on 02/25/2020 5:03 PM
[2020-02-25] MEDS ORDERED: FUROSEMIDE INJ 10 MG/ML 4 ML VIAL IV ONE (17:30)
--- NOTE | 2020-02-25 17:34 | Progress Note ---
DATE: 02/25/2020 REASON FOR VISIT: Right pneumothorax, COVID-19. SUBJECTIVE: The patient remains in ICU in critical condition. FiO2 100% with PEEP 14. Some serous drainage from the chest tube. X-ray is stable with ground-glass appearance. REVIEW OF SYSTEMS: Unobtainable as the patient is intubated. PHYSICAL EXAMINATION: GENERAL: Intubated and sedated in the ICU. VITAL SIGNS: Blood pressure 105/65. Pulse 100 and regular. O2 saturation 88% on FiO2 100%. NECK: Supple, nontender. No crepitus . CARDIAC: Regular rate and rhythm. Normal S1 and S2. No murmur. LUNGS: Coarse ventilator sounds bilaterally. LABORATORY DATA: White count 18.2, hemoglobin 7.1, hematocrit 23.6, platelet count 105,000. Troponin I 1.018. Sodium 138, potassium 4.1, creatinine 2.62. IMPRESSION: Critically ill. Chest tube drainage adequate. Supportive care continues MD ADE Garcia/JENNYFER /[id number] MTDD
[2020-02-25] MEDS ORDERED: MICAFUNGIN SODIUM 100 MG in MICAFUNGIN SODIUM 100 ML IV SCH (18:00)
--- NOTE | 2020-02-25 18:54 | Progress Note ---
DATE: SUBJECTIVE: Mr. Beatty remains in intensive care unit, extremely critical. He is on a ventilator, on high demand of oxygen. He is still on PRVC mode. Ventilation with tidal volume 430. He is on PEEP of 15, FiO2 of 100%. OBJECTIVE: HEENT: Normocephalic. NECK: Supple. CHEST: Few crackles. COR: S1-S2. ABDOMEN: Soft, bowel sounds present. IMPRESSION: 1. Respiratory failure, sepsis, elevated liver enzyme secondary to sepsis, shock and septic shock on multi-antibiotics, all cultures reviewed. Urine, Shannan parapsilosis. Sputum, enterobacter. He is currently on meropenem and linezolid. We will discontinue Diflucan and give him Mycamine. We will discontinue linezolid since there is no gram-positive. Continue with meropenem. Continue with supportive care. Prognosis remains guarded. 2. Acute on chronic kidney disease, fluid overload, acute respiratory distress syndrome, we will follow. MD TIFFANY Escoto/MODL /[id number]
[2020-02-25] MEDS: FENTANYL 2000MCG/NS 250 250 ML IV PRN (19:00)
--- NOTE | 2020-02-25 20:05 | Progress Note ---
DATE: 02/25/2020 Cardiology Progress Note SUBJECTIVE: Intubated and sedated. OBJECTIVE: VITAL SIGNS: Temperature 97.3, heart rate 84, blood pressure 128/61, respiratory rate 36, and O2 saturation 93%. BMI 33.4. GENERAL: Intubated today, Levophed and vasopressin. On hemodialysis. CARDIOVASCULAR: Regular rate and rhythm on exam. EXTREMITIES: Edema to all four extremities. CARDIOVASCULAR MEDICATIONS: Reviewed: 1. Aspirin 81 mg daily. 2. Lovenox 40 mg subcu daily. LABORATORY DATA: Studies reviewed. Potassium 4.1, bicarbonate 33, and BUN 22.6. White blood cells 18.1, platelets 105, and hemoglobin 7.1. INR 1.2. AST 325, ALT 423, and alkaline phosphatase 183. ASSESSMENT: A 69-year-old man with: 1. Severe sepsis with septic shock, acute respiratory failure with prolonged intubation in the setting of community-acquired COVID-19 pneumonia and acute respiratory distress syndrome. 2. Pneumothorax, status post chest tube placement. 3. Anemia and thrombocytopenia. 4. Abnormal liver function tests. 5. Acute renal failure, on dialysis. RECOMMENDATIONS: Continues to have TnI leak in the setting of type 2 UT, pressor use. Overall, continue supportive care. Aspirin 81 mg daily and Lovenox for DVT prophylaxis. Wean pressors as tolerated to maintain a MAP 65 to 75. Continue vent weaning per Pulmonary expertise. Abdias Nguyen MD [facility]/MODL /[id number] MTDD
[2020-02-25] MEDS: MICAFUNGIN SODIUM 100 ML IV SCH (21:35)
[2020-02-25] MEDS: NOREPINEPHRINE INJ 4MG/4ML 16 MG in DEXTROSE 5% 250ML 250 ML IV PRN (22:20)
[2020-02-25] MEDS: NOREPINEPHRINE INJ 4MG/4ML 16 MG in DEXTROSE 5% 250ML 234 ML IV PRN (22:20)
--- NOTE | 2020-02-25 22:20 | NUR ---
DOUBLE CONCENTRATE LEVOPHED BAG UNAVAILABLE AT THIS TIME. RN WILL MIX DOUBLE CONCENTRATE BAG TO BE PULLED FROM PYXIS. PT CURRENTLY TOO UNSTABLE TO PAUSE DRIP FOR NEW DOUBLE CONCENTRATE BAG TO BE MADE.
--- NOTE | 2020-02-25 23:06 | Operative Report ---
DATE OF PROCEDURE: SURGEON: Osman Frye MD PROCEDURE: Endotracheal intubation by exchange of tubes over a bougie intubation. PREOPERATIVE DIAGNOSIS: Acute respiratory failure. POSTOPERATIVE DIAGNOSIS: Acute respiratory failure. CONSENT: Procedure was deemed emergent based on poor oxygen saturation and respiratory distress. MEDICATIONS: The patient was on Versed and fentanyl at the time of the procedure. DESCRIPTION OF PROCEDURE: The patient was placed in a supine position. The existing endotracheal tube was not functioning because of a hole in the balloon. There were no exhaled tidal volumes on the ventilator, but the oxygen saturations were still 90s. A bougie was placed through the endotracheal tube. The old endotracheal tube was removed and a new 8.5 endotracheal tube was placed over the bougie by the Seldinger technique. There was good CO2 return. There were equal breath sounds bilaterally. The patient desaturated to 81%, but quickly returned to the low 90s with ventilation through an Ambu bag. COMPLICATIONS: None. ESTIMATED BLOOD LOSS: None. Osman Frye MD [facility]/MODL /[id number]
--- NOTE | 2020-02-25 23:20 | NUR ---
DR. TATE NOTIFIED AND AWARE OF ABG RESULTS. DR. TATE ORDERED X1 AMP SODIUM BICARBONATE TO BE GIVEN. ORDER READ BACK AND VERIFIED. NO OTHER ORDERS AT THIS TIME.
[2020-02-25] MEDS ORDERED: SODIUM BICARBONATE 8.4% INJ 50 ML SYR IV STA ×2 (23:23→23:30)
[2020-02-26] VITALS (25 sets, daily range): BP systolic 85–154; BP diastolic 43–67
[2020-02-26] MEDS ORDERED: NOREPINEPHRINE 8 MG/D5W 250 ML 500 ML ONE (00:10)
[2020-02-26] MEDS: NOREPINEPHRINE INJ 4MG/4ML 16 MG in DEXTROSE 5% 250ML 250 ML IV PRN (00:12)
[2020-02-26] MEDS: VASOPRESSIN 60 UNIT in DEXTROSE 5% 50ML 57 ML IV PRN (02:07)
[2020-02-26] MEDS: HEPARIN SOD/SOD CHLORIDE 1,000 ML IV SCH ×2 (04:04→08:12)
[2020-02-26] MEDS: ENOXAPARIN SOD INJ 40 MG/0.4 ML SYR SC SCH (05:02)
[2020-02-26 05:39] LABS: HEMATOCRIT 25.5 % (38.2-49.6); HEMOGLOBIN 7.6 g/dL (14.0-18.0); MEAN CORPUSCULAR HEMOGLOBIN 31.3 pg (28-32); MEAN CORPUSCULAR HGB CONC 29.8 g/dL (31-35); MEAN CORPUSCULAR VOLUME 104.9 fL (81-99); PLATELET COUNT 89 x10e3/uL (140-360); RED BLOOD COUNT 2.43 x10e6/uL (4.3-5.7); RED CELL DISTRIBUTION WIDTH 22.5 % (11.7-14.4)
[2020-02-26 06:09] LABS: ALBUMIN 2.9 g/dL (3.5-5.0); ALBUMIN/GLOBULIN RATIO 0.9 (0.8-2.0); ANION GAP 14.2 mmol/L (8-16); CREATININE, SERUM 3.33 mg/dL (0.72-1.25); POTASSIUM 4.2 mmol/L (3.5-5.1)
[2020-02-26] MEDS ORDERED: MIDAZOLAM HCL 5MG/ML 10ML VIAL 100 ML IV ONE ×2 (06:28→15:27)
--- NOTE | 2020-02-26 07:08 | Diagnostic Imaging Report ---
EXAMINATION: CHEST SINGLE (PORTABLE) INDICATION: ^Resp Failure ^[id number] ^0600 COMPARISON: 02/25/2020 at 1636 hours FINDINGS: AP view TUBES and LINES: Stable endotracheal tube, right IJ central line, right chest tubes, and right PICC. Again seen subdiaphragmatic enteric tube with tip outside the [id number]. LUNGS: Lungs are well inflated. Diffuse bilateral airspace opacities, mildly improved. PLEURA: Small left pleural effusion. Unchanged loculated right basilar pneumothorax. HEART AND MEDIASTINUM: The cardiomediastinal silhouette is enlarged. BONES AND SOFT TISSUES: No acute osseous lesion. Soft tissues are unremarkable. UPPER ABDOMEN: No free air under the diaphragm. IMPRESSION: Diffuse bilateral airspace opacities, representing edema and/or pneumonia, mildly improved when compared to prior exam. Small left pleural effusion. Unchanged loculated right basilar pneumothorax. Signed by: Dr. Neil Christensen MD on 02/26/2020 7:05 AM
[2020-02-26] MEDS: EYE LUBRICANT OPTH OINT 3.5GM TUBE OP SCH ×2 (08:12→17:07)
[2020-02-26] MEDS: MEROPENEM 500MG/ NS 50ML 50 ML IV SCH ×2 (08:12→21:01)
[2020-02-26] MEDS: PANTOPRAZOLE 40 MG 10ML VIAL IV SCH (08:12)
[2020-02-26] MEDS: ASPIRIN 81 MG CHEW TAB PO SCH (08:12)
[2020-02-26] MEDS: BALSAM PERU/CASTOR OIL 60 GM OINT...G. TP SCH (08:12)
[2020-02-26] MEDS: MIDAZOLAM HCL 50 MG in SODIUM CHLORIDE 0.9% 100 ML 90 ML IV PRN (08:13)
[2020-02-26 08:32] LABS: ABG HCO3 37 mmol/L (22-26); ABG PCO2 95 mmHg (35-45); ABG PH 7.19 (7.35-7.45); ABG PO2 93 mmHg (80-105)
[2020-02-26 08:35] LABS: ABG PH 7.15 (7.35-7.45)
[2020-02-26 08:36] LABS: ABG HCO3 35 mmol/L (22-26); ABG PCO2 101 mmHg (35-45)
[2020-02-26 11:46] LABS: BAND NEUTROPHILS % (MANUAL) 3 %; LYMPHOCYTES % (MANUAL) 3 % (19-48); MONOCYTES % (MANUAL) 2 % (3.4-9.0); NEUTROPHILS % (MANUAL) 92 % (40-74); NUCLEATED RED BLOOD CELLS 5
[2020-02-26 11:48] LABS: ANISOCYTOSIS MODERATE; POLYCHROMASIA FEW; RBC MORPHOLOGY COMMENT ABNORMAL
[2020-02-26 11:49] LABS: PLATELET ESTIMATE SLIGHTLY DECREASED; PLATELET MORPHOLOGY COMMENT NORMAL
[2020-02-26] MEDS: ROCURONIUM BROMIDE 250 MG in SODIUM CHLORIDE 0.9% 250ML 225 ML IV SCH (15:00)
[2020-02-26] MEDS ORDERED: SODIUM BICARBONATE 8.4% SYRING 50 ML ONE (15:21)
[2020-02-26] MEDS: MIDAZOLAM HCL 5MG/ML 10ML VIAL 100 ML IV PRN ×2 (15:27→23:10)
[2020-02-26 15:32] LABS: PARTIAL THROMBOPLASTIN TIME 45.8 seconds (23.8-35.5)
[2020-02-26 15:37] LABS: INR 1.45; PROTHROMBIN TIME 18.6 seconds (11.9-14.5)
--- NOTE | 2020-02-26 15:58 | Progress Note ---
DATE: Pulmonary Critical Care Progress Note SUBJECTIVE: The patient completed dialysis again today. Three liters were removed. The patient remains on Levophed at 28 mcg as well as vasopressin. He continues on a PRVC mode of ventilation at a rate of 32 with the tidal volume of 430. His FiO2 is set at 90% and his PEEP is set at 15. PHYSICAL EXAMINATION: HEENT: Shows no facial swelling or erythema. He has an oral endotracheal tube in. He has a right-sided dialysis catheter. CARDIAC: Reveals regular rate and rhythm with a normal S1 and S2. LUNGS: Auscultation of lungs reveals crackles at the bases. There is no wheezing. ABDOMEN: Soft and nontender. There is no rebound or guarding. There are chest tubes on the right side. There is air leak. Abdomen is soft and nontender. There is no rebound or guarding. EXTREMITIES: Shows no leg edema or calf tenderness. There is no cyanosis or clubbing. SKIN: Shows no rashes. NEUROLOGICAL: Shows no focal abnormalities. The patient is paralyzed. He is rocuronium as well as Versed and fentanyl. LABORATORY DATA: White blood cell count is 17.26 and the hemoglobin is 7.6. The platelet count is 89. There are 92% segs. BUN to creatinine ratio is 45 to 3.33. Total bilirubin is 10.6 and the ALT is 194 with an ALT of 288. Albumin is 2.9. INR is 1.22. RADIOGRAPHIC DATA: Chest x-ray shows bilateral infiltrates. There is a small right-sided pneumothorax. IMPRESSION: 1. Acute respiratory failure. 2. Worsening liver disease. 3. Leukocytosis and sepsis. 4. Acute renal failure. 5. COVID-19 infection and viral pneumonia. 6. Coagulopathy. PLAN: 1. Prognosis is poor. The family has considered DNR withdrawal, but they still wished to pursue aggressive measures at this time. 2. Continue antibiotics. 3. Continue ultrafiltration through the dialysis session daily. 4. Continue chest tubes to suction. 5. Wean pressors. 6. Continue enteral feedings. 7. Continue rocuronium along with Versed and fentanyl. 8. Case discussed with Respiratory, nursing, Nephrology, family, and administration. Greater than 35 minutes in direct critical care time. Osman Frye MD [facility]/MARIIL /[id number]
--- NOTE | 2020-02-26 15:58 | NUR ---
Nutrition Intervention Note RD Recommendation(s) for Physician: - If TF is unable to be advanced due to pts medical status, recommend starting TPN at 42 ml/hr of Dextrose 30%/500 ml (151 gm/day), AA10%/500 ml (50 gm/day), 25 gm lipids/day, NaCl 35 mEq/L, KCl 10 mEq/L, Ca 4.6 mEq/L, Mg Sulfate 8 mEq/L, no Phos. Add MVI, thiamine, folic acid. No trace elements. (starter TPN provides 941 kcal/day) - Pt at risk for refeeding, recommend checking BMP with Mg and Phos daily and check TG weekly - When hemodynamically stable, recommend advancing to goal rate of 60 ml/hr (provides 1728 kcal, 108 gm protein, and 1168 ml water). Water flushes per MD. - Bowel regimen per MD Plan of Care: RD following, monitoring for tolerance and adequacy, TPN rec's, TF rec's Nutrition reason for involvement: follow up RD Assessment 02/25: Follow up. Pt remains intubated and sedated with dialysis daily. Pt continues to be on high dose pressors per RN. Pt is currently receiving Vital AF 1.2 @ 15 mL/hr. If TF is unable to be advanced due to pts medical status, recommend starting TPN. Will continue to monitor. 02/23: Follow up. Pt discussed during MDR, bronchoscopy today. Pt remains intubated, sedated, and paralyzed. Currently on 2 high dose pressors. TF held per RN for residual of 200 ml overnight. HD initiated and receiving tx daily, continues with volume overload and 3-4+ edema. TF not meeting needs x >1 week, discussed TPN with RN on unit and rec's placed in chart. Recommend trickle TF at this time 2/2 hemodynamic instability and initiate TPN to better meet nutritional needs. Will continue to monitor. 02/19: Pt remains intubated and ventilated. Per RN, pt has become hemodynamically unstable with 2 vasopressors infusing at max rate. TF has been turned off. His creatinine has increased to 1.41 despite receiving additional albumin and Lasix. Overall worsening condition in critical status. No plan to restart TF anytime soon. Will continue to follow. 02/16: Follow up. Pt discussed during MDR, pt remains intubated and sedated. Pt continues on Rocuronium drip. TF at 35 ml/hr this am, rate decreased overnight per RN- unclear reason. RN to advance TF today. No BM for 2 weeks, discussed with RN. Chart reviewed. Current TF rec's remain appropriate. Will continue to monitor. 02/11: Follow up. Pt discussed during ICU MDR, third chest tube placed 2/2 pneumothorax. Pt remains intubated and sedated, no pressors. Pt currently on TF of Nepro at 25 ml/hr, TF held overnight and previous night 2/2 tolerance. Residuals of 120 ml reported 02/10. No HD currently. TF rec's discussed with RN. Will continue to monitor. (02/08/20) Follow up. Pt is requiring dialysis due to acute renal failure and pts tube feeding was changed to Nepro on 02/05. Per MD note today, pt developed a large tension right side pneumothorax that required emergent placement of a chest tube. Pts tube feeding is on hold at this time due to recent change in pts medical status per RN. MD note also indicates that dialysis is also being held today. Will continue to monitor. (02/05/20). Follow up. Pt was intubated on 02/01 and a tube feed order of Vital AF 1.2 was placed on 02/02. RN reported that tube feeding is currently on hold since pt is planned to be placed in the prone position today. Recommend resuming tube feeding when medically appropriate. Will continue to monitor. (02/01/20) Pt is a 69 year old male admitted with SOB, hypoxia, and fever. Pt is also positive for COVID-19. Unable to obtain nutrition history from pt since he is on droplet isolation precautions. Spoke to RN, who reported that pt is not eating much or consuming Ensure. Unable to assess weight status since there are no previous weights in chart. RN also reported that pt had nausea yesterday and is experiencing diarrhea. No chewing/swallowing issues. Will continue to monitor Principal Problems/Diagnoses: SOB, hypoxia, fever, COVID-19+ PMH: HTN, BPH GI: last recorded BM 02/01- no BM x 24 days Skin: jaundiced, edematous skin turgor, left forehead partial thickness wound, right buttock DTI Labs: 02/25: Na 141, K 4.2 BUN 45, Cr 3.33, Ca 8.0, Glu 94. Tbili 10.6, AST 198, ALT 288 02/23: Na 143, K 3.7, Cl 98, CO2 34, BUN 42, Cr 2.7, Gluc 116, Ca 7.4, Mg 1.9, Phos 4.8, Mg 1.9, Tbili 8.9 02/19: BUN 45 H, Creatinine 1.41 H, BUN 45 H, Glucose 134 H, Ca 8.2 L, AST 144 H, ALT 171 H 02/16: Na 141, K 4, BUN 27, Cr 0.81, Gluc 120 02/11: Na 146, K 4.3, BUN 27, Cr 0.83, Gluc 156, Ca 7.7, Phos 2.5, Mg 2.2 02/07: BUN 42, Cr 1.52, Ca 7.4, AST 122, ALT 97 (02/04) Na 147, K 5.0, BUN 41, Cr 1.85, Glu 97, Ca 7.5 (01/31) Na 133, K 3.4, BUN 30, Glu 122, Ca 8.1 Meds: protonix, lovenox, vasopressin, norepinephrine, rocuronium, heparin, hydralazine, zofran, lasix, fentanyl, mannitol I/O: (02/25) 2848/345 Ht: 70 inches Wt: 253 lbs (02/23)- edema and volume overload, 194 lb (02/11) 212 lbs (02/07) 195 lbs (02/01) 193 lbs (01/31) 239lb (02/19) BMI: 30.4 kg/m2 IBW: 166 lbs Malnutrition Evaluation (02/20/20) Unable to assess. Will re-evaluate at follow-up as appropriate. Nutrition Prescription (Diet Order): Vital 1.2 at 60 mL/hr with water flush of 100ml q 6hr Estimated Nutritional Needs: 5047-7793 calories/day (18-20 kcal/kg) Weight used: 194 lbs 105-176 g protein/day (1.2-2 g pro/kg) Weight used: 194 lbs- adjust per renal function Diet Adequacy: Not meeting calorie needs, Not meeting protein needs Tolerance: tolerating TF @ 15 mL/hr Diet Education Needs Assessment: Diet education not indicated at this time. Nutrition Care Level: high Nutrition Diagnosis: Inadequate oral intake related to acute respiratory failure/mechanical ventilation as evidenced by need for alternative means of nutrition. Goal: Patient will meet 75-100% of estimated needs by follow up Progress: not progressing Interventions: -TF and TPN-Composition, Rate, Route, Collaboration with other providers, Recommendations Monitoring/Evaluation: -Total energy intake, Total protein intake, Formula/Solution, Weight change Signed: Oralia Whitaker RD, LD
--- NOTE | 2020-02-26 16:50 | NUR ---
progress [id number]
--- NOTE | 2020-02-26 19:39 | Progress Note ---
DATE: 02/26/2020 Cardiology Progress Note SUBJECTIVE: Mr. Beatty is intubated today. OBJECTIVE: VITAL SIGNS: Temperature 97.7, heart rate is 86, blood pressure 104/46, respiratory rate 30 with O2 saturation 96%. GENERAL: Intubated, sedated. CARDIOVASCULAR: Regular rate and rhythm. EXTREMITIES: Edema to all four extremities, on vasopressin and Levophed. CARDIOVASCULAR MEDICATIONS: Reviewed. Lovenox 40 mg subcu daily, aspirin 81 mg daily. LABORATORY DATA: Studies reviewed. Creatinine 3.3, potassium 4.2, bicarbonate 34, hemoglobin 7.6, platelets 89, white blood cells 17.2. Abnormal LFTs, AST 198, ALT 208. ASSESSMENT: A 69-year-old man with chest tube for the pneumothorax, acute respiratory failure, coronavirus disease-19 pneumonia community acquired, acute respiratory distress syndrome, abnormal LFTs, anemia, thrombocytopenia, type 2 myocardial infarction, severe sepsis and septic shock. RECOMMENDATIONS: 1. Continue aspirin. Continue pressor for MAP 65 to 75. 2. Continue DVT prophylaxis. 3. Guarded prognosis. Abdias Nguyen MD [facility] /[id number]
[2020-02-26] MEDS: MICAFUNGIN SODIUM 100 ML IV SCH (20:15)
--- NOTE | 2020-02-26 20:15 | Progress Note ---
DATE: SUBJECTIVE: Mr. Beatty remains on a high vent demand, remains very ill. Discussed with Critical Care. Discussed with the medical team. He had dialysis again today, 3 L removed. He remains on mode ventilation, PRVC with rate 32, tidal volume 430, FiO2 was 90% with PEEP of 15. OBJECTIVE: HEENT: Normocephalic. CHEST: Few crackles. COR: S1, S2. No murmurs. ABDOMEN: Soft. IMPRESSION: Acute respiratory distress syndrome, respiratory failure, worsening liver disease, leukocytosis, sepsis, COVID-19. He is currently on meropenem, Protonix, Lovenox, micafungin. Discussed with Pulmonary. I am going to add steroid, Solu-Medrol 40 q.12h. Prognosis is extremely poor. MD TIFFANY Escoto/MODL /[id number]
[2020-02-26] MEDS: METHYLPREDNISOLONE SOD SUCC 40 MG/ML VIAL 1ML IV SCH (22:39)
[2020-02-27] VITALS (26 sets, daily range): BP systolic 92–124; BP diastolic 6–58
[2020-02-27] MEDS ORDERED: ROCURONIUM BROMIDE IV ONE (02:58)
[2020-02-27 05:02] LABS: HEMATOCRIT 24.8 % (38.2-49.6); HEMOGLOBIN 7.5 g/dL (14.0-18.0); MEAN CORPUSCULAR HEMOGLOBIN 30.9 pg (28-32); MEAN CORPUSCULAR HGB CONC 30.2 g/dL (31-35); MEAN CORPUSCULAR VOLUME 102.1 fL (81-99); PLATELET COUNT 71 x10e3/uL (140-360); RED BLOOD COUNT 2.43 x10e6/uL (4.3-5.7); RED CELL DISTRIBUTION WIDTH 23.4 % (11.7-14.4)
[2020-02-27 05:24] LABS: ALBUMIN 2.7 g/dL (3.5-5.0); ALBUMIN/GLOBULIN RATIO 0.9 (0.8-2.0); ANION GAP 13.8 mmol/L (8-16); CALCIUM 8.1 mg/dL (8.4-10.2); CREATININE, SERUM 2.87 mg/dL (0.72-1.25); POTASSIUM 3.8 mmol/L (3.5-5.1)
--- NOTE | 2020-02-27 06:22 | Diagnostic Imaging Report ---
EXAMINATION: CHEST SINGLE (PORTABLE) INDICATION: ^resp failure ^[id number] ^0530 COMPARISON: 02/26/2020 FINDINGS: AP view TUBES and LINES: Stable endotracheal tube, enteric tube, right intrajugular central catheter, right PICC, and right chest tubes. LUNGS: Lungs are well inflated. Again seen bilateral diffuse airspace opacities. PLEURA: Loculated air in right lung base. Suspected small left pleural effusion. HEART AND MEDIASTINUM: The cardiomediastinal silhouette is enlarged. BONES AND SOFT TISSUES: No acute osseous lesion. Soft tissues are unremarkable. UPPER ABDOMEN: No free air under the diaphragm. Lateral right chest wall emphysema. IMPRESSION: Diffuse bilateral airspace opacities, slightly increased when compared to prior x-ray. Unchanged loculated right basilar pneumothorax. Signed by: Dr. Neil Christensen MD on 02/27/2020 6:19 AM
[2020-02-27] MEDS: MIDAZOLAM HCL 5MG/ML 10ML VIAL 100 ML IV PRN ×2 (06:28→20:30)
[2020-02-27] MEDS: METHYLPREDNISOLONE SOD SUCC 40 MG/ML VIAL 1ML IV SCH ×3 (06:29→21:58)
[2020-02-27] MEDS: ENOXAPARIN SOD INJ 40 MG/0.4 ML SYR SC SCH (06:29)
[2020-02-27 07:29] LABS: BILIRUBIN,DIRECT 8.1 mg/dL (0.0-0.5)
[2020-02-27] MEDS: PANTOPRAZOLE 40 MG 10ML VIAL IV SCH (08:19)
[2020-02-27] MEDS: MEROPENEM 500MG/ NS 50ML 50 ML IV SCH ×2 (08:19→20:51)
[2020-02-27] MEDS: HEPARIN SOD/SOD CHLORIDE 1,000 ML IV SCH (08:19)
[2020-02-27] MEDS: EYE LUBRICANT OPTH OINT 3.5GM TUBE OP SCH ×2 (08:20→17:02)
[2020-02-27] MEDS: BALSAM PERU/CASTOR OIL 60 GM OINT...G. TP SCH (08:20)
[2020-02-27] MEDS: ASPIRIN 81 MG CHEW TAB PO SCH (08:20)
[2020-02-27 08:21] LABS: BAND NEUTROPHILS % (MANUAL) 2 %; LYMPHOCYTES % (MANUAL) 1 % (19-48); MONOCYTES % (MANUAL) 2 % (3.4-9.0); MYELOCYTES % (MANUAL) 1 % (0-0); NEUTROPHILS % (MANUAL) 94 % (40-74); NUCLEATED RED BLOOD CELLS 13
[2020-02-27 08:22] LABS: ANISOCYTOSIS MODERATE; PLATELET ESTIMATE MODERATELY DECREASED; PLATELET MORPHOLOGY COMMENT NORMAL; POLYCHROMASIA FEW
[2020-02-27 08:23] LABS: RBC MORPHOLOGY COMMENT ABNORMAL
--- NOTE | 2020-02-27 09:57 | NUR ---
CM WAS CALLED BY PT'S DTR HAL WANTING TO HAVE A CONFERENCE CALL WITH CM AND HER SISTERS AYLIN AND DINA CM SPOKE WITH PT'S NURSE TOMAS WHO GOT PT'S ON PHONE AND REQUESTS THAT ALL MEDICAL INFORMATION GO THRU HER NOT WILLING AT THIS POINT TO HAVE A CONFERENCE CALL WITH HERSELF, DTRS, CM AND NURSE EXPLAINED TO HAL THAT IS NEXT OF KIN AND WE HAVE TO HONOR HER REQUESTS LEGALLY SHE UNDERSTANDS
--- NOTE | 2020-02-27 10:00 | NUR ---
CM CALLED NURSE TOMAS WHO STATES SHE JUST GOT OFF OF PHONE WITH PT'S AND SHE IS NOW AGREEING TO A FAMILY CONFERENCE BETWEEN DAUGHTERS, HERSELF, NURSING AND DR Gabriel MARIN TO ARRANGE THIS CONFERENCE CALL ASKED TOMAS TO CALL ME FOR ANY QUESTIONS/CONCERNS
[2020-02-27] MEDS: ROCURONIUM BROMIDE 250 MG in SODIUM CHLORIDE 0.9% 250ML 225 ML IV SCH ×2 (10:04→23:51)
[2020-02-27] MEDS: FENTANYL 2000MCG/NS 250 250 ML IV PRN (11:26)
[2020-02-27] MEDS ORDERED: EPOETIN ALFA-EPBX 10,000 UNIT/ML VIAL SC SCH (12:00)
--- NOTE | 2020-02-27 15:13 | Progress Note ---
DATE: SUBJECTIVE: The patient received ultrafiltration again this morning. He remains on maximum dose Levophed as well as vasopressin. He continues on PRVC at a rate of 32 with a tidal volume of 430. Blood pressure is now 109/52 on maximum Levophed as well as vasopressin. He is saturating 91%. PRVC at a rate of 32. The tidal volume is set at 430. PHYSICAL EXAMINATION: HEENT: Shows no facial swelling or erythema. The patient has an oral endotracheal tube in place. There is a nasogastric tube. There is a dialysis line on right IJ. CARDIAC: Reveals regular rate and rhythm with normal S1, S2. LUNGS: Auscultation of lungs reveals crackles at the bases. There are decreased breath sounds. ABDOMEN: Soft and nontender. There is no rebound or guarding. EXTREMITIES: Shows no leg edema or calf tenderness. There is no cyanosis or clubbing. LABORATORY DATA: Creatinine is 2.87 and the other electrolytes are within normal limits. The total bilirubin is 10.8 and the AST is 160. The ALT is 250. Albumin is 2.7. RADIOGRAPHIC DATA: Chest x-ray shows continued bilateral infiltrates. IMPRESSION: 1. Acute respiratory failure. 2. Ischemic hepatitis and liver disease, related to sepsis. 3. Leukocytosis and septic shock. 4. Acute renal failure. 5. Coagulopathy. 6. COVID-19 infection and viral pneumonia. PLAN: 1. I have discussed the case by telephone with the as well as three daughters. They are considering withdrawal. They understand the prognosis is very poor. 2. Continue daily ultrafiltration. 3. Continue mechanical ventilation. 4. Continue chest tube suction. 5. Continue to wean pressures, if tolerated. 6. Continue rocuronium along with Versed and fentanyl. 7. Case discussed with Infectious Disease, nursing, Respiratory, and Internal Medicine. Greater than 35 minutes in direct critical care time. Osman Frye MD [facility] /[id number]
--- NOTE | 2020-02-27 19:10 | Progress Note ---
DATE: 02/27/2020 SUBJECTIVE: Mr. Beatty remains in intensive care unit. He is extremely ill. Discussed with the medical team. Reviewed all his labs. OBJECTIVE: VITAL SIGNS: Reviewed his vitals. The patient is on vasopressors and Levophed, and vasopressin. He is on a ventilator rate of 32, tidal volume 430, blood pressure is very low about 105 systolic, heart rate, the patient is tachycardic. HEENT: Normocephalic. Oral intubation. CHEST: Crackles bilaterally. HEART: S1, S2. ABDOMEN: Soft, distended. Bowel sounds present. EXTREMITIES: No edema. SKIN: No rash. LABORATORY DATA: Creatinine 2.87, bilirubin of 10, and AST 160. ASSESSMENT AND PLAN: Multiorgan failure, status post coronavirus disease-19, respiratory failure, going to liver failure, renal failure. Prognosis is extremely poor. Discussed with Critical Care, agree with comfort care or as ordered. We will follow. MD TIFFANY Escoto/MODL /[id number]
[2020-02-27] MEDS: MICAFUNGIN SODIUM 100 ML IV SCH (20:00)
[2020-02-27 20:05] LABS: ABG HCO3 33 mmol/L (22-26); ABG PCO2 98 mmHg (35-45); ABG PH 7.14 (7.35-7.45); ABG PO2 66 mmHg (80-105)
--- NOTE | 2020-02-27 20:50 | Progress Note ---
DATE: 02/27/2020 REASON FOR VISIT: Right pneumothorax, COVID-19. Requested by Dr. Dalila Frye. SUBJECTIVE: The patient remains in ICU in critical condition. FiO2 now 85% with a peak of 12. Some serous drainage from the chest tube. X-ray stable. REVIEW OF SYSTEMS: Unobtainable because the patient is intubated. PHYSICAL EXAMINATION: GENERAL: Intubated and sedated in the ICU. VITAL SIGNS: Blood pressure 110/70, pulse 105 and regular, O2 saturation 95% on FiO2 85%. NECK: Supple, nontender. No crepitus. CARDIAC: Regular rate and rhythm. Normal S1 and S2. No murmur. LUNGS: Coarse ventilator sounds bilaterally. LABORATORIES: Chest x-ray shows diffuse bilateral airspace opacities, which are slightly increased compared to yesterday, but largely unchanged. White count 15.4, hematocrit 24.8, hemoglobin 7.5, and platelet count 71,000. INR 1.45 with PT 18.5. Sodium 141, potassium 3.8, BUN 35, and creatinine 2.87. IMPRESSION: Remains critically ill. Chest tube function is adequate. Supportive care. MD ADE Garcia/JENNYFER /[id number]
[2020-02-28] VITALS (25 sets, daily range): BP systolic 67–100; BP diastolic 33–56
[2020-02-28] MEDS: FENTANYL 2000MCG/NS 250 250 ML IV PRN (00:24)
--- NOTE | 2020-02-28 03:05 | Progress Note ---
DATE: 02/27/2020 Cardiology Progress Note SUBJECTIVE: Intubated and sedated. OBJECTIVE: VITAL SIGNS: Temperature 97.9, heart rate 88, blood pressure 105/48, respiratory rate 36, O2 saturation 96%. BMI 36. Remains intubated and sedated. on telemetry sinus rhythm with occasional PVCs. Nonsteroidal, Levophed and vasopressin, on vent support, high PEEP pressures remain in place with FiO2 of 80% and PEEP pressure of 36, . CHEST: Chest tube in place. EXTREMITIES: With 1+ edema bilateral lower extremities. CARDIOVASCULAR MEDICATIONS: Reviewed. Vasopressin, Levophed, aspirin 81 mg daily, Lovenox 40 mg subcu daily. LABORATORY DATA: Studies reviewed. Potassium 3.8, bicarbonate 31, creatinine 2.8. White blood cells are 15.5, hemoglobin 7.5, platelets 71. AST 160, ALT 205, alkaline phosphatase 174. ASSESSMENT AND PLAN: A 69-year-old man presents with: 1. Community-acquired COVID-19 pneumonia with acute respiratory distress and acute severe prolonged respiratory failure, complicated with pneumothorax with chest tube placement. 2. Type 2 myocardial infarction. 3. Severe sepsis with septic shock. 4. Acute kidney injury, on dialysis. 5. Shock liver. 6. Thrombocytopenia. 7. Anemia. RECOMMEND: Recommend now approximately one month from hospital stay, remains in critical state with worsened pressure wounds and persistent high pressure ventilation. At this point, approaching a keto state. Continue supportive care for now and focus on goals of care discussion with family numbers. Continue aspirin, Lovenox, and pressor support. Overall guarded prognosis. MD ANAIS Morales/[facility]II[facility] /[id number]
[2020-02-28] MEDS: MIDAZOLAM HCL 5MG/ML 10ML VIAL 100 ML IV PRN ×3 (03:46→16:43)
[2020-02-28 06:07] LABS: INR 1.55; PROTHROMBIN TIME 19.6 seconds (11.9-14.5)
[2020-02-28 06:08] LABS: PARTIAL THROMBOPLASTIN TIME 45.2 seconds (23.8-35.5)
[2020-02-28 06:09] LABS: BASOPHILS % 0.3 % (0.0-1.0); HEMATOCRIT 23.7 % (38.2-49.6); HEMOGLOBIN 7.3 g/dL (14.0-18.0); LYMPHOCYTES # (AUTO) 0.1 (1.0-3.2); LYMPHOCYTES % 0.5 % (18.0-39.1); MEAN CORPUSCULAR HEMOGLOBIN 32.3 pg (28-32); MEAN CORPUSCULAR HGB CONC 30.8 g/dL (31-35); MEAN CORPUSCULAR VOLUME 104.9 fL (81-99); MONOCYTES # (AUTO) 0.9 (0.2-0.8); NEUTROPHILS # (AUTO) 13.8 (2.1-6.9); NEUTROPHILS % 91.9 % (38.7-80.0); PLATELET COUNT 73 x10e3/uL (140-360); RED BLOOD COUNT 2.26 x10e6/uL (4.3-5.7); RED CELL DISTRIBUTION WIDTH 23.7 % (11.7-14.4)
[2020-02-28] MEDS: METHYLPREDNISOLONE SOD SUCC 40 MG/ML VIAL 1ML IV SCH ×3 (06:29→21:27)
[2020-02-28] MEDS: ENOXAPARIN SOD INJ 40 MG/0.4 ML SYR SC SCH (06:29)
[2020-02-28 06:30] LABS: ANION GAP 17.6 mmol/L (8-16); CALCIUM 7.9 mg/dL (8.4-10.2); CREATININE, SERUM 3.57 mg/dL (0.72-1.25); POTASSIUM 4.6 mmol/L (3.5-5.1)
--- NOTE | 2020-02-28 07:26 | Diagnostic Imaging Report ---
EXAMINATION: CHEST SINGLE (PORTABLE) INDICATION: ^Intubated, Rt Pnuemothorax ^Y COMPARISON: 02/27/2020 FINDINGS: AP view TUBES and LINES: Stable endotracheal tube, enteric tube, right IJ central catheter, and right-sided chest tubes. LUNGS: Low lung volumes. Diffuse bilateral airspace opacities, unchanged. PLEURA: Unchanged loculated right lower lobe pneumothorax. No significant pleural effusions. HEART AND MEDIASTINUM: The cardiomediastinal silhouette is enlarged on this AP view. BONES AND SOFT TISSUES: No acute osseous lesion. Right chest wall and neck base emphysema. There is also extension of emphysema to the left neck base. UPPER ABDOMEN: No free air under the diaphragm. Partially seen gaseous distention of stomach. IMPRESSION: Unchanged diffuse bilateral airspace opacities and loculated right base pneumothorax. Interval increase in soft tissue emphysema. Signed by: Dr. Neil Christensen MD on 02/28/2020 7:23 AM
[2020-02-28] MEDS ORDERED: ALBUMIN 25% 25GM 100ML 0.25 GM/ML BTL IV SCH (07:45)
[2020-02-28] MEDS: MEROPENEM 500MG/ NS 50ML 50 ML IV SCH ×2 (08:08→20:33)
[2020-02-28] MEDS: PANTOPRAZOLE 40 MG 10ML VIAL IV SCH ×2 (08:08→16:40)
[2020-02-28] MEDS: BALSAM PERU/CASTOR OIL 60 GM OINT...G. TP SCH (08:08)
[2020-02-28] MEDS: ASPIRIN 81 MG CHEW TAB PO SCH (08:08)
[2020-02-28] MEDS: EYE LUBRICANT OPTH OINT 3.5GM TUBE OP SCH ×2 (08:08→16:41)
[2020-02-28 08:33] LABS: ABG HCO3 30 mmol/L (22-26); ABG PCO2 99 mmHg (35-45); ABG PH 7.09 (7.35-7.45); ABG PO2 56 mmHg (80-105)
[2020-02-28] MEDS ORDERED: SODIUM BICARBONATE 8.4% INJ 50 ML SYR IV NR (08:45)
--- NOTE | 2020-02-28 09:27 | Progress Note ---
DATE: SUBJECTIVE: The patient remains on maximum Levophed and vasopressin. He continues to have a MAP around 60. He is on a pressure regulated volume control at a rate of 32 with a tidal volume of 430. He is paralyzed with rocuronium and is sedated with Versed and fentanyl. PHYSICAL EXAMINATION: VITAL SIGNS: The blood pressure is 91/50 with a pulse of 92. He is afebrile. Saturation is 89% on 90% FiO2 with 15 of PEEP. He is on a PRVC at a rate of 32. HEENT: Shows no facial swelling or erythema. CARDIAC: Reveals regular rate and rhythm with normal S1 and S2. LUNGS: Auscultation of lungs reveals crackles at the bases. There is no wheezing. ABDOMEN: Soft and nontender. There is no rebound or guarding. EXTREMITIES: Shows 1 to 2+ edema. There are chest tubes on the right side. There is a continued air leak. LABORATORY DATA: White blood cell count is 15, and hemoglobin is 7.3. The platelet count is 73. The BUN to creatinine ratio is 51 to 3.57 and the other electrolytes are within normal limits. The total bilirubin is 10.9 and the AST is 160. IMPRESSION: 1. Acute respiratory failure. 2. Refractory hypotension secondary to sepsis. 3. Acute liver failure. 4. Acute renal failure. 5. Thrombocytopenia. 6. Hypertension. 7. Anemia. PLAN: 1. Continue mechanical ventilation for now. The family is considering potential withdrawal. They understand the prognosis is poor. 2. Repeat ABG. 3. Continue antibiotics. 4. Albumin 50 g IV now. 5. Discuss the possibility of holding dialysis with Nephrology for to hold dialysis today because of hypotension. 6. Continue to monitor liver function. 7. Continue chest tubes. 8. Continue trickle enteral feedings. 9. Continue Lovenox. 10. Case discussed with family, night assistant nursing, dayshift nursing, Respiratory, Infectious Disease, and Nephrology and Cardiology. Case also discussed with administration. Greater than 35 minutes in direct critical care time. Osman Frye MD [facility] /[id number]
--- NOTE | 2020-02-28 10:42 | Progress Note ---
DATE: 02/28/2020 Cardiology Progress Note SUBJECTIVE: Remains intubated and sedated, on dialysis and max pressors. OBJECTIVE: VITAL SIGNS: Temperature 97.3, heart rate 94, blood pressure 91/48, respiratory rate 33, and O2 saturation 87% on high peak pressures, on dialysis and pressors. GENERAL: Remains intubated, sedated. CARDIOVASCULAR: Regular rate and rhythm. LUNGS: Chest tube is in place. EXTREMITIES: Edema to lower extremities remains. CARDIOVASCULAR MEDICATIONS: Reviewed. 1. Aspirin 81 mg daily. 2. Vasopressin. 3. Levophed. LABORATORY DATA: Reviewed. Creatinine 3.5. White blood cells 15, hemoglobin 7.3, platelets 73. AST 160, ALT 205. ASSESSMENT AND PLAN: 1. A 69-year-old man with severe respiratory failure, prolonged in the setting of community-acquired COVID-19 pneumonia and acute respiratory distress syndrome. 2. Pneumothorax, status post chest tube. 3. Acute renal failure, on dialysis. 4. Severe sepsis with septic shock on several pressors with deteriorating hemodynamics. 5. Shock liver. 6. Thrombocytopenia and anemia. RECOMMENDATIONS: At this point, continue supportive care, goals of discussions. Prognosis is extremely guarded. Abdias Nguyen MD AFLuh/MODL /[id number]
[2020-02-28 11:42] LABS: BAND NEUTROPHILS % (MANUAL) 12 %; LYMPHOCYTES % (MANUAL) 1 % (19-48); MONOCYTES % (MANUAL) 4 % (3.4-9.0); NEUTROPHILS % (MANUAL) 83 % (40-74); NUCLEATED RED BLOOD CELLS 21; POLYCHROMASIA FEW
[2020-02-28 11:45] LABS: PLATELET ESTIMATE MODERATELY DECREASED; PLATELET MORPHOLOGY COMMENT NORMAL
[2020-02-28] MEDS: ROCURONIUM BROMIDE 250 MG in SODIUM CHLORIDE 0.9% 250ML 225 ML IV SCH ×2 (12:41→21:24)
[2020-02-28] MEDS: NOREPINEPHRINE INJ 4MG/4ML 16 MG in DEXTROSE 5% 250ML 234 ML IV PRN ×2 (12:42→21:24)
[2020-02-28] MEDS ORDERED: VASOPRESSIN IV PRN (13:15)
[2020-02-28] MEDS ORDERED: SODIUM CHLORIDE 0.9% IV PRN (13:15)
[2020-02-28] MEDS ORDERED: SODIUM BICARBONATE 8.4% INJ 50 ML SYR IV STA ×2 (17:46→21:34)
--- NOTE | 2020-02-28 18:45 | Progress Note ---
DATE: SUBJECTIVE: Mr. Beatty remains on the ventilator on maximum dose of vasopressors on maximum vent support, extremely ill. The family is still deciding about comfort care. PHYSICAL EXAMINATION: GENERAL: He is intubated, noncommunicative. VITAL SIGNS: Very critical. HEENT: Not icteric. NECK: Supple. CHEST: Crackles bilateral. HEART: S1, S2. No murmur. ABDOMEN: Soft. Bowel sound hypoactive. A chest tube is on the right side. EXTREMITIES: Bilateral lower extremities edema +2. LABORATORY DATA: WBC is 15, hemoglobin 7.3, platelets 73. IMPRESSION: Multiorgan failure, status post COVID-19, failing treatment, on several antibiotics as listed above and he is also on steroid, to continue the same till family is making decision about withdrawal of life support.. MD TIFFANY Escoto/MODL /[id number]
[2020-02-28] MEDS: MICAFUNGIN SODIUM 100 ML IV SCH (20:33)
--- NOTE | 2020-02-28 23:08 | NUR ---
PATIENT'S BP AND OXYGEN SATURATION CONTINUE TO DROP, SPOUSE INFORMED AND IS AT BEDSIDE. SHE STATES THAT SHE DOES NOT WISH FOR HER TO HAVE CPR IF HE SHOULD GO INTO CARDIAC ARREST. DR Gabriel TATE INFORMED AND ORDERS RECEIVED
[2020-02-29] VITALS (8 sets, daily range): BP systolic 65–79; BP diastolic 36–45
[2020-02-29] MEDS: VASOPRESSIN 60 UNIT in DEXTROSE 5% 50ML 57 ML IV PRN (01:03)
[2020-02-29] MEDS: MIDAZOLAM HCL 5MG/ML 10ML VIAL 100 ML IV PRN (01:07)
[2020-02-29] MEDS: FENTANYL 2000MCG/NS 250 250 ML IV PRN (03:07)
[2020-02-29 06:00] LABS: BASOPHILS % 0.4 % (0.0-1.0); EOSINOPHILS % 18.4 % (0.0-6.0); LYMPHOCYTES # (AUTO) 0.6 (1.0-3.2); MEAN CORPUSCULAR HEMOGLOBIN 30.9 pg (28-32); MEAN CORPUSCULAR HGB CONC 29.3 g/dL (31-35); MEAN CORPUSCULAR VOLUME 105.7 fL (81-99); MONOCYTES # (AUTO) 0.6 (0.2-0.8); MONOCYTES % 10.6 % (4.4-11.3); NEUTROPHILS # (AUTO) 3.2 (2.1-6.9); NEUTROPHILS % 57.7 % (38.7-80.0); RED BLOOD COUNT 1.94 x10e6/uL (4.3-5.7)
[2020-02-29] MEDS: ENOXAPARIN SOD INJ 40 MG/0.4 ML SYR SC SCH (06:07)
[2020-02-29] MEDS: METHYLPREDNISOLONE SOD SUCC 40 MG/ML VIAL 1ML IV SCH (06:07)
[2020-02-29 06:26] LABS: HEMATOCRIT 20.5 % (38.2-49.6); PLATELET COUNT 49 x10e3/uL (140-360)
[2020-02-29 06:27] LABS: ANION GAP 26.1 mmol/L (8-16); CALCIUM 7.5 mg/dL (8.4-10.2); CREATININE, SERUM 4.19 mg/dL (0.72-1.25); POTASSIUM 5.1 mmol/L (3.5-5.1)
[2020-02-29] MEDS ORDERED: SODIUM BICARBONATE 8.4% INJ 50 ML SYR IV STA (06:38)
[2020-02-29] MEDS ORDERED: DEXTROSE 50% SYRINGE 50 ML IV ONE (06:41)
[2020-02-29] MEDS ORDERED: SODIUM CHLORIDE 0.9% 250ML 250 ML IV ONE (06:45)
--- NOTE | 2020-02-29 07:09 | NUR ---
Pt's oxygen sat was in 60-75%, and BP was also low. MD aware, notified. around 0635, pt's blood glucose was 10mg/dL, and hgb 6.0.MD gave orders for D50,1 amp of bicarb, and 1PRBC. D50 given as ordered, report given to the oncoming RN
[2020-02-29] MEDS ORDERED: NOREPINEPHRINE 8 MG/D5W 250 ML 500 ML ONE (07:22)
[2020-02-29] MEDS: NOREPINEPHRINE INJ 4MG/4ML 16 MG in DEXTROSE 5% 250ML 234 ML IV PRN (07:35)
[2020-02-29 08:39] LABS: ANISOCYTOSIS MODERATE; BAND NEUTROPHILS % (MANUAL) 6 %; EOSINOPHILS % (MANUAL) 1 % (0-7); LYMPHOCYTES % (MANUAL) 10 % (19-48); METAMYELOCYTES % (MANUAL) 31 % (0-0); MONOCYTES % (MANUAL) 14 % (3.4-9.0); MYELOCYTES % (MANUAL) 5 % (0-0); NEUTROPHILS % (MANUAL) 32 % (40-74); NUCLEATED RED BLOOD CELLS 153; RBC MORPHOLOGY COMMENT ABNORMAL
[2020-02-29 08:40] LABS: OVALOCYTES FEW; PLATELET ESTIMATE MARKEDLY DECREASED; PLATELET MORPHOLOGY COMMENT NORMAL; TOXIC GRANULATION SLIGHT
[2020-02-29 08:42] LABS: HYPOCHROMASIA MODERATE; TARGET CELLS FEW
--- NOTE | 2020-03-01 02:51 | Discharge Summary ---
HOSPITAL COURSE: The patient is a 69-year-old male, who presented to the emergency department with approximately a week of coughing, shortness of breath, general malaise, and fever. He had gone to an urgent care center due to shortness of breath and was told to come here. He tested positive for COVID-19 and he was placed on isolation. Chest x-ray at that time showed airspace disease throughout both lungs and he was started on IV fluids and oxygen. He was placed in room #177 in isolation in the coronavirus unit. PAST MEDICAL HISTORY: Hypertension and BPH. PAST SURGICAL HISTORY: No past surgical history. ADMITTING DIAGNOSES: 1. Sepsis and viral community-acquired pneumonia due to coronavirus disease 2018, present on admission. 2. Hypertension, uncontrolled. 3. Benign prostatic hyperplasia. During his stay, multiple interventions were attempted. He was on Zyvox and Merrem. Antibiotics per Infectious Disease. CONSULTING PHYSICIANS: Included: 1. Dr. Cole Loomis with Nephrology. 2. Dr. Beny Benson. 3. Dr. Frank Maciel with Surgery. 4. Dr. Osman Frye with Pulmonology, Critical Care Medicine. 5. Dr. Isaac Geronimo with Gastroenterology. 6. Dr. Bubba Kimball with Urology. 7. Dr. Abdias Nguyen with Cardiology. At one point, he had 3 chest tubes on the right. He did require intubation and high ventilator settings despite using vecuronium, Versed, and fentanyl drips. The patient was unable to be extubated. He developed multi-system organ failure and septic shock. He required Levophed and Vasopressin drips and was maxed out on ventilator settings and vasopressors in the ICU. He had acute kidney injury due to ATN from the coronavirus disease 2018 with fluid volume overload and elevated T bilirubin and transaminitis. Chest x-rays had shown diffuse bilateral airspace opacities. On the date of admission, WBC 10.48, neutrophils 87.7%. BUN 25, creatinine 1.11, estimated GFR greater than 60. LFTs within normal limits. AST 32, ALT 30, alkaline phosphatase 63. Multiple repeat coronavirus by PCR checks were done, all but 1 showed positive or detected. On 02/18, sputum Gram stain culture and sensitivity showed enterobacter aerogenes and ayden parapsilosis and on 02/19, urine culture showed Ayden parapsilosis. Despite these aggressive efforts, the patient continued to gradually decline. Toward the end of his stay in February, the family considered withdrawing. His prognosis was poor and they opted to withdraw care. The patient was terminally extubated by Dr. Frye at 9:59 a.m. in the morning, which is also the time of . He became pulseless and apneic and was pronounced . Dictated by Roberto Latham NP MD NAPOLEON RaineyP/MODL /[id number]
[2020-03-02 11:38] LABS: ABG PH 7.15 (7.35-7.45)
[2020-03-02 11:39] LABS: ABG PCO2 80 mmHg (35-45)
[2020-03-02 11:40] LABS: ABG HCO3 28 mmol/L (22-26)
[2020-03-02 11:42] LABS: ABG PH 7.21 (7.35-7.45)
[2020-03-02 11:43] LABS: ABG HCO3 27 mmol/L (22-26); ABG PCO2 66 mmHg (35-45)
[2020-03-02 11:45] LABS: ABG HCO3 31 mmol/L (22-26); ABG PCO2 72 mmHg (35-45); ABG PH 7.24 (7.35-7.45)
[2020-03-02 11:48] LABS: ABG HCO3 28 mmol/L (22-26); ABG PCO2 85 mmHg (35-45); ABG PH 7.13 (7.35-7.45)
[2020-03-02 11:51] LABS: ABG HCO3 27 mmol/L (22-26); ABG PCO2 77 mmHg (35-45); ABG PH 7.16 (7.35-7.45)
[2020-03-02 11:54] LABS: ABG HCO3 28 mmol/L (22-26); ABG PCO2 70 mmHg (35-45); ABG PH 7.21 (7.35-7.45)
[2020-03-02 11:56] LABS: ABG HCO3 29 mmol/L (22-26); ABG PCO2 69 mmHg (35-45); ABG PH 7.23 (7.35-7.45)
[2020-03-02 11:58] LABS: ABG HCO3 30 mmol/L (22-26); ABG PCO2 72 mmHg (35-45); ABG PH 7.23 (7.35-7.45)
[2020-03-02 12:01] LABS: ABG HCO3 34 mmol/L (22-26); ABG PCO2 70 mmHg (35-45); ABG PH 7.29 (7.35-7.45)
[2020-03-02 12:04] LABS: ABG HCO3 35 mmol/L (22-26); ABG PCO2 122 mmHg (35-45); ABG PH 7.07 (7.35-7.45)
[2020-03-02 12:08] LABS: ABG HCO3 36 mmol/L (22-26); ABG PCO2 93 mmHg (35-45)
[2020-03-03 08:45] LABS: ABG HCO3 36 mmol/L (22-26); ABG PCO2 90 mmHg (35-45); ABG PH 7.21 (7.35-7.45)
[2020-03-03 08:47] LABS: ABG HCO3 38 mmol/L (22-26); ABG PCO2 103 mmHg (35-45); ABG PH 7.18 (7.35-7.45)
[2020-03-03 08:50] LABS: ABG HCO3 37 mmol/L (22-26); ABG PCO2 79 mmHg (35-45); ABG PH 7.28 (7.35-7.45)
[2020-03-03 08:53] LABS: ABG HCO3 38 mmol/L (22-26); ABG PCO2 72 mmHg (35-45); ABG PH 7.33 (7.35-7.45)
[2020-03-03 08:57] LABS: ABG PH 7.31 (7.35-7.45)
[2020-03-03 08:58] LABS: ABG HCO3 42 mmol/L (22-26); ABG PCO2 84 mmHg (35-45)
[2020-03-03 09:00] LABS: ABG HCO3 41 mmol/L (22-26); ABG PCO2 79 mmHg (35-45); ABG PH 7.32 (7.35-7.45)
[2020-03-03 09:02] LABS: ABG HCO3 39 mmol/L (22-26); ABG PCO2 86 mmHg (35-45); ABG PH 7.26 (7.35-7.45)
[2020-03-03 09:04] LABS: ABG HCO3 40 mmol/L (22-26); ABG PCO2 94 mmHg (35-45); ABG PH 7.23 (7.35-7.45)
[2020-03-03 09:05] LABS: ABG PH 7.34 (7.35-7.45)
[2020-03-03 09:06] LABS: ABG HCO3 38 mmol/L (22-26); ABG PCO2 70 mmHg (35-45)
[2020-03-03 09:07] LABS: ABG HCO3 39 mmol/L (22-26); ABG PCO2 77 mmHg (35-45); ABG PH 7.31 (7.35-7.45)
[2020-03-03 09:09] LABS: ABG HCO3 43 mmol/L (22-26); ABG PCO2 88 mmHg (35-45)
[2020-03-03 09:11] LABS: ABG HCO3 40 mmol/L (22-26); ABG PCO2 88 mmHg (35-45); ABG PH 7.26 (7.35-7.45)
[2020-03-03 09:12] LABS: ABG PH 7.26 (7.35-7.45)
[2020-03-03 09:13] LABS: ABG HCO3 41 mmol/L (22-26); ABG PCO2 91 mmHg (35-45)
[2020-03-03 09:14] LABS: ABG HCO3 44 mmol/L (22-26); ABG PCO2 95 mmHg (35-45); ABG PH 7.28 (7.35-7.45)
[2020-03-03 09:18] LABS: ABG HCO3 44 mmol/L (22-26); ABG PCO2 84 mmHg (35-45); ABG PH 7.33 (7.35-7.45)
[2020-03-03 09:21] LABS: ABG HCO3 44 mmol/L (22-26); ABG PCO2 93 mmHg (35-45); ABG PH 7.29 (7.35-7.45)
[2020-03-03 09:24] LABS: ABG HCO3 41 mmol/L (22-26); ABG PCO2 93 mmHg (35-45); ABG PH 7.25 (7.35-7.45)
[2020-03-03 09:26] LABS: ABG HCO3 42 mmol/L (22-26); ABG PCO2 104 mmHg (35-45); ABG PH 7.21 (7.35-7.45)
[2020-03-03 09:28] LABS: ABG HCO3 42 mmol/L (22-26); ABG PCO2 95 mmHg (35-45); ABG PH 7.25 (7.35-7.45)
== END 2020-02-29 13:54 | disposition expired | DRG 870 ==
LOC: ER 15:08 → ERHOLD 17:27 → IMCU 21:40 → ICU 01-29 05:02
PROVIDERS: ADMIT Internal Medicine; ATTEND Internal Medicine
PROC: 8E0ZXY6 Isolation (ICD-10-PCS; 2020-01-27)
PROC: 0BH17EZ Insertion of Endotracheal Airway into Trachea, Via Natural or Artificial Opening (ICD-10-PCS; principal; 2020-02-02)
PROC: 5A1955Z Respiratory Ventilation, Greater than 96 Consecutive Hours (ICD-10-PCS; 2020-02-02)
PROC: 03HB33Z Insertion of Infusion Device into Right Radial Artery, Percutaneous Approach (ICD-10-PCS; 2020-02-02)
PROC: 02HV33Z Insertion of Infusion Device into Superior Vena Cava, Percutaneous Approach (ICD-10-PCS; 2020-02-02)
PROC: B548ZZA Ultrasonography of Superior Vena Cava, Guidance (ICD-10-PCS; 2020-02-02)
PROC: 3E043XZ Introduction of Vasopressor into Central Vein, Percutaneous Approach (ICD-10-PCS; 2020-02-02)
PROC: 03HC33Z Insertion of Infusion Device into Left Radial Artery, Percutaneous Approach (ICD-10-PCS; 2020-02-05)
PROC: 5A1D70Z Performance of Urinary Filtration, Intermittent, Less than 6 Hours Per Day (ICD-10-PCS; 2020-02-06)
PROC: 02HV33Z Insertion of Infusion Device into Superior Vena Cava, Percutaneous Approach (ICD-10-PCS; 2020-02-06)
PROC: B548ZZA Ultrasonography of Superior Vena Cava, Guidance (ICD-10-PCS; 2020-02-06)
PROC: 5A1D70Z Performance of Urinary Filtration, Intermittent, Less than 6 Hours Per Day (ICD-10-PCS; 2020-02-07)
PROC: 0W9930Z Drainage of Right Pleural Cavity with Drainage Device, Percutaneous Approach (ICD-10-PCS; 2020-02-08)
PROC: 0W9930Z Drainage of Right Pleural Cavity with Drainage Device, Percutaneous Approach (ICD-10-PCS; 2020-02-12)
PROC: 02HV33Z Insertion of Infusion Device into Superior Vena Cava, Percutaneous Approach (ICD-10-PCS; 2020-02-14)
PROC: B548ZZA Ultrasonography of Superior Vena Cava, Guidance (ICD-10-PCS; 2020-02-14)
PROC: 02HV33Z Insertion of Infusion Device into Superior Vena Cava, Percutaneous Approach (ICD-10-PCS; 2020-02-20)
PROC: B548ZZA Ultrasonography of Superior Vena Cava, Guidance (ICD-10-PCS; 2020-02-20)
PROC: 5A1D70Z Performance of Urinary Filtration, Intermittent, Less than 6 Hours Per Day (ICD-10-PCS; 2020-02-20)
PROC: 30243L1 Transfusion of Nonautologous Fresh Plasma into Central Vein, Percutaneous Approach (ICD-10-PCS; 2020-02-20)
PROC: 30243K1 Transfusion of Nonautologous Frozen Plasma into Central Vein, Percutaneous Approach (ICD-10-PCS; 2020-02-20)
PROC: 5A1D70Z Performance of Urinary Filtration, Intermittent, Less than 6 Hours Per Day (ICD-10-PCS; 2020-02-21)
PROC: 5A1D70Z Performance of Urinary Filtration, Intermittent, Less than 6 Hours Per Day (ICD-10-PCS; 2020-02-22)
PROC: 5A1D70Z Performance of Urinary Filtration, Intermittent, Less than 6 Hours Per Day (ICD-10-PCS; 2020-02-23)
PROC: 0B918ZZ Drainage of Trachea, Via Natural or Artificial Opening Endoscopic (ICD-10-PCS; 2020-02-24)
PROC: 5A1D70Z Performance of Urinary Filtration, Intermittent, Less than 6 Hours Per Day (ICD-10-PCS; 2020-02-24)
PROC: 0B21XEZ Change Endotracheal Airway in Trachea, External Approach (ICD-10-PCS; 2020-02-25)
PROC: 5A1D70Z Performance of Urinary Filtration, Intermittent, Less than 6 Hours Per Day (ICD-10-PCS; 2020-02-25)
PROC: 30243N1 Transfusion of Nonautologous Red Blood Cells into Central Vein, Percutaneous Approach (ICD-10-PCS; 2020-02-25)
PROC: 5A1D70Z Performance of Urinary Filtration, Intermittent, Less than 6 Hours Per Day (ICD-10-PCS; 2020-02-26)
PROC: 5A1D70Z Performance of Urinary Filtration, Intermittent, Less than 6 Hours Per Day (ICD-10-PCS; 2020-02-27)
DX: A41.89 Other specified sepsis (principal); U07.1 COVID-19; J96.01 Acute respiratory failure with hypoxia; J80 Acute respiratory distress syndrome; J12.89 Other viral pneumonia; R65.21 Severe sepsis with septic shock; I21.A1 Myocardial infarction type 2; N17.0 Acute kidney failure with tubular necrosis; J15.9 Unspecified bacterial pneumonia; K72.00 Acute and subacute hepatic failure without coma; N17.9 Acute kidney failure, unspecified; T17.490A Other foreign object in trachea causing asphyxiation, initial encounter; E87.0 Hyperosmolality and hypernatremia; J93.9 Pneumothorax, unspecified; E87.2 Acidosis; B37.89 Other sites of candidiasis; B37.49 Other urogenital candidiasis; M62.82 Rhabdomyolysis; J93.82 Other air leak; E44.0 Moderate protein-calorie malnutrition; I10 Essential (primary) hypertension; N40.0 Benign prostatic hyperplasia without lower urinary tract symptoms; Z83.3 Family history of diabetes mellitus; Z82.49 Family history of ischemic heart disease and other diseases of the circulatory system; Z88.8 Allergy status to other drugs, medicaments and biological substances; E87.6 Hypokalemia; R00.1 Bradycardia, unspecified; T50.995A Adverse effect of other drugs, medicaments and biological substances, initial encounter; D64.9 Anemia, unspecified; K80.20 Calculus of gallbladder without cholecystitis without obstruction; B96.89 Other specified bacterial agents as the cause of diseases classified elsewhere; E87.70 Fluid overload, unspecified; R33.9 Retention of urine, unspecified; D69.6 Thrombocytopenia, unspecified; K75.9 Inflammatory liver disease, unspecified; N13.9 Obstructive and reflux uropathy, unspecified; J98.2 Interstitial emphysema; D50.0 Iron deficiency anemia secondary to blood loss (chronic)
CPT/HCPCS: 31500; 31622; 36415; 36556; 36569; 36600; 71045; 71250; 74018; 74176; 74470; 76700; 76705; 76937; 77001; 80048; 80053; 80061; 80202; 81001; 82150; 82248; 82550; 82553; 82728; 82805; 82948; 83036; 83605; 83690; 83735; 83880; 84100; 84145; 84155; 84443; 84484; 85007; 85025; 85027; 85379; 85610; 85730; 86140; 86677; 86705; 86706; 86708; 86803; 86850; 86900; 86920; 87040; 87070; 87071; 87086; 87186; 87205; 87340; 87635; 90962; 93005; 93306; 94002; 94003; 94640; 99251; 99284; C1769; J0171; J0330; J0360; J0456; J0461; J0692; J0696; J1450; J1644; J1650; J1817; J1940; J2001; J2020; J2248; J2250; J2405; J2765; J2920; J3010; J3370; J7030; J7040; J7050; J7070; J7121; J7799; P9016; P9017; P9047; Q0162